=== PATIENT | female | born 1935 | race Caucasian/White ===

== ENCOUNTER 2017-02-25 09:49 | Emergency (ER) | payer MEDICARE ==
[2017-02-25] MEDS ORDERED: Cephalexin 500 MG CAP ONE (10:42)
--- NOTE | 2017-02-25 10:52 | RAD ---
3 VIEWS RIGHT INDEX FINGER: Date: 02/25/17 INDICATION: Painful, swollen right index finger. COMPARISON: None. FINDINGS: There are well-formed soft tissue calcifications seen volar to the right index finger distal phalanx , DIP joint, and distal middle phalanx, consistent with periarticular soft tissue calcifications. No acute fracture is evident. There is soft tissue swelling of the distal aspect of the right index fi nger. IMPRESSION: 1. Periarticular soft tissue calcifications of the right index finger is nonspecific and can be rel ated to foreign body reaction, gout, connective tissue disorder, or prior soft tissue injury. 2. No acute fracture demonstrated. POS: [facility]
--- OUTSIDE RECORDS SUMMARY | 2017-02-27 04:30 | XMS | Clinical Summary ---
:1935 Author Organization [facility] Address [address] [place] [address] Phone Care Team Providers Name Role Phone , Primary Care Provider Unavailable Allergies Not on File Current Medications Not on file Active Problems Not on file Social History Tobacco Use Types Packs/Day Years Used Date Never Assessed Sex Assigned at Date Recorded Not on file Last Filed Vital Signs Not on file Plan of Treatment Not on file Results Not on filefrom Last 3 Months
== END 2017-02-25 10:55 | disposition home or self-care (01) ==
LOC: SCSER 09:49
DX: L03.011 Cellulitis of right finger (principal); M61.9 Calcification and ossification of muscle, unspecified; I25.10 Atherosclerotic heart disease of native coronary artery without angina pectoris; E78.5 Hyperlipidemia, unspecified; I10 Essential (primary) hypertension

== ENCOUNTER 2017-03-24 12:35 | Outpatient (CLI) | payer MEDICARE ==
[2017-03-24 14:04] LABS: Prothrombin Time 26.1 SEC (12.0-14.7)
[2017-03-24 14:14] LABS: Anion Gap 13 mmol/L (10-20); BUN (Urea Nitrogen) 17 mg/dL (9.8-20.1); Calc. Creatinine Clearance 0 mL/min (70-130); Calcium 8.8 mg/dL (7.8-10.44); Carbon Dioxide 27 mmol/L (23-31); Chloride 103 mmol/L (98-107); Estimated GFR-MDRD 76
--- NOTE | 2017-03-24 14:36 | RAD ---
CHEST PA AND LATERAL TWO VIEWS: History: 74-year-old female with pre-operative evaluation. FINDINGS: Post underlying sternotomy and aortic valvular replacement changes. Atherosclerosis of the aorta with ectasia. Old granulomatous disease. Mild cardiomegaly. Old appearing vertical height loss of one of the lower thoracic vertebral bodies approximately T12. No confluent pneumonia, overt edema, or pleura l effusion. Biapical pleural thickening. IMPRESSION: Stable chronic lung changes. No acute intrathoracic disease. Post underlying sternotomy and aortic va lve replacement. Atherosclerosis of the aorta with ectasia. POS: [facility]
[2017-03-24 15:36] LABS: Bilirubin Negative (Negative); Blood, Urine Negative (Negative); Glucose, Urine (Dipstick) Negative (Negative); Ketone, Urine Negative (Negative); Nitrite Negative (Negative); Protein, Urine (Dipstick) Negative (Neg-Trace); Urobilinogen 0.2 mg/dL (0.2-1.0)
[2017-03-24 15:40] LABS: Bacteria/HPF None Seen HPF (None Seen); Hyaline Casts/LPF 0-3 HYALINE CAST LPF (0-3 Hyaline); RBC/HPF 0-3 HPF (0-3); Squamous Epithelial None Seen HPF (0-3); WBC/HPF None Seen HPF (0-3)
== END 2017-03-24 12:36 | disposition home or self-care (01) ==
LOC: LABBT 12:35
PROVIDERS: ATTEND Orthopaedic Surgery Hand Surgery
DX: Z01.818 Encounter for other preprocedural examination (principal); E83.59 Other disorders of calcium metabolism; I70.0 Atherosclerosis of aorta; I77.819 Aortic ectasia, unspecified site; Z88.5 Allergy status to narcotic agent; Z98.890 Other specified postprocedural states; Z95.2 Presence of prosthetic heart valve
CPT/HCPCS: 71020; 80048; 81001; 85610; 93005; 93010

== ENCOUNTER 2017-04-08 06:44 | Day surgery (SDC) | payer MEDICARE ==
[2017-03-24 12:02] VITALS: BMI 23.9
[2017-04-08] MEDS ORDERED: CEFAZOLIN/Water 2 GM/20 ML SYRINGE ONE (07:18)
[2017-04-08 07:47] LABS: PTT 27.8 SEC (22.9-36.1); Prothrombin Time 15.2 SEC (12.0-14.7)
[2017-04-08] MEDS ORDERED: Fentanyl 100 MCG/2 ML VIAL ONE (08:28)
[2017-04-08] MEDS ORDERED: Dexamethasone 20 MG/5 ML VIAL ONE (08:33)
[2017-04-08] MEDS ORDERED: Bupivacaine PF 0.5% 30 ML VIAL ONE (08:33)
[2017-04-08] MEDS ORDERED: Bacitracin Zinc Ointment 30 gm TUBE ONE (08:33)
[2017-04-08] MEDS ORDERED: Betamet Acet/Betamet Na Ph 30 MG/5 ML VIAL ONE (09:15)
[2017-04-08] MEDS ORDERED: Sodium Chloride 0.9% 10 ML ONE (09:15)
--- NOTE | 2017-04-08 11:28 | RAD ---
TWO VIEWS RIGHT INDEX FINGER: Date: 04-08-17 Comparison: 02-25-17 History: Evaluate right index finger following removal of foreign body. FINDINGS: There is no acute fracture or evidence of dislocation seen. There is post-operative gas anterior to t he right second middle phalanx, distal interphalangeal joint, and proximal interphalangeal joint. The lobulated calcific mass along the volar aspect of the index finger in this region has been removed. IMPRESSION: Interval removal of calcified lobulated soft tissue mass as above. POS: [facility]
--- NOTE | 2017-04-08 14:36 | OP ---
DATE OF PROCEDURE: 04/08/2017 PREOPERATIVE DIAGNOSIS: Tumor calcinosis right index finger, distal phalanx, middle finger. POSTOPERATIVE DIAGNOSIS: Tumor calcinosis right index finger, distal phalanx, middle finger with the mass being found to be 4 cm long, 2 cm wide, 15 mm thick involving the entire distal phalanx kishore sing the ulnar branch of digital nerve and then extending approximately 1 cm proximal to the distal i nterphalangeal joint involving the tendon sheath as well. PROCEDURE PERFORMED: 1. Excisional biopsy mass as described above. 2. Neuroplasty ulnar digital nerve under magnification. 3. Tenosynovectomy flexor digitorum profundus tendon, radical flexor tenosynovectomy. TOURNIQUET TIME: 27 minutes. BLOOD LOSS: 10 mL. SPECIMEN SENT: The mass was sent. Celestone injection to digit before procedure. COMPLICATIONS: None. Other final digital nerve area compressed all three branches at the trifurcati on just proximal and distal to interphalangeal joint. SURGEON: Mo Vásquez M.D. ANESTHESIA: General LMA technique augmented by 12 mL 0.5% Marcaine block, French Anesthesia. DESCRIPTION OF PROCEDURE: After successful general endotracheal anesthesia, a timeout done appropria desiree. French Anesthesia performed intubation, injection was given and the patient had been prepped and draped. Limb was exsanguinated, tourniquet inflated to 250 mmHg pressure. A zigzag incision outlined staying off of the center of the , extending from the distal third of the nail on the ulnar side, crossing in a Edin type fashion and it ended just 1 cm proximal to the PIP joint. We performed a proximal dissection, identified the digital nerve branch and followed it until it got to the trifurcation which was very compressed and it was completely encased in the tumor . We had to then dissect out all 3 branches and one branch was so intimate with the tumor that we st ill left a small amount of the calcium deposit around it to preserve that branch. We then, kimberly g the neuroplasty digital nerve on the ulnar branch. I dissected the tumor free and found it was adriana y adherent to the distal portion of the flexor digitorum profundus on both sides of the flexor tendon s the distal A4 jorge luis. We performed a radical flexor tenosynovectomy and it, and then lif eliazar out the mass, a small amount of fluid escaped. Proximal to the DIP joint there was a small amoun t of tissue calcification that was dissected free, did not have to visualize the other neurovascular bundle. The patient had the tourniquet deflated, the area was irrigated completely with 500 mL normal saline to remove all free calcium pieces and a portable x-ray was taken as well. I saw no calcific bodies o n frontal sagittal view. Once we obtained hemostasis, I placed the 4 mL of Celestone, some on the ne rve, some on the flexor tenosynovium bed and in the central wound. We then closed it with interrupte d 4-0 nylon simple pattern. Bulky dressing was applied. The patient left the operating room without complication.
[2017-04-08] MEDS ORDERED: Ondansetron HCl/PF 4 MG/2 ML Vial ONE (16:39)
[2017-04-08] MEDS ORDERED: Propofol 200 MG/20 ML VIAL ONE (16:39)
[2017-04-08] MEDS ORDERED: Hydrocortisone Sod Succ/PF 100 mg/2 ml Vial ONE (16:39)
[2017-04-08] MEDS ORDERED: Ketorolac Tromethamine 30 MG/ML VIAL ONE (16:39)
[2017-04-08] MEDS ORDERED: Lidocaine 1% PF 5 ML VIAL ONE (16:39)
== END 2017-04-08 12:32 | disposition home or self-care (01) ==
LOC: SDC 06:44
PROVIDERS: ATTEND Orthopaedic Surgery Hand Surgery
PROC: 0LT70ZZ Resection of Right Hand Tendon, Open Approach (ICD-10-PCS; principal; 2017-04-08)
DX: E83.59 Other disorders of calcium metabolism (principal); Z88.5 Allergy status to narcotic agent; Z90.710 Acquired absence of both cervix and uterus; Z95.2 Presence of prosthetic heart valve; Z95.5 Presence of coronary angioplasty implant and graft
CPT/HCPCS: 36415; 36416; 85610; 85730; 88305; A4216; J0702; J1100; J1720; J1885; J2001; J2405; J2704; J3010; J3490; S0020

== ENCOUNTER 2017-07-09 15:28 | Emergency (ER) | payer MEDICARE ==
[2017-07-09 16:19] LABS: INR-International Normal Ratio 2.6; Prothrombin Time 28.7 SEC (12.0-14.7)
--- NOTE | 2017-07-09 16:45 | CT ---
CT BRAIN WITHOUT CONTRAST 07/09/17 HISTORY: Trauma, head injury, fall. Trauma to the back of her head on a wall, headache. No loss of consciousne ss. No numbness, tingling or weakness, gait changes or altered mental status. Patient is on Warfarin. FINDINGS: There is cortical atrophy. Changes of mild chronic small vessel ischemic disease in the periventricul ar white matter. The ventricular size is appropriate and the basilar cisterns patent. No evidence of acute infarct, hemorrhage, midline shift or abnormal extra-axial fluid collections are seen. The bony calvarium is intact. The visualized paranasal sinuses and mastoid air cells are well aerated. There is a left posterior parietal scalp contusion. IMPRESSION: No CT evidence of acute intracranial process. POS: [facility]
== END 2017-07-09 16:42 | disposition home or self-care (01) ==
LOC: SCSER 15:28
DX: S00.83XA Contusion of other part of head, initial encounter (principal); I25.10 Atherosclerotic heart disease of native coronary artery without angina pectoris; E78.5 Hyperlipidemia, unspecified; I10 Essential (primary) hypertension; M19.90 Unspecified osteoarthritis, unspecified site; Z79.899 Other long term (current) drug therapy; Z79.82 Long term (current) use of aspirin; Z79.01 Long term (current) use of anticoagulants; W22.01XA Walked into wall, initial encounter
CPT/HCPCS: 70450; 85610

== ENCOUNTER 2017-07-16 15:37 | Emergency (ER) | payer MEDICARE ==
--- NOTE | 2017-07-16 16:55 | RAD ---
LUMBAR SPINE THREE VIEWS: 07/16/17 HISTORY: Low back pain. FINDINGS: There are five lumbar type vertebrae. Pedicles are intact. Rightward convexed curvature is apparent o n the frontal view. Wedging of the T12 vertebral body results in loss of height anteriorly by approxi mately 10%. Prominent end plate sclerosis. Multilevel osteophytosis. Minimal degenerative spondylolis thesis is present at the L4-5 level. There is prominent calcification in the arterial structures. IMPRESSION: 1. Mild compression L1 vertebral body, age indeterminate. Likely chronic. 2. Lumbar spondylosis. 3. Osteoporosis. 4. Atherosclerosis. POS: [facility]
--- NOTE | 2017-07-16 16:56 | RAD ---
AP PELVIS ONE VIEW: 07/16/17 HISTORY: Fall. Pelvic injury. FINDINGS: Sacral ala and pelvic rings are intact. No displaced fractures are apparent. IMPRESSION: No acute osseous abnormalities are demonstrated. POS: [facility]
== END 2017-07-16 17:25 | disposition home or self-care (01) ==
LOC: SCSER 15:37
DX: S33.5XXA Sprain of ligaments of lumbar spine, initial encounter (principal); M19.90 Unspecified osteoarthritis, unspecified site; E78.5 Hyperlipidemia, unspecified; I10 Essential (primary) hypertension; Z79.01 Long term (current) use of anticoagulants; Z79.899 Other long term (current) drug therapy; Z79.82 Long term (current) use of aspirin; W19.XXXA Unspecified fall, initial encounter
CPT/HCPCS: 72100; 72170

== ENCOUNTER 2018-01-26 10:04 | Outpatient (CLI) | payer MEDICARE | END 2018-01-26 10:05 | disposition home or self-care (01) | LOC: BICMAMMO 10:04 | PROVIDERS: ATTEND Internal Medicine | DX: Z12.31 Encounter for screening mammogram for malignant neoplasm of breast (principal); Z80.3 Family history of malignant neoplasm of breast | CPT/HCPCS: 77063; 77067 ==

== ENCOUNTER 2018-03-09 09:56 | Outpatient (CLI) | payer MEDICARE ==
--- NOTE | 2018-03-09 12:27 | BD ---
DEXA BONE DENSITY EXAM: HISTORY: An 82-year-old postmenopausal female for screening. COMPARISON: None. FINDINGS: Lumbar Spine: BMD (g/cm2) L1 1.129 T-Score: 1.3 L2 1.130 T-Score: 0.9 L3 1.245 T-Score: 1.5 L4 1.470 T-Score: 3.7 L1-L4 1.257 T-Score: 1.9 Femoral Neck: 0.722 T-Score:-1.1 Total Femur: 0.891 T-Score:-0.4 Impression: Osteopenia. The patient has a 10-year WHO fracture risk of a major osteoporotic fracture of 15% and of a hip fracture 3.9%. POS: [facility]
== END 2018-03-09 09:57 | disposition home or self-care (01) ==
LOC: BICMAMMO 09:56
PROVIDERS: ATTEND Internal Medicine Rheumatology
DX: M81.0 Age-related osteoporosis without current pathological fracture (principal); M85.859 Other specified disorders of bone density and structure, unspecified thigh
CPT/HCPCS: 77080

== ENCOUNTER 2018-05-26 13:34 | Inpatient (IN) | payer MEDICARE ==
[2018-05-26 14:03] LABS: #Eosinphils 0.1 thou/uL (0.0-0.7); #Lymphocytes 0.6 thou/uL (1.20-3.40); #Monocytes 0.5 thou/uL (0.11-0.59); #Neutrophils 4.8 thou/uL (1.40-6.50); %Basophils 0.1 % (0.0-1.0); %Eosinophils 1.5 % (0.0-10.0); %Lymphocytes 10.3 % (21.0-51.0); %Monocytes 8.8 % (0.0-10.0); %Neutrophils 79.3 % (42.0-75.0); Hemoglobin 10.5 g/dL (12.0-16.0); Mean Corpuscular HGB CONC 33.2 g/dL (32.0-36.0); Mean Corpuscular Hemoglobin 32.8 pg (27.0-31.0); Mean Corpuscular Volume 98.7 fL (78.0-98.0); Mean Platelet Volume 8.3 fL (7.4-10.4); Platelet Count 104 thou/uL (130-400); RBC Distribution Width 13.1 % (11.5-14.5); Red Blood Cell (RBC) Count 3.21 mill/uL (4.20-5.40); White Blood Cell (WBC) Count 6.1 thou/uL (4.8-10.8)
[2018-05-26 14:04] LABS: INR-International Normal Ratio 1.6; PTT 34.3 SEC (22.9-36.1); Prothrombin Time 19.5 SEC (12.0-14.7)
[2018-05-26 14:18] LABS: ALT (SGPT) 15 U/L (8-55); AST (SGOT) 21 U/L (5-34); Alkaline Phosphatase 45 U/L (40-150); Anion Gap 16 mmol/L (10-20); BUN (Urea Nitrogen) 21 mg/dL (9.8-20.1); Bilirubin, Total 0.8 mg/dL (0.2-1.2); Calc. Creatinine Clearance 0 mL/min (70-130); Calcium 9.7 mg/dL (7.8-10.44); Carbon Dioxide 29 mmol/L (23-31); Chloride 101 mmol/L (98-107); Estimated GFR-MDRD 62; Globulin 3.3 g/dL (2.4-3.5); Glucose 90 mg/dL (83-110); Potassium 3.6 mmol/L (3.5-5.1); Protein, Total 7.3 g/dL (6.0-8.3); Sodium 142 mmol/L (136-145)
[2018-05-26 15:55] LABS: CK (CPK) 50 U/L (29-168); Lipase 18 U/L (8-78)
--- NOTE | 2018-05-26 17:09 | RAD ---
PORTABLE CHEST ONE VIEW: 05/26/18 at 3:06 p.m. HISTORY: Rectal bleeding. Preoperative evaluation. FINDINGS: Comparison is made with exam of 03/24/17. There are changes of median sternotomy. The heart is enlarged. Postop changes of aortic valve replace ment is seen. The lungs are well expanded without focal areas of consolidation, pneumothoraces, lola pulmonary edema or pleural effusions. There is evidence of old granulomatous disease. IMPRESSION: No acute process. POS: [facility]
[2018-05-26] MEDS ORDERED: Senokot S 8.6-50 MG TAB PO PRN (17:42)
[2018-05-26] MEDS ORDERED: Ondansetron ODT 4 MG TAB PO PRN (17:42)
[2018-05-26] MEDS ORDERED: Acetaminophen 650 MG Suppository PR PRN (17:42)
[2018-05-26] MEDS ORDERED: Ondansetron PF 4 MG/2 ML Vial IVP PRN (17:42)
[2018-05-26] MEDS ORDERED: Alendronate Sodium 70 mg Tablet PO SCH (21:30)
[2018-05-26] MEDS: Famotidine 20 MG TAB PO SCH (23:42)
[2018-05-26 23:48] VITALS: BMI 23.6
[2018-05-26] MEDS ORDERED: Rosuvastatin 20 MG TAB PO SCH (23:59)
[2018-05-26] MEDS ORDERED: Ezetimibe 10 MG TAB PO SCH (23:59)
--- NOTE | 2018-05-27 00:16 | HP ---
PRIMARY CARE PHYSICIAN: Sony Gomes MD CHIEF COMPLAINT: Rectal bleeding. HISTORY OF PRESENT ILLNESS: This is an 82-year-old white female with a known history of rectal prolapse who was supposed to get a colonoscopy and then rectal prolapse surgery done next week. She is on anticoagulation, previously Coumadin for paroxysmal atrial fibrillation, last in atrial fibrillation about a year ago when she had a cardioversion. She had some rectal spotting of blood on and off over the last month and then 3 days ago, she was switched from Coumadin to Eliquis. She started to have more significant rectal bleeding, dark red and bright red blood and then clots. This increased over the last 3 days and today she filled up a couple of pads with clots and blood, and so she came into the emergency room. She also had noticed that she starting to feel lightheaded and dizzy, especially when she is to stand up in the emergency room. The patient was noted to have a normal blood pressure and normal pulse. She had bright red blood coming from her rectum. Dr. Almaraz was consulted. He recommended stopping the Eliquis and will see her in the hospital. PAST MEDICAL HISTORY: 1. Coronary artery disease, status post CABG. 2. Paroxysmal atrial fibrillation/atrial flutter, now in sinus rhythm. 3. Hyperlipidemia. 4. Rheumatoid arthritis. 5. Raynaud syndrome. 6. Hypertension. PAST SURGICAL HISTORY: 1. Coronary artery bypass grafting x3 vessels. 2. Coronary stent. 3. Aortic valve replacement with bioprosthetic valve in 2009. 4. Hysterectomy. 5. Tonsillectomy. 6. Varicose vein surgery. 7. Bunion removal x2. SOCIAL HISTORY: The patient drinks a small amount of alcohol daily. No tobacco or illicit drug use. FAMILY HISTORY: No pertinent family medical history. ALLERGIES: 1. CODEINE. 2. MORPHINE OR NARCOTICS. CURRENT MEDICATIONS: The patient did not remember all her current medications. Her is going home to find the updated list. As per the ER chart, she has 1. Eliquis 5 mg daily. 2. Aspirin 81 mg daily. 3. Crestor 10 mg daily. 4. Zetia 10 mg daily. 5. Fosamax 35 mg. 6. Torsemide 10 mg, unknown dosing. REVIEW OF SYSTEMS: CONSTITUTIONAL: No fevers, no chills. She has felt lightheaded and weak, especially with standing. EYES: No new blurred vision or double vision. ENT: No congestion, drainage, or sore throat. The patient has had some intermittent nosebleeds on and off for the past couple of days, these have not been sustained. CARDIOVASCULAR: She has had no anterior chest pain. No palpitations or racing heart. PULMONARY: She has a rare cough that is not new, nonproductive. No shortness of breath or chest tightness. She does have some significant pain in her left posterior rib cage about 2 cm lateral to the spine since a fall a few days ago and that it is painful when she coughs, does not bother her. It is when she takes deep breaths. GASTROINTESTINAL: No abdominal pain. No nausea or vomiting. No diarrhea or constipation. She does have bright red blood per rectum as per HPI and painful rectal prolapse. GENITOURINARY: No dysuria or hematuria. MUSCULOSKELETAL: No muscle aches or joint pains other than the right posterior rib pain. SKIN: No rashes or lesions noted. NEUROLOGIC: No numbness, tingling, or focal weakness. PHYSICAL EXAMINATION: VITAL SIGNS: Blood pressure 143/77, pulse 74, respirations 18, temperature 99, O2 saturation 97% on room air. GENERAL: This is a well-developed, well-nourished white female, in no acute distress. HEENT: Pupils are equal, round, and reactive to light. Palpebral conjunctiva pink. Oropharynx, clear without lesions, erythema, or exudate. NECK: Supple. No lymphadenopathy. No thyroid nodules or enlargement. No JVD. HEART: Regular rate and rhythm. No murmurs, rubs, or gallops. LUNGS: Clear to auscultation bilaterally. No wheezes, crackles, or rhonchi. She does have some point tenderness at posterior left rib cage. This reproduces all pain when I press on it and there is no deformity or bruising noted. ABDOMEN: Soft, nontender to palpation. Normoactive bowel sounds. No hepatosplenomegaly or other masses. EXTREMITIES: No clubbing, cyanosis, or edema. SKIN: No rashes or other lesions noted. NEUROLOGIC: Intact strength and sensation in all extremities. No facial droop. LABORATORY DATA: White blood cell count 6.1, hemoglobin 10.5, which is consistent with her previous checks this past year of 10.9, hematocrit 31.7, platelet count 104, which is actually per her last check in 2018 was 55. Coagulation profile shows a PT of 19.5, INR of 1.6, and a PTT of 34.3. Complete metabolic panel is notable only for BUN of 21. Her brain natriuretic peptide is elevated at 329. Creatine kinase normal, lipase normal. IMAGING: Chest x-ray, I did review the chest x-ray done in the emergency room along with the radiologist's report. There is no acute cardiopulmonary process visualized, has the previous sternotomy wires and aortic valve replacement. There is evidence of old granulomatous disease as well. EKG, I did review the EKG done in the emergency room. It does show sinus rhythm in the 60s with a first-degree AV block, left axis deviation, and some PACs. ASSESSMENT: 1. Lower gastrointestinal bleed, likely secondary to addition of Eliquis and the irritation of the mucosa by the rectal prolapse. It is also possible this is diverticular or from some other lower gastrointestinal lesion. For now, we will type and cross the patient and we will do serial hematocrits on her. Should she if her hematocrits are dropping. It should drop significantly then we can only transfuse her. I am going to get orthostatic blood pressures on her to see if there is any evidence of recent significant blood loss. Dr. Almaraz has already been consulted by the emergency room and will evaluate the patient to see if she needs any surgical intervention. 2. Coronary artery disease. We will resume patient's home medications. We will hold her aspirin for now until the bleeding stops. 3. Paroxysmal atrial fibrillation. The patient is not currently in atrial fibrillation and on previous TEEs they were unable to appreciate an atrial appendage, never had a clot form in her atria. At this point, we can hold her Eliquis. She will likely need reinstitution of anticoagulation possibly back with Coumadin after the resolution of this acute process versus discontinuing anticoagulation altogether. I will go ahead and consult the bird tender to evaluate whether it is necessary for us to continue anticoagulation at all. 4. Thrombocytopenia. This has actually been significantly worse over the past year. It is actually not bad right now. She is not requiring platelet transfusions at this point. 5. Hypertension. Resume the patient's home medications. 6. Gastrointestinal prophylaxis. I will put the patient on Protonix daily. I am not going to do a Protonix drip at this time as this does not appear to be an upper GI bleed. 7. Deep venous thrombosis prophylaxis, put the patient on SCDs while in bed. 8. Code status. I did discuss this with the patient. She is a full code. Should she be incapacitated, her would be her medical decision maker. His name is Burke Mathews. Job ID: [id number]
[2018-05-27 07:19] LABS: #Eosinphils 0.1 thou/uL (0.0-0.7); #Lymphocytes 0.8 thou/uL (1.20-3.40); #Monocytes 0.4 thou/uL (0.11-0.59); #Neutrophils 2.5 thou/uL (1.40-6.50); %Eosinophils 2.3 % (0.0-10.0); %Lymphocytes 21.2 % (21.0-51.0); %Monocytes 10.6 % (0.0-10.0); %Neutrophils 65.9 % (42.0-75.0); Hemoglobin 9.6 g/dL (12.0-16.0); Mean Corpuscular HGB CONC 32.6 g/dL (32.0-36.0); Mean Corpuscular Hemoglobin 32.3 pg (27.0-31.0); Mean Corpuscular Volume 99.2 fL (78.0-98.0); Mean Platelet Volume 8.7 fL (7.4-10.4); Platelet Count 89 thou/uL (130-400); Red Blood Cell (RBC) Count 2.98 mill/uL (4.20-5.40); White Blood Cell (WBC) Count 3.8 thou/uL (4.8-10.8)
[2018-05-27 07:30] LABS: Anion Gap 11 mmol/L (10-20); BUN (Urea Nitrogen) 20 mg/dL (9.8-20.1); Calc. Creatinine Clearance 59 mL/min (70-130); Calcium 8.7 mg/dL (7.8-10.44); Carbon Dioxide 27 mmol/L (23-31); Chloride 106 mmol/L (98-107); Estimated GFR-MDRD 75; Glucose 86 mg/dL (83-110); Potassium 3.1 mmol/L (3.5-5.1); Sodium 141 mmol/L (136-145)
[2018-05-27] MEDS ORDERED: Potassium Chloride 20 MEQ TAB PO SCH (08:15)
--- NOTE | 2018-05-27 08:15 | PDOC.PN ---
- Subjective Encounter Start Date: 05/27/18 Encounter Start Time: 10:20 Subjective: Patient with no more rectal bleeding overnight. No more weakness/ -: dizziness on standing. No CP/SOB. - Objective Resuscitation Status - Order Detail: 05/26/18 17:08 Resuscitation Status Routine Resuscitation Status: FULL: Full Resuscitation Discussed with: Patient EKTA Reviewed: Yes Vital Signs & Weight: Vital Signs (12 hours) Temp Pulse Resp BP BP BP Pulse Ox 05/27/18 05:47 88 129/64 05/27/18 05:46 88 134/69 05/27/18 05:45 98.3 F 84 16 124/61 05/27/18 02:26 82 130/64 05/27/18 02:25 81 122/66 05/27/18 02:24 78 116/58 L 05/27/18 00:10 98.6 F 78 16 118/60 94 L Weight Weight 142 lb Result Diagrams: 05/27/18 12:11 05/27/18 06:32 Phys Exam - Physical Examination Constitutional: NAD HEENT: moist MMs Respiratory: no wheezing, no rales, no rhonchi Cardiovascular: RRR, no significant murmur Gastrointestinal: soft Musculoskeletal: no edema Neurological: non-focal, moves all 4 limbs Psychiatric: normal affect, A&O x 3 Dx/Plan (1) Rectal prolapse Code(s): K62.3 - RECTAL PROLAPSE Status: Acute (2) Lower GI bleed Code(s): K92.2 - GASTROINTESTINAL HEMORRHAGE, UNSPECIFIED Status: Resolved Comment: minimal drop in H/H (3) CAD (coronary artery disease) Code(s): I25.10 - ATHSCL HEART DISEASE OF [place] CORONARY ARTERY W/O ANG PCTRS Status: Chronic Comment: s/p previous CABG (4) Paroxysmal atrial fibrillation Code(s): I48.0 - PAROXYSMAL ATRIAL FIBRILLATION Status: Chronic Comment: in sinus rhythm, holding anticoagulation for now, cardiology consult for possible halt of future anticoagulation (5) Thrombocytopenia Code(s): D69.6 - THROMBOCYTOPENIA, UNSPECIFIED Status: Chronic (6) Hypertension Code(s): I10 - ESSENTIAL (PRIMARY) HYPERTENSION Status: Chronic Comment: will resume home medications when BP tolerates, currently running low normal (7) Hyperlipidemia Code(s): E78.5 - HYPERLIPIDEMIA, UNSPECIFIED Status: Chronic Comment: on statin (8) Rheumatoid arthritis Code(s): M06.9 - RHEUMATOID ARTHRITIS, UNSPECIFIED Status: Chronic - Plan cont current plan of care, PT/OT, DVT proph w/SCDs No further bleeding with holding Elliquis. H/H stable. Will await -: Chun toth concerning safety of no anticoagulation. If ok to go -: with no anticoag or with just aspirin, can likely d/c. F/u for previously -: scheduled colonoscopy next Friday and Rectal surgery next Friday. * . - Discharge Day Encounter end time: 10:30
[2018-05-27] MEDS ORDERED: Ezetimibe 10 MG TAB PO SCH ×2 (09:00→21:00)
[2018-05-27] MEDS: Cyanocobalamin (Vitamin B-12) 1,000 MCG TAB PO SCH (09:25)
[2018-05-27] MEDS: Acetaminophen 325 MG TAB PO PRN ×3 (09:28→19:43)
[2018-05-27] MEDS: Folic Acid 1 MG TAB PO SCH (09:29)
[2018-05-27] MEDS: predniSONE 5 MG TAB PO SCH (09:29)
[2018-05-27] MEDS: Famotidine 20 MG TAB PO SCH ×2 (09:29→21:12)
[2018-05-27] MEDS: Ascorbic Acid 500 mg Chewable Tablet PO SCH (09:29)
[2018-05-27] MEDS: DULoxetine 60 MG CAP PO SCH (09:30)
[2018-05-27] MEDS: Vitamin E 400 UNITS CAP PO SCH (09:31)
[2018-05-27] MEDS: Pantoprazole 40 MG VIAL IVP SCH (09:31)
[2018-05-27] MEDS: Citrucel 500 MG TAB PO SCH (09:32)
[2018-05-27] MEDS: Folic Acid/Vit B Comp W-C PO SCH (09:32)
[2018-05-27] MEDS: Fish Oil 1,000 MG CAP PO SCH (09:32)
--- NOTE | 2018-05-27 16:41 | CON ---
DATE OF CONSULTATION: 05/27/2018 CONSULTING PHYSICIAN: Dr. Sreedhar Rogers. REASON FOR CONSULTATION: Rectal prolapse. HISTORY OF PRESENT ILLNESS: The patient is an 82-year-old white female. I saw her on June 23 for evaluation of a possible hemorrhoid. She gave a history of mass at her anus that would occur when she would stand. Evaluation at that time revealed that she had a significant full-thickness rectal prolapse. She had no dominant palpable irregularity within her rectum. She had very lax anal sphincter tone. She also gave a history of significant fecal incontinence. At that time, a cardiac clearance was requested for graduating machine operator, Dr. Mccollum. She has a history of heart valve replacement in 2009. She is on chronic anticoagulation for this. Additionally, I had requested a followup colonoscopy as it has been over 10 years since her last colonoscopy. This was going to be coordinated with her diecast machine operator, Dr. Perry, to be done the day prior to her surgery. Her laparoscopic low anterior resection was tentatively scheduled for this upcoming June 02. She still has not had her preop cardiac clearance. Apparently, yesterday, when conversing with the graduating machine operator's office, she notified them that she had been having substantial bloody bowel movements. For this reason, recommendation was given that she be seen in emergency room. She gave a history of approximately four bloody bowel movements over the prior 24 hours and in light of her ongoing anticoagulation, admission was recommended. She was admitted to the hospitalist service. Her hemoglobin at the time of admission yesterday was 10.5. After gentle hydration, her hemoglobin this morning is 9.6. She notes that she does not have rectal prolapse unless she stands and she notes that she typically has bleeding after bowel movements, although occasionally, she will have bleeding when she has not had a bowel movement. It is noted that she has recently switched from Coumadin to Eliquis for her anticoagulant. She denies any other symptoms such as abdominal or rectal pain. It is noted that she gave no history of blood per rectum when I saw her in the office in April. PAST MEDICAL HISTORY: History of atrial fibrillation, arthritis, varicose veins, depression, and hyperlipidemia. PAST SURGICAL HISTORY: Tonsillectomy, varicose vein surgery, hysterectomy at 39 years of age, heart valve replacement in 2009. I am uncertain if her heart valve was a tissue valve or a mechanical valve. ALLERGIES: CODEINE. MEDICATIONS: Include; 1. Crestor. 2. Zetia. 3. Aspirin. 4. Fosamax. 5. Cymbalta. 6. Prednisone. 7. Orencia. 8. Lexapro. 9. Torsemide. 10. Series of [id number] supplements. PERSONAL AND SOCIAL HISTORY: She is . She denies tobacco or alcohol use. REVIEW OF SYSTEMS: Otherwise unremarkable. FAMILY HISTORY: Noncontributory. PHYSICAL EXAMINATION: VITAL SIGNS: She is afebrile. Pulse is 76 and blood pressure is 138/65. During her hospitalization, so far, she has not been tachycardic nor hypotensive. CHEST: Clear to auscultation. CARDIAC: Regular rate and rhythm. ABDOMEN: Soft, nontender, and nondistended. RECTAL: Reveals a lax sphincter tone with no palpable abnormality. EXTREMITIES: Unremarkable. ASSESSMENT: The patient with full-thickness rectal prolapse that is very uncomfortable for the patient as well as contributory toward her severe incontinence. I have recommended laparoscopic low anterior resection with a sacral rectopexy. I discussed the operation in detail with the patient and she desires to proceed. Prior to proceeding, I had recommended colonoscopy as well as cardiac clearance. Neither of these have been performed yet. I have consulted Dr. Dominguez today to consider colonoscopy while she is here in the hospital. Typically, the patients with rectal prolapse do not have rectal bleeding, but there could be an abnormality associated with her prolapse that is bleeding secondary to her anticoagulation. This will need to be evaluated and a colonoscopy will be requested during this hospitalization. Additionally, I have contacted Dr. Mccollum to see what we can do about facilitating her cardiac clearance to make sure that she is an appropriate candidate, who does not require further modification prior to proceeding with her surgery. Depending upon these two consultants, she may be able to be discharged and brought back for surgery on Friday (June 02). Job ID: [id number]
[2018-05-27] MEDS ORDERED: Rosuvastatin 20 MG TAB PO SCH (21:00)
--- NOTE | 2018-05-27 22:12 | CON ---
DATE OF CONSULTATION: REASON FOR CONSULT: Rectal bleeding. HISTORY OF PRESENT ILLNESS: Ms. Mathews is an 82-year-old patient of Dr. Padilla, my partner, who has recently been seen in the office for fecal incontinence. It seems that she was referred to Colorectal Surgery in [place], had some studies done showing complete fecal incontinence and she was getting some biofeedback treatment. Recently, there were issues with rectal prolapse. It seems that Dr. Almaraz is unclear where that referral originated from, but she was scheduled in any event as an outpatient to have a colonoscopy next Friday and then a resection of the prolapsing tissue and sigmoidopexy the following Friday. The patient had a fall about a week or two ago when trying to go to the bathroom. She does note that since that time she has gotten shortness of breath, but has no chest pain. She denies any previous episodes of syncope. She came to the emergency room yesterday afternoon at 1616 hours with complaints of rectal bleeding and bright red painless. Apparently, she has a history of aortic valve replacement in the past. She has seen Dr. Mccollum last week, was taken off Coumadin and put on Eliquis. There were plans for outpatient stress testing and echocardiogram before clearance for surgery. Her bleeding prompted her to feel weak and come to the emergency room. Her hemoglobin was 10.5 on 05/26; it had been 10.9 on 2017, today it is 9.6. She has had no further bleeding since admission. Her Eliquis was held yesterday. Presently, she had an echocardiogram this morning, the results that are pending. She is waiting for Dr. Mccollum, her lead mobile developer to come by and see her. She was apparently on a clear liquid diet earlier today, but now is on a regular diet. Presently, she has no melena, hematochezia, or hematemesis. Medications are Tylenol, vitamin C, calciferol, vitamin B, Cymbalta, Zetia, Pepcid, fish oil, Zofran, Protonix, prednisone, Crestor, Senokot, vitamin E. PAST MEDICAL HISTORY: 1. Coronary artery disease, previous CABG. 2. Paroxysmal atrial fibrillation/flutter, now in sinus rhythm. 3. Hyperlipidemia. 4. Rheumatoid arthritis. 5. Nausea. 6. Hypertension. 7. Prior history of aortic valve replacement in 2009. PAST SURGICAL HISTORY: CABG, coronary valve replacement, coronary stents, hysterectomy, tonsillectomy, varicose vein surgery, bunionectomy. SOCIAL HISTORY: Occasional alcohol. No drugs or tobacco. ALLERGIES: CODEINE AND MORPHINE. HOME MEDICATIONS: 1. Eliquis. 2. Aspirin. 3. Crestor. 4. Zetia. 5. Flomax. 6. Torsemide. REVIEW OF SYSTEMS: Fall about a week or two ago when she was trying to go to the bathroom. No history of palpitations. No history of shortness of breath, dyspnea on exertion, or chest pain. No prior melena. Last colonoscopy was about 10 years ago. PHYSICAL EXAMINATION: VITAL SIGNS: Temperature 99.4, 98.6 earlier; blood pressure 149/75; pulse 77. NECK: Supple. LUNGS: Clear. HEART: Regular rate and rhythm. There is 2 to 3/6 systolic ejection murmur consistent with history of aortic stenosis or previous aortic valve placement. ABDOMEN: Soft, nontender. No palpable hepatosplenomegaly. Ribs are nontender. EXTREMITIES: No clubbing, cyanosis, or edema. NEURO: She is alert and oriented to person, place, and time. LABORATORY STUDIES: White count 3.8, platelet count 89,000, hemoglobin 9.6, baseline was 9.9 on 10/13/2017, it was 10.5 yesterday. INR was 1.6 on the . Electrolytes normal with BUN and creatinine of 20 and 0.7, potassium was 3.1 on admission, sodium 141. Liver function tests normal yesterday. BNP 329 on 05/26. Ferritin in December was 623, TIBC in January was 363, iron in January was 62. B12 was greater than 2000. Chest x-ray was done on admission, no acute processes. ASSESSMENT: 1. Rectal bleeding, likely outlet related to her prolapse, although she has not had a colonoscopy in 10 years and one was scheduled as an outpatient before her colonic surgery. I agree that this is going to be performed. She has no signs of acute hemorrhage here today. We can perform that while she is here in the hospital, although she is reluctant to proceed unless she knows she is going to get just one bowel prep with her colonoscopy followed by the colon surgery. At this time, I told her I am not sure we can promise her that, but that it would be reasonable to proceed with her colonoscopy while she is here. Unfortunately, she has a significant murmur on her chest and she states that the medical technologist hematology told her aortic valve is narrowing. In light of the fact that she may have some aortic stenosis. I think we need to see what her lead mobile developer has to say before proceeding with any invasive procedures. 2. 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 3. History of rectal prolapse. PLAN: We will await cardiac evaluation and proceed from there. Job ID: [id number]
--- NOTE | 2018-05-28 00:45 | CON ---
DATE OF CONSULTATION: HISTORY OF PRESENT ILLNESS: Rosaura Mathews is an 82-year-old white female, initially evaluated in February 2008 after she moved from [place] and wished further cardiac followup. In July 2006, she underwent cardiac catheterization in [place]. This revealed diffuse noncritical LAD disease, which was a small vessel. There was a 50% mid circumflex, 90% proximal RCA stenosis. She was also found to have minimal aortic stenosis with gradient as high as 31 mm on pullback. She underwent repeat catheterization and stent placement at [facility] on August 04, 2006. Repeat pullback pressure across the aortic valve was 5 mm. Taxus 2.5 x 8 mm stent was placed in the proximal right coronary artery and deployed at 12 atmospheres. In September 2007, she was having problems with fatigue and underwent repeat catheterization; however, I never was able to obtain a copy of that catheterization. When she was seen in February 2008, she complained of fatigue, some exertional dyspnea after walking one block. She denied any chest, arm, neck or jaw discomfort. Occasionally, she would have leg edema. She denied any lightheadedness, dizziness or syncope. Echo in February 2008 revealed ejection fraction of 50% to 55% with mild mitral regurgitation, hodzexxf-ii-srcrxf aortic regurgitation, hxdkcvvh-ry-yhaxgl aortic stenosis with a peak gradient of 51 mm, mean gradient of 30 mm, and moderate pulmonic insufficiency. In April 2008, she underwent adenosine Cardiolite testing because of the atypical resting chest discomfort. The test was normal without evidence of ischemia or fixed defect. Due to an LDL of 97, Crestor was increased to 10 mg. In August 2008, her LDL was 74 and Crestor was increased to 40 mg. Echo in December 2007 revealed an ejection fraction of 50% to 55% with mild mitral regurgitation, gziusagf-ru-kbcmkj aortic regurgitation, severe aortic stenosis with a peak gradient of 58 mm, mean gradient of 35 mm, fytnztnl-zz-prwzyt tricuspid regurgitation, moderate pulmonic regurgitation. She continued to be asymptomatic. In November 2009, she complained of dyspnea on exertion after walking 1/2 block, but no other chest discomfort or syncope. She also complained of varicose veins since the age of 23 with some pain in the right foot and wore compression stockings for 10 years. Lower extremity venous duplex revealed significant reflux in the right GSV from the saphenofemoral junction to below the knee, there was significant reflux. In her left leg, there was significant reflux of the left common femoral vein and the GSV from the saphenofemoral junction to below the knee. There was also a significant reflux in the left small saphenous vein. In December 2009, she again complained of dyspnea on exertion after walking 1/2 block, but denied any PND. She had episodes where she would feel like she would pass out when she would stand up. She then underwent catheterization in December 2009. Left ventriculogram revealed mild inferior and anterior hypokinesis with ejection fraction of 40% to 45% and mild mitral regurgitation. There was moderate aortic insufficiency. The mean aortic valve gradient was 55 mm and aortic valve area of 0.51 cm2. There was a proximal 60% LAD stenosis, 60% distal LAD stenosis and a 70% stenosis and a small second diagonal. The circumflex had 60% mid stenosis and 60% distal stenosis. There was a 50% lesion in the first obtuse marginal and 50% in the second obtuse marginal. The right coronary artery was totally occluded at the ostium. This was in site at the Taxus 2.5 x 12 mm stent placed in August 2006. The distal right coronary filled retrograde from the left. She then underwent aortic valve replacement with a 21-mm Dong Magna pericardial bioprosthesis and CABG x3 with GÓMEZ to the LAD, saphenous vein graft to the first obtuse marginal, and saphenous vein graft to the second obtuse marginal. She was slow to rehab. She also had postop atrial fibrillation and converted to sinus with amiodarone. In June 2015, she was found to be in atrial fibrillation. She was placed on Multaq and warfarin and eventually underwent transesophageal echo. This revealed the absence of left atrial appendage and no intracardiac thrombus. She was noted to have a regular rhythm and EKG revealed PAT with 2:1 block. She then had atrial fibrillation. With 200 joules, she was converted to sinus rhythm. However, in reviewing the operative report, there was no mention of tying off the left atrial appendage. Her atrial fibrillation occurred in October 2015. Also, at times, she had flutter and underwent flutter ablation in October 2016. She then underwent AFib ablation in January 2017. In June 2017, she was back in atrial fibrillation. In August 2017, she went another ablation, and since then, is appeared to be in normal sinus rhythm. She is maintained on warfarin; however, due to need for frequent blood checks, she opted to transition to Eliquis. Warfarin was held for four days and then she started Eliquis. After 1 or 2 doses, started to have rectal bleeding from her rectal prolapse. She has had bleeding from this previously. She denies any chest discomfort, shortness of breath, PND, orthopnea or leg edema. PAST MEDICAL HISTORY: 1. Hypercholesterolemia. 2. Paroxysmal atrial fibrillation with multiple ablations. 3. Status post CABG x3 and aortic valve replacement with a bioprosthetic valve. 4. History of bradycardia. 5. Hypercholesterolemia. 6. Venous insufficiency. PAST SURGICAL HISTORY: Tonsillectomy, hysterectomy, removal of varicose veins twice, bunionectomy, CABG, and aortic valve replacement. MEDICATIONS: At home include, 1. . 2. Fosamax 70 mg weekly. 3. Eliquis 5 mg b.i.d. 4. Aspirin 81 daily. 5. Biotin 5000 mcg daily. 6. Zetia 5 mg daily. 7. Folic acid 1 mg daily. 8. Potassium chloride 10 mEq daily. 9. Prednisone 5 mg q.a.m. 10. Rosuvastatin 40 mg daily. 11. Torsemide 10 mg daily. ALLERGIES: CODEINE, MORPHINE, AND NARCOTICS. SOCIAL HISTORY: She does not smoke. She has an occasional glass of wine. She is . 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 FAMILY HISTORY: Father had strokes, but did not have any cardiac problems. No family history of coronary artery disease. REVIEW OF SYSTEMS: A 12-point review of systems is otherwise unremarkable. PHYSICAL EXAMINATION: VITAL SIGNS: Blood pressure 104/56 and pulse of 68. HEENT: PERRL. NECK: Supple. CHEST: Clear. CARDIAC: S1 and S2 normal without any S3 or S4. There is a 2/6 systolic ejection murmur in the upper sternal border on both the left and right. ABDOMEN: Normal bowel sounds without tenderness or organomegaly. EXTREMITIES: No clubbing, cyanosis or edema. NEUROLOGICAL: Grossly intact. SKIN: Warm and dry. LABORATORY DATA: EKG reveals sinus rhythm with premature atrial beats and first-degree AV block, poor R-wave progression. Hemoglobin 9.6, hematocrit 29.5, white count 3800, and platelets 89,000. INR 1.6. Sodium 141, potassium 3.1, chloride 106, carbon dioxide 27, BUN 20, and creatinine 0.74. BNP 329.4. One month ago, LDL was 71. IMPRESSION: 1. Rectal prolapse with rectal bleed. 2. Status post coronary artery bypass disease x3 and bioprosthetic aortic valve replacement in 2009. 3. Paroxysmal atrial fibrillation with multiple ablation and cardioversions. At present time, she appears to be maintaining sinus rhythm. Last ablation was in August. 4. Hypercholesterolemia. 5. 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 PLAN: The patient will undergo echocardiography to reassess her aortic valve prosthesis and the left ventricular function. Adenosine Cardiolite testing will also be performed. At the present time, I would keep her off anticoagulation with this degree of bleeding until after her prolapse surgery has been performed. Job ID: [id number]
--- NOTE | 2018-05-28 08:22 | PDOC.PN ---
- Subjective Encounter Start Date: 05/28/18 Encounter Start Time: 12:00 Subjective: Patient without further bleeding. Just go back from stress test. -: No CP/SOB. - Objective Resuscitation Status - Order Detail: 05/26/18 17:08 Resuscitation Status Routine Resuscitation Status: FULL: Full Resuscitation Discussed with: Eugenio DASH Reviewed: Yes Vital Signs & Weight: Vital Signs (12 hours) Temp Pulse Resp BP BP BP BP 05/28/18 07:59 98.3 F 73 20 154/68 H 05/27/18 21:26 79 139/67 05/27/18 21:25 81 155/70 H 05/27/18 21:24 77 139/64 Pulse Ox 05/28/18 07:59 95 05/27/18 21:26 05/27/18 21:25 05/27/18 21:24 Weight Weight 142 lb Result Diagrams: 05/28/18 13:04 05/28/18 13:04 Phys Exam - Physical Examination Constitutional: NAD HEENT: moist MMs Respiratory: no wheezing, no rales, no rhonchi Cardiovascular: RRR 3/6 systolic murmur Gastrointestinal: soft, non-tender, positive bowel sounds Neurological: non-focal, moves all 4 limbs Psychiatric: normal affect, A&O x 3 Dx/Plan (1) Rectal prolapse Code(s): K62.3 - RECTAL PROLAPSE Status: Acute (2) Lower GI bleed Code(s): K92.2 - GASTROINTESTINAL HEMORRHAGE, UNSPECIFIED Status: Resolved Comment: minimal drop in H/H (3) CAD (coronary artery disease) Code(s): I25.10 - ATHSCL HEART DISEASE OF [place] CORONARY ARTERY W/O ANG PCTRS Status: Chronic Comment: s/p previous CABG (4) Paroxysmal atrial fibrillation Code(s): I48.0 - PAROXYSMAL ATRIAL FIBRILLATION Status: Chronic Comment: in sinus rhythm, holding anticoagulation for now, cardiology consult for possible halt of future anticoagulation (5) Thrombocytopenia Code(s): D69.6 - THROMBOCYTOPENIA, UNSPECIFIED Status: Chronic (6) Hypertension Code(s): I10 - ESSENTIAL (PRIMARY) HYPERTENSION Status: Chronic Comment: BP up and home meds restarted (7) Hyperlipidemia Code(s): E78.5 - HYPERLIPIDEMIA, UNSPECIFIED Status: Chronic Comment: on statin (8) Rheumatoid arthritis Code(s): M06.9 - RHEUMATOID ARTHRITIS, UNSPECIFIED Status: Chronic (9) S/P aortic valve replacement with bioprosthetic valve Code(s): Z95.3 - PRESENCE OF XENOGENIC HEART VALVE Status: Chronic Comment: in 2009 - Plan cont current plan of care, PT/OT, DVT proph w/SCDs ECHO and stress test per Dr. Mccollum. Once cleared for surgery will need -: colonoscopy and then rectal prolapse surgery. Plan is to keep original -: schedule for next week. Can d/c home once ok with Dr. Mccollum and -: other consultants. * . - Discharge Day Encounter end time: 12:10
[2018-05-28] MEDS: Acetaminophen 325 MG TAB PO PRN (12:16)
[2018-05-28] MEDS: predniSONE 5 MG TAB PO SCH (12:18)
--- NOTE | 2018-05-28 12:27 | NM ---
RADIONUCLIDE STRESS REST MYOCARDIAL PERFUSION WITH CT ATTENUATION CORRECTION AND SPECT IMAGING LEFT VENTRICULAR WALL MOTION EVALUATION AND EJECTION FRACTION: HISTORY: Vascular disease. Stent placement. Dyslipidemia. FINDINGS: Adenosine protocol. Homogeneous uptake of radiotracer throughout the left ventricular myocardium. N o focal perfusion defect or reversibility. QGS analysis of gated SPECT images shows no focal wall mo tion abnormalities. Ejection fraction calculated at 55%. IMPRESSION: Normal myocardial perfusion scan. Normal left ventricular ejection fraction. POS: JOEL
[2018-05-28] MEDS: Ascorbic Acid 500 mg Chewable Tablet PO SCH (12:41)
[2018-05-28] MEDS: Citrucel 500 MG TAB PO SCH (12:41)
[2018-05-28] MEDS: Folic Acid 1 MG TAB PO SCH (12:42)
[2018-05-28] MEDS: Cyanocobalamin (Vitamin B-12) 1,000 MCG TAB PO SCH (12:42)
[2018-05-28] MEDS: Fish Oil 1,000 MG CAP PO SCH (12:42)
[2018-05-28] MEDS: DULoxetine 60 MG CAP PO SCH (12:42)
[2018-05-28] MEDS: Folic Acid/Vit B Comp W-C PO SCH (12:42)
[2018-05-28] MEDS: Famotidine 20 MG TAB PO SCH (12:42)
[2018-05-28] MEDS: Pantoprazole 40 MG VIAL IVP SCH (12:43)
[2018-05-28] MEDS: Vitamin E 400 UNITS CAP PO SCH (12:43)
[2018-05-28 13:14] LABS: #Eosinphils 0.1 thou/uL (0.0-0.7); #Lymphocytes 0.8 thou/uL (1.20-3.40); #Monocytes 0.3 thou/uL (0.11-0.59); #Neutrophils 4.5 thou/uL (1.40-6.50); %Basophils 0.9 % (0.0-1.0); %Eosinophils 2.2 % (0.0-10.0); %Lymphocytes 13.2 % (21.0-51.0); %Monocytes 5.5 % (0.0-10.0); %Neutrophils 78.2 % (42.0-75.0); Hemoglobin 10.4 g/dL (12.0-16.0); Mean Corpuscular Hemoglobin 31.9 pg (27.0-31.0); Mean Corpuscular Volume 99.6 fL (78.0-98.0); Mean Platelet Volume 7.8 fL (7.4-10.4); Platelet Count 89 thou/uL (130-400); RBC Distribution Width 13.3 % (11.5-14.5); Red Blood Cell (RBC) Count 3.25 mill/uL (4.20-5.40); White Blood Cell (WBC) Count 5.8 thou/uL (4.8-10.8)
[2018-05-28 13:22] VITALS: BP 140/65; TEMP 98.5
[2018-05-28 13:32] LABS: Anion Gap 13 mmol/L (10-20); BUN (Urea Nitrogen) 13 mg/dL (9.8-20.1); Calc. Creatinine Clearance 60 mL/min (70-130); Calcium 8.8 mg/dL (7.8-10.44); Carbon Dioxide 24 mmol/L (23-31); Chloride 106 mmol/L (98-107); Estimated GFR-MDRD 77; Glucose 107 mg/dL (83-110); Potassium 3.5 mmol/L (3.5-5.1); Sodium 139 mmol/L (136-145)
[2018-05-28] MEDS ORDERED: ADENOSINE 60 MG/20 ML VIAL ONE (16:42)
--- NOTE | 2018-05-29 03:41 | DIS ---
DATE OF ADMISSION: 05/26/2018 DATE OF DISCHARGE: 05/28/2018 PRIMARY CARE PHYSICIAN: Sony Gomes MD. REASON FOR ADMISSION: Rectal bleeding. DIAGNOSES AT DISCHARGE: 1. Rectal prolapse. 2. Lower gastrointestinal bleed, resolved. 3. Coronary artery disease with previous CABG. 4. Paroxysmal atrial fibrillation. Holding further anticoagulation. 5. Thrombocytopenia. 6. Hypertension. 7. Hyperlipidemia. 8. Rheumatoid arthritis. 9. Status post aortic valve replacement with bioprosthetic valve. PROCEDURES: 1. Echocardiogram showing ejection fraction 55% to 60%, mild left ventricular hypertrophy and severe tricuspid regurgitation and moderate pulmonic regurgitation. 2. Nuclear medicine stress test showing normal myocardial perfusion scan and normal left ventricular ejection fraction. CONSULTATIONS: 1. General Surgery, Dr. Almaraz. 2. Gastroenterology, Dr. Dominguez. 3. Cardiology, Dr. Mccollum. PERTINENT LABORATORY: Hemoglobin 10.5 on admission, 10.4 on discharge. SUMMARY OF HOSPITAL COURSE: This is an 82-year-old white female with known history of rectal prolapse who was supposed to get a colonoscopy and rectal prolapse surgery done next week. She was on Coumadin for her paroxysmal atrial fibrillation and some rectal spotting on and off for the last month and 3 days ago, she was switched from Coumadin to Eliquis. She started to have more significant rectal bleeding including dark red and bright red blood and clots, started to feel dizzy and filled up the pads of clots and blood, so she came to the emergency room. She had her Eliquis held and she had a complete resolution of all of her bleeding. Her blood count remained stable during hospitalization and she was not orthostatically hypotensive. Dr. Almaraz was consulted. He recommended watching to make certain her bleeding stopped. He did consult Dr. Dominguez and Dr. Mccollum. Dr. Mccollum did an echocardiogram and stress test to clear the patient for surgery for next week and the patient did well. She had no further bleeding. Her hemoglobin was stable. After consulting with the other consultants, Dr. Almaraz recommended the patient can be discharged and follow up for her previously scheduled colonoscopy on next Friday with Dr. Julianna Perry and with himself on Friday for the rectal prolapse repair. Dr. Mccollum did okay to keep the patient off anticoagulation until after the surgeries. DISCHARGE MANAGEMENT: Discharged home. FOLLOWUP: Follow up with Dr. Perry for the colonoscopy and with Dr. Almaraz for the rectal surgery next week. ACTIVITY: As tolerated. DIET: Healthy heart low-sodium diet. MEDICATIONS: The patient is to resume all her home medications except for her Eliquis and aspirin. 1. Orencia 50 mg subcu as directed. 2. Fosamax 70 mg once a week. 3. Vitamin C 1000 mg daily. 4. Biotin 5000 mcg daily. 5. Vitamin D3 of 2000 units daily. 6. Vitamin B12 of 2500 mcg daily. 7. Duloxetine 60 mg daily. Job ID: [id number]
== END 2018-05-28 16:00 | disposition home or self-care (01) | DRG 394 ==
LOC: ERS 13:34 → 3SE 16:16
PROVIDERS: ADMIT Hospitalist; ATTEND Hospitalist
DX: K62.3 Rectal prolapse (principal); K92.2 Gastrointestinal hemorrhage, unspecified; I25.10 Atherosclerotic heart disease of native coronary artery without angina pectoris; E78.5 Hyperlipidemia, unspecified; M06.9 Rheumatoid arthritis, unspecified; I10 Essential (primary) hypertension; I73.00 Raynaud's syndrome without gangrene; I48.0 Paroxysmal atrial fibrillation; D69.6 Thrombocytopenia, unspecified; M19.90 Unspecified osteoarthritis, unspecified site; F32.9 Major depressive disorder, single episode, unspecified; D72.819 Decreased white blood cell count, unspecified; Z95.1 Presence of aortocoronary bypass graft; Z90.710 Acquired absence of both cervix and uterus; Z90.89 Acquired absence of other organs; Z98.890 Other specified postprocedural states; Z88.5 Allergy status to narcotic agent; Z79.82 Long term (current) use of aspirin; Z79.899 Other long term (current) drug therapy; Z95.3 Presence of xenogenic heart valve
CPT/HCPCS: 36415; 71045; 78452; 80048; 80053; 82550; 83690; 83880; 85025; 85610; 85730; 86850; 86900; 86901; 93005; 93017; 93306; 96360; 96361; A9500; C9113; J0153

== ENCOUNTER 2018-05-29 13:30 | Inpatient (IN) | payer MEDICARE ==
[2018-06-01 13:25] VITALS: BMI 23.6
[2018-06-02] MEDS ORDERED: Fentanyl 100 MCG/2 ML VIAL ONE ×2 (10:25→15:48)
[2018-06-02] MEDS ORDERED: Midazolam HCl 2 mg/2 ml Vial ONE (10:25)
[2018-06-02 10:28] LABS: #Eosinphils 0.1 thou/uL (0.0-0.7); #Lymphocytes 0.6 thou/uL (1.20-3.40); #Monocytes 0.4 thou/uL (0.11-0.59); #Neutrophils 4.9 thou/uL (1.40-6.50); %Basophils 0.1 % (0.0-1.0); %Eosinophils 1.5 % (0.0-10.0); %Lymphocytes 9.7 % (21.0-51.0); %Monocytes 7.1 % (0.0-10.0); %Neutrophils 81.5 % (42.0-75.0); Hemoglobin 10.6 g/dL (12.0-16.0); Mean Corpuscular HGB CONC 32.4 g/dL (32.0-36.0); Mean Corpuscular Hemoglobin 31.9 pg (27.0-31.0); Mean Corpuscular Volume 98.6 fL (78.0-98.0); Platelet Count 92 thou/uL (130-400); RBC Distribution Width 13.5 % (11.5-14.5); Red Blood Cell (RBC) Count 3.33 mill/uL (4.20-5.40)
[2018-06-02] MEDS ORDERED: Ketorolac Tromethamine 30 MG/ML VIAL ONE (10:31)
[2018-06-02 10:33] LABS: Hemoglobin A1c 5.5 % (4.0-6.0)
[2018-06-02 10:45] LABS: Anion Gap 13 mmol/L (10-20); BUN (Urea Nitrogen) 11 mg/dL (9.8-20.1); Calc. Creatinine Clearance 59 mL/min (70-130); Calcium 9.6 mg/dL (7.8-10.44); Carbon Dioxide 26 mmol/L (23-31); Chloride 107 mmol/L (98-107); Estimated GFR-MDRD 76; Glucose 94 mg/dL (83-110); Potassium 3.6 mmol/L (3.5-5.1); Sodium 142 mmol/L (136-145)
[2018-06-02] MEDS ORDERED: Scopolamine 1.5 mg/72 hour Patch ONE (10:58)
[2018-06-02] MEDS ORDERED: Ondansetron PF 4 MG/2 ML Vial ONE ×2 (10:58→15:05)
[2018-06-02] MEDS ORDERED: Lidocaine 1% w/Epinephrine 1:100K 20 ML VIAL ONE ×2 (12:02→14:03)
[2018-06-02] MEDS ORDERED: Fentanyl 250 MCG/5 ML VIAL ONE (12:11)
[2018-06-02] MEDS ORDERED: ceFOXitin 1 GM VIAL ONE (14:40)
[2018-06-02] MEDS ORDERED: Bupivacaine HCl 0.5%/Epinephrine 1:200,000/PF 30 ml Vial ONE (15:02)
[2018-06-02] MEDS ORDERED: Dexamethasone 20 MG/5 ML VIAL ONE (15:05)
[2018-06-02] MEDS ORDERED: ePHEDrine/0.9% NaCl/PF SYRINGE 50 mg/10 ml ONE (15:05)
[2018-06-02] MEDS ORDERED: Rocuronium Bromide 10 MG/ML (10ML VIAL) ONE (15:05)
[2018-06-02] MEDS ORDERED: PHENYLEPHRINE-NS 100 MCG/ML 10 ML SYRINGE ONE (15:05)
[2018-06-02] MEDS ORDERED: Lidocaine 1% PF 5 ML VIAL ONE (15:05)
[2018-06-02] MEDS ORDERED: PROPOFOL 200 MG/20 ML VIAL ONE (15:05)
[2018-06-02] MEDS ORDERED: Glycopyrrolate 0.2 MG/ML 5 ML SYRINGE ONE (15:05)
[2018-06-02] MEDS ORDERED: Promethazine HCl 25 MG/ML VIAL SLOW IVP PRN (15:42)
[2018-06-02] MEDS ORDERED: Ondansetron HCl/PF 4 MG/2 ML Vial IVP PRN (15:42)
[2018-06-02] MEDS ORDERED: Promethazine HCl 25 MG/ML VIAL IM PRN ×2 (15:42→17:22)
[2018-06-02] MEDS ORDERED: D5 1/2 NS w/20 mEq KCL 1,000 ML ONE (16:10)
[2018-06-02] MEDS ORDERED: hydrALAZINE 20 MG/ML VIAL SLOW IVP PRN (17:22)
[2018-06-02] MEDS ORDERED: Morphine 4 MG/ML VIAL SLOW IVP PRN ×2 (17:22)
[2018-06-02] MEDS ORDERED: Ondansetron PF 4 MG/2 ML Vial IVP PRN (17:22)
[2018-06-02] MEDS ORDERED: ABATACEPT SC SCH (18:00)
[2018-06-02] MEDS: Acetaminophen 1,000 MG in Premix Bag 1 BAG IVPB SCH ×2 (18:33→23:15)
[2018-06-02] MEDS: Ketorolac Tromethamine 30 MG/ML VIAL IVP SCH ×2 (18:34→23:15)
[2018-06-02] MEDS: D5 1/2 NS w/20 mEq KCL 1,000 ML IV SCH ×2 (18:35→23:15)
[2018-06-02] MEDS: Famotidine/PF 20 mg/2ml Vial SLOW IVP SCH (20:22)
[2018-06-02] MEDS: Famotidine 20 MG TAB PO SCH (20:46)
[2018-06-03] MEDS: Acetaminophen 1,000 MG in Premix Bag 1 BAG IVPB SCH ×2 (05:46→11:40)
[2018-06-03] MEDS: Ketorolac Tromethamine 30 MG/ML VIAL IVP SCH ×4 (05:47→23:02)
[2018-06-03] MEDS: D5 1/2 NS w/20 mEq KCL 1,000 ML IV SCH ×4 (05:52→23:03)
[2018-06-03 06:38] LABS: Anion Gap 12 mmol/L (10-20); BUN (Urea Nitrogen) 12 mg/dL (9.8-20.1); Calc. Creatinine Clearance 58 mL/min (70-130); Calcium 8.1 mg/dL (7.8-10.44); Carbon Dioxide 22 mmol/L (23-31); Chloride 106 mmol/L (98-107); Estimated GFR-MDRD 74; Glucose 247 mg/dL (83-110); Potassium 3.9 mmol/L (3.5-5.1); Sodium 136 mmol/L (136-145)
[2018-06-03 06:47] LABS: #Lymphocytes 0.3 thou/uL (1.20-3.40); #Monocytes 0.3 thou/uL (0.11-0.59); #Neutrophils 4.4 thou/uL (1.40-6.50); %Eosinophils 0.1 % (0.0-10.0); %Lymphocytes 5.7 % (21.0-51.0); %Monocytes 6.5 % (0.0-10.0); %Neutrophils 87.7 % (42.0-75.0); Hemoglobin 8.5 g/dL (12.0-16.0); Mean Corpuscular HGB CONC 32.3 g/dL (32.0-36.0); Mean Corpuscular Hemoglobin 32.1 pg (27.0-31.0); Mean Corpuscular Volume 99.3 fL (78.0-98.0); Mean Platelet Volume 8.6 fL (7.4-10.4); Platelet Count 69 thou/uL (130-400); RBC Distribution Width 13.4 % (11.5-14.5); Red Blood Cell (RBC) Count 2.64 mill/uL (4.20-5.40); White Blood Cell (WBC) Count 5.1 thou/uL (4.8-10.8)
--- NOTE | 2018-06-03 07:11 | OP ---
DATE OF PROCEDURE: 06/02/2018 PREOPERATIVE DIAGNOSIS: Rectal prolapse. POSTOPERATIVE DIAGNOSIS: Rectal prolapse. PROCEDURE PERFORMED: Laparoscopic sigmoid colectomy with sacral rectopexy. ANESTHESIA: General endotracheal. INDICATIONS: The patient is an 82-year-old white female. She had presented with obvious full-thickness rectal prolapse and fecal incontinence. She is taken to the operative room at this time for resection of redundant sigmoid colon and sacral rectopexy. DESCRIPTION OF OPERATION: Informed consent was obtained. The patient was taken to the operating room where general endotracheal anesthesia was obtained with the patient in supine position. She was then placed in dorsal lithotomy position. Fitzpatrick catheter was placed, abdomen was prepped with ChloraPrep and draped in sterile fashion. Local anesthetic was infiltrated using 1% lidocaine with epinephrine (she had already had tap block using Marcaine). A 5-mm supraumbilical incision was created through which a Veress needle was passed into the peritoneal cavity. Pneumoperitoneum was established using carbon dioxide up to a pressure of 15 mmHg. A 5-mm trocar was passed through the same incision. Laparoscopic camera was passed through this port. Under direct vision, a 12-mm right lower quadrant port was placed. A site was selected in the left lower quadrant for the extraction site and an 8-cm oblique left lower quadrant incision was created. Muscle-splitting was used to gain access into the abdominal cavity and Jason wound retractor was placed. Attention was turned to her pelvis. She was noted to have a very deep cul-de-sac where her uterus used to be. She had extensive redundant sigmoid colon down within the pelvis. There were no adhesions involving any of this. She was placed in Trendelenburg position to move her bowel out of the pelvis. I began the mesenteric dissection to approximately the sacral promontory and incised the peritoneum on either side of the rectum down to the level of the pelvic cul-de-sac. The ureter was identified on the left and preserved during this procedure. The rectum was fully mobilized without taking down the vascular supply so as to be able to tent the rectum superiorly up out of the pelvis. I then identified a segment of the rectosigmoid junction that was a couple of centimeters above the sacral promontory. At this level, a mesenteric window was created and the bowel was divided using a single fire of the [place] stapler with a blue load. I then mobilized the peritoneal attachments of the proximal sigmoid colon in the inferior left colon. I selected the segment of descending colon to reach down easily to the rectal stump and this was marked. I then externalized the bowel through the extraction port. I cleared the colon at the level that had been marked. I then created a colotomy through which I sized the colon. During the time that the colon was opened only segregated instruments were used and the abdomen was towelled using additional sterile towels. Based on this, I selected the 29 EEA stapler and obtained the anvil, which I passed through the colotomy a few centimeters proximally and brought it out antimesenteric using the spike. The colotomy as well as the segment of colon to be excised were then removed using a final firing of the [place] stapler. The intervening mesentery was taken down using the LigaSure device and the specimen was passed off the field. All contaminated instruments were passed off the field as well as the towels, and gloves were changed. The anvil was then cleansed with Betadine and a pursestring suture of 2-0 Prolene was placed around the base of the anvil and then the colon was dropped back down to the abdominal cavity. From below, EEA sizers were passed through the anus up to the rectal stump. The 29 mm stapler was passed up to the rectal stump and the spike was brought out anterior to the staple line. This was mated to the anvil and the descending colon and the two segments were anastomosed by firing the stapler. The donuts were inspected and found to be of excellent quality. The anastomosis was tested by insufflating the anastomosis under water and there was no evidence of air leak. Sacral rectopexy was performed with two sutures of 0 silk, placed on either lateral aspect of the rectum distal to the anastomosis and the sacral promontory. When these were each secured, the rectum was snugly elevated out of the pelvis. The pelvis was irrigated and all irrigant was aspirated. The fascia was closed with 0 Vicryl suture using a GraNee needle in the right lower quadrant port site. All ports and instruments were removed as well as the Jason wound retractor from the left lower quadrant. Gowns and gloves were changed. All instruments were changed. The abdomen was cleansed with saline and re-towelled. The fascia in the left lower quadrant was closed in two layers using a running suture of #1 PDS. The wound was copiously irrigated with another L of saline. The Donya fascia was approximated with interrupted sutures of 3-0 Vicryl and skin edges with 4-0 Monocryl. The other port sites were closed with 4-0 Monocryl. Dermabond was placed externally. There were no complications. The patient tolerated the procedure well and was taken to recovery room in stable condition. Job ID: [id number]
[2018-06-03] MEDS ORDERED: Ezetimibe 10 MG TAB PO SCH ×2 (09:00→21:00)
[2018-06-03] MEDS ORDERED: Enoxaparin Sodium 40 MG/0.4 ML SYRINGE SC SCH (09:00)
[2018-06-03] MEDS: Famotidine 20 MG TAB PO SCH ×2 (09:09→20:46)
[2018-06-03] MEDS: DULoxetine 60 MG CAP PO SCH (09:09)
[2018-06-03] MEDS: Aspirin Chewable 81 MG TAB PO SCH (09:09)
[2018-06-03] MEDS: predniSONE 5 MG TAB PO SCH (09:09)
[2018-06-03] MEDS: Torsemide 10 MG TAB PO SCH (09:09)
[2018-06-03] MEDS: Rosuvastatin 20 MG TAB PO SCH ×2 (09:09→09:50)
[2018-06-03] MEDS: Famotidine/PF 20 mg/2ml Vial SLOW IVP SCH ×2 (09:10→20:47)
[2018-06-03] MEDS ORDERED: cefOXitin 2 GM in Sodium Chloride 0.9% 100 ML IVPB SCH (11:15)
[2018-06-03] MEDS ORDERED: HYDROcodone/Acetaminophen 7.5/325 mg Tablet PO PRN ×2 (15:27)
--- NOTE | 2018-06-03 20:50 | PRG ---
DATE OF SERVICE: 06/03/2018 SUBJECTIVE: Ms. Mathews is postoperative day #1 from a sigmoid colectomy and sacral rectopexy and treatment of rectal prolapse. She has no complaints today. She notes minimal discomfort. She has gone to the bathroom and notes that it was unusual to not have her significant rectal protrusion. She states she has voided and had a small bowel movement. She is tolerating clear liquids. OBJECTIVE: VITAL SIGNS: She is afebrile. Vital signs within normal limits. LUNGS: Clear to auscultation. ABDOMEN: Soft. Incision is healing nicely with no evidence of infection. LABORATORY STUDIES: Reveal that her hemoglobin is low at 8.5, white blood cell count is normal at 5.0, and platelet count is low at 69. Chemistries are essentially unremarkable. ASSESSMENT: The patient is doing well following her laparoscopic colon resection in treatment of her rectal prolapse. She is happy with her results thus far. We will continue clear liquids today and advance to full liquids in the morning. I will stop her Lovenox as she is thrombocytopenic. Job ID: [id number]
[2018-06-03] MEDS ORDERED: Rosuvastatin 20 MG TAB PO SCH (21:00)
[2018-06-04] MEDS: D5 1/2 NS w/20 mEq KCL 1,000 ML IV SCH ×2 (03:05→12:05)
[2018-06-04] MEDS: Ketorolac Tromethamine 30 MG/ML VIAL IVP SCH ×2 (05:05→12:36)
[2018-06-04 07:02] LABS: Anion Gap 14 mmol/L (10-20); BUN (Urea Nitrogen) 14 mg/dL (9.8-20.1); Calc. Creatinine Clearance 55 mL/min (70-130); Calcium 8.1 mg/dL (7.8-10.44); Carbon Dioxide 16 mmol/L (23-31); Chloride 107 mmol/L (98-107); Estimated GFR-MDRD 70; Glucose 111 mg/dL (83-110); Sodium 133 mmol/L (136-145)
[2018-06-04 07:49] LABS: #Eosinphils 0.1 thou/uL (0.0-0.7); #Lymphocytes 0.5 thou/uL (1.20-3.40); #Monocytes 0.5 thou/uL (0.11-0.59); #Neutrophils 6.4 thou/uL (1.40-6.50); %Basophils 0.4 % (0.0-1.0); %Eosinophils 0.7 % (0.0-10.0); %Lymphocytes 7.1 % (21.0-51.0); %Monocytes 6.1 % (0.0-10.0); %Neutrophils 85.7 % (42.0-75.0); Hemoglobin 8.4 g/dL (12.0-16.0); Mean Corpuscular HGB CONC 32.4 g/dL (32.0-36.0); Mean Corpuscular Hemoglobin 32.4 pg (27.0-31.0); Mean Platelet Volume 9.2 fL (7.4-10.4); Platelet Count 70 thou/uL (130-400); RBC Distribution Width 13.7 % (11.5-14.5); White Blood Cell (WBC) Count 7.5 thou/uL (4.8-10.8)
[2018-06-04] MEDS: predniSONE 5 MG TAB PO SCH (08:57)
[2018-06-04] MEDS: Torsemide 10 MG TAB PO SCH (08:58)
[2018-06-04] MEDS: DULoxetine 60 MG CAP PO SCH (08:59)
[2018-06-04] MEDS: Famotidine/PF 20 mg/2ml Vial SLOW IVP SCH (08:59)
[2018-06-04] MEDS: Famotidine 20 MG TAB PO SCH (08:59)
[2018-06-04] MEDS: Aspirin Chewable 81 MG TAB PO SCH (09:00)
[2018-06-04 09:43] LABS: MDiff Complete? YES; Macrocytosis SLIGHT = 6-15 cells (100X) (0-5/hpf); Polychromasia SLIGHT = 2-3 cells (100X) (0-2/hpf)
[2018-06-04 11:23] VITALS: BP 149/86; TEMP 98
== END 2018-06-04 15:11 | disposition home or self-care (01) | DRG 331 ==
LOC: SURG A 06-02 09:56 → EDSTATUS 06-02 13:30 → SURG A 06-02 17:16
PROVIDERS: ADMIT Specialist; ATTEND Specialist
PROC: 0DTN4ZZ Resection of Sigmoid Colon, Percutaneous Endoscopic Approach (ICD-10-PCS; principal; 2018-06-02)
DX: K62.3 Rectal prolapse (principal); D69.6 Thrombocytopenia, unspecified
CPT/HCPCS: 36415; 36416; 80048; 83036; 85025; 88307; J0131; J0670; J0694; J1100; J1650; J1885; J2001; J2250; J2405; J2704; J3010; J7050; J7512; S0028

== ENCOUNTER 2018-08-03 09:26 | Outpatient (CLI) | payer MEDICARE ==
--- NOTE | 2018-08-03 10:27 | RAD ---
FXR Ribs Lt>=2 View STANDARD History: [S 22.43XA fracture of multiple ribs of both size initial encounter] Comparison: None Findings: There is a relatively acute-appearing anterolateral left sixth rib fracture. No pneumothora x. Scoliotic changes of the lumbar spine. Impression: Relatively acute-appearing anterolateral left sixth rib fracture.
--- NOTE | 2018-08-03 12:18 | RAD ---
PA CHEST AND RIGHT RIBS 3 VIEWS: Date: 08/03/18 HISTORY: Rib fractures. FINDINGS: The lungs appear clear on the PA chest. There are apical pleural opacities with nodularity in the rig ht apex. There is no evidence of right rib fracture identified. No other rib lesion seen. IMPRESSION: No acute right rib abnormality identified. POS: [facility]
--- NOTE | 2018-08-03 14:18 | NM ---
FWHOLE BODY BONE SCAN: CLINICAL INDICATION: History of rib fracture, pain Radiopharmaceutical: 32 mCi technetium 99m MDP, IV. FINDINGS: There is abnormally increased radiotracer activity localizing to the mid thoracic spine, approximate ly T7 level, indicative of probable compression fracture. No abnormal activity localizing to the ribs to indicate acute rib fracture. Scattered degenerative changes are present, most notable at the righ t knee. IMPRESSION: 1. Abnormally increased radiotracer activity at the mid thoracic spine, indicative of thoracic spine fracture. This may be further evaluated with follow-up cross-sectional imaging. 2. No abnormal radiotracer activity is present to confirm rib fracture. Transcribed Date/Time: 08/03/2018 2:18 PM
== END 2018-08-03 09:27 | disposition home or self-care (01) ==
LOC: NM 09:26
PROVIDERS: ATTEND Specialist
DX: S22.43XA Multiple fractures of ribs, bilateral, initial encounter for closed fracture (principal); S22.009A Unspecified fracture of unspecified thoracic vertebra, initial encounter for closed fracture
CPT/HCPCS: 71100 ×2; 78306; A9503

== ENCOUNTER 2018-08-11 13:07 | Outpatient (CLI) | payer MEDICARE ==
--- NOTE | 2018-08-11 15:30 | CT ---
CT THORACIC SPINE WITHOUT CONTRAST: History: Possible compression fracture of the thoracic spine. Comparison: None. Correlation: Nuclear Medicine bone scan, 08-03-18. FINDINGS: Visualized mediastinum is unremarkable. Evaluation is limited due to technique. There are calcificati ons of the aortic valve, mitral valve, and coronary arteries. There is atherosclerosis of non-aneurys mal aorta. Hypodensity in the left renal cortex, incompletely evaluated. No evidence of prior abdomen or pelvic CTs. Trachea and central bronchi are patent. Visualized lung parenchyma are unremarkable for acute changes . No retroperitoneal mass, lymphadenopathy or hematoma. There is diffuse bone demineralization. There appears to be a sclerotic compression fracture at T7, m oderate in terms of loss of vertebral body height. Sclerosis implies a chronic process. There is mult ilevel degenerative disc disease with loss of disc space height and osteophyte formation. Vacuum disc phenomenon is noted. Acute fractures are not appreciated. IMPRESSION: 1. Remote T7 vertebral body fracture, likely corresponding to finding on recent bone scan. No acute f ractures. 2. Indeterminate lesion in the left renal cortex. Dedicated renal ultrasound is recommended. Code T POS: [facility]
== END 2018-08-11 13:08 | disposition home or self-care (01) ==
LOC: BICCT 13:07
PROVIDERS: ATTEND Specialist
DX: S22.000A Wedge compression fracture of unspecified thoracic vertebra, initial encounter for closed fracture (principal)
CPT/HCPCS: 72128

== ENCOUNTER 2018-09-14 15:29 | Inpatient (IN) | payer MEDICARE ==
[2018-09-14 16:01] LABS: #Eosinphils 0.1 thou/uL (0.0-0.7); #Monocytes 0.4 thou/uL (0.11-0.59); %Basophils 0.3 % (0.0-1.0); %Eosinophils 2.2 % (0.0-10.0); %Lymphocytes 21.1 % (21.0-51.0); %Monocytes 8.3 % (0.0-10.0); Hemoglobin 6.9 g/dL (12.0-16.0); Mean Corpuscular HGB CONC 30.7 g/dL (32.0-36.0); Mean Corpuscular Hemoglobin 27.2 pg (27.0-31.0); Mean Corpuscular Volume 88.8 fL (78.0-98.0); Mean Platelet Volume 9.4 fL (7.4-10.4); Platelet Count 66 thou/uL (130-400); RBC Distribution Width 15.6 % (11.5-14.5); Red Blood Cell (RBC) Count 2.55 mill/uL (4.20-5.40); White Blood Cell (WBC) Count 4.5 thou/uL (4.8-10.8)
[2018-09-14 16:24] LABS: ALT (SGPT) 33 U/L (8-55); AST (SGOT) 47 U/L (5-34); Albumin 3.9 g/dL (3.4-4.8); Alkaline Phosphatase 57 U/L (40-150); Anion Gap 13 mmol/L (10-20); BUN (Urea Nitrogen) 20 mg/dL (9.8-20.1); Bilirubin, Total 0.5 mg/dL (0.2-1.2); CK (CPK) 44 U/L (29-168); Calc. Creatinine Clearance 0 mL/min (70-130); Calcium 9.4 mg/dL (7.8-10.44); Carbon Dioxide 26 mmol/L (23-31); Chloride 108 mmol/L (98-107); Estimated GFR-MDRD 73; Globulin 2.5 g/dL (2.4-3.5); Glucose 94 mg/dL (83-110); Lipase 28 U/L (8-78); Potassium 3.9 mmol/L (3.5-5.1); Protein, Total 6.4 g/dL (6.0-8.3); Sodium 143 mmol/L (136-145)
--- NOTE | 2018-09-14 16:24 | RAD ---
XR Chest 1 View Portable History: [Palpitations] Comparison: Radiograph May 26, 2018 Findings: Heart size is enlarged. Small effusions. Mild edema. Cardiac valves present. Multiple midline sternotomy wires. Impression: Decompensated congestive heart failure with cardiomegaly, effusions, and edema.
[2018-09-14] MEDS ORDERED: Ondansetron ODT 4 MG TAB SL PRN (18:48)
[2018-09-14] MEDS ORDERED: Ondansetron PF 4 MG/2 ML Vial IVP PRN (18:48)
[2018-09-14 19:52] LABS: Troponin I 0.069 ng/mL (< 0.028)
[2018-09-14 21:09] LABS: Bilirubin Negative (Negative); Blood, Urine Negative (Negative); Clarity CLOUDY (Clear); Glucose, Urine (Dipstick) Negative (Negative); Leukocyte Small (Negative); Nitrite Positive (Negative); Protein, Urine (Dipstick) Trace mg/dL (Neg-Trace); Specific Gravity, Urine 1.016 (1.002-1.036); pH, Urine 7.5 (5.0-9.0)
[2018-09-14 21:12] LABS: Bacteria/HPF 4+ HPF (None Seen); Hyaline Casts/LPF 0-3 HYALINE CAST LPF (0-3 Hyaline); Squamous Epithelial 0-3 HPF (0-3)
[2018-09-14 21:16] LABS: Urine Culture Reflex Yes Yes
[2018-09-14 22:09] LABS: Hemoglobin 7.9 g/dL (12.0-16.0)
[2018-09-14 22:33] LABS: Troponin I 0.074 ng/mL (< 0.028)
[2018-09-15 07:25] LABS: Hemoglobin 8.5 g/dL (12.0-16.0)
--- NOTE | 2018-09-15 07:25 | HP ---
PRIMARY CARE DOCTOR: Dr. Sony Gomes. CODE STATUS: Full code. TIME OF EVALUATION: 7:40 p.m. CHIEF COMPLAINT: Dizziness. HISTORY OF PRESENT ILLNESS: This is an 83-year-old female patient with past medical history of coronary artery disease, CHF, hyperlipidemia, hypertension, rheumatoid arthritis, and Raynaud's, came to the hospital after having an episode of dizziness with no clear triggers, no alleviating factors, associated with difficulty walking and shortness of breath was worse with exertion. She also has associated weakness were severe. Of note, the patient was found to have a hemoglobin around 6. She has been on chronic anticoagulation. She has a history of AFib. She also has a history of valve replacement. REVIEW OF SYSTEMS: CONSTITUTIONAL: No fever or chills. The patient reported generalized weakness. RESPIRATORY: No cough or sputum production. Reported shortness of breath. CARDIOVASCULAR: No chest pain. The patient had no palpitations. GASTROINTESTINAL: No nausea. No vomiting, diarrhea, or abdominal pain. No bleeding. MANAGER CASE: The patient reported dizziness. No headache. The patient reported feeling lightheaded. GENITOURINARY: No burning on urination. EXTREMITIES: No leg swelling. All other systems were reviewed and negative except for the findings mentioned above. PAST MEDICAL HISTORY: As mentioned in the HPI. FAMILY HISTORY:Reviewed and non contributory to current presentation. SURGICAL HISTORY: Varicose vein and bunion x2, aortic valve replaced in 2009, coronary artery bypass graft surgery x3 vessels, hysterectomy, tonsillectomy, rectal prolapse in 07/2018. PSYCHIATRIC HISTORY: No previous psych history. SOCIAL HISTORY: The patient drinks everyday, 1 glass of wine on a daily basis. No drug use. No smoking history. Lives at home with family. KNOWN ALLERGIES: Codeine and sulfate. REPORTED MEDICATIONS: 1. Aspirin. 2. Crestor. 3. Zetia. 4. Torsemide. 5. Eliquis. 6. Cymbalta. 7. Prednisone. 8. Folic acid. 9. Orencia. 10. K-Dur. PHYSICAL EXAMINATION: VITAL SIGNS: On presentation, blood pressure 131/60 with heart rate 86, respiratory rate was 15, temperature 99.9, pain was 0/10, oxygen saturation was 100 on room. GENERAL APPEARANCE: The patient is alert, oriented, not in acute distress. HEENT: Eyes; pale conjunctivae. Moist oral mucosa. Anicteric. No JVD. RESPIRATORY: Bilateral air entry. No rales. No wheezes. Symmetric expansion. CARDIOVASCULAR: Normal rate. Regular rhythm. No murmurs. No gallop. No edema. ABDOMEN: Soft. Normal bowel sounds. MUSCULOSKELETAL: Baseline range of motion and strength. No tenderness. SKIN: Warm, intact. No pallor. No rash. No redness. Peripheral pulses are present. Capillary refill seems to be intact. NEURO: No evidence of any new focal weakness. Baseline speech. Cranial nerves seems to be intact. PSYCH: The patient is in good mood. No anxiety. Optimal judgment. DIAGNOSTIC DATA: EKG was reviewed. The patient has elevated junctional rhythm with a rate of 70, QRS 106, QT corrected 464. Chest x-ray was reviewed. The patient had decompensated congestive heart failure with cardiomegaly, effusions, and edema. Cardiac valve present, multiple midline sternotomy wires. Labs were reviewed. The patient has a white count 4.5; hemoglobin 6.9, the second one 7.9; MCV 88, platelet count 66, this is a chronic problem for this patient. Chemistry; sodium 143, potassium 3.9, chloride 108, carbon dioxide 26, anion gap 13, BUN 20, creatinine 0.76, GFR 73, glucose 94, calcium 9.4, total bilirubin 0.5, AST 47, ALT 33, alkaline phosphatase 57. CK 44, CK-MB 1.0, troponin 0.078, the second one 0.069. Beta natriuretic peptide was 1755. Urine was done and was negative. ASSESSMENT AND PLAN: The patient will be placed in the hospital with following medical problems. 1. Symptomatic anemia, with acute congestive heart failure. The patient has a hemoglobin 6.9 and the repeat one 7.9. She is getting 1 unit of packed red blood cells. We will continue to monitor hemoglobin. There is no evidence of acute bleeding at this point. We will hydrate and we will transfuse as needed. We will watch for hemodynamic instability. 2. Rmz-CZ-jpvgdonwe myocardial infarction type 2. The patient has a troponin of 0.078, second one 0.069. This is in the indeterminate range, most likely secondary to anemia and underlying congestive heart failure. We will monitor and we will treat accordingly. 3. Acute exacerbation of congestive heart failure. The patient had the last echo done on 05/28/2018, that showed the patient has preserved ejection fraction with some mild concentric left ventricular hypertrophy, bioprosthetic aortic valve with moderate aortic stenosis. The patient has bilateral pleural effusions seen on the chest x-ray, this might have been exacerbated by underlying anemia. We will give blood products and Lasix. 4. Hyperlipidemia. Reconcile home medications. Low-cholesterol diet is advised. 5. Uncontrolled hypertension, systolic blood pressure 141 and 145. Reconcile home medications. We will adjust treatment as needed. 6. History of rheumatoid arthritis. We will reconcile home medications once updated. This is chronic, seems to be stable. 7. History of Raynaud disease. We will reconcile home medications. We will watch for any crises during admission. 8. Deep venous thrombosis prophylaxis. The patient is on Eliquis. 9. We will send stool occult blood to rule out gastrointestinal bleeding. Job ID: [id number] MTDD
[2018-09-15] MEDS: Furosemide 40 MG/4 ML VIAL SLOW IVP SCH (08:29)
[2018-09-15] MEDS ORDERED: Folic Acid 1 MG TAB PO SCH (10:00)
[2018-09-15] MEDS ORDERED: Ezetimibe 10 MG TAB PO SCH (10:00)
[2018-09-15] MEDS ORDERED: Potassium Chloride 10 MEQ TAB PO SCH (10:00)
[2018-09-15] MEDS ORDERED: predniSONE 5 MG TAB PO SCH (10:00)
[2018-09-15 14:54] LABS: Hemoglobin 8.7 g/dL (12.0-16.0)
--- NOTE | 2018-09-15 15:56 | PDOC.PN ---
- Subjective Encounter Start Date: 09/15/18 Encounter Start Time: 10:35 Subjective: pt up in bed no complains - Objective Vital Signs & Weight: Vital Signs (12 hours) Temp Pulse Resp BP Pulse Ox 09/15/18 11:35 98.6 F 66 16 125/57 L 98 09/15/18 07:30 99 F 78 16 133/64 94 L Weight Weight 139 lb 3.2 oz I&O: 09/14/18 09/15/18 09/16/18 06:59 06:59 06:59 Intake Total 400 480 Output Total 660 Balance -260 480 Result Diagrams: 09/15/18 14:48 09/14/18 15:49 Dx/Plan (1) Dizziness Code(s): R42 - DIZZINESS AND GIDDINESS Status: Acute (2) Anemia Code(s): D64.9 - ANEMIA, UNSPECIFIED Status: Acute (3) CAD (coronary artery disease) Code(s): I25.10 - ATHSCL HEART DISEASE OF [place] CORONARY ARTERY W/O ANG PCTRS Status: Chronic Comment: s/p previous CABG (4) Paroxysmal atrial fibrillation Code(s): I48.0 - PAROXYSMAL ATRIAL FIBRILLATION Status: Chronic Comment: in sinus rhythm, holding anticoagulation for now, cardiology consult for possible halt of future anticoagulation (5) Rheumatoid arthritis Code(s): M06.9 - RHEUMATOID ARTHRITIS, UNSPECIFIED Status: Chronic (6) S/P aortic valve replacement with bioprosthetic valve Code(s): Z95.3 - PRESENCE OF XENOGENIC HEART VALVE Status: Chronic Comment: in 2009 (7) Thrombocytopenia Code(s): D69.6 - THROMBOCYTOPENIA, UNSPECIFIED Status: Chronic - Plan pt had a colonoscopy done in may. She has had rectal prolapse -: surgery earlier this year. she is on eliquis and has been having low hh. -: she received one unit of blood. occult blood pending * . Review of Systems - Review of Systems Respiratory: negative: Cough, Dry, Shortness of Breath, Hemoptysis, SOB with Excertion, Pleuritic Pain, Sputum, Wheezing Cardiovascular: negative: chest pain, palpitations, orthopnea, paroxysmal nocturnal dyspnea, edema, light headedness, other Gastrointestinal: negative: Nausea, Vomiting, Abdominal Pain, Diarrhea, Constipation, Melena, Hematochezia, Other - Medications/Allergies Allergies/Adverse Reactions: Allergies Allergy/AdvReac Type Severity Reaction Status Date / Time codeine AdvReac nausea, GI Verified 09/14/18 21:47 upset morphine AdvReac nausea, GI Verified 09/14/18 21:47 upset narcotics AdvReac nausea, GI Uncoded 09/14/18 21:47 upset Medications: Current Medications Cholecalciferol (Vitamin D3) 2,000 units PO DAILY JUDY Ezetimibe (Zetia) 5 mg PO DAILY JUDY Famotidine (Pepcid) 20 mg PO BID JUDY Folic Acid (Folvite) 1 mg PO DAILY JUDY Furosemide (Lasix) 40 mg SLOW IVP DAILY JUDY Last Admin: 09/15/18 08:29 Dose: 40 mg Ciprofloxacin/Dextrose 400 mg/ (Device) 200 mls @ 200 mls/hr IVPB 0600,1800 JUDY Potassium Chloride (Klor-Con 10) 10 meq PO DAILY JUDY Prednisone (Prednisone) 5 mg PO QAM-WM JUDY Rosuvastatin Calcium (Crestor) 40 mg PO HS JUDY Sodium Chloride (Flush - Normal Saline) 10 ml IVF PRN PRN PRN Reason: Saline Flush Last Admin: 09/15/18 08:29 Dose: 10 ml
[2018-09-15] MEDS: Famotidine 20 MG TAB PO SCH (20:01)
[2018-09-15] MEDS ORDERED: Rosuvastatin 20 MG TAB PO SCH (21:00)
[2018-09-16 05:53] VITALS: BMI 23.7
[2018-09-16] MEDS ORDERED: predniSONE 5 MG TAB PO SCH (08:00)
[2018-09-16] MEDS ORDERED: Ezetimibe 10 MG TAB PO SCH (09:00)
[2018-09-16] MEDS ORDERED: Folic Acid 1 MG TAB PO SCH (09:00)
[2018-09-16] MEDS ORDERED: Potassium Chloride 10 MEQ TAB PO SCH (09:00)
[2018-09-16] MEDS: Furosemide 40 MG/4 ML VIAL SLOW IVP SCH (09:12)
[2018-09-16] MEDS: Famotidine 20 MG TAB PO SCH (09:13)
--- NOTE | 2018-09-16 11:40 | PQF ---
FLORINDA CLAROS KARISHMA [id number] [facility]-296 [id number] CLINICAL DOCUMENTATION IMPROVEMENT CLARIFICATION FORM: ICD-10 Updated PLEASE DO AN ADDENDUM TO THE PROGRESS NOTE WITH ANY DOCUMENTATION UPDATES OR ADDITIONS AND CARRY THROUGH TO DC SUMMARY. THANK YOU. DATE: 09/16 ATTN: DR. LIONEL SCHROEDER Please exercise your independent, professional judgment in responding to the clarification form. Clinical indicators are provided on the bottom of this form for your review. Please check appropriate box(s): ACUTE EXACERBATION OF CONGESTIVE HEART FAILURE: A. TYPE: [ ] Systolic / HFrEF [ x ] Diastolic / HFpEF [ ] Combined Systolic / Diastolic B. ACUITY [ ] Acute [x ] Acute on Chronic [ ] Chronic [ ] Other diagnosis [ ] Unable to determine In addition, please specify: Present on Admission (POA): [ x ] Yes [ ] No [ ] Unable to determine For continuity of documentation, please document condition throughout progress notes and discharge summary. Thank You. CLINICAL INDICATORS - SIGNS / SYMPTOMS / LABS ER PHYSICIAN FINAL DIAGNOSES 09/14: CHF EXACERBATION, DYSPNEA, SYMPTOMATIC ANEMIA H&P DOCUMENTATION (TITO) 09/14: DIAGNOSTIC DATA: CXR WAS REVIEWED. THE PATIENT HAD DECOMPENSATED CHF W/CARDIOMEGALY, EFFUSIONS, & EDEMA. BNP WAS 1755 ASSESSMENT & PLAN: 1) SYMPTOMATIC ANEMIA, W/ ACUTE CHF; 2) NSTEMI TYPE II, MOST LIKELY 2/2 ANEMIA & UNDERLYING CHF; 3) ACUTE EXACERBATION OF CHF. THE PATIENT'S LAST ECHO 05/28/18, THAT SHOWED THE PATIENT HAS PRESERVED EJECTION FRACTION. ...THE PATIENT HAS B PLEURAL EFFUSIONS SEEN ON CXR. ...WE WILL GIVE LASIX BNP: 1755 RISKS: HX OF CHF W/ ACUTE EXACERBATION B PLEURAL EFFUSIONS TREATMENT: IV DIURETIC (LASIX 09/14 - PRESENT) TELEMETRY MONITORING MTDD
--- NOTE | 2018-09-16 12:19 | PQF ---
FLORINDA CLAROS MALIONEL MORAN [id number] [facility]-296 [id number] CLINICAL DOCUMENTATION IMPROVEMENT CLARIFICATION FORM: ICD-10 Updated PLEASE DO AN ADDENDUM TO THE PROGRESS NOTE WITH ANY DOCUMENTATION UPDATES OR ADDITIONS AND CARRY THROUGH TO DC SUMMARY. THANK YOU. DATE: 09/16 ATTN: DR. LIONEL SCHROEDER Please exercise your independent, professional judgment in responding to the clarification form. Clinical indicators are provided on the bottom of this form for your review. Please check appropriate box(s): [ x ] UTI (KLEBSIELLA PNEUMONIAE) [ ] Contaminated urine specimen without UTI [ ] Other diagnosis [ ] Unable to determine In addition, please specify: Present on Admission (POA): [x ] Yes [ ] No [ ] Unable to determine For continuity of documentation, please document condition throughout progress notes and discharge summary. Thank You. CLINICAL INDICATORS - SIGNS / SYMPTOMS / LABS URINALYSIS 09/14: POSITIVE NITRITE, SMALL LEUKOCYTE ESTERASE, WBC 4-6, 4+ BACTERIA URINE CX: KLEBSIELLA PNEUMONIAE RISK FACTORS: ABNORMAL URINALYSIS W/ POSITIVE CULTURE ADVANCED AGE (83) TREATMENT: IV ANTIBIOTIC (ROCEPHIN 09/15 - PRESENT) THANK YOU! Rand (This form is maintained as a part of the permanent medical record) 2015 [employer] All Rights Reserved Rand Molina RN, BSN [email or web address] Office: [phone] [facility]
[2018-09-16 13:17] LABS: #Eosinphils 0.1 thou/uL (0.0-0.7); #Lymphocytes 0.7 thou/uL (1.20-3.40); #Monocytes 0.4 thou/uL (0.11-0.59); #Neutrophils 4.1 thou/uL (1.40-6.50); %Eosinophils 2.4 % (0.0-10.0); %Lymphocytes 13.5 % (21.0-51.0); %Monocytes 6.8 % (0.0-10.0); %Neutrophils 77.4 % (42.0-75.0); Hemoglobin 8.8 g/dL (12.0-16.0); Mean Corpuscular HGB CONC 31.7 g/dL (32.0-36.0); Mean Corpuscular Hemoglobin 28.2 pg (27.0-31.0); Mean Corpuscular Volume 88.9 fL (78.0-98.0); Mean Platelet Volume 9.9 fL (7.4-10.4); Platelet Count 69 thou/uL (130-400); RBC Distribution Width 15.3 % (11.5-14.5); Red Blood Cell (RBC) Count 3.11 mill/uL (4.20-5.40); White Blood Cell (WBC) Count 5.3 thou/uL (4.8-10.8)
[2018-09-16 13:20] VITALS: BP 130/58; TEMP 98.5
[2018-09-16 13:29] LABS: Iron 26 ug/dL (50-170); Iron Binding Capacity, Total 328 mcg/dL (265-497)
--- NOTE | 2018-09-17 05:34 | DIS ---
DATE OF ADMISSION: 09/14/2018 DATE OF DISCHARGE: 09/16/2018 DISCHARGE DIAGNOSES: As of the following; 1. Dizziness. 2. Anemia. 3. Coronary artery disease. 4. Paroxysmal atrial fibrillation. 5. Rheumatoid arthritis. 6. Urinary tract infection. 7. Thrombocytopenia. 8. Bioprosthetic valve replacement. HOSPITAL COURSE: The patient is an 83-year-old female who initially presented to the hospital with dizziness. She was found to have an H and H of 6.8. Her baseline is around 8 to 9. The patient recently had a rectal prolapse surgery in May and also had a colonoscopy. The patient had 2 units of platelets and 1 unit of blood transfused. Her H and H for 24 hours was around 8.7 to 8.8. She was asymptomatic. She has walked. She did not have any symptoms of any more dizziness. I did also update the patient's daughter about the patient's condition. The patient stated that she does have an appointment with her primary care doctor tomorrow, which I encouraged her to keep. We will check a CBC next week. I did give her the slip for that. Also, while she was in the hospital, she did have some mild elevated troponins. However, she complained of no chest pain. She recently had an echocardiogram done in May of 2018, which indicated severe TR and had an EF of 50% to 55%. The patient was symptom-free of chest pain. She also has a cardiology appointment on October 05, which I asked her to follow. The patient will be discharged home. She will follow up with her primary care doctor tomorrow and with Cardiology on . She was also given IV Lasix for the past couple days due to her elevated BNP. HOME MEDICATIONS: The patient's home medications will be as of the following, she is going to home with, 1. Cipro 500 mg b.i.d. 2. Prednisone 5 mg, that is her home medication. 3. Iron 325 daily. 4. Pepcid 20 mg b.i.d. 5. Demadex 100 mg daily. 6. Aspirin 81 mg daily. 7. Also, I will continue her apixaban 5 mg b.i.d. for now. The patient needs to closely follow up with her H and H to kind of see what is causing her bleed, is it a GI versus production issue. I have started her on p.o. iron. She might need further evaluation by GI since she is currently also on Eliquis, I do not feel comfortable taking her off the Eliquis till she is seen by her news writer. PHYSICAL EXAMINATION: VITAL SIGNS: Temperature of heart rate 70, respirations 16, oxygen saturation 98% on room air, and blood pressure 130/58. GENERAL: She is awake, alert, and oriented x3. Does not appear in distress. CV: S1 and S2 present. No murmurs, rubs, or gallops. ABDOMEN: Soft and nontender. Bowel sounds are present x2. EXTREMITIES: No edema. Again, she will be discharged home. She will follow up with her PCP tomorrow and also with Cardiology on Friday. Job ID: [id number]
--- NOTE | 2018-09-19 10:30 | EKG ---
Test Reason : Blood Pressure : / mmHG Vent. Rate : 070 BPM Atrial Rate : 357 BPM P-R Int : 000 ms QRS Dur : 106 ms QT Int : 430 ms P-R-T Axes : 000 -47 104 degrees QTc Int : 464 ms Accelerated Junctional rhythm Left axis deviation Nonspecific ST and T wave abnormality Abnormal ECG Confirmed by AARON MERCADO ([id number]), scientific publications editor ISA MULLEN ([id number]) on 09/19/2018 10:30:45 AM Referred By: Confirmed By:AARON MERCADO
== END 2018-09-16 19:15 | disposition home or self-care (01) | DRG 811 ==
LOC: ERS 15:29 → 2NO 18:38
PROVIDERS: ADMIT Emergency Medicine; ATTEND Emergency Medicine
PROC: 30233N1 Transfusion of Nonautologous Red Blood Cells into Peripheral Vein, Percutaneous Approach (ICD-10-PCS; principal; 2018-09-14)
DX: D64.9 Anemia, unspecified (principal); I50.33 Acute on chronic diastolic (congestive) heart failure; I21.A1 Myocardial infarction type 2; N39.0 Urinary tract infection, site not specified; I25.10 Atherosclerotic heart disease of native coronary artery without angina pectoris; E78.5 Hyperlipidemia, unspecified; I73.00 Raynaud's syndrome without gangrene; M06.9 Rheumatoid arthritis, unspecified; I11.0 Hypertensive heart disease with heart failure; K62.3 Rectal prolapse; I50.9 Heart failure, unspecified; I48.0 Paroxysmal atrial fibrillation; D69.6 Thrombocytopenia, unspecified; Z95.4 Presence of other heart-valve replacement; Z90.710 Acquired absence of both cervix and uterus; Z90.89 Acquired absence of other organs; Z88.5 Allergy status to narcotic agent; Z95.3 Presence of xenogenic heart valve
CPT/HCPCS: 36415; 36430; 71045; 80053; 81001; 82274; 82550; 82553; 83540; 83550; 83690; 83880; 84484; 85014; 85018; 85025; 86850; 86900; 86901; 87077; 87086; 87186; 93005; 94760; J0744; J1940; J7512; P9016

== ENCOUNTER 2018-10-06 10:51 | Outpatient (CLI) | payer MEDICARE ==
--- NOTE | 2018-10-06 11:47 | ULT ---
RENAL ULTRASOUND: Comparison: CT thoracic spine, 08-11-18 History: Right renal mass. Technique: Multiplanar grayscale and color doppler images were obtained in a renal ultrasound. FINDINGS: The kidneys are normal in echogenicity without hydronephrosis or shadowing calculi. There is a mass-l maria e lesion emanating from the left kidney measuring 4.3 cm in size. This does not have the appearance of a simple cyst. The kidneys measure 9.9 and 8.9 cm in length on the right and left respectively. L imited visualization of the urinary bladder shows an empty bladder without focal pelvic abnormality. IMPRESSION: Left renal mass. A CT of the abdomen and pelvis per renal mass protocol is recommended for further ev aluation. POS: [facility]
== END 2018-10-06 10:52 | disposition home or self-care (01) ==
LOC: SCSULT 10:51
PROVIDERS: ATTEND Specialist
DX: N28.89 Other specified disorders of kidney and ureter (principal)
CPT/HCPCS: 76770

== ENCOUNTER 2018-10-14 08:24 | Outpatient (CLI) | payer MEDICARE ==
[2018-10-14] MEDS ORDERED: Iopamidol 300 61% 100 ML VIAL FS ONE (09:13)
--- NOTE | 2018-10-14 13:15 | CT ---
CT ABDOMEN AND PELVIS WITH AND WITHOUT CONTRAST: 10/14/18 HISTORY: Left renal mass. COMPARISON: Ultrasound 10/06/[address] 08/11/18. FINDINGS: Small scarring in the lingula and right middle lobe. Dense calcifications in [place] coronary arteries . Dense mitral annular calcifications. There is a mass within the interpolar left kidney which is exophytic measuring 2.6 x 2.5 x 2.5 cm. Th is is suggestive of a renal cell carcinoma. Hemangioma is present within hepatic segment Claire. There is a stone within the gallbladder neck withou t evidence of cholecystitis. There are small multiple hypodensities of the spleen. Multiple splenic h ypodensities are too small to fully characterize on examination although unlikely to be metastatic di sease. The aortic contour is nonaneurysmal. Dense aortic calcifications. Renal vein is patent. No perirenal adenopathy. No dilated loops of large or small bowel. Appears to be a left Bartholin gland cyst measuring 1.9 cm. There is suture at the rectosigmoid junction. Moderate degenerative disc space disease lower lumbar spine as well as facet arthropathy. IMPRESSION: 1. Approximately 25% exophytic mass interpolar left kidney as described implicating renal cell c arcinoma. Left renal vein is patent. No perirenal adenopathy. 2. Numerous hypodensities of the spleen and too small to fully characterize on this exam althoug h not felt to be metastatic in nature. 3. Hepatic segment Claire hemangioma. 4. Evidence of prior left lower quadrant likely an ostomy with no abnormal nodularity of the sig moid colon at the rectosigmoid suture. 5. Likely a Bartholin gland cyst measuring up to 2 cm. POS: [facility]
== END 2018-10-14 08:25 | disposition home or self-care (01) ==
LOC: SCSCT 08:24
PROVIDERS: ATTEND Specialist
DX: N28.9 Disorder of kidney and ureter, unspecified (principal); D73.89 Other diseases of spleen; D18.03 Hemangioma of intra-abdominal structures
CPT/HCPCS: 74178

== ENCOUNTER 2018-10-31 09:38 | Day surgery (SDC) | payer MEDICARE ==
[2018-10-31] MEDS ORDERED: diphenhydrAMINE 25 MG CAP PO SCH (10:30)
[2018-10-31] MEDS ORDERED: Acetaminophen 500 MG TAB PO SCH (10:30)
[2018-10-31 16:35] LABS: #Eosinphils 0.1 thou/uL (0.0-0.7); #Lymphocytes 1.2 thou/uL (1.20-3.40); #Monocytes 0.3 thou/uL (0.11-0.59); #Neutrophils 2.7 thou/uL (1.40-6.50); %Eosinophils 3.3 % (0.0-10.0); %Lymphocytes 26.4 % (21.0-51.0); %Monocytes 7.4 % (0.0-10.0); %Neutrophils 62.7 % (42.0-75.0); Hemoglobin 8.8 g/dL (12.0-16.0); Mean Corpuscular HGB CONC 32.6 g/dL (32.0-36.0); Mean Corpuscular Hemoglobin 32.5 pg (27.0-31.0); Mean Corpuscular Volume 99.7 fL (78.0-98.0); Mean Platelet Volume 8.7 fL (7.4-10.4); Platelet Count 70 thou/uL (130-400); RBC Distribution Width 18.7 % (11.5-14.5); Red Blood Cell (RBC) Count 2.71 mill/uL (4.20-5.40); White Blood Cell (WBC) Count 4.4 thou/uL (4.8-10.8)
[2018-10-31 16:42] VITALS: BP 133/60; TEMP 98
== END 2018-10-31 16:45 | disposition home or self-care (01) ==
LOC: SDC/OP 09:38 → ONC 13:20 → SDC/OP 16:45
PROVIDERS: ATTEND Internal Medicine Hematology & Oncology
PROC: 30233N1 Transfusion of Nonautologous Red Blood Cells into Peripheral Vein, Percutaneous Approach (ICD-10-PCS; principal; 2018-10-31)
DX: D64.9 Anemia, unspecified (principal); D69.6 Thrombocytopenia, unspecified; Z88.5 Allergy status to narcotic agent; Z79.82 Long term (current) use of aspirin; Z79.01 Long term (current) use of anticoagulants; Z79.899 Other long term (current) drug therapy
CPT/HCPCS: 36430; 85025; 86850; 86900; 86901; 86920; P9016; 36415; Q0163

== ENCOUNTER 2018-11-03 09:51 | Outpatient (CLI) | payer MEDICARE ==
--- NOTE | 2018-11-03 11:15 | MRI ---
MRI thoracic spine noncontrast: DATE: 11/03/2018 HISTORY: 83-year-old female with S 22.0608 compression fracture of T7 vertebra. Fall 2 months ago. Mid back pa in. FINDINGS: Bone marrow signal is diffusely, abnormally very homogeneously hypointense on STIR sequence at every level.. The bone marrow signal is heterogeneously hypointense, interspersed with patches of hyperintensity on the turbo spin echo T2 weighted images and T1-weighted images. There is compression fracture of the T7 vertebral body with anterior wedging, and significant anterior loss of height, greatest in loss of height anteriorly is greater than 75%. There is mild loss of height of the right of way cutter ior aspect of the vertebral body. Minimal bony retropulsion would qualify these as a mild burst fracture, strictly speaking. The combination of the minimal bony retropulsion plus ligamentum flavum thickening results in mild to moderate central spinal canal stenosis at T7. With the addition of posterior semicircumferential epidural fat pad, there is moderate to severe thecal sac stenosis at th is level, with almost complete effacement of CSF signal. This results in mild impingement on the spinal cord by the minimal bony retropulsion. No convincing evidence of cord edema. No syrinx. Mild anterior wedging loss of height of T8 vertebral body, approximately 15-20%, apparently a new fin ding compared to the CT of 08/11/2018. The rest of the vertebral body heights are maintained. At T8-9, there is broad-based central and bilateral paracentral shallow, small disc herniation. This contributes to moderate thecal sac stenosis at this level. There is no significant central spinal canal stenosis at any other level. Conus medullaris terminates at L2. Tiny bilateral pleural effusions. Multilevel moderate degenerative disc disease at upper lumbar spine and lower thoracic spine, associated with scoliosis and kyphosis there. IMPRESSION: 1. Old compression/burst fracture of T7, with minimal bony retropulsion, with mild chronic cord impin gement and high-grade thecal sac stenosis at that level. 2. High-grade thecal sac stenosis at T8-9 due to small broad-based central and bilateral paracentral disc herniation. 3. Diffuse bone marrow signal abnormality. Possibilities include red marrow conversion (such as from anemia of chronic disease etc.) versus myelofibrosis. 4. High-grade degenerative disc disease in the lumbar spine and thoracolumbar junction.
== END 2018-11-03 09:52 | disposition home or self-care (01) ==
LOC: SCSMRI 09:51
PROVIDERS: ATTEND Nurse Practitioner Family
DX: S22.061A Stable burst fracture of T7-T8 vertebra, initial encounter for closed fracture (principal); M48.04 Spinal stenosis, thoracic region; M51.24 Other intervertebral disc displacement, thoracic region; M51.35 Other intervertebral disc degeneration, thoracolumbar region; M51.36 Other intervertebral disc degeneration, lumbar region
CPT/HCPCS: 72146

== ENCOUNTER 2018-11-26 08:40 | Day surgery (SDC) | payer MEDICARE ==
[2018-11-25 14:58] VITALS: BMI 21.8
[2018-11-26 09:12] LABS: #Eosinphils 0.1 thou/uL (0.0-0.7); #Lymphocytes 0.8 thou/uL (1.20-3.40); #Monocytes 0.4 thou/uL (0.11-0.59); #Neutrophils 2.9 thou/uL (1.40-6.50); %Basophils 0.5 % (0.0-1.0); %Eosinophils 1.2 % (0.0-10.0); %Lymphocytes 19.3 % (21.0-51.0); %Monocytes 10.5 % (0.0-10.0); %Neutrophils 68.5 % (42.0-75.0); Hemoglobin 11.5 g/dL (12.0-16.0); Mean Corpuscular HGB CONC 30.1 g/dL (32.0-36.0); Mean Corpuscular Hemoglobin 32.5 pg (27.0-31.0); Mean Platelet Volume 9.7 fL (7.4-10.4); Platelet Count 58 thou/uL (130-400); RBC Distribution Width 16.7 % (11.5-14.5); Red Blood Cell (RBC) Count 3.55 mill/uL (4.20-5.40); White Blood Cell (WBC) Count 4.2 thou/uL (4.8-10.8)
[2018-11-26 09:13] LABS: PTT 26.7 SEC (22.9-36.1); Prothrombin Time 12.9 SEC (12.0-14.7)
[2018-11-26 10:43] VITALS: BP 157/84; TEMP 97.7
--- NOTE | 2018-11-26 16:18 | CT ---
EXAM: CT Renal Perc Biopsy PROVIDED CLINICAL HISTORY: Left kidney mass. Biopsy was requested to guide management of the renal mass COMPARISON: CT abdomen on 10/14/2018 TECHNIQUE: The procedure including the risks and complications were explained to the patient, and informed conse nt was obtained. Patient was initially placed in prone positioning on the CT scan table with limited noncontrast CT images obtained through the abdomen. However, due to positioning of the lung b ases relative to the left kidney, the patient was then placed in a left lateral decubitus position and repeat CT abdomen was obtained with grid localizer in place overlying the left kidney. This impro mary positioning of the lesion for safe biopsy. An area was marked and then meticulously prepped and draped in usual sterile fashion. The skin and subcutaneous tissues were infiltrated with buffered 1% lidocaine for local anesthesia. A 17-gauge guide needle was advanced followed by axial noncontrasted CT images. The needle was further advanced until the needle was at the peripheral aspect of the mass in the left kidney. A tota l of three 18-gauge core needle biopsy specimens were obtained utilizing coaxial technique. The inner stylette was replaced. The needle was removed, and hemostasis was achieved with direct pressure . Post biopsy CT examination was performed which demonstrates no perinephric fluid or findings to suggest a hematoma. Patient's vital signs remained stable during the procedure as well as postprocedu re. The patient was transported to radiology nurses holding area for further monitoring prior to discharg e. Patient's vital signs remained stable while in radiology nurses holding area, and the patient had no complaints of post biopsy. Patient was discharged after approximately 3 1/2 hours without furt her complication. IMPRESSION: Technically successful CT guided percutaneous biopsy of a left renal mass. Pathology results are pend ing.
== END 2018-11-26 15:15 | disposition home or self-care (01) ==
LOC: CT 08:40
PROVIDERS: ATTEND Urology
DX: C64.2 Malignant neoplasm of left kidney, except renal pelvis (principal); I11.0 Hypertensive heart disease with heart failure; I50.9 Heart failure, unspecified; D64.9 Anemia, unspecified; D69.6 Thrombocytopenia, unspecified; F41.9 Anxiety disorder, unspecified; F32.9 Major depressive disorder, single episode, unspecified; I25.10 Atherosclerotic heart disease of native coronary artery without angina pectoris; K21.9 Gastro-esophageal reflux disease without esophagitis; Z79.01 Long term (current) use of anticoagulants; Z79.82 Long term (current) use of aspirin; Z79.899 Other long term (current) drug therapy; Z88.5 Allergy status to narcotic agent
CPT/HCPCS: 36415; 50200; 77002; 85025; 85610; 85730; 88305; 88333; 88334

== ENCOUNTER 2018-12-23 10:23 | Day surgery (SDC) | payer MEDICARE ==
[2018-12-23] MEDS ORDERED: Sodium Chloride 0.9% 20 ML ONE (10:28)
[2018-12-23] MEDS ORDERED: diphenhydrAMINE 25 MG CAP PO SCH (10:45)
[2018-12-23] MEDS ORDERED: Acetaminophen 500 MG TAB PO SCH (10:45)
[2018-12-23 12:17] VITALS: BP 150/69; TEMP 98.5
[2018-12-23 12:36] LABS: #Eosinphils 0.1 thou/uL (0.0-0.7); #Lymphocytes 0.4 thou/uL (1.20-3.40); #Monocytes 0.2 thou/uL (0.11-0.59); #Neutrophils 2.2 thou/uL (1.40-6.50); %Eosinophils 2.6 % (0.0-10.0); %Lymphocytes 14.5 % (21.0-51.0); %Monocytes 6.8 % (0.0-10.0); %Neutrophils 76.1 % (42.0-75.0); Hemoglobin 9.5 g/dL (12.0-16.0); Mean Corpuscular HGB CONC 32.8 g/dL (32.0-36.0); Mean Platelet Volume 8.7 fL (7.4-10.4); Platelet Count 59 thou/uL (130-400); RBC Distribution Width 13.8 % (11.5-14.5)
== END 2018-12-23 13:35 | disposition home or self-care (01) ==
LOC: ONC/OP 10:23
PROVIDERS: ATTEND Internal Medicine Hematology & Oncology
PROC: 30233R1 Transfusion of Nonautologous Platelets into Peripheral Vein, Percutaneous Approach (ICD-10-PCS; principal; 2018-12-23)
DX: D64.9 Anemia, unspecified (principal); D69.6 Thrombocytopenia, unspecified; Z88.5 Allergy status to narcotic agent
CPT/HCPCS: 36430; 85025; 86850; 86900; 86901; P9035; Q0163

== ENCOUNTER 2018-12-24 07:39 | Day surgery (SDC) | payer MEDICARE ==
[2018-12-24] MEDS ORDERED: diphenhydrAMINE 25 MG CAP PO SCH (09:00)
[2018-12-24] MEDS ORDERED: Acetaminophen 500 MG TAB PO SCH (09:00)
[2018-12-24] MEDS ORDERED: Sodium Chloride 0.9% 20 ML ONE (09:03)
[2018-12-24 09:18] VITALS: TEMP 98.9
[2018-12-24 10:38] VITALS: BP 160/72
[2018-12-24 11:31] LABS: #Lymphocytes 0.3 thou/uL (1.20-3.40); #Monocytes 0.1 thou/uL (0.11-0.59); #Neutrophils 1.8 thou/uL (1.40-6.50); %Basophils 1.9 % (0.0-1.0); %Eosinophils 0.2 % (0.0-10.0); %Lymphocytes 13.6 % (21.0-51.0); %Monocytes 2.9 % (0.0-10.0); %Neutrophils 81.4 % (42.0-75.0); Hemoglobin 10.1 g/dL (12.0-16.0); Mean Corpuscular HGB CONC 32.7 g/dL (32.0-36.0); Mean Corpuscular Hemoglobin 34.1 pg (27.0-31.0); Mean Platelet Volume 8.7 fL (7.4-10.4); Platelet Count 85 thou/uL (130-400); RBC Distribution Width 13.6 % (11.5-14.5); Red Blood Cell (RBC) Count 2.97 mill/uL (4.20-5.40); White Blood Cell (WBC) Count 2.2 thou/uL (4.8-10.8)
== END 2018-12-24 12:58 | disposition home or self-care (01) ==
LOC: ONC/OP 07:39
PROVIDERS: ATTEND Internal Medicine Hematology & Oncology
PROC: 30233R1 Transfusion of Nonautologous Platelets into Peripheral Vein, Percutaneous Approach (ICD-10-PCS; principal; 2018-12-24)
DX: D64.9 Anemia, unspecified (principal); D69.6 Thrombocytopenia, unspecified; Z88.5 Allergy status to narcotic agent
CPT/HCPCS: 36415; 36430; 85025; 86850; 86900; 86901; P9035; Q0163

== ENCOUNTER 2019-01-05 10:33 | Outpatient (CLI) | payer MEDICARE ==
--- NOTE | 2019-01-05 12:47 | MRI ---
MRI OF THE THORACIC SPINE WITHOUT CONTRAST: DATE: 01/05/2019. COMPARISON: 11/03/2018. HISTORY: Recent fall, history of compression fracture, prior thoracic spine kyphoplasty, mid back pain. TECHNIQUE: Multiplanar multisequence MR imaging of the thoracic spine is obtained without contrast. FINDINGS: The STIR imaging demonstrates vague increased signal intensity within the T7 vertebral body suggestin g edema. The patient appears status post kyphoplasty at T7 and probably T8. There are anterior wedge compression fractures of T7 and T8 of mild/moderate severity, difficult to quantify secondary t o bone marrow signal abnormality, grossly stable when compared to 11/03/2018 thoracic spine MRI. There is no focal area of additional osseous marrow edema to suggest a new fracture of the thoracic s pine when compared to the 11/03/2018 examination. C7-T1: Bilateral facet hypertrophy with no significant central canal or neural foraminal stenosis. T1-2: No significant central canal or neural foraminal stenosis. T2-3: No central canal or neural foraminal stenosis. T3-4: No significant central canal or neural foraminal stenosis. T4-5: Small central disc protrusion with no significant central canal or neural foraminal stenosis. T5-6: No significant central canal or neural foraminal stenosis. T6-7: Bilateral facet hypertrophy. Mild bilateral neural foraminal stenosis. Mild central canal steno sis. T7-8: Bilateral facet hypertrophy. Bilateral neural foraminal stenosis, left greater than right. Mode rate effacement of the ventral thecal sac with associated central canal stenosis. T8-9: Bilateral facet hypertrophy with mild bilateral neural foraminal stenosis and mild central mara l stenosis. T9-10: Mild bilateral facet hypertrophy with no significant central canal or neural foraminal stenosi s. T10-11: Mild bilateral facet hypertrophy. No significant central canal or neural foraminal stenosis. T11-12: Mild bilateral facet hypertrophy with no significant central canal or neural foraminal stenos is. T12-L1: No significant central canal or neural foraminal stenosis. No focal area of area of abnormal signal intensity is identified within the thoracic cord. The bone marrow signal intensity is diffusely abnormal, demonstrating decreased T1 and T2 signal inte nsity throughout the imaged osseous structures. IMPRESSION: 1. Stable anterior wedge compression fractures of T7 and T8 status post kyphoplasty. There is mild ed josselyn within the T7 vertebral body which may be related to recent vertebroplasty. There is associated degenerative change within the lumbar spine. No new fracture is apparent when compared to the examination. 2. Abnormal bone marrow signal intensity may signify marrow conversion on the basis of anemia of chief controller tommy disease or could be associated with myelofibrosis. Transcribed Date/Time: 01/05/2019 1:41 PM
== END 2019-01-05 10:34 | disposition home or self-care (01) ==
LOC: SCSMRI 10:33
PROVIDERS: ATTEND Nurse Practitioner Family
DX: S22.060D Wedge compression fracture of T7-T8 vertebra, subsequent encounter for fracture with routine healing (principal)
CPT/HCPCS: 72146

== ENCOUNTER 2019-01-25 08:18 | Outpatient (CLI) | payer MEDICARE ==
[2019-01-25] MEDS ORDERED: Iopamidol 370 76% 100 ML VIAL ONE (09:00)
--- NOTE | 2019-01-25 10:27 | CT ---
CT of the abdomen with and without contrast INDICATION: Left renal mass COMPARISON: CT the abdomen and pelvis with and without contrast dated October 14, 2018 FINDINGS: Lung bases: Clear. Liver: There is a stable hemangioma within the medial left hepatic lobe measuring 3.5 cm. Gallbladder: Normal. Intrahepatic and extra hepatic biliary ducts: Normal. Pancreas: No focal pancreatic lesion is evident. There is a prominent diverticulum seen within the se cond stage of the duodenum. Adrenal glands: Normal. Kidneys: The 2.9 x 2.7 cm solid enhancing mass involving the left kidney interpolar region is stable. No new mass is identified. Spleen: The spleen measuring 9.8 cm in size. Small scattered hypodensities within the spleen are not appreciably changed. The largest lesion is seen on image 19 of series 3 measuring 1 cm which is stable. Lymphadenopathy: No enlarged lymph nodes are seen. Vasculature: There is severe vascular calcifications involving the abdominal pelvic vasculature. Stomach and proximal small bowel: Normal. Large bowel: There is a moderate amount of retained stool within the colon. Free fluid or free air: None. Osseous structures: No acute osseous abnormality. IMPRESSION: 1. 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 2. Small scattered hypodensities within the spleen are not appreciably changed. 3. Stable hepatic hemangioma. 4. Moderate amount of retained stool colon.
== END 2019-01-25 08:19 | disposition home or self-care (01) ==
LOC: SCSCT 08:18
PROVIDERS: ATTEND Internal Medicine Hematology & Oncology
DX: N28.89 Other specified disorders of kidney and ureter (principal); C64.2 Malignant neoplasm of left kidney, except renal pelvis; D18.09 Hemangioma of other sites
CPT/HCPCS: 74170; 82565; Q9967

== ENCOUNTER 2019-02-03 15:22 | Outpatient (CLI) | payer MEDICARE ==
--- NOTE | 2019-02-03 16:06 | MMO ---
Bilateral MAMMO Bilat Screen [facility]. CLINICAL HISTORY: Patient is 83 years old and is seen for screening. The patient has the following family history of breast cancer: mother, at age 65. The patient has no personal history of cancer. The patient has a history of left Stereotatic Biopsy in 2007 - benign - 2 times. VIEWS: The views performed were: bilateral craniocaudal with tomosynthesis and bilateral mediolateral oblique with tomosynthesis. FILMS COMPARED: The present examination has been compared to prior imaging studies performed at [facility] on 01/13/2015, 01/16/2016, 01/23/2017 and 01/26/2018. This study has been interpreted with the assistance of computer-aided detection. MAMMOGRAM FINDINGS: The breasts are heterogeneously dense, which could obscure a lesion on mammography. Finding 1: There are stable benign appearing calcifications seen in both breasts. There are also vascular calcifications. Finding 2: There is a biopsy clip seen in the left breast. There are no suspicious masses, suspicious calcifications, or new areas of architectural distortion. IMPRESSION: THERE IS NO MAMMOGRAPHIC EVIDENCE OF MALIGNANCY. A ROUTINE FOLLOW-UP MAMMOGRAM IN 1 YEAR IS RECOMMENDED. THE RESULTS OF THIS EXAM WERE SENT TO THE PATIENT. ACR BI-RADS Category 2 - Benign finding MAMMOGRAPHY NOTE: 1. A negative mammogram report should not delay a biopsy if a dominant of clinically suspicious mass is present. 2. Approximately 10% to 15% of breast cancers are not detected by mammography. 3. Adenosis and dense breasts may obscure an underlying neoplasm. Reported by: MAYRA COLE MD Electonically Signed: [id number]
== END 2019-02-03 15:23 | disposition home or self-care (01) ==
LOC: BICMAMMO 15:22
PROVIDERS: ATTEND Internal Medicine
DX: Z12.31 Encounter for screening mammogram for malignant neoplasm of breast (principal); Z80.3 Family history of malignant neoplasm of breast
CPT/HCPCS: 77063; 77067

== ENCOUNTER 2019-05-21 14:22 | Outpatient (CLI) | payer MEDICARE ==
--- NOTE | 2019-05-21 15:41 | BD ---
Exam: DEXA Bone Density 05/21/19 INDICATION: Osteoporosis screening. COMPARISON: Prior exam dated 03/09/18. FINDINGS: Lumbar Spine: BMD (g/cm2) T-SCORE Z-SCORE L1 1.118 1.2 3.2 L2 1.173 1.3 4.1 L3 1.297 1.9 4.9 L4 1.460 3.6 6.7 L1-L4 1.276 2.1 5.0 Right Femoral Neck: 0.706 -1.3 1.2 Right Total Hip: 0.760 -1.5 0.8 Left Femoral Neck: 0.703 -1.3 1.2 Left Total Hip: 0.760 -1.5 0.8 The WHO fracture risk assessment tool estimates ten year fracture risk for a major osteoporotic fract ure for this patient of 20%. For hip fracture 5.8%. The left total hip bone mineral density has declined -2.6% from the baseline of 03/09/18. Impression: Based on WHO criteria, patient's bone mineral density is osteopenic. The patient is a mo derate risk for fracture. POS: [facility]
== END 2019-05-21 14:23 | disposition home or self-care (01) ==
LOC: BICMAMMO 14:22
PROVIDERS: ATTEND Internal Medicine Rheumatology
DX: M81.0 Age-related osteoporosis without current pathological fracture (principal); M85.851 Other specified disorders of bone density and structure, right thigh; M85.852 Other specified disorders of bone density and structure, left thigh
CPT/HCPCS: 77080

== ENCOUNTER 2019-05-25 10:29 | Outpatient (CLI) | payer MEDICARE ==
--- NOTE | 2019-05-25 11:51 | CT ---
CT OF THE ABDOMEN WITH AND WITHOUT IV CONTRAST INDICATION: Renal cell carcinoma COMPARISON: CT of the abdomen with and without contrast dated January 25, 2019 FINDINGS: ABDOMEN: Lung bases: Clear Liver: Stable hepatic hemangioma Gallbladder: Normal appearing. Pancreas: Normal. Adrenal glands: Normal. Spleen: Small splenic hypodensities are stable. The largest measures 1.1 cm within the inferior pole Kidneys and ureters: The solid mass involving the left renal interpolar region measures 2.8 x 2.8 x 2 .6 cm were previously it measured 2.9 x 2.7 x 2.7 cm. No additional focal renal lesion is evident. No hydronephrosis is demonstrated. Vasculature: There are moderate vascular calcifications seen involving the visualized vasculature. Lymph nodes:No lymphadenopathy. Free fluid in abdomen:No free fluid is evident. Osseous structures: No acute osseous abnormality. No destructive osteolytic or osteoblastic lesion i s identified. There is scattered degenerative and osteoarthritic changes. Soft tissues:Normal. IMPRESSION: 1. Stable solid mass lesion of the left renal interpolar region consistent with renal cell carcinoma. 2. Stable small splenic hypodensities 3. Stable hepatic hemangioma
== END 2019-05-25 10:30 | disposition home or self-care (01) ==
LOC: SCSCT 10:29
PROVIDERS: ATTEND Urology
DX: C64.9 Malignant neoplasm of unspecified kidney, except renal pelvis (principal); D18.09 Hemangioma of other sites; R93.5 Abnormal findings on diagnostic imaging of other abdominal regions, including retroperitoneum
CPT/HCPCS: 74170; 82565

== ENCOUNTER 2019-06-04 11:08 | Emergency (ER) | payer MEDICARE ==
--- NOTE | 2019-06-04 13:29 | ULT ---
ULTRASOUND WITH DOPPLER DUPLEX VENOUS LOWER EXTREMITIES BILATERAL: DATE: 06/04/2019 HISTORY: 84-year-old female with bilateral lower extremity pain. TECHNIQUE: Color flow Doppler, spectral waveform analysis of pulsed Doppler, and rios-scale imaging with kishore kandis and augmentation, were used to evaluate the bilateral common femoral, femoral, popliteal, aircraft captain ior tibial, and superficial femoral, veins; and the proximal portions of the profunda femoral and gre ater saphenous, veins. FINDINGS: There is normal compressibility, demonstration of blood flow by color Doppler and pulsed Doppler, and response to augmentation, in all interrogated veins. IMPRESSION: Negative. No deep vein thrombosis in the bilateral lower extremities. jn[] POS: [facility]
== END 2019-06-04 14:12 | disposition home or self-care (01) ==
LOC: ERS 11:08
DX: S80.12XA Contusion of left lower leg, initial encounter (principal); E78.5 Hyperlipidemia, unspecified; E78.00 Pure hypercholesterolemia, unspecified; I11.0 Hypertensive heart disease with heart failure; I50.9 Heart failure, unspecified; M06.9 Rheumatoid arthritis, unspecified; I73.00 Raynaud's syndrome without gangrene; M19.90 Unspecified osteoarthritis, unspecified site; I25.10 Atherosclerotic heart disease of native coronary artery without angina pectoris; Z79.82 Long term (current) use of aspirin; Z79.01 Long term (current) use of anticoagulants; Z79.899 Other long term (current) drug therapy; X58.XXXA Exposure to other specified factors, initial encounter
CPT/HCPCS: 93970

== ENCOUNTER 2019-07-26 07:54 | Outpatient (CLI) | payer MEDICARE ==
--- NOTE | 2019-07-26 11:59 | RAD ---
CHEST 2 VIEWS: Date: 07/26/2019 HISTORY: Preop evaluation. COMPARISON: Chest radiograph dated 09/14/2018. FINDINGS: There is background lung hyperinflation. Moderate bilateral pleural effusions, slightly larger on the right. Cement within mid thoracic spine compression deformities. Aortic valve replacement. Heart size is enlarged. Mild ectasia of the aorta. Mild pulmonary venous congestion. IMPRESSION: 1. Cardiomegaly with chronic bilateral pleural effusions. 2. Chronic low grade mild background pulmonary edema. POS: [facility]
[2019-07-26 13:20] LABS: ALT (SGPT) 17 U/L (8-55); AST (SGOT) 29 U/L (5-34); Albumin 3.9 g/dL (3.4-4.8); Alkaline Phosphatase 45 U/L (40-110); Anion Gap 13 mmol/L (10-20); BUN (Urea Nitrogen) 32 mg/dL (9.8-20.1); Bilirubin, Total 0.4 mg/dL (0.2-1.2); Calc. Creatinine Clearance 0 mL/min (70-130); Calcium 9.6 mg/dL (7.8-10.44); Carbon Dioxide 27 mmol/L (23-31); Chloride 105 mmol/L (98-107); Estimated GFR-MDRD 55; Globulin 3.1 g/dL (2.4-3.5); Glucose 111 mg/dL (83-110); Potassium 4.1 mmol/L (3.5-5.1); Sodium 141 mmol/L (136-145)
[2019-07-26 13:46] LABS: #Eosinphils 0.1 thou/uL (0.0-0.7); #Lymphocytes 0.8 thou/uL (1.20-3.40); #Monocytes 0.4 thou/uL (0.11-0.59); #Neutrophils 3.6 thou/uL (1.40-6.50); %Basophils 0.2 % (0.0-1.0); %Eosinophils 2.9 % (0.0-10.0); %Lymphocytes 15.9 % (21.0-51.0); %Monocytes 8.3 % (0.0-10.0); %Neutrophils 72.7 % (42.0-75.0); Hemoglobin 10.3 g/dL (12.0-16.0); MDiff Complete? YES; Macrocytosis SLIGHT = 6-15 cells (100X) (0-5/hpf); Mean Corpuscular HGB CONC 31.9 g/dL (32.0-36.0); Mean Corpuscular Hemoglobin 34.2 pg (27.0-31.0); Mean Platelet Volume 9.2 fL (7.4-10.4); Ovalocytes SLIGHT = 2-5 cells (100X) (0-1/hpf); Platelet Count 66 thou/uL (130-400); Platelet Morphology Comment Appears Decreased; Polychromasia SLIGHT = 2-3 cells (100X) (0-2/hpf); Red Blood Cell (RBC) Count 3.02 mill/uL (4.20-5.40); White Blood Cell (WBC) Count 4.9 thou/uL (4.8-10.8)
--- NOTE | 2019-07-28 22:40 | EKG ---
Test Reason : Blood Pressure : / mmHG Vent. Rate : 071 BPM Atrial Rate : 071 BPM P-R Int : 240 ms QRS Dur : 112 ms QT Int : 426 ms P-R-T Axes : 081 162 050 degrees QTc Int : 462 ms Sinus rhythm with 1st degree A-V block Right axis deviation Pulmonary disease pattern Incomplete right bundle branch block Nonspecific ST abnormality Abnormal ECG When compared with ECG of 14-SEP-2018 15:41, Sinus rhythm has replaced Junctional rhythm Questionable change in QRS axis Confirmed by Juan Manuel GALLARDO ([id number]) on 07/28/2019 10:40:11 PM Referred By: LEON Confirmed By:Juan Manuel GALLARDO
== END 2019-07-26 07:55 | disposition home or self-care (01) ==
LOC: LABBT 07:54
PROVIDERS: ATTEND Internal Medicine Cardiovascular Disease
DX: Z01.811 Encounter for preprocedural respiratory examination (principal); I51.7 Cardiomegaly; J90 Pleural effusion, not elsewhere classified; J81.1 Chronic pulmonary edema; I44.0 Atrioventricular block, first degree
CPT/HCPCS: 71046; 80053; 85025; 93005; 93010

== ENCOUNTER 2019-07-30 05:53 | Observation (INO) | payer MEDICARE ==
[2019-07-30] MEDS ORDERED: Heparin 10,000 UNITS/1 ML VIAL ONE (06:31)
[2019-07-30 07:07] LABS: Cardiac Risk 3.4 (Less than 4.5)
[2019-07-30] MEDS ORDERED: Midazolam HCl 2 mg/2 ml Vial ONE (08:35)
[2019-07-30] MEDS ORDERED: Fentanyl 100 MCG/2 ML VIAL ONE (08:35)
[2019-07-30] MEDS ORDERED: Iopamidol 370 76% 100 ML VIAL ONE (08:59)
[2019-07-30] MEDS ORDERED: Protamine Sulfate 50 MG/5 ML VIAL ONE (09:19)
[2019-07-30] MEDS ORDERED: Sodium Chloride 0.9% 200 ML IV PRN (10:04)
[2019-07-30] MEDS ORDERED: Acetaminophen/Codeine 30-300mg Tablet PO PRN ×2 (10:04)
[2019-07-30] MEDS ORDERED: Nitroglycerin 0.4 MG TAB (25 Tab Bottle) SL PRN (10:04)
[2019-07-30] MEDS ORDERED: Sodium Chloride 0.9% 1,000 ML IV SCH (10:15)
[2019-07-30 16:53] VITALS: BMI 23.3
[2019-07-30] MEDS: sulfaSALAzine 500 MG TAB PO SCH (20:02)
[2019-07-30] MEDS: Carvedilol 3.125 MG TAB PO SCH (20:03)
[2019-07-30] MEDS ORDERED: Rosuvastatin 20 MG TAB PO SCH (21:00)
[2019-07-30] MEDS ORDERED: Gabapentin 300 MG CAP PO SCH (21:00)
[2019-07-30] MEDS ORDERED: Citrucel 500 MG TAB PO SCH (21:00)
[2019-07-31] MEDS ORDERED: predniSONE 5 MG TAB PO SCH (08:00)
[2019-07-31] MEDS ORDERED: Spironolactone 25 MG TAB PO SCH (08:00)
[2019-07-31] MEDS ORDERED: Potassium Chloride 20 MEQ TAB PO SCH (08:00)
[2019-07-31 08:07] VITALS: BP 121/57; TEMP 98.2
[2019-07-31] MEDS ORDERED: Sodium Chloride 0.9% 10 ML ONE (08:43)
[2019-07-31] MEDS ORDERED: OSTEO BI FLEX PO SCH (09:00)
[2019-07-31] MEDS ORDERED: Ascorbic Acid 500 mg Chewable Tablet PO SCH (09:00)
[2019-07-31] MEDS ORDERED: Polyethylene Glycol 3350 17 GM Packet PO SCH (09:00)
[2019-07-31] MEDS ORDERED: Aspirin 81 mg Enteric Coated Tablet PO SCH (09:00)
[2019-07-31] MEDS ORDERED: [UNRECOGNIZED DRUG - OTHER] PO SCH (09:00)
[2019-07-31] MEDS ORDERED: Ezetimibe 10 MG TAB PO SCH (09:00)
[2019-07-31] MEDS ORDERED: Torsemide 20 MG TAB PO SCH (09:00)
[2019-07-31] MEDS ORDERED: DULoxetine 60 MG CAP PO SCH (09:00)
[2019-07-31] MEDS ORDERED: Folic Acid 1 MG TAB PO SCH (09:00)
[2019-07-31] MEDS ORDERED: Ubidecarenone 50 MG CAP PO SCH (09:00)
[2019-07-31] MEDS ORDERED: BIOTIN 5000 MCG PO SCH (09:00)
[2019-07-31] MEDS: sulfaSALAzine 500 MG TAB PO SCH (09:01)
[2019-07-31] MEDS: Carvedilol 3.125 MG TAB PO SCH ×2 (09:01→09:07)
[2019-07-31] MEDS ORDERED: Clopidogrel Bisulfate 75 MG TAB PO SCH (09:16)
[2019-07-31] MEDS: DENOSUMAB SC SCH ×68 (11:42→16:39)
[2019-08-01] MEDS ORDERED: Clopidogrel Bisulfate 75 MG TAB PO SCH (09:00)
--- NOTE | 2019-08-02 10:04 | DIS ---
DATE OF ADMISSION: 07/30/2019 DATE OF DISCHARGE: 07/31/2019 DISCHARGE DIAGNOSES: 1. Severe bioprosthetic aortic stenosis with leg edema and dyspnea walking 10 to 15 feet. 2. Status post coronary artery bypass graft with two of three grafts patent. 3. Moderate left ventricular dysfunction with ejection fraction falling from 50 % to 55% six months ago to 30% to 35% now. 4. LifeVest in place. 5. Chronic atrial fibrillation. 6. Status post Watchman on May 18, 2019, well-seated on transesophageal echo 6 weeks later. 7. Status post atrial flutter ablation. 8. History of atrial tachycardia. 9. Anemia and thrombocytopenia-getting iron infusions. 10. Hypertension. 11. Hypercholesterolemia. DISCHARGE DISPOSITION: The patient will be discharged and will make contact with Dr. Tipton at [facility] in [place] for TAVR. DISCHARGE MEDICATIONS: 1. Vitamin C 1000 mg daily. 2. Aspirin 81 daily. 3. Biotin 5000 mcg daily. 4. Carvedilol 3.125 b.i.d. 5. Vitamin D3 of 2000 units daily. 6. Plavix 75 mg daily. 7. Vitamin B12 of 2500 mcg daily. 8. Prolia. 9. Cymbalta 60 mg daily. 10. Zetia 10 mg daily. 11. Folic acid 1 mg daily. 12. Gabapentin 300 mg at bedtime. 13. Osteo Bi-Flex one daily. 14. Citrucel 1 teaspoon at bedtime. 15. Mulino-3 gummies one daily. 16. Protonix 40 mg daily. 17. MiraLAX 17 g daily. 18. Potassium chloride 20 mEq q.a.m. 19. Prednisone 5 mg q.a.m. 20. Rosuvastatin 40 mg at bedtime. 21. Spironolactone 25 mg q.a.m. 22. Azulfidine 500 mg b.i.d. 23. Torsemide 20 mg q.a.m. 24. CoQ10 of 100 mg daily. HOSPITAL COURSE: Mrs. Mathews underwent cardiac catheterization due to increasing dyspnea just walking between rooms and peripheral edema as well as severe bioprosthetic aortic stenosis. She also had a drop in her ejection fraction from 50% six months ago to 30% at present. Mean left ventricular-aortic gradient was 75 mm with an aortic valve area of 0.23 cm2 (#21 Dong Magna pericardial bioprosthetic aortic valve). Left ventriculogram revealed mid anterior akinesis and mild global hypokinesis with ejection fraction of 30% to 35%. Coronary arteriography revealed an 80% proximal LAD, total occlusion in the mid LAD, 80% lesion in a small first diagonal. There was an 80% mid circumflex, 60% distal circumflex. The first obtuse marginal had an 80% stenosis, second obtuse marginal 70%, and third obtuse marginal 70%. Right coronary artery was totally occluded proximally and filled retrograde from the GÓMEZ to LAD (this was felt to be too small in 2009 and was not bypassed). Bypass grafts revealed patent GÓMEZ to the LAD with an 80% apical LAD stenosis. The second obtuse marginal graft (not first obtuse marginal) was patent. The third obtuse marginal (not second obtuse marginal) that was piggybacked onto the OM2 graft was occluded. She was hypoxic at the conclusion of the procedure with O2 sats in the mid to low 80s and it was felt best to admit her for observation and oxygen therapy over the night. The following morning on room air, her O2 saturation is 95%, and she will make contact with Dr. Tipton regarding TAVR. She also was seen by Dr. Frias, who felt she was a poor candidate for redo aortic valve replacement and CABG with her advanced age and other health problems. Job ID: [id number] [facility]
== END 2019-07-31 11:23 | disposition home or self-care (01) ==
LOC: CCL 05:53 → 2NO 09:39
PROVIDERS: ADMIT Internal Medicine Cardiovascular Disease; ATTEND Internal Medicine Cardiovascular Disease
PROC: 4A023N8 Measurement of Cardiac Sampling and Pressure, Bilateral, Percutaneous Approach (ICD-10-PCS; principal; 2019-07-30)
PROC: B2111ZZ Fluoroscopy of Multiple Coronary Arteries using Low Osmolar Contrast (ICD-10-PCS; 2019-07-30)
DX: T82.857A Stenosis of other cardiac prosthetic devices, implants and grafts, initial encounter (principal); I25.10 Atherosclerotic heart disease of native coronary artery without angina pectoris; I48.20 Chronic atrial fibrillation, unspecified; I10 Essential (primary) hypertension; D64.9 Anemia, unspecified; E78.00 Pure hypercholesterolemia, unspecified; E78.5 Hyperlipidemia, unspecified; Z88.5 Allergy status to narcotic agent
CPT/HCPCS: 80061; 85347; 93005; 93461; 93561; 94760; C1769; G0378 ×2; 36415; 93010; 99152; J1644; J2250; J2720; J3010; J7512; Q9967

== ENCOUNTER 2019-09-14 16:08 | Inpatient (IN) | payer MEDICARE ==
[2019-09-14 17:01] LABS: #Eosinphils 0.2 thou/uL (0.0-0.7); #Lymphocytes 0.9 thou/uL (1.20-3.40); #Monocytes 0.5 thou/uL (0.11-0.59); #Neutrophils 3.7 thou/uL (1.40-6.50); %Basophils 0.2 % (0.0-1.0); %Eosinophils 3.5 % (0.0-10.0); %Lymphocytes 16.6 % (21.0-51.0); %Monocytes 9.1 % (0.0-10.0); %Neutrophils 70.6 % (42.0-75.0); Hemoglobin 6.7 g/dL (12.0-16.0); Mean Corpuscular HGB CONC 32.1 g/dL (32.0-36.0); Mean Corpuscular Hemoglobin 33.3 pg (27.0-31.0); Mean Platelet Volume 10.9 fL (7.4-10.4); Platelet Count 108 thou/uL (130-400); Red Blood Cell (RBC) Count 2.02 mill/uL (4.20-5.40); White Blood Cell (WBC) Count 5.2 thou/uL (4.8-10.8)
[2019-09-14 18:22] LABS: CKMB 0.9 ng/mL (0-6.6)
[2019-09-14 18:24] LABS: INR-International Normal Ratio 1.2; PTT 32.9 SEC (22.9-36.1); Prothrombin Time 15.2 sec (12.0-14.7)
[2019-09-14 18:39] LABS: ALT (SGPT) 8 U/L (8-55); AST (SGOT) 19 U/L (5-34); Albumin 3.6 g/dL (3.4-4.8); Alkaline Phosphatase 38 U/L (40-110); Anion Gap 15 mmol/L (10-20); BUN (Urea Nitrogen) 33 mg/dL (9.8-20.1); Bilirubin, Total 0.3 mg/dL (0.2-1.2); Calc. Creatinine Clearance 0 mL/min (70-130); Calcium 9.8 mg/dL (7.8-10.44); Carbon Dioxide 22 mmol/L (23-31); Chloride 106 mmol/L (98-107); Estimated GFR-MDRD 62; Globulin 3.1 g/dL (2.4-3.5); Glucose 90 mg/dL (83-110); Magnesium 2.2 mg/dL (1.6-2.6); Protein, Total 6.7 g/dL (6.0-8.3); Sodium 139 mmol/L (136-145)
[2019-09-14] MEDS ORDERED: Acetaminophen 325 MG TAB PO PRN (20:38)
[2019-09-14] MEDS ORDERED: Sodium Chloride 0.9% 1,000 ML IV SCH (20:45)
--- NOTE | 2019-09-14 20:51 | PDOC.HHP ---
Hospitalist HPI - History of Present Illness Abnormal labs History of Present Illness: PCP: Sony Gomes The patient is a 84/F with PMH significant for CAD (1 stent), CABG x 3 w/AVR ( 2009), AVR replacement (08/2019), afib w/ablation (on Eliquis, ASA, plavix), watchman (05/2019), HLD, HTN, RA, Raynauds, Sjogrens (on Prednisone daily) that presents for above complaint. States that she gets annual blood work at the cancer clinic for the past several years because "they are so thorough at the cancer clinic". Reports hemoglobin of 8.0 last week, so the clinic recommended having an iron infusion. So, today she went for her iron infusion, her blood work showed even lower hemoglobin so she was instructed to go to the ER for possible blood transfusion. The patient reports having BRBPR last night, with associated dark stools and general weakness. She had another dark stool with BRBPR this morning. She states there were blood clots on the toilet paper. She denies any abdominal pain , n/v/d. Denies any hemoptysis or liver disease. She is on chronic anticoagulation and steroids for autoimmune disorders. She reports having similar symptoms approximately 2 years ago, had a colonscopy by Dr. Perry, who found "some sort of ulcer". She denies any chest pain, heart palpitations, sob. Denies any fever or chills. She has no other complaints at this time. ED Course: VS 173/69, 79, 17, 100%RA, 98.1F EKG AJR, ST and T wave abnormalities Trop 0.037, CKMB 0.9 Na 139 K 4.0 BUN 33 Creatinine 0.87 CFR 62 PT 15.2 INR 1.2 LFT unremarkable Given: 1 u PRBCs Allergies: Codeine, Morphine, Narcotics Home Medications: 1. Eliquis 2.5mg po BID 2. ASA 81mg po day 3. Plavix 75mg po day 4. Crestor 10mg po day 5. Zetia 5mg po day 6. Torsemide 40mg po day 7. Cymbalta 60mg po day 8. Prednisone 5mg po day 9. Prolia 60mg SC q 6 months 10. Gabapentin 300mg po q hs 11. Kdur 20mEq po q day Hospitalist ROS - Review of Systems Constitutional: reports: weakness. denies: fever, chills, sweats, malaise Eyes: denies: pain, vision change, conjunctivae inflammation, eyelid inflammation, redness, other ENT: denies: ear pain, ear discharge, nose pain, nose discharge, nose congestion , mouth pain, mouth swelling, throat pain, throat swelling, other Respiratory: denies: cough, dry, shortness of breath, hemoptysis, SOB with excertion, pleuritic pain, sputum, wheezing, other Cardiovascular: denies: chest pain, palpitations, orthopnea, paroxysmal noc. dyspnea, edema, light headedness, other Gastrointestinal: reports: melena, hematochezia. denies: nausea, vomiting, abdominal pain, diarrhea, constipation Genitourinary: denies: dysuria, frequency, incontinence, hematuria, retention, other Skin: denies: rash, bruising Neurological: reports: weakness (generalized). denies: numbness, incoordination , change in speech, confusion Hospitalist History - Past Medical History Source: patient Cardiac: reports: AFIB (paroxysmal), CAD (x1 stent), CHF, HTN, Hyperlipidemia Musculoskeletal: reports: Osteoarthritis Rheumatologic: reports: Rheumatoid arthritis, Other (sjogrens and raynauds disease) - Past Surgical History Past Surgical History: reports: CABG (x3 w/ AVR (2009) AVR replaced (2019) Watchman procedure (05/24) ablation x 2), Tonsillectomy, Other (Rectal prolapse) - Family History Family History: reports: no pertinent history Other Family History: non contributory for this case. - Social History Smoking Status: Never smoker Alcohol: reports: Occassional (1/4 glass wine daily) Drugs: reports: none Living Situation: With Family Occupation: [place] Activity level: independent ambulation - Exam General Appearance: NAD, awake alert Eye: anicteric sclera ENT: normocephalic atraumatic Neck: supple, no JVD Heart: RRR, no gallops, no rubs, murmur present, III/IV Respiratory: CTAB, no wheezes, no rales, no ronchi, no tachypnea Gastrointestinal: soft, non-tender, normal bowel sounds, no bruit, no guarding, no rigidity Extremities: no cyanosis, no edema Neurological: no focal deficits Musculoskeletal: normal tone, normal strength Psychiatric: normal affect, A&O x 3 Hospitalist Results - Labs Result Diagrams: 09/14/19 20:55 09/14/19 18:01 Lab results: WBC 5.2 thou/uL (4.8-10.8) 09/14/19 16:51 Hgb 6.7 g/dL (12.0-16.0) L 09/14/19 16:51 Hct 21.0 % (36.0-47.0) L 09/14/19 16:51 MCV 104.0 fL (78.0-98.0) H 09/14/19 16:51 Plt Count 108 thou/uL (130-400) L 09/14/19 16:51 Neutrophils % 70.6 % (42.0-75.0) 09/14/19 16:51 Sodium 139 mmol/L (136-145) 09/14/19 18:01 Potassium 4.0 mmol/L (3.5-5.1) 09/14/19 18:01 Chloride 106 mmol/L (98-107) 09/14/19 18:01 Carbon Dioxide 22 mmol/L (23-31) L 09/14/19 18:01 BUN 33 mg/dL (9.8-20.1) H 09/14/19 18:01 Creatinine 0.87 mg/dL (0.6-1.1) 09/14/19 18:01 Glucose 90 mg/dL (83-110) 09/14/19 18:01 Calcium 9.8 mg/dL (7.8-10.44) 09/14/19 18:01 Total Bilirubin 0.3 mg/dL (0.2-1.2) 09/14/19 18:01 AST 19 U/L (5-34) 09/14/19 18:01 ALT 8 U/L (8-55) 09/14/19 18:01 Alkaline Phosphatase 38 U/L (40-110) L 09/14/19 18:01 CK-MB (CK-2) 0.9 ng/mL (0-6.6) 09/14/19 16:51 Troponin I 0.037 ng/mL (< 0.028) H 09/14/19 16:51 Serum Total Protein 6.7 g/dL (6.0-8.3) 09/14/19 18:01 Albumin 3.6 g/dL (3.4-4.8) 09/14/19 18:01 - EKG Interpretation EKG: AJR, ST and T wave abnormalities Hospitalist H&P A/P - Problem (1) GI bleed Code(s): K92.2 - GASTROINTESTINAL HEMORRHAGE, UNSPECIFIED Status: Acute Assessment and Plan: Admit to telemetry, inpatient status Expected length of stay at least 2 midnights Patient reports generalized weakness, denies chest pain or light headedness LBM this morning Hgb 6.7, Receiving 1 u PRBCs Will recheck CBC after infusion completed check Hgb/Hct q 4hrs Gentle IVF hydration Consult GI Hold all anticoagulation Check orthostatic VS Protonix IVP NPO (2) Acute blood loss anemia Code(s): D62 - ACUTE POSTHEMORRHAGIC ANEMIA Status: Acute Assessment and Plan: secondary to Problem #1 (3) Elevated troponin Code(s): R79.89 - OTHER SPECIFIED ABNORMAL FINDINGS OF BLOOD CHEMISTRY Status : Acute Assessment and Plan: Denies any chest pain or heart palpitations Extensive heart history, likely demand ischemia Will trend troponins Check BNP baseline and mag level (4) Paroxysmal A-fib Code(s): I48.0 - PAROXYSMAL ATRIAL FIBRILLATION Status: Chronic Assessment and Plan: Currently LING Had watchman procedure May 2019 PT/INR 15.2/1.2 Will hold all anticoagulation SCDs for DVT prophylaxis (5) History of coronary artery bypass graft x 3 Code(s): Z95.1 - PRESENCE OF AORTOCORONARY BYPASS GRAFT Status: Chronic Assessment and Plan: with AVR in 2009 Will bread packer (6) S/P AVR (aortic valve replacement) Code(s): Z95.2 - PRESENCE OF PROSTHETIC HEART VALVE Status: Chronic Assessment and Plan: Recently replaced 08/2019 Will hold all anticoagulation (7) CHF (congestive heart failure) Code(s): I50.9 - HEART FAILURE, UNSPECIFIED Status: Chronic Assessment and Plan: Denies any recent weight gain, LE swelling Will get baseline BNP (8) CAD (coronary artery disease) Code(s): I25.10 - ATHSCL HEART DISEASE OF [place] CORONARY ARTERY W/O ANG PCTRS Status: Chronic Assessment and Plan: Will hold all home anticoagulation (9) Rheumatoid arthritis Code(s): M06.9 - RHEUMATOID ARTHRITIS, UNSPECIFIED Status: Chronic Assessment and Plan: Taking chronic steroids Will hold for now - Plan Plan: Consult PT SCDs for DVT prophylaxis Protonix GI prophylaxis Full Code MPOA is Burke Mathews at [phone] Srivastava
[2019-09-14 21:29] LABS: Troponin I 0.039 ng/mL (< 0.028)
[2019-09-14 22:41] LABS: Iron Binding Capacity, Total 228 mcg/dL (265-497)
[2019-09-14 22:54] VITALS: BMI 22.5
[2019-09-14] MEDS: Pantoprazole 40 MG VIAL IVP SCH (23:40)
[2019-09-15 00:46] LABS: Hemoglobin 7.6 g/dL (12.0-16.0)
[2019-09-15 01:11] LABS: Troponin I 0.048 ng/mL (< 0.028)
[2019-09-15 05:09] LABS: Anion Gap 14 mmol/L (10-20); BUN (Urea Nitrogen) 24 mg/dL (9.8-20.1); Calc. Creatinine Clearance 54 mL/min (70-130); Calcium 8.8 mg/dL (7.8-10.44); Carbon Dioxide 20 mmol/L (23-31); Chloride 111 mmol/L (98-107); Estimated GFR-MDRD 77; Glucose 82 mg/dL (83-110); Potassium 3.7 mmol/L (3.5-5.1); Sodium 141 mmol/L (136-145)
[2019-09-15 05:28] LABS: Band 4 % (5-11); Eosinophils 9 % (0-10); Hemoglobin 7.2 g/dL (12.0-16.0); Lymphocytes 22 % (21-51); MDiff Complete? YES; Mean Corpuscular HGB CONC 31.3 g/dL (32.0-36.0); Mean Corpuscular Hemoglobin 31.7 pg (27.0-31.0); Mean Platelet Volume 8.7 fL (7.4-10.4); Monocytes 7 % (0-10); Neutrophil 58 % (42-75); Nucleated RBC 1 % (0); Platelet Count 70 thou/uL (130-400); Platelet Morphology Comment Appears Decreased; Polychromasia SLIGHT = 2-3 cells (100X) (0-2/hpf); RBC Distribution Width 15.5 % (11.5-14.5); Red Blood Cell (RBC) Count 2.26 mill/uL (4.20-5.40); White Blood Cell (WBC) Count 3.2 thou/uL (4.8-10.8)
[2019-09-15] MEDS: Pantoprazole 40 MG VIAL IVP SCH ×2 (08:44→21:20)
--- NOTE | 2019-09-15 11:38 | PDOC.HOSPP ---
- Subjective Encounter Date: 09/15/19 Encounter Time: 11:36 Subjective: Ms. Mathews was seen today in follow-up of GI bleed with acute on chronic anemia. She has not had any rectal bleeding today. She does not have any new complaints. She tells me she had a virtual visit scheduled with Dr. Mccollum today, to go over her Echo results, and for follow-up of the Life Vest. - Objective Vital Signs & Weight: Vital Signs (12 hours) Temp Pulse Resp BP BP BP Pulse Ox 09/15/19 08:00 97.5 F L 67 16 128/62 97 09/15/19 04:44 116/59 L 77/47 L 119/56 L 09/15/19 03:23 97.7 F 66 15 119/56 L 99 Weight Weight 131 lb 3.2 oz I&O: 09/14/19 09/15/19 09/16/19 06:59 06:59 06:59 Intake Total 300 Output Total 300 Balance 0 Result Diagrams: 09/15/19 08:44 09/15/19 04:15 Additional Labs: Accuchecks 09/15/19 10:36 POC Glucose 65 L Hospitalist ROS - Medication Medications: Active Medications Generic Name Dose Route Start Last Admin Trade Name Freq PRN Reason Stop Dose Admin Sodium Chloride 1,000 mls @ 50 mls/hr 09/14/19 20:45 09/14/19 23:40 Normal Saline 0.9% IV 09/15/19 16:44 1,000 mls .[id number] JUDY Administration Pantoprazole Sodium 40 mg 09/14/19 21:00 09/15/19 08:44 Protonix IVP 40 mg BID JUDY Administration - Exam Eye: PERRL, anicteric sclera Heart: RRR, no gallops, no rubs Respiratory: CTAB, no wheezes, no rales, no ronchi Gastrointestinal: soft, non-tender, non-distended, normal bowel sounds, no palpable masses, no hepatomegaly Extremities: no cyanosis, no edema Skin: no rashes Skin - other findings: + thicken and tight skin around the ankles and feet Hosp A/P (1) Acute blood loss anemia Code(s): D62 - ACUTE POSTHEMORRHAGIC ANEMIA Status: Acute (2) GI bleed Code(s): K92.2 - GASTROINTESTINAL HEMORRHAGE, UNSPECIFIED Status: Acute (3) History of coronary artery bypass graft x 3 Code(s): Z95.1 - PRESENCE OF AORTOCORONARY BYPASS GRAFT Status: Chronic (4) Paroxysmal A-fib Code(s): I48.0 - PAROXYSMAL ATRIAL FIBRILLATION Status: Chronic (5) S/P AVR (aortic valve replacement) Code(s): Z95.2 - PRESENCE OF PROSTHETIC HEART VALVE Status: Chronic (6) Hypertension Code(s): I10 - ESSENTIAL (PRIMARY) HYPERTENSION Status: Chronic (7) Rheumatoid arthritis Code(s): M06.9 - RHEUMATOID ARTHRITIS, UNSPECIFIED Status: Chronic - Plan * Acute blood loss anemia due to GI- Bleed- her H&H has responded well to transfusion * Continue IV Protonix, and continue to monitor the H&H * GI consult pending * Orthostatic hypotension- continue cautious hydration * Recent AVR- will consult Cardiology * CAD- stable
[2019-09-15 13:17] LABS: Hemoglobin 6.8 g/dL (12.0-16.0)
[2019-09-15] MEDS ORDERED: Dextrose 50% Abboject 50 ML SYRINGE ONE (16:27)
[2019-09-15] MEDS: Dextrose 5 % And 0.9 % NaCl 1,000 ML IV SCH (16:39)
[2019-09-15 16:46] LABS: Hemoglobin 6.9 g/dL (12.0-16.0)
--- NOTE | 2019-09-16 01:21 | CON ---
DATE OF CONSULTATION: 09/15/2019 REASON FOR CONSULTATION: Anemia, hematochezia. CONSULTING PROVIDER: Mr. Tor Singletary. HISTORY OF PRESENT ILLNESS: The patient is an 84-year-old female with past medical history of coronary artery disease status post stent placement and CABG, aortic valve repair, atrial fibrillation status post ablation, hyperlipidemia, hypertension, rheumatoid arthritis, Raynaud phenomenon, Sjogren syndrome, renal cell carcinoma, and rectal prolapse status post rectopexy, presenting with complaints of "not feeling good." She states that she has not been feeling well for the last 1 to 2 weeks and was currently undergoing evaluation by her primary care physician, for which she had been referred over for possible IV iron infusion; however, approximately 2 days ago, she began having increased episodes of hematochezia, characterized as bright red blood per rectum that was both present on the toilet paper and in the toilet. This was always associated with having a bowel movement with no episodes of only gross blood seen. This was associated with increased weakness, dizziness, subjective chills. At which point, it prompted the patient to seek healthcare attention at the [facility] ER, and while in the ER, she was noted to have significantly decreased hemoglobin and hematocrit, and ultimately admitted to the hospital for further evaluation. While in the ER, she was ordered and transfuse for 1 unit of PRBCs and transferred to the floor given her normal hemodynamics. Currently, she states that she is feeling somewhat better, but continues to have mild weakness. On further examination, she also endorses a 15- to 20-pound weight loss over the last year that was unintentional; however, she denies any nausea, vomiting, fevers, melena, hematemesis, dysphagia, or odynophagia. Of note, the patient underwent an upper endoscopy on November 16, 2018, which showed a 3 cm hiatal hernia as well as LA grade C esophagitis. She also underwent colonoscopy at the same time, which showed an end-to-end colocolonic anastomosis within the sigmoid colon as well as a few small AVMs that were bleeding within the cecum and proximal ascending colon. They were intervened upon with argon plasma coagulation with good hemostasis achieved. REVIEW OF SYSTEMS: A 10-category review of systems was obtained with all responses negative except for the pertinent positives as listed in HPI. PAST MEDICAL HISTORY: As per HPI. PAST SURGICAL HISTORY: Cardiac stent placement, 3-vessel CABG, aortic valve replacement, cardiac ablation secondary to atrial fibrillation, Watchman procedure in May of 2019. SOCIAL HISTORY: Denies any tobacco, alcohol, or illicit drug use. FAMILY HISTORY: Denies any GI malignancies. OUTPATIENT MEDICATIONS: Reviewed. ALLERGIES: CODEINE, MORPHINE, AND NARCOTICS. PHYSICAL EXAMINATION: VITAL SIGNS: Temperature 98.2, pulse 73, blood pressure 136/58, respiratory rate 18, saturating 96% on room air. GENERAL: The patient was lying in bed, in no acute distress. Alert and oriented x4. HEENT: Normocephalic and atraumatic. NECK: Supple. No JVD or scleral icterus noted. CARDIOVASCULAR: 3 to 4/6 systolic murmur best heard at the left lower sternal border as well as loud S2. There were no discernible murmurs, gallops, or rubs. RESPIRATORY: Clear to auscultation bilaterally with no discernible wheezes or rales. ABDOMEN: Normoactive bowel sounds. Soft, nondistended, mild tenderness to palpation in the right upper quadrant. EXTREMITIES: No cyanosis, clubbing, or edema. LABORATORY DATA: CBC with a white blood cell count of 3.2, hemoglobin 8, hematocrit 24.5, platelets 70. INR 1.2. Chemistry with a sodium of 141, potassium 3.7, chloride 111, CO2 of 20, BUN 24, creatinine 0.72, glucose 82, AST 19, ALT 8, alkaline phosphatase 38, total bilirubin 0.3. BNP 598. Troponin 0.048. IMAGING DATA: No current GI imaging is available for review. The patient did undergo both upper endoscopy and colonoscopy on November 16, 2018, which showed a 3 cm hiatal hernia and LA grade C reflux-mediated erosive esophagitis on the upper endoscopy. However, there were a few small actively bleeding arteriovenous malformations within the cecum and proximal ascending colon that were intervened upon with argon plasma coagulation. ASSESSMENT AND PLAN: The patient is an 84-year-old female with past medical history of coronary artery disease status post stent placement and 3-vessel coronary artery bypass graft, aortic valve repair, atrial fibrillation with cardiac ablation, hyperlipidemia, hypertension, rheumatoid arthritis, Raynaud's, Sjogren syndrome, renal cell carcinoma, rectal prolapse status post rectopexy, and recent Watchman procedure placed on anticoagulation in the postoperative period, presenting with anemia and hematochezia. 1. Hematochezia/anemia. a. The patient underwent a Watchman procedure in May of this year, was ultimately placed on both Eliquis and Plavix at that time. She had not had any episodes of gross bleeding, but did have a mild anemia, for which she was being evaluated as an outpatient with IV iron infusion plan; however over the last 2 days, the patient began having bright red blood per rectum that was both in the toilet and on the toilet paper, but no episodes of gross bleeding or hemodynamic instability. This was associated with increased weakness, dizziness, and subjective chills, which ultimately prompted her to come to [facility]. At this time, given the patient's history of actively bleeding arteriovenous malformations within the right colon, this is more likely source of her recent hematochezia. Further contributing to her bleeding would be the concurrent administration of both Plavix and Eliquis in addition to daily prednisone, which could also affect the gastrointestinal tract adversely. The last dosing of both Eliquis and Plavix was the night before last, making this approximately 48 hours after the administration. While the Eliquis is most likely out of her system, the Plavix does remain in the system for 5 to 7 days after administration. Undergoing urgent endoscopy with intervention may ultimately result in increased bleeding due to the fact that the Plavix is still on board. RECOMMENDATIONS: 1. a. Would continue to trend her hemoglobin and hematocrit and transfuse as necessary to maintain hemoglobin and hematocrit of 7 and 21. b. Continue to monitor clinically for signs of active GI bleeding. c. Would continue to hold any anticoagulation for the time being. d. Would place the patient on a clear liquid diet. e. We will continue to monitor the patient and hold on colonoscopy for the time being given the fact that the Plavix is still within her system and could increase the risk of periprocedural complications. f. Would tentatively plan for colonoscopy on Friday as this would allow for approximately 4 to 5 days off Plavix, and if intervention is needed, could do so safely at that time. We will continue to follow. Please call with any questions. Job ID: [id number]
[2019-09-16] MEDS: Pantoprazole 40 MG VIAL IVP SCH ×2 (09:16→22:08)
[2019-09-16] MEDS: Dextrose 5 % And 0.9 % NaCl 1,000 ML IV SCH (09:16)
[2019-09-16 09:35] LABS: Hemoglobin 6.6 g/dL (12.0-16.0)
--- NOTE | 2019-09-16 11:21 | PDOC.HOSPP ---
- Subjective Encounter Date: 09/16/19 Encounter Time: 10:00 Subjective: Ms Mathews is seen this morning as a follow up for acute blood loss anemia, GI bleed, s/p AVR, HTN, and rheumatoid arthritis. She states she is feeling well and waiting for her colonoscopy tomorrow. No over night events or concerns from her. - Objective Vital Signs & Weight: Vital Signs (12 hours) Temp Pulse Resp BP BP BP BP 09/16/19 09:05 98.4 F 77 16 121/56 L 09/16/19 03:49 97.6 F 71 16 99/44 L 92/45 L 118/58 L Pulse Ox 09/16/19 09:05 94 L 09/16/19 03:49 95 Weight Admit Weight 131 lb 3.2 oz Weight 131 lb 3.2 oz I&O: 09/15/19 09/16/19 09/17/19 06:59 06:59 06:59 Intake Total 300 1695 Output Total 300 700 Balance 0 995 Result Diagrams: 09/16/19 18:11 09/16/19 18:11 Additional Labs: Accuchecks 09/16/19 09/15/19 09/15/19 06:00 20:33 16:25 POC Glucose 95 91 47 L* EKG Reviewed by me: Yes Hospitalist ROS - Medication Medications: Active Medications Generic Name Dose Route Start Last Admin Trade Name Freq PRN Reason Stop Dose Admin Dextrose/Sodium Chloride 1,000 mls @ 60 mls/hr 09/15/19 16:30 09/16/19 09:16 D5 0.9% Ns IV 1,000 mls .[id number] JUDY Administration Pantoprazole Sodium 40 mg 09/14/19 21:00 09/16/19 09:16 Protonix IVP 40 mg BID JUDY Administration - Exam General Appearance: NAD, awake alert Eye: PERRL, anicteric sclera Neck: supple, symmetric, no JVD, no lymphadenopathy Heart: RRR, no murmur, no gallops, no rubs Respiratory: no wheezes, no rales, no ronchi Gastrointestinal: soft, non-tender, non-distended, normal bowel sounds Extremities: no cyanosis, no edema Neurological: no focal deficits Psychiatric: normal affect, normal behavior Hosp A/P (1) Acute blood loss anemia Code(s): D62 - ACUTE POSTHEMORRHAGIC ANEMIA Status: Acute (2) GI bleed Code(s): K92.2 - GASTROINTESTINAL HEMORRHAGE, UNSPECIFIED Status: Acute (3) Orthostatic hypotension Code(s): I95.1 - ORTHOSTATIC HYPOTENSION Status: Acute (4) S/P AVR (aortic valve replacement) Code(s): Z95.2 - PRESENCE OF PROSTHETIC HEART VALVE Status: Chronic (5) Hypertension Code(s): I10 - ESSENTIAL (PRIMARY) HYPERTENSION Status: Chronic - Plan Acute blood loss anemia: hemoglobin down to 6.6 this morning, tranfuse 1 unit PRBC today and will collect another H/H after transfusion is complete, patient asymptomatic, GI still following on case GI bleed:continue to monitor, endoscopy planned for tomorrow (09/16), continue IV protonix Orthostatic hypotension: continue gentle IV hydration and 1 unit PC to be transfused HTN: stable s/p AVR: cardiology consult, had outpt appointment scheduled for today
[2019-09-16 12:44] LABS: Reference Lab Name LABCORP
[2019-09-16] MEDS ORDERED: GoLYTELY 4,000 ml Bottle PO SCH (17:00)
--- NOTE | 2019-09-16 17:54 | PRG ---
DATE OF SERVICE: 09/16/2019 SUBJECTIVE: Ms. Mathews has had no overt bleeding today. No abdominal pain or nausea or vomiting. She is receiving blood transfusion. OBJECTIVE: VITAL SIGNS: Temperature is 98.7, pulse 82, and blood pressure 151/63. GENERAL: She is in no acute distress. Alert and oriented x3. LUNGS: Clear to auscultation bilaterally. HEART: Regular rate and rhythm without murmur. ABDOMEN: Soft, nontender, and nondistended. Bowel sounds are present. EXTREMITIES: No lower extremity edema. LABORATORY DATA: Her hemoglobin is 6.6 today. IMPRESSION AND PLAN: 1. Anemia of acute blood loss. 2. Gastrointestinal bleed. 3. History of atrial fibrillation and prior aortic valve repair and recent Watchman procedure, for which she had been on anticoagulation and Plavix. The Eliquis has been held. The Plavix has been held. We will followthrough with upper and lower endoscopy tomorrow. Job ID: [id number]
[2019-09-16 18:21] LABS: Hemoglobin 8.9 g/dL (12.0-16.0)
[2019-09-16 18:36] LABS: Glucose 114 mg/dL (83-110)
--- NOTE | 2019-09-16 19:32 | PDOC.HOSPP ---
- Subjective Encounter Date: 09/16/19 Encounter Time: 19:30 Subjective: Ms. Mathews was seen today in follow-up of GI Bleed. She does not have any complaints. She denies abdominal pain, or nausea or vomiting. - Objective Vital Signs & Weight: Vital Signs (12 hours) Temp Pulse Resp BP BP Pulse Ox 09/16/19 15:28 98.7 F 82 18 151/63 H 95 09/16/19 11:50 98.0 F 74 16 144/65 H 97 09/16/19 11:35 98.2 F 64 16 135/60 96 09/16/19 09:05 98.4 F 77 16 121/56 L 94 L Weight Admit Weight 131 lb 3.2 oz Weight 131 lb 3.2 oz I&O: 09/15/19 09/16/19 09/17/19 06:59 06:59 06:59 Intake Total 300 1695 1070 Output Total 300 700 700 Balance 0 995 370 Result Diagrams: 09/16/19 18:11 09/16/19 18:11 Additional Labs: Accuchecks 09/16/19 09/16/19 09/16/19 18:03 17:20 11:03 POC Glucose 67 L Less than 35 L* 147 H 09/16/19 09/15/19 09/15/19 06:00 20:33 16:25 POC Glucose 95 91 47 L* Hospitalist ROS - Medication Medications: Active Medications Generic Name Dose Route Start Last Admin Trade Name Freq PRN Reason Stop Dose Admin Dextrose/Sodium Chloride 1,000 mls @ 60 mls/hr 09/15/19 16:30 09/16/19 09:16 D5 0.9% Ns IV 1,000 mls .[id number] JUDY Administration Pantoprazole Sodium 40 mg 09/14/19 21:00 09/16/19 09:16 Protonix IVP 40 mg BID JUDY Administration - Exam Eye: PERRL Heart: RRR, no murmur, no gallops, no rubs, normal peripheral pulses Respiratory: CTAB, no wheezes, no rales, no ronchi, normal chest expansion, no tachypnea Gastrointestinal: soft, non-tender, non-distended, normal bowel sounds, no palpable masses Extremities: no cyanosis, no clubbing, no edema Hosp A/P (1) Acute blood loss anemia Code(s): D62 - ACUTE POSTHEMORRHAGIC ANEMIA Status: Acute (2) GI bleed Code(s): K92.2 - GASTROINTESTINAL HEMORRHAGE, UNSPECIFIED Status: Acute (3) History of coronary artery bypass graft x 3 Code(s): Z95.1 - PRESENCE OF AORTOCORONARY BYPASS GRAFT Status: Chronic (4) Paroxysmal A-fib Code(s): I48.0 - PAROXYSMAL ATRIAL FIBRILLATION Status: Chronic (5) S/P AVR (aortic valve replacement) Code(s): Z95.2 - PRESENCE OF PROSTHETIC HEART VALVE Status: Chronic (6) Hypertension Code(s): I10 - ESSENTIAL (PRIMARY) HYPERTENSION Status: Chronic (7) Rheumatoid arthritis Code(s): M06.9 - RHEUMATOID ARTHRITIS, UNSPECIFIED Status: Chronic - Plan * Acute blood loss anemia due to GI- Bleed- her H&H has responded well to transfusion * Continue IV Protonix, and continue to monitor the H&H * GI consult pending * Hypoglycemia- unsure if this is error from the accucheck. Venous sampling was normal- will continue D5NS IV * Recent AVR- stable * CAD- stable
--- NOTE | 2019-09-17 06:29 | CON ---
DATE OF CONSULTATION: HISTORY: Rosaura Mathews is an 84-year-old white female, who I initially evaluated in February 2008 after she moved from [place] to [place] and wanted followup. She underwent cardiac catheterization in [place], [place]. This revealed diffuse noncritical LAD disease which was a small vessel. There was 50% mid circumflex, 80% proximal RCA stenosis. She was also found to have minimal aortic stenosis with a gradient as high as 31 mm on pullback. She underwent repeat catheterization and stent placement at [facility] on August 04, 2006. This revealed the pullback pressure across the aortic valve only 5 mm. Taxus 2.5 x 8 mm stent was placed in the proximal right coronary artery and deployed at 12 atmospheres. In September 2007, she was having problems with fatigue and underwent repeat catheterization; however, I was never able to obtain a copy of that catheterization. In 2007, she complained of fatigue, some exertional dyspnea after walking one block. She denied any chest, arm, neck, or jaw discomfort. Occasionally, she would have leg edema. She denied any lightheadedness, dizziness, or syncope. Echo in February 2008 revealed ejection fraction of 50% to 55% with mild mitral regurgitation, ytddmygp-wg-zjnlyv aortic regurgitation, tjahutic-dc-cftdpa aortic stenosis with a peak gradient of 51 mm and mean gradient of 30 mm, and moderate pulmonic insufficiency. In April 2008, she underwent adenosine Cardiolite testing because of atypical resting chest discomfort. The test was normal without evidence of ischemia or fixed defect. Due to an LDL of 97, Crestor was increased to 10 mg. In August 2008, her LDL was 74 and Crestor was further increased to 40 mg. Echo in December 2007 revealed ejection fraction of 50% to 55% with mild mitral regurgitation, afxigluw-zw-scqioh aortic regurgitation, severe aortic stenosis with a peak gradient of 58 mm, mean gradient 35 mm, ftrmlfla-ra-wcakfe tricuspid regurgitation, and moderate pulmonic regurgitation. She continued to be asymptomatic. In November 2009, she complained of dyspnea on exertion after walking one-half block and had no chest discomfort or syncope. She also complained of varicose veins since the age of 20 and some pain in her right foot and wore compression stockings for 10 years. Lower extremity venous duplex revealed significant reflux in the right GSV from saphenofemoral junction to below the knee. In her left leg, there was significant reflux in the left common femoral vein and the GSV saphenofemoral junction to below the knee. There is also significant reflux in the left small saphenous vein. In December 2009, she again complained of dyspnea on exertion after walking one- half block, but denied any PND. She had episodes where she would feel like she would pass out when she would stand up. She then underwent catheterization in December 2009. Left ventriculogram revealed mild inferior and anterior hypokinesis with ejection fraction of 40% to 45% and mild mitral regurgitation. There was moderate aortic insufficiency. The mean aortic valve gradient was 55 mm with aortic valve area of 0.51 cm2. There was a proximal 60% LAD stenosis, 60% distal LAD, and 70 % stenosis in a small second diagonal. The circumflex had a 60% mid stenosis and 60% distal stenosis. There was a 50% lesion in the first obtuse marginal with 50% lesion in the second obtuse marginal. The right coronary artery was totally occluded at the ostium. This was the site of the Taxus 2.5 x 12 mm stent placed in August 2006. The distal right coronary artery filled retrograde from the left. She underwent aortic valve replacement with a 21 mm Dong Magna pericardial bioprosthetic valve and CABG x3 with vein graft to the second obtuse marginal and vein graft to the first obtuse marginal and GÓMEZ to the LAD. She was slow to rehab. She also had postoperative atrial fibrillation converted to sinus rhythm with amiodarone. In June 2015, she was found again to be in atrial fibrillation. She was placed on Multaq and warfarin and eventually underwent transesophageal echo. This revealed the absence of left atrial appendage and no intracardiac thrombus. She was noted to have a regular rhythm and EKG revealed PAT with 2:1 block. She then had atrial fibrillation. With 200 joules, she converted to sinus rhythm. Her atrial fibrillation occurred in October 2015. At times, she had atrial flutter and underwent flutter ablation in October 2016. She then underwent atrial fibrillation ablation in January 2017. In June 2017, she was back in atrial fibrillation. In August 2017, she underwent another ablation and since then this appeared to be in normal sinus rhythm. She was maintained on warfarin; however, due to the need for frequent blood tests, she opted to transition to Eliquis. After one or two doses, she started to have rectal bleeding from rectal prolapse and she had bleeding from this previously. She was evaluated for that and ultimately underwent sigmoid colectomy and repair of rectal prolapse in May [address] Almaraz. In September 2018, she was admitted with gastrointestinal bleeding and bright red blood per rectum. She ultimately underwent placement of Watchman on May 18, 2019, and 6 weeks later, this was well seated transesophageal echo. She eventually was taken off of Eliquis and she then started to have problems with leg edema, was placed on torsemide, but denied any chest discomfort. In July 2019, she complained of shortness of breath just walking in-house. On echo, her ejection fraction dropped from 50% to 55% down to 30% to 35% over a 6-month period. She was fitted with a Lifevest. She was placed on carvedilol 3.125 b.i.d. and it was recommended she undergo cardiac catheterization. Also on echocardiogram, she was found to have severe bioprosthetic aortic valve stenosis with a peak gradient of 98 mm, mean gradient of 63 mm and valve area of 0.36 cm2. On July 30, 2019, she underwent cardiac catheterization. Her mean aortic valve gradient was 75 mm and the aortic valve area of 0.23 cm2. There was mid anterior akinesis and mild global hypokinesis with ejection fraction of 35% to 40% (she had been previously fitted with a LifeVest in the office). There was an 80% proximal LAD lesion, total occlusion of the mid LAD and 80% lesion in the small first diagonal. The circumflex had an 80% mid stenosis, 60% distal stenosis. There was an 80% first obtuse marginal, 70% second obtuse marginal and 70% third obtuse marginal and the occluded graft could be seen in the third obtuse marginal. The right coronary artery was totally occluded proximally at the stent with some bridging collaterals. The mid right coronary was then again totally occluded. This filled retrograde from the GÓMEZ to the LAD. Bypass grafts revealed patent GÓMEZ to the LAD and patent graft to the second obtuse marginal (not first obtuse marginal). The graft to the third obtuse marginal (not second obtuse marginal) which was piggybacked onto the second obtuse marginal graft was occluded. Due to her leg edema as well as dyspnea after walking 10 to 15 feet, fall in her ejection fraction to 30% to 35%, she was transferred to [facility] in [place] and underwent placement of a transcatheter aortic valve replacement. Since that time, she noted dramatic decrease in her shortness of breath and had been feeling better. It is of note that when she was seen at [facility] in [place], she was restarted on Eliquis which had been previously stopped due to the Watchman. She was also placed on aspirin and Plavix due to the TAVR. She now presents complaining of weakness and bright red blood per rectum. She has been found to have hemoglobin as low as 6.6 and has been transfused and the Eliquis, Plavix, and aspirin had been discontinued. She now will undergo EGD and colonoscopy for further evaluation. She denies any chest discomfort. PAST MEDICAL HISTORY: Hypercholesterolemia; paroxysmal atrial fibrillation with multiple ablations, but has maintained sinus rhythm; coronary artery disease; bioprosthetic aortic valve; aortic stenosis; venous insufficiency. PAST SURGICAL HISTORY: Tonsillectomy, hysterectomy, removal of varicose veins twice, bunionectomy, CABG and aortic valve replacement and TAVR. She has undergone Watchman procedure, sigmoid colectomy and repair of rectal prolapse. MEDICATIONS: 1. Eliquis 2.5 mg b.i.d. 2. Aspirin 81 daily. 3. Plavix 75 daily. 4. Carvedilol 3.125 b.i.d. 5. Prolia 60 mg. 6. Cymbalta 60 mg daily. 7. Zetia 10 mg daily. 8. Folic acid 1 mg daily. 9. Gabapentin 300 at bedtime. 10. Nitroglycerin p.r.n. 11. Protonix 40 mg daily. 12. Proctor-3 gummies 1 daily. 13. KCl 20 mEq daily. 14. Prednisone 5 mg daily. 15. Crestor 40 mg at bedtime. 16. Spironolactone 25 daily. 17. Torsemide 20 mg daily. 18. CoQ10 at 100 mg daily. 19. Azulfidine 500 mg b.i.d. 20. Codeine, morphine, and narcotics. SOCIAL HISTORY: She does not smoke. She occasionally has a glass of wine. 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 FAMILY HISTORY: Father had strokes, but did not have any cardiac problems. No family history of coronary artery disease. REVIEW OF SYSTEMS: Ten systems reviewed were negative. PHYSICAL EXAMINATION: VITAL SIGNS: Blood pressure 151/63, pulse of 82. HEENT: PERRL. NECK: Supple. CHEST: Clear. CARDIAC: S1 and S2 normal without any S3 or S4. There is a 2-3/6 systolic ejection murmur. ABDOMEN: Normal bowel sounds without tenderness, organomegaly. EXTREMITIES: Revealed no clubbing, cyanosis, or edema. NEUROLOGIC: Grossly intact. SKIN: Warm and dry. LABORATORY DATA: EKG reveals sinus rhythm with first-degree AV block, evidence for anterior infarction. Hemoglobin is low is 6.8, hematocrit 21.2, white count 3200 , platelets 70,000. INR of 1.2. Sodium 141, potassium 3.7, chloride 111, carbon dioxide 20, BUN 24, creatinine 0.72. Troponin I is high at 0.048 (she has chronically elevated troponin I). Last LDL is 69. IMPRESSION: 1. Gastrointestinal bleed, status post transfusion. She was restarted on Eliquis when she was in [facility] at [place], which was not needed since she has a Watchman in place. She only needs to be on aspirin and Plavix. 2. Status post TAVR in August 2019 at [facility] in [place]. 3. Improvement in left ventricular function on echo in the office recently up to 45% to 50%. 4. Chronic atrial fibrillation. However, she was maintained sinus rhythm since her last ablation. 5. Status post Watchman procedure in May 2019 with good seating on repeat transesophageal echo. 6. Status post atrial flutter ablation. 7. History of atrial tachycardia. 8. Anemia and thrombocytopenia, getting iron infusions. 9. Hypertension. 10. Hypercholesterolemia. PLAN: The patient will undergo GI evaluation. The Eliquis does not need to be restarted, only the aspirin and Plavix once it is felt safe from a GI standpoint. Job ID: [id number] MTDD
[2019-09-17] MEDS: Dextrose 5 % And 0.9 % NaCl 1,000 ML IV SCH ×2 (07:14→07:30)
[2019-09-17] MEDS ORDERED: Ketamine 50 MG/ML (10ML VIAL) ONE (08:33)
[2019-09-17] MEDS ORDERED: PROPOFOL 200 MG/20 ML VIAL ONE (11:49)
[2019-09-17] MEDS: Pantoprazole 40 MG VIAL IVP SCH (14:09)
--- NOTE | 2019-09-17 15:23 | PDOC.HOSPP ---
- Subjective Encounter Date: 09/17/19 Encounter Time: 15:19 Subjective: Ms. Mathews was seen today in follow-up of GI Bleed. She does not have any complaints. - Objective Vital Signs & Weight: Vital Signs (12 hours) Temp Pulse Resp BP Pulse Ox 09/17/19 15:00 90 157/73 H 92 L 09/17/19 14:45 90 158/71 H 92 L 09/17/19 14:25 91 145/75 H 92 L 09/17/19 14:05 82 174/69 H 95 09/17/19 13:40 96.7 F L 86 16 175/73 H 95 09/17/19 07:32 98.9 F 82 15 152/69 H 96 09/17/19 03:33 97.7 F 72 18 126/59 L 97 Weight Admit Weight 131 lb 3.2 oz Weight 131 lb 3.2 oz I&O: 09/16/19 09/17/19 09/18/19 06:59 06:59 06:59 Intake Total 1695 5990 Output Total 700 706 Balance 995 5284 Result Diagrams: 09/16/19 18:11 09/16/19 18:11 Additional Labs: Accuchecks 09/17/19 09/17/19 09/16/19 14:19 05:26 20:50 POC Glucose 50 L* 102 56 L* 09/16/19 09/16/19 18:03 17:20 POC Glucose 67 L Less than 35 L* Hospitalist ROS - Medication Medications: Active Medications Generic Name Dose Route Start Last Admin Trade Name Freq PRN Reason Stop Dose Admin Dextrose/Sodium Chloride 1,000 mls @ 60 mls/hr 09/15/19 16:30 09/17/19 07:30 D5 0.9% Ns IV 1,000 mls .[id number] JUDY Administration - Exam Eye: PERRL, anicteric sclera Heart: RRR, no gallops, no rubs, normal peripheral pulses, murmur present, II/IV Respiratory: CTAB, no wheezes, no rales, no ronchi, normal chest expansion, no tachypnea Gastrointestinal: soft, non-tender, non-distended, normal bowel sounds, no palpable masses, no hepatomegaly Extremities: no cyanosis, no clubbing, no edema Hosp A/P (1) Acute blood loss anemia Code(s): D62 - ACUTE POSTHEMORRHAGIC ANEMIA Status: Acute (2) GI bleed Code(s): K92.2 - GASTROINTESTINAL HEMORRHAGE, UNSPECIFIED Status: Acute (3) History of coronary artery bypass graft x 3 Code(s): Z95.1 - PRESENCE OF AORTOCORONARY BYPASS GRAFT Status: Chronic (4) Paroxysmal A-fib Code(s): I48.0 - PAROXYSMAL ATRIAL FIBRILLATION Status: Chronic (5) S/P AVR (aortic valve replacement) Code(s): Z95.2 - PRESENCE OF PROSTHETIC HEART VALVE Status: Chronic (6) Hypertension Code(s): I10 - ESSENTIAL (PRIMARY) HYPERTENSION Status: Chronic (7) Rheumatoid arthritis Code(s): M06.9 - RHEUMATOID ARTHRITIS, UNSPECIFIED Status: Chronic - Plan * Acute blood loss anemia due to GI- Bleed- She is post EGD and Colonoscopy- The EGD was essentially negative, with the exception of a hiatal hernia. A bleeding AVM was found near the hepatic flexure on colonoscopy, and was cauterized. * She will re-start aspirin tomorrow, and Plavix in 1 week * She will no longer need Eliquis * Hypoglycemia- due to prolonged fasting- her diet has been advanced to solids( heart health)- can likely discontinue D5Ns soon * Recent AVR- stable Cardiology recommendations noted * CAD- stable * Anticipate home tomorrow
[2019-09-17] MEDS: Carvedilol 3.125 MG TAB PO SCH (17:06)
--- NOTE | 2019-09-17 19:57 | OP ---
DATE OF PROCEDURE: 09/17/2019 PROCEDURE PERFORMED: Esophagogastroduodenoscopy and colonoscopy with control of hemorrhage. PREOPERATIVE DIAGNOSES: Anemia of acute blood loss and gastrointestinal bleed. DESCRIPTION OF PROCEDURE: Informed consent was obtained from the patient. She was sedated with total intravenous anesthesia. The bite block was placed and the endoscope was advanced easily to the second portion of the duodenum and retroflexion was performed in the stomach. The esophagus was normal. There was a 2 cm hiatal hernia present. The prior erosive esophagitis noted by endoscopy last November has completely healed. The stomach was normal including retroflexed views otherwise. The pylorus and first and second portions of the duodenum were normal. The patient was turned around. Rectal exam was performed and was normal. The preparation quality was good. The colonoscope was advanced to the cecum, where the ileocecal valve and appendiceal orifice were clearly identified. The preparation quality was good. I cauterized a couple of small nonbleeding arteriovenous malformations in the proximal ascending colon. There was an actively bleeding AVM at the hepatic flexure, which was also cauterized with argon plasma coagulation. This achieved good hemostasis. The remainder of the colonic mucosa was unremarkable. IMPRESSION: 1. 2 cm hiatal hernia. 2. Otherwise normal esophagogastroduodenoscopy. 3. 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 4. A couple of other small arteriovenous malformations in the proximal ascending colon were also cauterized. 5. Otherwise normal colonoscopy. RECOMMENDATIONS: 1. Continue proton pump inhibitor daily as she did have severe erosive esophagitis by her past endoscopy. 2. Restart aspirin today. 3. She can resume Plavix in 5 to 7 days. 4. If her hemoglobin is stable tomorrow, she should be ready to discharge home tomorrow. 5. Advance diet. Job ID: [id number] [facility]
[2019-09-17] MEDS ORDERED: Rosuvastatin 20 MG TAB PO SCH (21:00)
[2019-09-18 05:01] LABS: #Eosinphils 0.2 thou/uL (0.0-0.7); #Monocytes 0.8 thou/uL (0.11-0.59); #Neutrophils 4.5 thou/uL (1.40-6.50); %Basophils 0.3 % (0.0-1.0); %Eosinophils 2.6 % (0.0-10.0); %Monocytes 11.7 % (0.0-10.0); %Neutrophils 70.4 % (42.0-75.0); Hemoglobin 7.6 g/dL (12.0-16.0); Mean Corpuscular HGB CONC 30.8 g/dL (32.0-36.0); Mean Corpuscular Hemoglobin 31.4 pg (27.0-31.0); Platelet Count 67 thou/uL (130-400); RBC Distribution Width 16.4 % (11.5-14.5); Red Blood Cell (RBC) Count 2.43 mill/uL (4.20-5.40); White Blood Cell (WBC) Count 6.4 thou/uL (4.8-10.8)
[2019-09-18 05:19] LABS: Anion Gap 9 mmol/L (10-20); BUN (Urea Nitrogen) 5 mg/dL (9.8-20.1); Calc. Creatinine Clearance 65 mL/min (70-130); Calcium 7.5 mg/dL (7.8-10.44); Carbon Dioxide 18 mmol/L (23-31); Chloride 115 mmol/L (98-107); Estimated GFR-MDRD Greater than 90; Glucose 118 mg/dL (83-110); Potassium 3.3 mmol/L (3.5-5.1); Sodium 139 mmol/L (136-145)
[2019-09-18] MEDS: Dextrose 5 % And 0.9 % NaCl 1,000 ML IV SCH (05:59)
[2019-09-18] MEDS ORDERED: predniSONE 5 MG TAB PO SCH (08:00)
[2019-09-18] MEDS ORDERED: Spironolactone 25 MG TAB PO SCH (08:00)
[2019-09-18] MEDS ORDERED: Aspirin 81 mg Enteric Coated Tablet PO SCH (09:00)
[2019-09-18] MEDS ORDERED: Torsemide 20 MG TAB PO SCH (09:00)
[2019-09-18] MEDS ORDERED: Ezetimibe 10 MG TAB PO SCH (09:00)
[2019-09-18] MEDS: Carvedilol 3.125 MG TAB PO SCH (09:03)
--- NOTE | 2019-09-18 12:05 | EKG ---
Test Reason : EMERGENCY Blood Pressure : / mmHG Vent. Rate : 075 BPM Atrial Rate : 075 BPM P-R Int : 000 ms QRS Dur : 110 ms QT Int : 430 ms P-R-T Axes : 000 -55 124 degrees QTc Int : 480 ms Accelerated Junctional rhythm Left anterior fascicular block Cannot rule out Anterior infarct , age undetermined Abnormal ECG Confirmed by CORNELL VERGARA ([id number]), health editor ISA MULLEN ([id number]) on 09/18/2019 12:05:14 PM Referred By: Confirmed By:CORNELL Magallanes
[2019-09-18 12:57] LABS: Bacteria/HPF 4+ HPF (None Seen); Bilirubin Negative (Negative); Blood, Urine 1+ (Negative); Clarity Turbid (Clear); Glucose, Urine (Dipstick) Normal (Negative); Leukocyte 500 Leu/uL (Negative); Nitrite Negative (Negative); Protein, Urine (Dipstick) 20 mg/dL (Neg-Trace); Renal Epithelial 0-3 HPF (None Seen); Squamous Epithelial 0-3 HPF (0-3); Urobilinogen Normal mg/dL (Less than 2); WBC/HPF Greater than 50 HPF (0-3)
[2019-09-18 14:46] VITALS: BP 121/58; TEMP 98.1
--- NOTE | 2019-09-18 17:14 | PRG ---
DATE OF SERVICE: 09/18/2019 SUBJECTIVE: Ms. Mathews has had no further overt GI bleeding. She has no abdominal pain or other complaints. OBJECTIVE: VITAL SIGNS: Temperature 98.1, pulse 87, blood pressure 121/58. GENERAL: She is in no acute distress. Awake, alert, and oriented x3. LUNGS: Clear to auscultation bilaterally. HEART: Regular rate and rhythm without murmur. ABDOMEN: Soft, nontender, and nondistended. Bowel sounds are present. EXTREMITIES: No lower extremity edema. LABORATORY DATA: White blood cell count 6.4, hemoglobin 7.6, platelets 67, creatinine 0.59. IMPRESSION: 1. Gastrointestinal bleed with acute on chronic bleeding from a vascular ectasia and the hepatic flexure cauterized yesterday. She has been on anticoagulation, but is being taken now off the Eliquis and will be changed to aspirin and Plavix instead. 2. Anemia of acute and chronic blood loss. RECOMMENDATIONS: 1. She will restart her aspirin now. She can restart Plavix in about a week. Her platelet count was noted to be low and this can be rechecked by the primary service prior to restarting Plavix. 2. Anticipate discharge home today. She is passing yellowy loose stools without evidence of any overt bleeding now. 3. She can follow up in GI Clinic with Dr. Perry as needed. Job ID: [id number]
--- NOTE | 2019-09-20 10:47 | DIS ---
DATE OF ADMISSION: 09/14/2019 DATE OF DISCHARGE: 09/18/2019 DISCHARGE DIAGNOSES: 1. Acute blood loss anemia. 2. Gastrointestinal bleed. 3. History of coronary artery bypass grafting x3. 4. Paroxysmal atrial fibrillation, status post AVR (aortic valve replacement). 5. Hypertension. 6. Rheumatoid arthritis. 7. Status post esophagogastroduodenoscopy and colonoscopy. Hiatal hernia. 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 Recent aortic valve replacement, bioprosthetic. DISCHARGE MEDICATIONS: 1. Tylenol as needed. 2. Aspirin 81 mg daily. 3. Coreg 3.125 mg twice a day. 4. Zetia 10 mg daily. 5. Protonix 40 mg daily. 6. Prednisone 5 mg daily. 7. Crestor 40 mg daily. 8. Spironolactone 25 mg daily. 9. Demadex 20 mg daily. 10. Coenzyme Q10 100 mg daily. 11. Potassium chloride 20 mEq daily. CONSULTS: 1. Gastroenterology with Dr. Isaiah Ocasio. 2. Cardiology with Dr. Devonte Mccollum. PHYSICAL EXAMINATION: VITAL SIGNS: Temperature 98.9, pulse of 93, blood pressure 125/60. GENERAL: She is alert, oriented. She is ambulating with a walker. Spouse at bedside. Discharge plan discussed with them and they would like to be discharged home. CARDIOVASCULAR: Regular rate and rhythm without murmurs, rubs, or gallops. LUNGS: Clear to auscultation bilaterally without wheezing, rales, or rhonchi. ABDOMEN: Soft, nontender, and nondistended. Good bowel sounds. EXTREMITIES: Without pitting edema. HOSPITAL COURSE: This is an 84-year-old female admitted with acute blood loss anemia due to GI bleed. EGD did not show anything except the hiatal hernia. She had a bleeding AVM that was found near the hepatic flexure by colonoscopy study. We restarted her aspirin very next day given her history of coronary artery disease. She has been informed to hold the Plavix until September 23 and restart after that. She has recent aortic valve replacement, bioprosthetic, and appears that she does not need Eliquis anymore. The patient is hemodynamically stable. Her current hemoglobin is 7.6. DISCHARGE INSTRUCTION: Activity as tolerated. Healthy heart diet. Follow up with the primary care physician in one week. Follow up with Dr. Devonte Mccollum, Cardiology as needed. TIME SPENT: Discharge time took over 35 minutes. Job ID: [id number] MTDD
== END 2019-09-18 16:30 | disposition home or self-care (01) | DRG 378 ==
LOC: ERS 16:08 → 2NO 19:45
PROVIDERS: ADMIT Internal Medicine; ATTEND Internal Medicine
PROC: 30233N1 Transfusion of Nonautologous Red Blood Cells into Peripheral Vein, Percutaneous Approach (ICD-10-PCS; 2019-09-14)
PROC: 0W3P8ZZ Control Bleeding in Gastrointestinal Tract, Via Natural or Artificial Opening Endoscopic (ICD-10-PCS; principal; 2019-09-17)
PROC: 0DJ08ZZ Inspection of Upper Intestinal Tract, Via Natural or Artificial Opening Endoscopic (ICD-10-PCS; 2019-09-17)
DX: K31.811 Angiodysplasia of stomach and duodenum with bleeding (principal); D62 Acute posthemorrhagic anemia; I48.0 Paroxysmal atrial fibrillation; M06.9 Rheumatoid arthritis, unspecified; K44.9 Diaphragmatic hernia without obstruction or gangrene; I25.10 Atherosclerotic heart disease of native coronary artery without angina pectoris; I73.00 Raynaud's syndrome without gangrene; I11.0 Hypertensive heart disease with heart failure; E78.5 Hyperlipidemia, unspecified; M19.90 Unspecified osteoarthritis, unspecified site; I50.9 Heart failure, unspecified; I95.1 Orthostatic hypotension; M35.00 Sjogren syndrome, unspecified; E78.00 Pure hypercholesterolemia, unspecified; D69.6 Thrombocytopenia, unspecified; E16.2 Hypoglycemia, unspecified; Z95.1 Presence of aortocoronary bypass graft; Z95.2 Presence of prosthetic heart valve; Z90.710 Acquired absence of both cervix and uterus; Z88.5 Allergy status to narcotic agent; Z79.82 Long term (current) use of aspirin; Z79.52 Long term (current) use of systemic steroids; Z79.01 Long term (current) use of anticoagulants; Z79.899 Other long term (current) drug therapy
CPT/HCPCS: 36415; 36416; 36430; 80048; 80053; 81001; 82553; 82607; 82746; 82947; 83540; 83550; 83735; 83880; 84484; 85014; 85018; 85025; 85610; 85730; 86850; 86900; 86901; 87077; 87086; 87186; 93005; C9113; J2704; J7512; P9016

== ENCOUNTER 2019-11-15 13:02 | Outpatient (CLI) | payer MEDICARE ==
--- NOTE | 2019-11-15 15:42 | ULT ---
BILATERAL RENAL ULTRASOUND COMPLETE: Date: 11/15/2019 HISTORY: Neoplasm of left kidney, follow-up left renal mass. COMPARISON: 05/25/2019. FINDINGS/IMPRESSION: The right kidney measures 10.3 x 4.0 x 4.5 cm. The left kidney measures 9.8 x 5.9 x 5.7 cm. No renal hydronephrosis. The urinary bladder appears unremarkable. There is a solid appearing, hypoechoic mass in the mid left kidney corresponding to the previously de monstrated mass on CT. Measurements of this mass by ultrasound are approximately 2.8 x 3.8 x 4.1 cm. These measurement numbers are larger than on the prior CT scan. This may be in part related to the fa ct that the margins are somewhat indistinct and this may be somewhat falsely increasing the size of t he mass because of the points of measurement. If that is an important clinical distinction, a follow- up postcontrast abdomen CT scan might allow a somewhat more accurate CT to CT measurement. POS: RRE
== END 2019-11-15 13:03 | disposition home or self-care (01) ==
LOC: SCSULT 13:02
PROVIDERS: ATTEND Urology
DX: C64.9 Malignant neoplasm of unspecified kidney, except renal pelvis (principal); N28.89 Other specified disorders of kidney and ureter
CPT/HCPCS: 36415; 76770; 80053; 80061

== ENCOUNTER 2020-02-08 09:57 | Outpatient (CLI) | payer MEDICARE ==
--- NOTE | 2020-02-08 11:44 | MMO ---
Bilateral MAMMO Bilat Screen [facility]. CLINICAL HISTORY: Patient is 84 years old and is seen for screening. The patient has the following family history of breast cancer: mother, at age 65. The patient has no personal history of cancer. The patient has a history of left Stereotatic Biopsy in 2007 - benign - 2 times. VIEWS: The views performed were: bilateral craniocaudal with tomosynthesis and bilateral mediolateral oblique with tomosynthesis. FILMS COMPARED: The present examination has been compared to prior imaging studies performed at [facility] on 01/16/2016, 01/23/2017, 01/26/2018 and 02/03/2019. This study has been interpreted with the assistance of computer-aided detection. MAMMOGRAM FINDINGS: The breasts are heterogeneously dense, which could obscure a lesion on mammography. Left biopsy clip. Benign calcifications are noted bilaterally. There are no suspicious masses, suspicious calcifications, or new areas of architectural distortion. IMPRESSION: THERE IS NO MAMMOGRAPHIC EVIDENCE OF MALIGNANCY. A ROUTINE FOLLOW-UP MAMMOGRAM IN 1 YEAR IS RECOMMENDED. THE RESULTS OF THIS EXAM WERE SENT TO THE PATIENT. ACR BI-RADS Category 2 - Benign finding MAMMOGRAPHY NOTE: 1. A negative mammogram report should not delay a biopsy if a dominant of clinically suspicious mass is present. 2. Approximately 10% to 15% of breast cancers are not detected by mammography. 3. Adenosis and dense breasts may obscure an underlying neoplasm. Reported by: PRABHA CHAVEZ MD Electonically Signed: [id number]
== END 2020-02-08 09:58 | disposition home or self-care (01) ==
LOC: BICMAMMO 09:57
PROVIDERS: ATTEND Internal Medicine
DX: Z12.31 Encounter for screening mammogram for malignant neoplasm of breast (principal); Z80.3 Family history of malignant neoplasm of breast; Z91.89 Other specified personal risk factors, not elsewhere classified
CPT/HCPCS: 77063; 77067

== ENCOUNTER 2020-02-10 12:54 | Outpatient (CLI) | payer MEDICARE ==
--- NOTE | 2020-02-10 15:05 | CT ---
CT ABDOMEN WITH AND WITHOUT IV CONTRAST 02/10/2020 CLINICAL INFORMATION: Renal cell carcinoma. Follow-up left kidney mass. COMPARISON: 10/14/2018 and 05/25/2019 Technique: Multiple contiguous axial CT images are obtained through the abdomen and pelvis with IV contrast. Cor onal reformatted images are provided. FINDINGS: Lower Chest: The heart remains enlarged. There are prominent dense calcifications involving the jluis l valve annulus. There is mild linear scarring again seen at each lung base. No discrete pulmonary nodule, mass, or pleural effusion is seen Vessels: Vascular calcifications are seen in the coronary arteries as well as involving the lower tho racic aorta and abdominal aorta and digital iliac arteries. Abdomen: Portal vein:Patent Gallbladder: Within normal limits for CT imaging. Liver: There is a stable mass in the left hepatic lobe measuring 4.9 cm x 2.7 cm again demonstrating characteristics is most compatible with a hemangioma. Spleen: Again noted are scattered hypodense lesions throughout the spleen. Pancreas: within normal limits. Adrenals: within normal limits. Kidneys: Again noted is a heterogeneously enhancing mass involving the midportion left kidney which m easures 3 cm x 3 cm. Measurement on study on 10/14/2018 was 2.9 cm x 2.9 cm. Right kidney demonstrates a normal CT appearance Bowel: Small to moderate amount retained fecal material seen throughout the colon. Loops of small bow el are normal in caliber. Small hiatal hernia is present. A duodenal diverticulum is visualized Peritoneum: No ascites or free air; no fluid collection. Mesentery and Retroperitoneum: No enlarged mesenteric or retroperitoneal lymph nodes. Abdominal Wall: Metallic clips are seen anterior to the lower sternum. Bones: Degenerative changes are again seen in the spine. No suspicious lytic or sclerotic osseous les ions are identified. IMPRESSION: 1. Heterogeneously enhancing left renal mass measuring 3 cm in greatest dimension. Measurement on ally dy of 10/14/2018 was 2.9 cm. 2. Stable small splenic hypodense lesions. 3. Stable hepatic hemangioma. 4. Cardiomegaly. 5. Small hiatal hernia. 6. Findings suggesting constipation.
== END 2020-02-10 12:55 | disposition home or self-care (01) ==
LOC: SCSCT 12:54
PROVIDERS: ATTEND Urology
DX: C64.9 Malignant neoplasm of unspecified kidney, except renal pelvis (principal); D18.03 Hemangioma of intra-abdominal structures; I51.7 Cardiomegaly; K44.9 Diaphragmatic hernia without obstruction or gangrene; D73.89 Other diseases of spleen
CPT/HCPCS: 74170

== ENCOUNTER 2020-02-18 06:43 | Outpatient (CLI) | payer MEDICARE, OTHER ==
[2020-02-18 11:42] LABS: #Lymphocytes 1.1 thou/uL (1.20-3.40); #Monocytes 0.4 thou/uL (0.11-0.59); #Neutrophils 5.5 thou/uL (1.40-6.50); %Basophils 0.2 % (0.0-1.0); %Eosinophils 0.1 % (0.0-10.0); %Lymphocytes 15.6 % (21.0-51.0); %Monocytes 6.3 % (0.0-10.0); %Neutrophils 77.9 % (42.0-75.0); Hemoglobin 11.9 g/dL (12.0-16.0); Mean Corpuscular Hemoglobin 33.2 pg (27.0-31.0); Mean Platelet Volume 9.1 fL (7.4-10.4); Platelet Count 100 thou/uL (130-400); RBC Distribution Width 14.2 % (11.5-14.5); Red Blood Cell (RBC) Count 3.59 mill/uL (4.20-5.40)
[2020-02-18 17:22] LABS: SARS-CoV-2 MS2 Positive; SARS-CoV-2 N Gene Negative; SARS-CoV-2 S Gene Negative; SARS-CoV-2 by NAA Not Detected (NotDetected); SARS-CoV-2 orf1ab Negative
== END 2020-02-18 06:44 | disposition home or self-care (01) ==
LOC: LABBT 06:43
PROVIDERS: ATTEND Thoracic Surgery (Cardiothoracic Vascular Surgery)
DX: Z01.812 Encounter for preprocedural laboratory examination (principal); Z20.828 Contact with and (suspected) exposure to other viral communicable diseases; I73.9 Peripheral vascular disease, unspecified; T81.89XA Other complications of procedures, not elsewhere classified, initial encounter
CPT/HCPCS: 85025; U0003; 87635

== ENCOUNTER 2020-02-23 05:59 | Day surgery (SDC) | payer MEDICARE ==
[2020-02-22 10:31] VITALS: BMI 20.7
[2020-02-23] MEDS ORDERED: Ondansetron PF 4 MG/2 ML Vial ONE (07:09)
[2020-02-23] MEDS ORDERED: Fentanyl 100 MCG/2 ML VIAL ONE (07:09)
[2020-02-23] MEDS ORDERED: Metoclopramide HCl 10 MG/2 ML VIAL ONE (07:09)
[2020-02-23] MEDS ORDERED: Midazolam HCl 2 mg/2 ml Vial ONE (07:09)
[2020-02-23] MEDS ORDERED: Heparin 10,000 UNITS/ 10 ML VIAL ONE (08:04)
[2020-02-23] MEDS ORDERED: Protamine Sulfate 50 MG/5 ML VIAL ONE (08:28)
[2020-02-23] MEDS ORDERED: Iopamidol 370 76% 50 ML VIAL FS ONE (08:51)
--- NOTE | 2020-02-23 20:09 | OP ---
DATE OF PROCEDURE: 02/23/2020 PROCEDURES PERFORMED: Ultrasound-guided vascular access for right femoral arterial puncture, aortography with bilateral iliofemoral runoff, selective left lower extremity arteriography with attempted peroneal artery angioplasty. PREOPERATIVE DIAGNOSIS: Peripheral vascular disease with nonhealing lesion, left 2nd toe and ischemic rest pain. POSTOPERATIVE DIAGNOSIS: Peripheral vascular disease with nonhealing lesion, left 2nd toe and ischemic rest pain. ANESTHESIA: 1% lidocaine, local anesthesia with 10 mg of IV Reglan, 4 mg of IV Zofran and intravenous sedation consisting of 1 mg of Versed and 50 mcg of fentanyl. INDICATIONS FOR PROCEDURE: The patient is an 84-year-old woman with previous coronary artery bypass grafting and previous saphenous vein ablation sometime following a TAVR procedure she developed a small ulceration on the tip of her left 2nd toe during the period that I have followed her. It has developed an eschar involving most of the tip of that toe, but has not been particularly painful. Clinically, she had palpable femoral and popliteal pulses, but no pedal pulses and marked dependent rubor and atrophic skin changes suggesting severe infrageniculate disease. Investigation and intervention have been deferred until now, acknowledging that her revascularization options given her distal disease and lack of suitable conduit were extremely limited. She has recently developed worsening pain in her second toe and has now developed pain suggestive of rest pain in her great toe. FINDINGS: Relatively normal contour to her aortoiliac femoral, superficial femoral, and popliteal segments, although there is extensive vascular calcifications seen through most of her arterial tree. Below the knee, her posterior tibial occluded at its origin and the anterior tibial is occluded in the midcalf. Neither could be seen reconstituting in spite of an extensive network of collaterals. The peroneal artery occluded about 1-1/2 cm beyond its origin from the tibioperoneal trunk and reconstituted about 3 cm distal to that and although very small and diffusely diseased vessel could be seen for essentially the full length of the lower leg. Attempts at negotiating a wire through the occluded segment of peroneal to affect an angioplasty were unsuccessful. Fluoroscopy time was 28.8 minutes. Total contrast used was 32 mL. DESCRIPTION OF PROCEDURE: After informed consent was obtained, the patient was placed in the supine position on the cardiac catheterization table and her groins were prepped and draped in sterile fashion. Because of reports of nausea with anesthetic agents and with morphine, she was premedicated with IV Reglan and Zofran, and then after that had been administered, she was given 1 mg of Versed and 50 mcg of fentanyl. While that was taking affect, her right femoral pulse was palpated and then the right groin was ultrasonographically investigated. Her common femoral artery was identified above the level of the common femoral bifurcation. Skin and subcutaneous tissues were infiltrated with 1% lidocaine and then a micropuncture needle was used with ultrasonographic guidance to gain access to the right common femoral artery. Micropuncture guidewire was placed and intra-arterial positioning was confirmed with fluoroscopy. A micropuncture catheter was placed over that wire to allow for an exchange of wires and then a 5-Nigerian sheath was used to replace the micropuncture sheath by the Seldinger technique. A Contra catheter was placed over the wire and an aortogram with iliofemoral runoff was obtained under fluoroscopy. The guidewire was positioned into the left iliac system. However, it was not readily feasible with an existing catheter to advance it much further than the origin of the internal iliac. The external iliac could not be easily be engaged with that approach and a Contra catheter could not easily be advanced over the aortic bifurcation into the left iliac system over the wire. A hook catheter and a soft angled catheter were used ultimately to allow for passing the wire into the external iliac system and on down into the femoral and catheter was advanced over it. During this exchange, initially the wire was advanced into the profunda, but by manipulating the catheter rotationally and with respect to how far it was advanced, the superficial femoral was engaged, the wire easily passed down below the knee after having gotten the injections down to that level and identifying the infrageniculate runoff in an attempt to exchange catheter that would allow for the passage of wires suitable for balloon dilatation. The positioning was lost, but was easily re-established using angled catheter and burn wire. Additional injections were taken to map out the vasculature and to allow for ultimately selective cannulation of the peroneal artery, but attempts at negotiating a wire beyond the occlusion proved unsuccessful, and the wire and catheter were removed and the procedure terminated. The sheath was removed, and hemostasis achieved with direct pressure. Job ID: [id number]
== END 2020-02-23 15:31 | disposition home or self-care (01) ==
LOC: CCL 05:59
PROVIDERS: ATTEND Thoracic Surgery (Cardiothoracic Vascular Surgery)
PROC: 047U3ZZ Dilation of Left Peroneal Artery, Percutaneous Approach (ICD-10-PCS; principal; 2020-02-23)
DX: I70.245 Atherosclerosis of native arteries of left leg with ulceration of other part of foot (principal); I70.263 Atherosclerosis of native arteries of extremities with gangrene, bilateral legs; I48.20 Chronic atrial fibrillation, unspecified; I35.0 Nonrheumatic aortic (valve) stenosis; I25.10 Atherosclerotic heart disease of native coronary artery without angina pectoris; D89.89 Other specified disorders involving the immune mechanism, not elsewhere classified; D69.6 Thrombocytopenia, unspecified; E78.5 Hyperlipidemia, unspecified; I10 Essential (primary) hypertension; Z79.82 Long term (current) use of aspirin; Z79.899 Other long term (current) drug therapy; Z88.5 Allergy status to narcotic agent; Z95.1 Presence of aortocoronary bypass graft; Z95.5 Presence of coronary angioplasty implant and graft; Z98.890 Other specified postprocedural states
CPT/HCPCS: 75625; 75710; 76942; 85347; 99152; 99153; J1644; J2250; J2405; J2720; J2765; J3010; Q9967

== ENCOUNTER 2020-03-16 09:50 | Inpatient (IN) | payer MEDICARE ==
[2020-03-16] MEDS ORDERED: Acetaminophen 500 MG TAB ONE (10:40)
[2020-03-16 11:14] LABS: ALT (SGPT) 34 U/L (8-55); AST (SGOT) 60 U/L (5-34); Albumin 3.8 g/dL (3.4-4.8); Alkaline Phosphatase 50 U/L (40-110); Anion Gap 15 mmol/L (10-20); BUN (Urea Nitrogen) 24 mg/dL (9.8-20.1); Bilirubin, Total 0.9 mg/dL (0.2-1.2); Calc. Creatinine Clearance 0 mL/min (70-130); Calcium 9.2 mg/dL (7.8-10.44); Carbon Dioxide 25 mmol/L (23-31); Chloride 99 mmol/L (98-107); Estimated GFR-MDRD 43; Globulin 4.2 g/dL (2.4-3.5); Glucose 82 mg/dL (83-110); Potassium 4.4 mmol/L (3.5-5.1); Sodium 135 mmol/L (136-145)
[2020-03-16 11:28] LABS: #Lymphocytes 0.8 thou/uL (1.20-3.40); #Monocytes 0.8 thou/uL (0.11-0.59); #Neutrophils 10.5 thou/uL (1.40-6.50); %Basophils 0.2 % (0.0-1.0); %Eosinophils 0.1 % (0.0-10.0); %Lymphocytes 6.9 % (21.0-51.0); %Monocytes 6.4 % (0.0-10.0); %Neutrophils 86.4 % (42.0-75.0); Hemoglobin 12.3 g/dL (12.0-16.0); MDiff Complete? YES; Mean Corpuscular HGB CONC 32.2 g/dL (32.0-36.0); Mean Platelet Volume 8.9 fL (7.4-10.4); Platelet Count 100 thou/uL (130-400); Platelet Morphology Comment Appears Decreased; Polychromasia SLIGHT = 2-3 cells (100X) (0-2/hpf); RBC Distribution Width 13.4 % (11.5-14.5); Red Blood Cell (RBC) Count 3.74 mill/uL (4.20-5.40); White Blood Cell (WBC) Count 12.2 thou/uL (4.8-10.8)
[2020-03-16 11:36] LABS: CKMB 1.1 ng/mL (0-6.6)
[2020-03-16 11:56] LABS: Bacteria/HPF 4+ HPF (None Seen); Bilirubin Negative (Negative); Blood, Urine Negative (Negative); Clarity Turbid (Clear); Glucose, Urine (Dipstick) Normal (Negative); Ketone, Urine Negative (Negative); Leukocyte 500 Leu/uL (Negative); Nitrite Negative (Negative); Protein, Urine (Dipstick) 50 mg/dL (Neg-Trace); RBC/HPF 0-3 HPF (0-3); Specific Gravity, Urine 1.018 (1.002-1.036); Squamous Epithelial 0-3 HPF (0-3); Urobilinogen Normal mg/dL (Less than 2); WBC/HPF Greater than 50 HPF (0-3)
--- NOTE | 2020-03-16 12:23 | CT ---
Exam: Chest CT with contrast Abdomen CT with contrast Pelvic CT with contrast CT of the thoracic lumbar spine HISTORY: Multiple falls. Correlation: None. COMPARISON: 02/10/2020, 05/25/2019. FINDINGS: Chest CT: Mediastinum: No mass, lymphadenopathy or hematoma. Aorta: There is a stent involving the ascending thoracic aorta. No periaortic fat stranding. Scattere d atherosclerosis. No dissection. Heart: Normal heart size. No significant pericardial fluid. There are coronary artery calcifications . There is calcification of the mitral annulus. Watchman device is noted which does still appear to partially opacify with contrast. Trachea and central bronchi: Patent. Pleural spaces: Small bilateral effusions. Right lung: Dependent atelectatic changes, and scarring. No suspicious masses or consolidation. No co ntusion. Mild pleural-based densities in the right lung apex which may represent a calcified suture chain. Left lung:Dependent atelectatic changes and scarring. No suspicious masses or consolidation. Componen t of aspiration or pneumonia in the left lower lobe cannot be excluded. Pneumothorax: None. Abdomen CT: Gallbladder: Unremarkable. Portal vein: Patent. Liver: Incompletely evaluated lesion in the left hepatic lobe, measures 3.6 x 2.2 cm. This lesion has been previously reported to be a hepatic hemangioma. No enhancing masses in the liver.. Spleen: Hypodensities in the spleen are too small to characterize. Pancreas: Appropriate enhancement. Adrenal glands: Appropriate enhancement. Lymphadenopathy: No gastrohepatic, retrocrural or periportal lymphadenopathy. Kidneys: Appropriate enhancement of the right kidney. No evidence of obstructive uropathy. There is a solid left renal mass measuring 2.8 x 2.8 cm. Mesentery: No mass, lymphadenopathy, free air or free fluid. Alimentary canal: Limited evaluation by the lack of oral contrast. No evidence of a bowel obstruction . Normal ileocecal junction. Appendix is difficult to appreciate. No obvious inflammatory changes. Scattered fecal material in a nondistended, nondilated colon. Pelvis CT: No mass, lymphadenopathy, free air or free fluid. Urinary bladder is unremarkable. Presacral fat is preserved. Osseous structures: Chest: There appears to be a pathologic fracture involving the posterior left 11th rib. No additional bony pelvic fractures. Sternum is intact. Sternotomy changes are noted. Clavicle and scapula are also intact. Multiple sclerotic foci in the right ribs may represent old healed rib fractures versus bony metastases from known renal cell carcinoma. Pelvis: There are degenerative changes. No evidence of a pelvic fracture. Intact obturator rings and iliac wings. CT of the thoracic and lumbar spine: Multilevel vacuum disc phenomenon. Grade 1 anterolisthesis of L4 upon L5 without associated spondylolysis. There is previous vertebroplasty change at T7 and T8. No acute fractures in the lumbar spine. There appears be indeterminate fracture involving the T1 vertebr al body. Possibility of a pathologic fracture cannot be entirely excluded. IMPRESSION: 1. Indeterminate fracture of T1. Correlate for pathologic versus posttraumatic injury. 2. Probable pathologic fracture involving the posterior T11 vertebral body. Nonspecific sclerotic foc i in the right ribs which may represent remote injury versus sclerotic osseous metastases from known renal cancer. 3. Stable hemangioma in the liver. 4. Stable hypodensities in the spleen. 5. Stable left renal neoplasm. Transcribed Date/Time: 03/16/2020 1:44 PM
[2020-03-16] MEDS ORDERED: Aspirin Chewable 81 MG TAB ONE (12:47)
[2020-03-16] MEDS ORDERED: cefTRIAXone\\ROCEPHIN 2 GM VIAL ONE (12:54)
--- NOTE | 2020-03-16 14:53 | PDOC.HHP ---
Hospitalist HPI - History of Present Illness General weakness, falls History of Present Illness: The patient is an 84-year-old female with a past medical history significant for CAD, CABG x3 (2009), AVR (2009 and 2019), CHF, PVD, atrial fibrillation (ablations x2), RA/Raynaud's/Sjogren's (on prednisone daily) and BLANCA that presents to the emergency department for the above complaint. The patient reports that she has been feeling generally weak and had multiple falls over the past 7 to 10 days. She reports that she has fallen 4 times in the past week. Her most recent fall was yesterday. She states that she let go of her walker to place a birthday present on the dining room table when she fell. She denies any LOC or vomiting. Fall was unwitnessed, however, her spouse was at home. She was unable to get up, so her spouse had a called her daughter who lives close by to come and help pick her up. She reports that she was on the floor anywhere from 5 to 20 minutes. At the time of the fall, she denies any chest pain, heart palpitations or lightheadedness. She does say that sometimes when she stands she does get lightheaded. She denies any headaches, vision changes or focal weakness to any of her extremities. She denies any recent change to her home medications. She has had a couple recent procedures. Most recent procedure, was on 02/[address] Frias, CV surgery that attempted to place a stent in her left leg for dry gangrene to her left second toe secondary to her PVD and claudication. Per the patient, he was unable to place a stent at that time. She also had her aortic valve replaced on 08/22. She denies any orthopnea, PND, swelling to her lower extremities or recent unintentional weight gain. She denies any shortness of breath, cough/hemoptysis or wheezes. No history of DVT/PE. She denies any abdominal pain, vomiting, hematochezia/melena. She does report intermittently having constipation. She denies any urinary symptoms. Generalized weakness, falls. HISTORIAN History provided by patient, History provided by patient's spouse, . MECHANISM OF INJURY Known mechanism, Mechanism of injury: Fall from standing, lightheadedness. LOCATION Symptoms are localized, most severe to Left flank and posterior chest wall. QUALITY Pain is dull in nature, described as aching. SEVERITY Maximum severity of symptoms moderate, Currently symptoms are moderate. TIME COURSE Patient unable to describe onset of symptoms, Symptoms are worsening, Worse over the past 2 days, are intermittent. ASSOCIATED WITH Associated with Associated with lightheadedness. EXACERBATED BY Patient's condition exacerbated by nothing. RELIEVED BY Patient's condition relieved by nothing. ED Course: VITAL SIGNS FriMar 16, 2020 09:53 GERSON Diane Morgan BP: 125/46, Temp: 100.9 (Oral), Pain: 5, Time: 03/16/2020 09:53. VITAL SIGNS FriMar 16, 2020 10:15 GERSON Ríos Angela BP: 132/61, Pulse: 57, Resp: 24, O2 sat: 85 on (Room Air), Time: 03/16/2020 10:15. VITAL SIGNS FriMar 16, 2020 10:32 GERSON Ríos Angela O2 sat: 95 on (2L Oxygen), Time: 03/16/2020 10:32. VITAL SIGNS FriMar 16, 2020 10:41 GERSON Ríos Angela Temp: 99.8 (Oral), Time: 03/16/2020 10:41. VITAL SIGNS FriMar 16, 2020 11:32 GERSON Ríos Angela BP: 115/46, Pulse: 56, Resp: 21, O2 sat: 94 on (2L Oxygen), Time: 03/16/2020 11:32. VITAL SIGNS FriMar 16, 2020 12:03 GERSON Ríos Angela BP: 101/44, Pulse: 55, Resp: 19, Temp: 98.8, Pain: 5, O2 sat: 97, Time: 03/16/2020 12:03. VITAL SIGNS FriMar 16, 2020 12:50 GERSON Ríos Angela BP: 101/45, MAP: 63, Pulse: 55, Resp: 18, Pain: 5, O2 sat: 97 on (2L Oxygen), Time: 03/16/2020 12:50. VITAL SIGNS FriMar 16, 2020 13:30 GERSON Maynard Melanie BP: 93/45, MAP: 61, Pulse: 56, Resp: 18, Pain: 4, O2 sat: 100 on (2L Oxygen), Time: 03/16/2020 13:30. VITAL SIGNS Rylie Mar 16, 2020 14:30 GERSON Maynard, Magda BP: 101/42, MAP: 61, Pulse: 54, Resp: 17, Pain: 4, O2 sat: 99 on (2L Oxygen), Time: 03/16/2020 14:30. Medication administration: cefTRIAXone injection 2 g IV Piggy Back Given 13:05 03/16/2020 aspirin oral 324 mg Oral Given 12:49 03/16/2020 Tylenol Extra Strength 1 g Oral Given 10:42 03/16/2020 sodium chloride 0.9 % intravenous 1000 mL IV Fluid Infusion Given 10:32 03/16/2020 Hospitalist ROS - Review of Systems Constitutional: denies: fever, chills All other systems reviewed; all pertinent +/- noted in HPI/Subj - Medication Medications: aspirin oral TABLET : Strength - 81 mg : ORAL Patient Dose: 81 mg Oral once a day. Crestor TABLET : Strength - 10 mg : ORAL Patient Dose: 10 mg Oral once a day. Zetia TABLET : Strength - 10 mg : ORAL Patient Dose: 5 mg Oral once a day. torsemide oral TABLET : Strength - 10 mg : ORAL Patient Dose: 20 mg Oral once a day. Cymbalta CAPSULE,DELAYED RELEASE (ENTERIC COATED) : Strength - 60 mg : ORAL Patient Dose: 60 mg Oral once a day. predniSONE TABLET : Strength - 5 mg : ORAL Patient Dose: 5 mg Oral once a day. folic acid oral TABLET : Strength - 1 mg : ORAL Patient Dose: 1 mg Oral once a day. K-Dur TABLET, EXT RELEASE, PARTICLES/CRYSTALS : Strength - 10 mEq : ORAL Patient Dose: 20 mEq Oral once a day. Prolia syringe : Strength - 60 mg/mL : [1 mL(s)] : SUBCUTANEOUS Patient Dose: 60 mg Subcutaneous.every 6 months. gabapentin tablet : Strength - 300 mg : ORAL Patient Dose: 300 mg Oral once a day (at bedtime). Allergies: codeine sulfate, codeine (Unconfirmed), morphine (Unconfirmed), narcotics (Unconfirmed) Hospitalist History - Past Medical History Source: patient, RN notes reviewed Cardiac: reports: AFIB, CAD, CHF, HTN, Hyperlipidemia, Other (Peripheral vascular disease) Gastrointestinal: reports: GERD Musculoskeletal: reports: Osteoarthritis Rheumatologic: reports: Rheumatoid arthritis, Other (sjogrens and raynauds disease) Renal/: reports: Other (CKD 3) - Past Surgical History Past Surgical History: reports: CABG (x3 w/ AVR (2009) AVR replaced (2019) Watchman procedure (05/24) ablation x 2), Tonsillectomy, Other (Rectal prolapse) - Family History Other Family History: Noncontributory to this case - Social History Smoking Status: Never smoker Alcohol: reports: Occassional (1/4 glass wine daily) Drugs: reports: none Living Situation: With Family Occupation: [place] Activity level: uses cane/walker - Exam General Appearance: NAD, awake alert. negative: ill appearing General - other findings: Appears comfortable Eye: PERRL, anicteric sclera ENT: normocephalic atraumatic, dry oral mucosa Neck: supple, symmetric, no JVD Heart: no gallops, no rubs, normal peripheral pulses, III/IV Heart - other findings: Bradycardia, regular rhythm Respiratory: CTAB, no wheezes, no rales, no ronchi, normal chest expansion, no tachypnea Respiratory - other findings: 2 L nasal cannula, speaks in complete sentences Gastrointestinal: soft, non-tender, non-distended, normal bowel sounds, no bru it, no guarding, no rigidity Extremities: no cyanosis Extremities - other findings: Trace edema, US Doppler pedal pulses, left second toe dry gangrene Skin - other findings: left rib hematoma 4x5 cm Neurological: cranial nerve grossly intact, no focal deficits. negative: speech deficit Psychiatric: normal affect, A&O x 3 Hospitalist Results - Labs Result Diagrams: 03/16/20 10:30 03/16/20 10:30 Lab results: WBC 12.2 thou/uL (4.8-10.8) H 03/16/20 10:30 Hgb 12.3 g/dL (12.0-16.0) 03/16/20 10:30 Hct 38.2 % (36.0-47.0) 03/16/20 10:30 MCV 102.0 fL (78.0-98.0) H 03/16/20 10:30 Plt Count 100 thou/uL (130-400) L 03/16/20 10:30 Neutrophils % 86.4 % (42.0-75.0) H 03/16/20 10:30 Sodium 135 mmol/L (136-145) L 03/16/20 10:30 Potassium 4.4 mmol/L (3.5-5.1) 03/16/20 10:30 Chloride 99 mmol/L (98-107) 03/16/20 10:30 Carbon Dioxide 25 mmol/L (23-31) 03/16/20 10:30 BUN 24 mg/dL (9.8-20.1) H 03/16/20 10:30 Creatinine 1.19 mg/dL (0.6-1.1) H 03/16/20 10:30 Glucose 82 mg/dL (83-110) L 03/16/20 10:30 Lactic Acid 1.5 mmol/L (0.5-2.2) 03/16/20 11:05 Calcium 9.2 mg/dL (7.8-10.44) 03/16/20 10:30 Total Bilirubin 0.9 mg/dL (0.2-1.2) 03/16/20 10:30 AST 60 U/L (5-34) H 03/16/20 10:30 ALT 34 U/L (8-55) 03/16/20 10:30 Alkaline Phosphatase 50 U/L (40-110) 03/16/20 10:30 CK-MB (CK-2) 1.1 ng/mL (0-6.6) 03/16/20 10:30 Troponin I 0.054 ng/mL (< 0.028) H 03/16/20 10:30 B-Natriuretic Peptide 1161.2 pg/mL (0-100) H 03/16/20 10:30 Serum Total Protein 8.0 g/dL (6.0-8.3) 03/16/20 10:30 Albumin 3.8 g/dL (3.4-4.8) 03/16/20 10:30 Lipase 15 U/L (8-78) 03/16/20 10:30 Urine Ketones Negative mg/dL (Negative) 03/16/20 11:25 Urine Blood Negative (Negative) 03/16/20 11:25 Urine Nitrite Negative (Negative) 03/16/20 11:25 Ur Leukocyte Esterase 500 Ambreen/uL (Negative) A 03/16/20 11:25 Urine RBC 0-3 HPF (0-3) 03/16/20 11:25 Urine WBC Greater than 50 HPF (0-3) A 03/16/20 11:25 Ur Squamous Epith Cells 0-3 HPF (0-3) 03/16/20 11:25 Urine Bacteria 4+ HPF (None Seen) A 03/16/20 11:25 - EKG Interpretation EKG: Sinus bradycardia with first-degree AV block left axis deviation pulse 55 no STEMI. - Radiology Interpretation Other Status: report reviewed by me Additional Comment: CT chest abdomen pelvis with contrast: 1. Indeterminate fracture of T1. Correlate with pathological versus posttraumatic injury. 2. Probable pathologic fracture involving the posterior T11 vertebral body. Nonspecific sclerotic foci in the right ribs which may represent remote injury versus sclerotic osseous metastasis from known renal cancer. 3. Stable hemangioma of the liver. 4. Stable hypodensity in the spleen. 5. Stable left renal neoplasm. Hospitalist H&P A/P - Problem (1) Frequent falls Code(s): R29.6 - REPEATED FALLS Status: Acute (2) UTI (urinary tract infection) Status: Acute (3) Elevated d-dimer Code(s): R79.89 - OTHER SPECIFIED ABNORMAL FINDINGS OF BLOOD CHEMISTRY Status: Acute (4) CHF (congestive heart failure) Code(s): I50.9 - HEART FAILURE, UNSPECIFIED Status: Chronic (5) CAD (coronary artery disease) Code(s): I25.10 - ATHSCL HEART DISEASE OF [place] CORONARY ARTERY W/O ANG PCTRS Status: Chronic (6) PVD (peripheral vascular disease) Code(s): I73.9 - PERIPHERAL VASCULAR DISEASE, UNSPECIFIED Status: Chronic (7) Autoimmune disorder Code(s): D89.89 - OTH DISRD INVOLVING THE IMMUNE MECHANISM, NEC Status: Chronic (8) HTN (hypertension) Code(s): I10 - ESSENTIAL (PRIMARY) HYPERTENSION Status: Chronic (9) HLD (hyperlipidemia) Code(s): E78.5 - HYPERLIPIDEMIA, UNSPECIFIED Status: Chronic (10) GERD (gastroesophageal reflux disease) Code(s): K21.9 - GASTRO-ESOPHAGEAL REFLUX DISEASE WITHOUT ESOPHAGITIS Status: Chronic - Plan Plan: 84/F with PMH CAD, CHF, PVD, autoimmune disorders presents for frequent falls and generalized. Admit to telemetry floor, inpatient status. Expected length of stay greater than 2 midnights. Presented febrile, bradycardia, tachypneic, hypoxic, NL BP. EKG SB, first-degree AV block, 55 bpm, no ST elevation. CT trauma protocol as stated above. Troponin 0.054, CK-MB 1.1, BNP 1161, TSH 3.97 DD 3.80 WBC 12.2, LA 1.5 UA+ leukocytes, WBCs, 4+ bacteria #Frequent falls Patient denies LOC or hitting head. History stable left renal neoplasm. We will obtain CT brain noncontrast. Consult PT/OT Check orthostatic VS. #UTI UA as above. Continue Rocephin. Urine culture pending. #Elevated D-dimer [place] score 1.5 We will start Lovenox 1 mg/kg, if CT brain no bleed We will obtain VQ scan since patient had CT with contrast in ER. #CHF BNP 1161, was 598 on 09/21 Patient 99% on 2L NC, RR 17, BP 101/42 She did not take her home medications today. Will restart home dose Coreg and torsemide. We will hold spironolactone for now. #CAD History CABG x3 (2009) History stent x1 Restart home dose Coreg and baby aspirin. #Atrial fibrillation History ablations x2 and watchman procedure. Presented sinus bradycardia. Continue baby aspirin. #PVD Status post cardiac cath for unsuccessful stent placement to the left lower extremity on 02/[address] Faizan Valerio. Left second toe dry gangrene, chronic, stable. Consult wound care therapy. #Autoimmune disorder History rheumatoid arthritis, Sjogren's, Raynaud's. On chronic steroids. Restart home dose prednisone. #Hypertension Presented normotensive, upon assessment borderline hypotensive. Continue to monitor blood pressure. We will hold home dose amlodipine and spironolactone for now. #Hyperlipidemia Restart patient's home dose of rosuvastatin. #GERD Restart patient's home dose of Protonix No SCDs for DVT prophylaxis. Protonix for GI prophylaxis. Full code. Discussed case with Dr. Gross.
[2020-03-16] MEDS ORDERED: Iopamidol-370 76% 500 ML 1 ML ONE (14:57)
[2020-03-16] MEDS ORDERED: Heparin 1,000 UNITS/ML VIAL ONE (15:08)
[2020-03-16] MEDS ORDERED: Bisacodyl 5 MG TAB PO PRN (15:53)
[2020-03-16] MEDS ORDERED: Ondansetron PF 4 MG/2 ML Vial IVP PRN (15:53)
[2020-03-16] MEDS ORDERED: Ondansetron ODT 4 MG TAB PO PRN (15:53)
[2020-03-16] MEDS ORDERED: Senokot S 8.6-50 MG TAB PO PRN (15:53)
[2020-03-16] MEDS ORDERED: Calcium Carbonate 500 MG ChewTAB PO PRN (15:53)
[2020-03-16] MEDS ORDERED: Acetaminophen 325 MG TAB PO PRN (15:53)
[2020-03-16 16:15] LABS: Troponin I 0.047 ng/mL (< 0.028)
--- NOTE | 2020-03-16 16:50 | CT ---
CT BRAIN WITHOUT CONTRAST: HISTORY:Frequent falls COMPARISON:07/09/2017 FINDINGS: There are foci of decreased attenuation in the periventricular white matter, consistent with chronic small vessel ischemic disease. Cortical atrophy is stable. No evidence of acute infarct, hemorrhage, midline shift or abnormal extra-axial fluid collections is seen. The ventricular size is appropriate and the basilar cisterns are patent. The bony calvarium is intact. The visualized paranasal sinuses and mastoid air cells are well aerated. IMPRESSION: No CT evidence of acute intracranial process.
[2020-03-16 18:53] LABS: Troponin I 0.034 ng/mL (< 0.028)
[2020-03-16] MEDS ORDERED: Enoxaparin Sodium 60 MG/0.6 ML SYRINGE SC SCH (19:45)
[2020-03-16] MEDS ORDERED: Spironolactone 25 MG TAB PO SCH (21:00)
[2020-03-16] MEDS: Rosuvastatin 20 MG TAB PO SCH (21:13)
[2020-03-16] MEDS: Ezetimibe 10 MG TAB PO SCH (21:13)
[2020-03-16] MEDS: Carvedilol 3.125 MG TAB PO SCH (21:13)
[2020-03-16] MEDS: Hydroxychloroquine Sulfate 200 MG TAB PO SCH (21:26)
[2020-03-17 04:23] LABS: #Lymphocytes 0.5 thou/uL (1.20-3.40); #Monocytes 0.6 thou/uL (0.11-0.59); #Neutrophils 10.2 thou/uL (1.40-6.50); %Basophils 0.2 % (0.0-1.0); %Lymphocytes 4.7 % (21.0-51.0); %Monocytes 4.9 % (0.0-10.0); %Neutrophils 90.2 % (42.0-75.0); Hemoglobin 10.7 g/dL (12.0-16.0); Mean Corpuscular HGB CONC 33.4 g/dL (32.0-36.0); Mean Corpuscular Hemoglobin 33.4 pg (27.0-31.0); Mean Corpuscular Volume 99.9 fL (78.0-98.0); Mean Platelet Volume 8.6 fL (7.4-10.4); Platelet Count 89 thou/uL (130-400); RBC Distribution Width 13.4 % (11.5-14.5); White Blood Cell (WBC) Count 11.3 thou/uL (4.8-10.8)
[2020-03-17 04:45] LABS: Anion Gap 15 mmol/L (10-20); BUN (Urea Nitrogen) 23 mg/dL (9.8-20.1); Calc. Creatinine Clearance 46 mL/min (70-130); Calcium 8.3 mg/dL (7.8-10.44); Carbon Dioxide 18 mmol/L (23-31); Chloride 106 mmol/L (98-107); Estimated GFR-MDRD 61; Glucose 93 mg/dL (83-110); Sodium 135 mmol/L (136-145)
[2020-03-17] MEDS ORDERED: Amlodipine 10 MG TAB PO SCH (09:00)
[2020-03-17] MEDS ORDERED: FLU VACC QS2020-21(65YR UP)/PF 240 MCG/0.7 ML SYRINGE IM ONE (09:00)
[2020-03-17] MEDS ORDERED: Vancomycin 1 GM in Premix Bag 1 BAG IVPB SCH (09:00)
[2020-03-17] MEDS: Torsemide 10 MG TAB PO SCH (09:30)
[2020-03-17] MEDS: Vancomycin 1 GM in Premix Bag 1 BAG IVPB SCH (09:30)
[2020-03-17] MEDS: DULoxetine 60 MG CAP PO SCH (09:31)
[2020-03-17] MEDS: Potassium Chloride 10 MEQ TAB PO SCH (09:31)
[2020-03-17] MEDS: Hydroxychloroquine Sulfate 200 MG TAB PO SCH ×2 (09:32→21:26)
[2020-03-17] MEDS: Carvedilol 3.125 MG TAB PO SCH ×2 (09:32→21:25)
[2020-03-17] MEDS: predniSONE 5 MG TAB PO SCH (09:32)
--- NOTE | 2020-03-17 10:21 | PQF ---
CLINICAL DOCUMENTATION CLARIFICATION FORM: Dear Dr. ZENON NUÑEZ Date: 03-17-20 Please exercise your independent, professional judgment in responding to the clarification form. Clinical indicators are provided on the bottom of this form for your review. Please check appropriate box(es): [X ] Acute Renal Failure (ARF) / Acute Kidney Injury (SAGE) [ ] Insignificant Lab Values [ ] Other diagnosis [ ] Unable to determine In addition, please specify: Present on Admission (POA): [ X ] Yes [ ] No [ ] Unable to determine For continuity of documentation, please document condition throughout progress notes and discharge summary. Thank You. To be completed by CDI/Coding staff for physician review: CLINICAL INDICATORS - SIGNS / SYMPTOMS / LABS / RESULTS AND LOCATION IN MR: GFR: 03-16-20: 43 03-17-20: 61 CREATININE: 03-16-20: 1.19 03-17-20: 0.88 BUN: 03-16-20: 24 03-17-20: 23 RISK FACTORS / RESULTS AND LOCATION IN MR: ER NOTES 03-16-20: GENERALIZED WEAKNESS, INCREASING FREQUENCIES OF FALLS, PT STATES SHE FEELS LIGHTHEADED AND DEHYDRATED, HOME MEDS: ASA, TORSEMIDE, PREDNISONE, PLAVIX TREATMENTS / RESULTS AND LOCATION IN MR: ER NOTES 03-16-20: NS IVF MONITORING LABS 03-16-20, 03-17-20 National Kid[employer] Guidelines for CKD Staging Stage I Kidney damage with normal or increased GFR GFR > 90 Stage II Kidney damage with mildly decreased GFR GFR 60-89 Stage III Kidney damage with moderately decreased GFR GFR 30-59 Stage IV Kidney damage with severely decreased GFR GFR 16-29 Stage V Kidney failure GFR<15 ESRD End Stage Renal Disease On dialysis Acute Renal Failure/Acute Kidney Failure defined as: Increases in SCr by (>) 0.3 mg/dl within 48 hours OR- Increases in SCr by (>) 1.5 times baseline, known or presumed to have occurred within the prior 7 days OR- Urine volume < 0.5 ml/kg/hour for 6 hours (KDIGO supplement 2012 for RIFLE/AYAZ criteria) CDS Signature: Ly Campbell Phone #: [phone] Date: 03-17-20 This is a permanent part of the Medical Record [facility]
[2020-03-17 13:04] VITALS: BMI 22.5
--- NOTE | 2020-03-17 13:10 | RAD ---
EXAM: Chest PA and lateral: HISTORY: Correlation with nuclear medicine perfusion scan COMPARISON: 07/06/2019 FINDINGS: Heart: Cardiomegaly. There are sternotomy wires, aortic valve and a stent projecting over the descend ing thoracic aorta. Aorta: Atherosclerosis and as well as a stent along the descending thoracic aorta Pulmonary vessels: Normal Costophrenic angles: Small right and moderate left pleural effusion Lungs: Bibasilar opacities due to atelectasis, pneumonia or aspiration. Pneumothorax: No pneumothorax Osseous structures: No osseous abnormalities IMPRESSION: Congestive heart failure. Superimposed bibasilar pneumonia cannot be excluded.
--- NOTE | 2020-03-17 13:15 | NM ---
RADIONUCLIDE LUNG PERFUSION SCAN: HISTORY: Dyspnea. RADIOPHARMACEUTICAL: 5.3 mCi Technetium 99m-MAA injected intravenously. FINDINGS: Correlation is made with the CT chest from the previous day. There is fairly homogeneous tracer distribution through the lungs bilaterally without pleural-based w edge-shaped segmental or subsegmental perfusion defects. IMPRESSION: No evidence of pulmonary embolism. POS: AH
[2020-03-17] MEDS: cefTRIAXone\\ROCEPHIN 1 GM in Sodium Chloride 0.9% 100 ML IVPB SCH (14:37)
[2020-03-17 15:05] LABS: SARS-CoV-2 MS2 Positive; SARS-CoV-2 N Gene Negative; SARS-CoV-2 S Gene Negative; SARS-CoV-2 by NAA Not Detected (NotDetected); SARS-CoV-2 orf1ab Negative
--- NOTE | 2020-03-17 16:27 | PDOC.HOSPP ---
- Subjective Subjective: Pt is a pleasant 84 years old female, with multiple comorbidities including CAD with status post CABG in 2010, aortic valve replacement, congestive heart failure, severe PVD, paroxysmal atrial fib, autoimmune's d isease, presented with generalized weakness and recurrent falls Her urine culture positive for Klebsiella, and blood culture positive for gram- positive cocci. No fever. - Objective Vital Signs & Weight: Vital Signs (12 hours) Temp Pulse Resp BP BP BP BP 03/17/20 13:55 98/54 L 104/55 L 03/17/20 11:05 99.3 F 77 22 H 97/47 L 03/17/20 07:55 106/46 L 03/17/20 07:32 101.5 F H 62 18 112/55 L BP BP Pulse Ox 03/17/20 13:55 03/17/20 11:05 92 L 03/17/20 07:55 107/51 L 116/56 L 03/17/20 07:32 93 L Weight Admit Weight 136 lb 7.458 oz Weight 135 lb 9.349 oz I&O: 03/16/20 03/17/20 03/18/20 06:59 06:59 06:59 Intake Total 480 Output Total 450 Balance 30 Result Diagrams: 03/17/20 03:57 03/17/20 03:57 Radiology Reviewed by me: Yes EKG Reviewed by me: Yes Hospitalist ROS - Medication Medications: Active Medications Generic Name Dose Route Start Last Admin Trade Name Freq PRN Reason Stop Dose Admin Acetaminophen 650 mg 03/16/20 15:53 03/17/20 09:31 Acetaminophen 325 Mg Tab PO 650 mg Q4H PRN Administration Headache/Fever/Mild Pain (1-3) Carvedilol 3.125 mg 03/16/20 21:00 03/17/20 09:32 Carvedilol 3.125 Mg Tab PO 3.125 mg BID JUDY Administration Duloxetine HCl 60 mg 03/17/20 09:00 03/17/20 09:31 Duloxetine 60 Mg Cap PO 60 mg DAILY JUDY Administration Ezetimibe 10 mg 03/16/20 21:00 03/16/20 21:13 Ezetimibe 10 Mg Tab PO 10 mg HS JUDY Administration Hydroxychloroquine Sulfate 200 mg 03/16/20 21:00 03/17/20 09:32 Hydroxychloroquine Sulfate 200 Mg Tab PO 200 mg BID JUDY Administration Ceftriaxone Sodium 1 gm/ 100 mls @ 200 mls/hr 03/17/20 15:00 03/17/20 14:37 Sodium Chloride IVPB 100 mls Q24HR JUDY Administration Vancomycin HCl 1 gm/ Device 200 mls @ 200 mls/hr 03/17/20 09:00 03/17/20 09:30 IVPB 200 mls Q24HR JUDY Administration Pantoprazole Sodium 40 mg 03/17/20 09:00 03/17/20 09:32 Pantoprazole 40 Mg Tab PO 40 mg DAILY JUDY Administration Potassium Chloride 20 meq 03/17/20 09:00 03/17/20 09:31 Potassium Chloride 10 Meq Tab PO 20 meq DAILY JUDY Administration Prednisone 5 mg 03/17/20 09:00 03/17/20 09:32 Prednisone 5 Mg Tab PO 5 mg DAILY JUDY Administration Rosuvastatin Calcium 40 mg 03/16/20 21:00 03/16/20 21:13 Rosuvastatin 20 Mg Tab PO 40 mg HS JUDY Administration Torsemide 20 mg 03/17/20 09:00 03/17/20 09:30 Torsemide 10 Mg Tab PO 20 mg DAILY JUDY Administration - Exam General Appearance: NAD Eye: PERRL ENT: normocephalic atraumatic Neck: supple Heart: RRR Respiratory: CTAB Gastrointestinal: soft Extremities: no cyanosis Extremities - other findings: Left toes gangrene Skin: normal turgor, no lesions Neurological: cranial nerve grossly intact Musculoskeletal: normal tone Psychiatric: normal affect, normal behavior, A&O x 3 Hosp A/P - Plan Pt is a pleasant 84 years old female, with multiple comorbidities including CAD with status post CABG in 2009, aortic valve replacement, congestive heart failure, severe PVD, paroxysmal atrial fib, autoimmune's disease, presented with generalized weakness and recurrent falls Gram-positive bacteremia --start IV Vanc, follow final sensitivity. rpt BCx to document clearance --check 2D Echo, if negative for vegetation, consider CHAU given hx of AVR --ID consult --possible source including toe grangrene, recent LE revascularization, and cellulitis of the back from recent falls. Klebsiella UTI --cont Rocephin, follow sensitivity Severe PVD with left toe gangrene --attempted revasc on 02/21 --will check XR left foot; if nondiagnostic, consider MRI to r/o osteo Cellulitis of the back (trunk) - recent falls --cont IV abx as above Paroxysmal atrial fib --NSR, cont Coreg. hx of ablation CAD with history of CABG --no CP. cont home meds Congestive heart failure --BNP elevated, but appears compensated. Cont home dose Torsemide. Hx of AVR Recurrent Falls --PT eval
--- NOTE | 2020-03-17 16:59 | RAD ---
Exam: XR Foot Lt 2 View HISTORY: Toe ulcers. COMPARISON: None FINDINGS: There is a single screw transfixing the proximal and distal phalanges of the great toe with cerclage wire seen at the lateral aspect of the proximal first metatarsal. There is a small lucency seen at the tip of the second toe which may be related to site of patient's ulceration. There is generalized osteopenia, there is greater degree of lucency involving the distal phalanx of the left second toe, and osteomyelitis involving the left second toe could not be entirely excluded. However similar findi ng of lucency is seen involving the distal phalanx of the small toe. There is evidence of osteotomy involving the distal aspect of the proximal phalanx small toe. No fracture or dislocation is identifi ed. There are calcifications seen at the lateral aspect of the mid foot. Vascular calcifications are seen in the ankle and foot. IMPRESSION: 1. Limited osseous detail due to osteopenia. However, there does appear to be greater degree of lucen cy involving the distal phalanx of the left second toe with what appears to be a focus of subcutaneous gas second toe which could be related to patient's wound. Osteomyelitis involving the di stal phalanx left second toe is suggested. 2. Greater degree of lucency involving the middle and distal phalanx of the left small toe. Osteomyel itis in this region is also a possibility. Clinical correlation sites of ulceration recommended.
--- NOTE | 2020-03-17 19:53 | CON ---
DATE OF CONSULTATION: 03/17/2020 REASON FOR CONSULTATION: Bacteremia. HISTORY OF PRESENT ILLNESS: An 84-year-old, who has history of atrial fibrillation, coronary artery disease with bypass graft surgery, and previous bioprosthetic aortic valve replacement as well as rheumatoid arthritis, who was admitted in July this year and was diagnosed with severe bioprosthetic aortic stenosis, so she was referred to [facility] and had a TAVR in August this year. In September, she came in with acute blood loss associated anemia and GI bleed and then, she resumed her life. She is pretty functional, lives in [place] with her and then, 1 to 2 weeks before admission, she developed weakness and recurrent episodes of fall related to weakness and general malaise. No chills or fever documented. No headaches or visual symptoms. No back pain. She had some pain at the site of her area of bruising in the left chest wall area. No abdominal pain or genitourinary symptoms. No diarrhea. No bleeding. She has chronic pain in the right knee, but no changes in that, so she ended up admitted yesterday and initial findings BP 120/46 and temperature 100.9. She was breathing 24 times a minute and O2 saturations were 85. Did not appear in distress. She was bradycardic. Lungs described as normal. Heart exam was described as normal otherwise except for bradycardia. Other findings on admission, she had a white cell count 12.2, hemoglobin 12.3, platelets 100, and 86% neutrophils. D-dimer 3.8. Sodium 135, creatinine 1.19, AST 60, and ALT 34. Troponin 0.054. BNP was 1100. Globulin 4.2, albumin 3.8, and lipase 15. Urinalysis with greater than 50 wbc's. SARS-CoV was not detected. Imaging studies included a V/Q scan, which showed no evidence of pulmonary embolism. A chest x-ray with evidence of CHF. Brain CT with no CT evidence of acute intracranial process and a chest, abdomen, and pelvis CT with indeterminate fracture of T1, possible pathologic fracture at T11. She had a possible sclerotic osseous metastasis. Currently, Ms. Mathews is feeling a little better. REVIEW OF SYSTEMS: A 10-point review of system as above. PAST MEDICAL HISTORY: Coronary artery disease, atrial fibrillation, coronary bypass graft surgery, and aortic valve replacement x2, the last one was a TAVR done in [place] in August. CHF, peripheral vascular disease, rheumatoid arthritis, Sjogren's syndrome, and Raynaud. PAST SURGICAL HISTORY: As above, tonsillectomy, rectal prolapse, and watchman procedure. FAMILY HISTORY: Noncontributory. SOCIAL HISTORY: Never smoker. Lives with spouse in [place]. CURRENT MEDICATIONS: 1. Ceftriaxone. 2. Vancomycin. 3. Pantoprazole. 4. Ondansetron. 5. Hydroxychloroquine. 6. Dulcolax. PHYSICAL EXAMINATION: VITAL SIGNS: T-max 101.5, BP 98/54, heart rate 77, respiratory rate 22, and O2 saturation 92 on 1.5 L nasal cannula. SKIN: Areas of bruising in the left lateral chest area from recent fall. Peripheral IV access. No Fitzpatrick catheter. She is incontinent. No lymphadenopathy. HEENT: Ocular movements conjugate. Sclerae white. Oral cavity with no remarkable findings. NECK: Supple. No jugular vein distention. Sternotomy site appears well and healed. No inflammatory changes. LUNGS: With infarct inspiratory crackles in the left base. No wheezing. HEART: S1 and S2. Diminished heart sounds. There is a systolic murmur at the aortic area. ABDOMEN: Soft, not distended or tender. No ascites. No bladder distention. No joint inflammatory activity. Some tenderness on range of motion of the right knee, but no inflammatory changes. No edema. Pulses diminished in dorsalis pedis. She has some acrocyanosis probably from her Raynaud. There is onychodystrophy noted in numerous toenails. She moves extremities equally. She is awake and oriented, follows commands. Speech appears to be normal. Followup labs; white cell count is at 11.3, hemoglobin 10.7, and platelets 89,000 with 90% neutrophils and creatinine is 0.88. Microbiology with 2 sets of blood cultures with Staphylococcus aureus which is methicillin-susceptible as identified by Taifatechigene. She also has a Klebsiella in urine. Last echo is from May 23 was not repeated since. ASSESSMENT: 1. Rheumatoid arthritis/Sjogren syndrome. 2. Coronary artery disease with previous bypass graft surgery. 3. Recent TAVR in [place] in August. 4. Staphylococcus aureus bacteremia, methicillin sensitive, which is the reason for the decline in her clinical status that led to admission. DISCUSSION: The differential diagnosis includes aortic valve endocarditis associated with the TAVR. An alternate site is not apparent at this time, she may have some pneumonic process in the left base. No evidence of any peripheral IV access inflammatory process. No evidence of intraabdominal inflammatory process or other bone/joint inflammatory process. At this point, we will recommend a CHAU and switch her to oxacillin. If the TAVR is shown to be involved, she will need three drug regimen including oxacillin, aminoglycoside, and rifampin for 2 weeks and then rifampin and either oxacillin or cefazolin for now an additional four weeks. Job ID: [id number] [facility]
[2020-03-17] MEDS: Rosuvastatin 20 MG TAB PO SCH (21:25)
[2020-03-17] MEDS: Ezetimibe 10 MG TAB PO SCH (21:25)
[2020-03-18 05:34] LABS: #Lymphocytes 0.5 thou/uL (1.20-3.40); #Monocytes 0.8 thou/uL (0.11-0.59); #Neutrophils 11.3 thou/uL (1.40-6.50); %Basophils 0.1 % (0.0-1.0); %Eosinophils 0.1 % (0.0-10.0); %Lymphocytes 4.2 % (21.0-51.0); %Neutrophils 89.7 % (42.0-75.0); Hemoglobin 10.3 g/dL (12.0-16.0); Mean Corpuscular HGB CONC 32.7 g/dL (32.0-36.0); Mean Corpuscular Hemoglobin 33.2 pg (27.0-31.0); Mean Platelet Volume 8.9 fL (7.4-10.4); Platelet Count 73 thou/uL (130-400); RBC Distribution Width 13.6 % (11.5-14.5); Red Blood Cell (RBC) Count 3.11 mill/uL (4.20-5.40); White Blood Cell (WBC) Count 12.6 thou/uL (4.8-10.8)
[2020-03-18 06:13] LABS: Anion Gap 15 mmol/L (10-20); BUN (Urea Nitrogen) 23 mg/dL (9.8-20.1); CRP (Inflammatory) 25.33 mg/dL (= or < 0.5); Calc. Creatinine Clearance 41 mL/min (70-130); Calcium 8.2 mg/dL (7.8-10.44); Carbon Dioxide 18 mmol/L (23-31); Chloride 104 mmol/L (98-107); Estimated GFR-MDRD 58; Glucose 88 mg/dL (83-110); Potassium 3.9 mmol/L (3.5-5.1); Sodium 133 mmol/L (136-145)
[2020-03-18] MEDS: predniSONE 5 MG TAB PO SCH (09:33)
[2020-03-18] MEDS: Vancomycin 1 GM in Premix Bag 1 BAG IVPB SCH (09:33)
[2020-03-18] MEDS: Potassium Chloride 10 MEQ TAB PO SCH (09:33)
[2020-03-18] MEDS: Carvedilol 3.125 MG TAB PO SCH ×2 (09:34→20:36)
[2020-03-18] MEDS: Hydroxychloroquine Sulfate 200 MG TAB PO SCH ×2 (09:34→20:36)
[2020-03-18] MEDS: DULoxetine 60 MG CAP PO SCH (09:34)
[2020-03-18] MEDS: Torsemide 10 MG TAB PO SCH (09:34)
--- NOTE | 2020-03-18 12:41 | PDOC.HOSPP ---
- Subjective Encounter Date: 03/18/20 Encounter Time: 10:50 Subjective: Spouse at bedside. I have examined her left second toe dry gangrene and no swelling or erythema. Patient says that her toe is like this for the last 6 months. And no pain. x-ray of the foot suggestive of osteomyelitis. Transesophageal echo pending. CRP around 25 and white count is around 12.6. She is bradycardic and normotensive. - Objective Vital Signs & Weight: Vital Signs (12 hours) Temp Pulse Resp BP Pulse Ox 03/18/20 04:19 98.7 F 57 L 18 105/52 L 95 Weight Admit Weight 136 lb 7.458 oz Weight 127 lb 6.835 oz I&O: 03/17/20 03/18/20 03/19/20 06:59 06:59 06:59 Intake Total 1840 Output Total 800 Balance 1040 Result Diagrams: 03/18/20 05:05 03/18/20 05:05 Hospitalist ROS - Medication Medications: Active Medications Generic Name Dose Route Start Last Admin Trade Name Freq PRN Reason Stop Dose Admin Acetaminophen 650 mg 03/16/20 15:53 03/17/20 09:31 Acetaminophen 325 Mg Tab PO 650 mg Q4H PRN Administration Headache/Fever/Mild Pain (1-3) Carvedilol 3.125 mg 03/16/20 21:00 03/18/20 09:34 Carvedilol 3.125 Mg Tab PO 3.125 mg BID JUDY Administration Duloxetine HCl 60 mg 03/17/20 09:00 03/18/20 09:34 Duloxetine 60 Mg Cap PO 60 mg DAILY JUDY Administration Ezetimibe 10 mg 03/16/20 21:00 03/17/20 21:25 Ezetimibe 10 Mg Tab PO 10 mg HS JUDY Administration Hydroxychloroquine Sulfate 200 mg 03/16/20 21:00 03/18/20 09:34 Hydroxychloroquine Sulfate 200 Mg Tab PO 200 mg BID JUDY Administration Ceftriaxone Sodium 1 gm/ 100 mls @ 200 mls/hr 03/17/20 15:00 03/17/20 14:37 Sodium Chloride IVPB 100 mls Q24HR JUDY Administration Vancomycin HCl 1 gm/ Device 200 mls @ 200 mls/hr 03/17/20 09:00 03/18/20 09:33 IVPB 200 mls Q24HR JUDY Administration Pantoprazole Sodium 40 mg 03/17/20 09:00 03/18/20 09:33 Pantoprazole 40 Mg Tab PO 40 mg DAILY JUDY Administration Potassium Chloride 20 meq 03/17/20 09:00 03/18/20 09:33 Potassium Chloride 10 Meq Tab PO 20 meq DAILY JUDY Administration Prednisone 5 mg 03/17/20 09:00 03/18/20 09:33 Prednisone 5 Mg Tab PO 5 mg DAILY JUDY Administration Rosuvastatin Calcium 40 mg 03/16/20 21:00 03/17/20 21:25 Rosuvastatin 20 Mg Tab PO 40 mg HS JUDY Administration Torsemide 20 mg 03/17/20 09:00 03/18/20 09:34 Torsemide 10 Mg Tab PO 20 mg DAILY JUDY Administration - Exam General Appearance: NAD, awake alert Eye: PERRL ENT: normocephalic atraumatic Neck: supple Heart: RRR, normal peripheral pulses Respiratory: CTAB, normal chest expansion Gastrointestinal: soft, normal bowel sounds Extremities - other findings: Left second toe has a dry gangrene. The foot looks normal. No other ulcer Neurological: no focal deficits Psychiatric: A&O x 3 Hosp A/P - Plan CAD with status post CABG in 2009, aortic valve replacement, congestive heart failure, severe PVD, paroxysmal atrial fib, autoimmune's disease, presented with generalized weakness and recurrent falls Gram-positive bacteremia --Currently on vancomycin and ceftriaxone rpt BCx to document clearance --check 2D Echo, if negative for vegetation, consider CHAU given hx of AVR --possible source including toe grangrene, recent LE revascularization, and cellulitis of the back from recent falls. -Since she has ongoing dry gangrene for the last 6 months if this may not be directly related to her bacteremia. However pending echo evaluation to rule out aortic wall vegetation, given the history of TAVR. Klebsiella and E. coli UTI -Almost pansensitive except ampicillin and Unasyn. transition to Macrobid at the time of discharge - currently will continue with the ceftriaxone as part of the bacteremia work- up. Severe PVD with left toe gangrene --attempted revasc on 02/21 --X-ray shows higher chance for osteomyelitis. CRP is high. Podiatry consult placed. Cellulitis of the back (trunk) - recent falls --cont IV abx as above Paroxysmal atrial fib --NSR, cont Coreg. hx of ablation CAD with history of CABG --no CP. cont home meds Congestive heart failure --BNP elevated, but appears compensated. Cont home dose Torsemide. Hx of AVR Recurrent Falls -Probably due to advanced age and deconditioning. --PT eval and treatment when able.
[2020-03-18] MEDS: cefTRIAXone\\ROCEPHIN 1 GM in Sodium Chloride 0.9% 100 ML IVPB SCH (15:34)
[2020-03-18] MEDS: Ezetimibe 10 MG TAB PO SCH (20:36)
[2020-03-18] MEDS: Rosuvastatin 20 MG TAB PO SCH (20:36)
[2020-03-19] MEDS: DULoxetine 60 MG CAP PO SCH (08:11)
[2020-03-19] MEDS: Carvedilol 3.125 MG TAB PO SCH ×2 (08:11→20:34)
[2020-03-19] MEDS: Potassium Chloride 10 MEQ TAB PO SCH (08:11)
[2020-03-19] MEDS: Torsemide 10 MG TAB PO SCH (08:11)
[2020-03-19] MEDS: Hydroxychloroquine Sulfate 200 MG TAB PO SCH ×2 (08:11→20:34)
[2020-03-19] MEDS: predniSONE 5 MG TAB PO SCH (08:11)
[2020-03-19] MEDS: Vancomycin 1 GM in Premix Bag 1 BAG IVPB SCH (08:11)
[2020-03-19 08:41] LABS: Hemoglobin 11.1 g/dL (12.0-16.0); Mean Corpuscular HGB CONC 32.9 g/dL (32.0-36.0); Mean Corpuscular Hemoglobin 33.7 pg (27.0-31.0); Mean Platelet Volume 8.9 fL (7.4-10.4); Platelet Count 65 thou/uL (130-400); RBC Distribution Width 13.4 % (11.5-14.5); White Blood Cell (WBC) Count 9.4 thou/uL (4.8-10.8)
[2020-03-19 08:52] LABS: Anion Gap 15 mmol/L (10-20); BUN (Urea Nitrogen) 21 mg/dL (9.8-20.1); Calc. Creatinine Clearance 41 mL/min (70-130); Calcium 8.4 mg/dL (7.8-10.44); Carbon Dioxide 24 mmol/L (23-31); Chloride 101 mmol/L (98-107); Estimated GFR-MDRD 59; Glucose 82 mg/dL (83-110); Potassium 3.4 mmol/L (3.5-5.1); Sodium 137 mmol/L (136-145); Vancomycin, Trough 12.1 ug/mL
[2020-03-19 10:01] LABS: Lymphocytes 4 % (21-51); MDiff Complete? YES; Monocytes 4 % (0-10); Neutrophil 92 % (42-75); Platelet Morphology Comment Appears Decreased
--- NOTE | 2020-03-19 10:01 | CON ---
DATE OF CONSULTATION: 03/18/2020 REASON FOR CONSULTATION: Bacteremia and recent TAVR. HISTORY OF PRESENT ILLNESS: Ms. Mathews is a very pleasant 84-year-old woman, who is a patient of Dr. Devonte Mccollum. She recently presented with weakness and recent falls. During her admission, she did have a slight temperature. She underwent blood cultures that were felt to be positive. She did have a TAVR noted earlier at [facility] for severe aortic stenosis. PAST MEDICAL HISTORY: CAD, atrial fibrillation, status post CABG, AVR, PVD, Sjogren's, rheumatoid arthritis, tonsillectomy, rectal prolapse, Watchman. SOCIAL HISTORY: No current tobacco or alcohol use. REVIEW OF SYSTEMS: A 10-point review of systems is reviewed as above, otherwise negative. HOME MEDICATIONS: Include; 1. Methylcellulose. 2. Folic acid. 3. Prolia. 4. Biotin. 5. Aspirin. 6. Ascorbic acid. 7. Cyanocobalamin. 8. Lyrica. 9. [place]-3. 10. Carvedilol. 11. Hydroxychloroquine. 12. Zetia. 13. Cymbalta. 14. Spironolactone. 15. Crestor. 16. Klor-Con. 17. Protonix. 18. Prednisone. 19. Demadex. PHYSICAL EXAMINATION: GENERAL: Patient is a pleasant female, who is in no acute distress. The patient appears their stated age. VITAL SIGNS: Blood pressure 116/58, pulse 66, temperature 98.1. NEUROLOGIC: The patient is alert and oriented x3 with no focal neurologic deficits. HEENT: Sclerae without icterus. Mouth has moist mucous membranes with normal pallor. NECK: No JVD. Carotid upstroke brisk. No bruits bilaterally. LUNGS: Clear to auscultation with unlabored respirations. BACK: No scoliosis or kyphosis. CARDIAC: Regular rate and rhythm with normal S1 and S2. No S3 or S4 noted. No significant rubs, murmurs, thrills, or gallops noted throughout the precordium. PMI is not displaced. There is no parasternal heave. ABDOMEN: Soft, nontender, nondistended. No peritoneal signs present. No hepatosplenomegaly. No abnormal striae. EXTREMITIES: 2+ femoral and 2+ dorsalis pedis pulses. No cyanosis, clubbing, or edema. SKIN: No gross abnormalities. PERTINENT LABORATORY DATA: Hemoglobin 11.1, hematocrit 33.8. Blood culture positive x2 for Staph aureus. IMPRESSION: 1. Low-grade fever. 2. Blood culture positive x2. 3. Status post TAVR. 4. Status post bypass surgery. RECOMMENDATIONS: Certainly seems reasonable to proceed with CHAU to assess the aortic valve and TAVR. I discussed CHAU in full detail with Ms. Mathews, risks include, but not limited to the following: Damage to teeth, mouth, back of throat; damage to esophagus, as well as reaction to medication. All questions were answered. Given the above, the patient agreed to proceed with procedure. Continue antibiotic therapy as per Dr. Parker. Job ID: [id number]
--- NOTE | 2020-03-19 12:17 | TCOM ---
DATE OF STUDY: 03/19/2020 PREPROCEDURE DIAGNOSIS: Sepsis and bacteremia with recent TAVR. POSTPROCEDURE DIAGNOSIS: No obvious mass or vegetation. PROCEDURE: CHAU. COMPLICATIONS: None. The patient was consented for the procedure. Anesthesia was present for conscious sedation. The probe passed easily in the esophagus. FINDINGS: The mitral valve is well visualized. There was heavy calcification present. No obvious mass or vegetation present. There is mild to moderate mitral regurgitation noted. The aortic valve has a TAVR in place. There is also heavy calcification with artifact present. No masses or vegetation present. There is trace noted. The tricuspid valve also does not appear to have vegetations or masses. The pulmonic valve also is free of vegetations or masses. Other areas were also visualized with no significant areas present. The TAVR also appears to be well placed into the LVOT. IMPRESSION: No obvious masses or vegetation present. I did speak with Dr. Jeff Parker and updated him on the results. Job ID: [id number]
[2020-03-19] MEDS ORDERED: PROPOFOL 200 MG/20 ML VIAL ONE (13:13)
--- NOTE | 2020-03-19 13:46 | PDOC.HOSPP ---
- Subjective Encounter Date: 03/19/20 Encounter Time: 03:30 Subjective: From transesophageal echo. She appears well. She has no acute complaints at this time. - Objective Vital Signs & Weight: Vital Signs (12 hours) Temp Pulse Pulse Pulse Resp BP BP 03/19/20 11:16 62 51 L 129/61 115/55 L 03/19/20 10:55 98.1 F 51 L 15 03/19/20 08:11 03/19/20 08:03 98.1 F 56 L 16 03/19/20 03:32 98.1 F 73 16 BP Pulse Ox 03/19/20 11:16 03/19/20 10:55 105/58 L 97 03/19/20 08:11 96 03/19/20 08:03 116/58 L 96 03/19/20 03:32 106/51 L 96 Weight Admit Weight 136 lb 7.458 oz Weight 128 lb 1.6 oz I&O: 03/18/20 03/19/20 03/20/20 06:59 06:59 06:59 Intake Total 1840 870 Output Total 800 1700 Balance 1040 -830 Result Diagrams: 03/19/20 08:07 03/19/20 08:07 Hospitalist ROS - Medication Medications: Active Medications Generic Name Dose Route Start Last Admin Trade Name Freq PRN Reason Stop Dose Admin Acetaminophen 650 mg 03/16/20 15:53 03/17/20 09:31 Acetaminophen 325 Mg Tab PO 650 mg Q4H PRN Administration Headache/Fever/Mild Pain (1-3) Carvedilol 3.125 mg 03/16/20 21:00 03/19/20 08:11 Carvedilol 3.125 Mg Tab PO 3.125 mg BID JUDY Administration Duloxetine HCl 60 mg 03/17/20 09:00 03/19/20 08:11 Duloxetine 60 Mg Cap PO 60 mg DAILY JUDY Administration Ezetimibe 10 mg 03/16/20 21:00 03/18/20 20:36 Ezetimibe 10 Mg Tab PO 10 mg HS JUDY Administration Hydroxychloroquine Sulfate 200 mg 03/16/20 21:00 03/19/20 08:11 Hydroxychloroquine Sulfate 200 Mg Tab PO 200 mg BID JUDY Administration Ceftriaxone Sodium 1 gm/ 100 mls @ 200 mls/hr 03/17/20 15:00 03/18/20 15:34 Sodium Chloride IVPB 100 mls Q24HR JUDY Administration Pantoprazole Sodium 40 mg 03/17/20 09:00 03/19/20 08:11 Pantoprazole 40 Mg Tab PO 40 mg DAILY JUDY Administration Potassium Chloride 20 meq 03/17/20 09:00 03/19/20 08:11 Potassium Chloride 10 Meq Tab PO 20 meq DAILY JUDY Administration Prednisone 5 mg 03/17/20 09:00 03/19/20 08:11 Prednisone 5 Mg Tab PO 5 mg DAILY JUDY Administration Rosuvastatin Calcium 40 mg 03/16/20 21:00 03/18/20 20:36 Rosuvastatin 20 Mg Tab PO 40 mg HS JUDY Administration Torsemide 20 mg 03/17/20 09:00 03/19/20 08:11 Torsemide 10 Mg Tab PO 20 mg DAILY JUDY Administration - Exam General Appearance: NAD, awake alert Eye: PERRL ENT: normocephalic atraumatic Neck: supple Heart: RRR Respiratory: CTAB, normal chest expansion Gastrointestinal: soft, normal bowel sounds Neurological: no focal deficits Hosp A/P - Plan CAD with status post CABG in 2009, aortic valve replacement, congestive heart failure, severe PVD, paroxysmal atrial fib, autoimmune's disease, presented with generalized weakness and recurrent falls Gram-positive bacteremia --Currently on vancomycin and ceftriaxone rpt BCx to document clearance --check 2D Echo, if negative for vegetation, consider CHAU given hx of AVR --possible source including toe grangrene, recent LE revascularization, and cellulitis of the back from recent falls. -Since she has ongoing dry gangrene for the last 6 months if this may not be directly related to her bacteremia. However pending echo evaluation to rule out aortic wall vegetation, given the history of TAVR. Klebsiella and E. coli UTI -Almost pansensitive except ampicillin and Unasyn. transition to Macrobid at the time of discharge - currently will continue with the ceftriaxone as part of the bacteremia work- up. Severe PVD with left toe gangrene --attempted revasc on 02/21 --X-ray shows higher chance for osteomyelitis. CRP is high. Podiatry consult placed. Cellulitis of the back (trunk) - recent falls --cont IV abx as above Paroxysmal atrial fib --NSR, cont Coreg. hx of ablation CAD with history of CABG --no CP. cont home meds Congestive heart failure --BNP elevated, but appears compensated. Cont home dose Torsemide. Hx of AVR Recurrent Falls -Probably due to advanced age and deconditioning. --PT eval and treatment when able. Pending transesophageal echo report.
[2020-03-19] MEDS ORDERED: CEFAZOLIN 2 GM in Premix Bag 1 BAG IVPB SCH (14:30)
--- NOTE | 2020-03-19 14:38 | PRG ---
DATE OF SERVICE: 03/19/2020 SUBJECTIVE: Ms. Mathews had the CHAU. Dr. Cunningham spoke with me and he did not find any obvious vegetation, but there was a lot of calcification that made it difficult to discriminate between the calcium artifact or vegetation. The patient has those changes in the toes and this is for about 6 months and microbiology is different than the one in the blood cultures. She denies any shortness of breath or chest pain. No abdominal pain or diarrhea. OBJECTIVE: VITAL SIGNS: She has been afebrile since admission. Blood pressure 115/55, respiratory rate 15, O2 saturation 97, saturating at 1 L nasal cannula. GENERAL: There is a bruising in left lateral chest from fall. LUNGS: With faint inspiratory crackles, left base. HEART: S1, S2. Regular rate. Systolic murmur at the aortic area. ABDOMEN: Soft, not distended. EXTREMITIES: She has acrocyanosis and maybe some gangrene in the toes, is particularly evident in the tip of the second left toe and first. LABORATORY DATA: White cell count 9.4, hemoglobin 11, platelets 65,000, 92% neutrophils. Creatinine 0.91. SARS-CoV not detected, and methicillin sensitive Staph aureus from the blood cultures. 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 Recent TAVR in [place]. Staphylococcus aureus bacteremia. DISCUSSION: The CHAU was not conclusive, but I would treat her as if she had endocarditis. Six weeks of IV cefazolin and she will need a PICC line insertion and setting up treatment in the outpatient setting. The toes I think are chronic and mostly reflect dry gangrene. It could be related with her Raynaud's, superimposed on peripheral vascular disease. Job ID: [id number]
[2020-03-19] MEDS ORDERED: GENTAMICIN IVPB PRN (17:07)
[2020-03-19] MEDS: Gentamicin 80 MG/2 ML VIAL IM SCH (17:46)
[2020-03-19] MEDS: Ezetimibe 10 MG TAB PO SCH (20:34)
[2020-03-19] MEDS: Rosuvastatin 20 MG TAB PO SCH (20:34)
[2020-03-19] MEDS: CEFAZOLIN 2 GM in Premix Bag 1 BAG IVPB SCH (21:06)
[2020-03-19] MEDS: Rifampin 300 MG CAP PO SCH (21:27)
[2020-03-20] MEDS: Gentamicin 80 MG/2 ML VIAL IM SCH ×3 (02:00→18:38)
[2020-03-20 04:35] LABS: #Lymphocytes 0.5 thou/uL (1.20-3.40); #Monocytes 0.6 thou/uL (0.11-0.59); #Neutrophils 6.1 thou/uL (1.40-6.50); %Basophils 0.1 % (0.0-1.0); %Eosinophils 0.1 % (0.0-10.0); %Lymphocytes 7.4 % (21.0-51.0); %Monocytes 7.8 % (0.0-10.0); %Neutrophils 84.6 % (42.0-75.0); Hemoglobin 10.1 g/dL (12.0-16.0); Mean Corpuscular HGB CONC 32.9 g/dL (32.0-36.0); Mean Corpuscular Hemoglobin 32.8 pg (27.0-31.0); Mean Corpuscular Volume 99.7 fL (78.0-98.0); Mean Platelet Volume 9.3 fL (7.4-10.4); Platelet Count 57 thou/uL (130-400); RBC Distribution Width 13.6 % (11.5-14.5); Red Blood Cell (RBC) Count 3.09 mill/uL (4.20-5.40); White Blood Cell (WBC) Count 7.2 thou/uL (4.8-10.8)
[2020-03-20 05:00] LABS: Anion Gap 13 mmol/L (10-20); BUN (Urea Nitrogen) 18 mg/dL (9.8-20.1); Calc. Creatinine Clearance 37 mL/min (70-130); Calcium 8.4 mg/dL (7.8-10.44); Carbon Dioxide 27 mmol/L (23-31); Chloride 98 mmol/L (98-107); Estimated GFR-MDRD 53; Glucose 85 mg/dL (83-110); Potassium 3.1 mmol/L (3.5-5.1); Sodium 135 mmol/L (136-145)
[2020-03-20] MEDS: CEFAZOLIN 2 GM in Premix Bag 1 BAG IVPB SCH ×3 (05:35→22:24)
--- NOTE | 2020-03-20 06:33 | CON ---
DATE OF CONSULTATION: 03/19/2020 REQUESTING PHYSICIAN: Dr. Cardenas. CHIEF COMPLAINT: Weakness. HISTORY OF PRESENT ILLNESS: The patient is an 84-year-old woman, with whom I first became familiar in July of this year. She had undergone combined Perimount Magna aortic valve replacement and coronary artery bypass grafting procedure by Dr. Martini about 10 years ago. Though asymptomatic, she was known to have increasing transvalvular gradients for sometime, but she has had a recent drop in her ejection fraction and became quite symptomatic. At that time, I reviewed the existing chart as well as the old records around the time of her surgery by Dr. Martini. She had a very difficult recovery following her procedure when she was in her 70s. 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 Martini's operative report indicated that she had very poor quality vein. 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 She was referred for a [id number] TAVR and had very dramatic and very gratifying improvement in her failure symptoms. However, in that early postop followup, she was noted to have a small spot on the tip of her left second toe. Initially, it had been painful, but the pain had subsided. On physical exam, she had palpable popliteal pulses, but no pedal pulses and she had classic chronic atrophic skin changes affecting both feet. She had much of her vein on the left side harvested. She had obvious varicosities. It was known that her saphenous vein has been ablated on the right side and that the quality of the harvested vein on the left side had been poor, and I felt at that time that she had a little in the way of revascularization options except for the possibility of some percutaneous approach at the trifurcation level. I saw her for this vascular problem in November of this year and because the associated pain was minimal and the options to address it were not very promising, I opted to follow it. Over the summer, she evolved some dry eschar encompassing much of what would represent the nail bed on that toe, but it remained dry and associated with minimal pain. In February, however, she reported some pain developing in her left great toe similar to the pain that she initially had in her second toe. At that time, I did an arteriogram, which confirmed my concerns that she had no revascularization options. She had occlusions of all three trifurcation vessels, neither the anterior tibial or the posterior tibial appear to reconstitute, the peroneal did reconstitute, but it was a small poor quality vessel and I was unable to pass a wire through the short-segment occlusion to attempt any sort of percutaneous procedure. The day that she was due to see me in office with the plan that I would re-evaluate her signs and symptoms and discuss her amputation options. She was admitted through the emergency room after she had fallen. She apparently has significantly improved, but in the mean time, she has grown an E coli from her urine, but more curiously, Staph aureus from blood cultures. PAST MEDICAL HISTORY: Significant for coronary artery disease and aortic valve disease as mentioned above. She has hypertension. She has history of atrial fibrillation and has undergone a Watchman procedure to occlude her left atrial appendage. She has a chronic anemia and thrombocytopenia. HOME MEDICATIONS: 1. Crestor. 2. Zetia. 3. Aspirin. 4. Spironolactone. 5. Coreg. 6. Cymbalta. 7. Prednisone. 8. Potassium chloride. 9. Torsemide. 10. Prolia every 6 months. 11. Protonix. 12. Norvasc. 13. Neurontin. 14. Vitamin and mineral supplements. 15. Hydroxychloroquine. HABITS: The patient does not smoke. FAMILY HISTORY: Significant for heart disease in both parents. ALLERGIES: SHE REPORTS ALLERGIES TO CODEINE AND DARVOCET. REVIEW OF SYSTEMS: Negative for any chest pain, palpitations, shortness of breath. The pain in her great toe is resolved. PHYSICAL EXAMINATION: GENERAL: She is an elderly woman, in no distress. VITAL SIGNS: She had a temperature of 101.5 early in her hospitalization, but her T-max since mid day on the has been 99.3. Her T-max over the last 24 hours has been 99.1. Heart rates are in the 50s to 70s, blood pressure 105 to 115 over the 50s. EXTREMITIES: She has palpable femoral and popliteal pulses. She has no palpable pedal pulses. She has dry gangrenous changes affecting the tip and distal dorsal aspect of the 2nd toe and on the very tip of great toe. There is no separation of that eschar. No drainage. No cellulitic changes. No lymphangitic streaking. LABORATORY AND DIAGNOSTIC DATA: Her white count was 12.2 on admission and is 9.4 this morning. Her chemistries have been essentially normal with the exception of C-reactive protein yesterday, it was 25.33. Her urinalysis is nitrite negative, but had 4+ bacteria and greater than 50 white blood cells per high-power field. She had a urine culture from the that showed an E coli with multiple sensitivities as well as an alpha hemolytic Streptococcus, greater than 100,000 colony-forming units and a second gram-negative bacillus in the 25-50,000 colony-forming unit range. She had 2/2 blood cultures on the that have been no growth so far after 2/2 blood cultures on the that grew Staphylococcus aureus with multiple sensitivities that by nucleic acid testing was consistent with methicillin-susceptible Staph aureus. She had an x-ray of her foot that shows hardware from ORIF of a previous left great toe fracture. In the text of the report, there was described a small lucency seen at the tip of the 2nd toe as well as a similar lucency involving the distal phalanx of the 5th toe and "osteomyelitis involving the left 2nd toe could not be entirely excluded." IMPRESSION AND RECOMMENDATIONS: It is very hard for me to think that these 2 small dry eschars representing dry gangrenous changes at the tips of her toes where there is no eschar separation, no drainage, no cellulitis, no lymphangitic streaking, no exposed bone or hardware, and only the most subtle indirect suggestion of the possibility of osteomyelitis could account for the patient's Staphylococcal bacteremia. She is currently also being evaluated for the possibility of endocarditis and I see that Podiatry has been consulted. I have been following this patient for several months now and her biggest concern about this all along has merely been that she would like to be able to wear normal shoe instead of the improvised shoe that she has been wearing to avoid rubbing on her toe. She has consistently said that it really does not hurt very much other than the one time that she told me about her great toe hurting which prompted proceeding with angiography. She does not have any revascularization options both because of the severity of her underlying peripheral vascular disease and the lack of conduit with which to bypass it. I think that it is extremely unlikely that she would be able to heal any sort of debridement of those wounds or any amputation short of a below-knee amputation. The quality of her tissues and her general debility are such that she is apt to have protracted problems with healing of a below-knee amputation, which will delay significantly fitting her with a prosthesis and learning to walk on it as well as being questionable whether she would ever be able to walk on a below-knee amputation prosthesis anyway. I would strongly caution against debriding or amputating those toes because of this. At this point, the toes do not hurt her badly enough to want to undergo a below or above knee amputation and I see no compelling evidence that her dry gangrenous changes are presenting an immediate threat to her health. Job ID: [id number]
[2020-03-20] MEDS ORDERED: Vancomycin HCl 1.25 GM in Sodium Chloride 0.9% 250 ML 250 ML IVPB SCH (08:00)
[2020-03-20] MEDS: Hydroxychloroquine Sulfate 200 MG TAB PO SCH ×2 (10:14→22:23)
[2020-03-20] MEDS: Torsemide 10 MG TAB PO SCH (10:14)
[2020-03-20] MEDS: predniSONE 5 MG TAB PO SCH (10:14)
[2020-03-20] MEDS: Carvedilol 3.125 MG TAB PO SCH ×2 (10:14→22:23)
[2020-03-20] MEDS: Rifampin 300 MG CAP PO SCH ×2 (10:14→22:25)
[2020-03-20] MEDS: Potassium Chloride 10 MEQ TAB PO SCH (10:14)
[2020-03-20] MEDS: DULoxetine 60 MG CAP PO SCH (10:15)
[2020-03-20] MEDS ORDERED: Spironolactone 25 MG TAB PO SCH (12:00)
[2020-03-20] MEDS ORDERED: Aspirin 81 mg Enteric Coated Tablet PO SCH (12:15)
--- NOTE | 2020-03-20 13:03 | PDOC.HOSPP ---
- Subjective Encounter Date: 03/20/20 Encounter Time: 11:00 Subjective: Plan for PICC line today. Spouse at bedside. They would like to go home after we completed the medical management. Status post transesophageal echo. - Objective Vital Signs & Weight: Vital Signs (12 hours) Temp Pulse Resp BP BP Pulse Ox 03/20/20 12:23 98.3 F 53 L 16 113/55 L 94 L 03/20/20 10:14 64 03/20/20 08:55 97 03/20/20 07:57 98 F 55 L 16 107/54 L 95 03/20/20 03:43 97.4 F L 54 L 16 103/53 L Weight Admit Weight 136 lb 7.458 oz Weight 125 lb I&O: 03/19/20 03/20/20 03/21/20 06:59 06:59 06:59 Intake Total 870 1040 Output Total 1700 600 Balance -830 440 Result Diagrams: 03/20/20 04:05 03/20/20 04:05 Hospitalist ROS - Medication Medications: Active Medications Generic Name Dose Route Start Last Admin Trade Name Freq PRN Reason Stop Dose Admin Acetaminophen 650 mg 03/16/20 15:53 03/17/20 09:31 Acetaminophen 325 Mg Tab PO 650 mg Q4H PRN Administration Headache/Fever/Mild Pain (1-3) Aspirin 81 mg 03/20/20 12:15 03/20/20 12:43 Aspirin 81 Mg Enteric Coated Tablet PO 03/20/20 14:00 81 mg NOW JUDY Administration Carvedilol 3.125 mg 03/16/20 21:00 03/20/20 10:14 Carvedilol 3.125 Mg Tab PO 3.125 mg BID JUDY Administration Duloxetine HCl 60 mg 03/17/20 09:00 03/20/20 10:15 Duloxetine 60 Mg Cap PO 60 mg DAILY JUDY Administration Ezetimibe 10 mg 03/16/20 21:00 03/19/20 20:34 Ezetimibe 10 Mg Tab PO 10 mg HS JUDY Administration Gentamicin Sulfate 50 mg 03/19/20 18:00 03/20/20 10:13 Gentamicin 80 Mg/2 Ml Vial IM 50 mg 0200,1000,1800 JUDY Administration Hydroxychloroquine Sulfate 200 mg 03/16/20 21:00 03/20/20 10:14 Hydroxychloroquine Sulfate 200 Mg Tab PO 200 mg BID JUDY Administration Cefazolin Sodium/Dextrose 2 gm 50 mls @ 100 mls/hr 03/19/20 22:00 03/20/20 05:35 / Device IVPB 50 mls Q8HR JUDY Administration Pantoprazole Sodium 40 mg 03/17/20 09:00 03/20/20 10:14 Pantoprazole 40 Mg Tab PO 40 mg DAILY JUDY Administration Prednisone 5 mg 03/17/20 09:00 03/20/20 10:14 Prednisone 5 Mg Tab PO 5 mg DAILY JUDY Administration Rifampin 300 mg 03/19/20 22:00 03/20/20 10:14 Rifampin 300 Mg Cap PO 300 mg 1000,2200 JUDY Administration Rosuvastatin Calcium 40 mg 03/16/20 21:00 03/19/20 20:34 Rosuvastatin 20 Mg Tab PO 40 mg HS JUDY Administration Spironolactone 25 mg 03/20/20 12:00 03/20/20 12:43 Spironolactone 25 Mg Tab PO 03/20/20 14:00 25 mg NOW JUDY Administration Torsemide 20 mg 03/17/20 09:00 03/20/20 10:14 Torsemide 10 Mg Tab PO 20 mg DAILY JUDY Administration - Exam General Appearance: NAD, awake alert Eye: PERRL ENT: normocephalic atraumatic Neck: supple Heart: RRR Respiratory: CTAB, normal chest expansion Gastrointestinal: soft, normal bowel sounds Neurological: no focal deficits Psychiatric: A&O x 3 Hosp A/P - Plan CAD with status post CABG in 2009, aortic valve replacement, congestive heart failure, severe PVD, paroxysmal atrial fib, autoimmune's disease, presented with generalized weakness and recurrent falls Gram-positive bacteremia --Currently on vancomycin and ceftriaxone rpt BCx to document clearance --check 2D Echo, if negative for vegetation, consider CHAU given hx of AVR --possible source including toe grangrene, recent LE revascularization, and cellulitis of the back from recent falls. -Since she has ongoing dry gangrene for the last 6 months if this may not be directly related to her bacteremia. However pending echo evaluation to rule out aortic wall vegetation, given the history of TAVR. ----------------> TAVR present with moderate perivalvular regurgitation and EF of 60%. Mitral annular calcification and moderate mitral regurgitation present. Klebsiella and E. coli UTI -Almost pansensitive except ampicillin and Unasyn. transition to Macrobid at the time of discharge - currently will continue with the ceftriaxone as part of the bacteremia work- up. Severe PVD with left toe gangrene --attempted revasc on 02/21 --X-ray shows higher chance for osteomyelitis. CRP is high. -After review of the vascular surgery note this is a chronic ongoing dry gangrene. Does not require any immediate attention or treatment. Could very well be Raynaud's phenomenon superimposed on peripheral vascular disease. -Vascular surgery note reviewed. Cellulitis of the back (trunk) - recent falls --cont IV abx as above Paroxysmal atrial fib --NSR, cont Coreg. hx of ablation CAD with history of CABG --no CP. cont home meds Congestive heart failure --BNP elevated, but appears compensated. Cont home dose Torsemide. Hx of AVR Recurrent Falls -Probably due to advanced age and deconditioning. --PT eval and treatment when able. Pending transesophageal echo report. Repeat blood cultures were negative. -PICC line placement today. -Given the transesophageal echo being inconclusive we are going to treat her as if she has aortic valve endocarditis with a history of TAVR. In this context she is going to get the PICC line and probably treat her for 6 weeks. Unless infectious disease feels otherwise. It appears he also mentioned that at this can be arranged IV infusion of antibiotic in the outpatient setting.
--- NOTE | 2020-03-20 15:08 | SPC ---
Left upper extremity PICC placement sonographic guided HISTORY: Endocarditis. FINDINGS: After explaining the procedure and answering all questions, the left upper extremity was pr epped and draped in usual sterile fashion. Sterile technique, buffered local anesthesia, sonographic guidance, and a 22-gauge needle were used t o carefully access the left basilic vein. Standard technique was used to carefully place the tip of a 5 [place] single lumen PICC so that the ti p lies at the level of the superior vena cava. Catheter was flushed and secured externally. Patient tolerated the procedure well and was returned in unchanged condition. IMPRESSION : Left upper extremity PICC is ready for use.
[2020-03-20] MEDS: Rosuvastatin 20 MG TAB PO SCH (22:23)
[2020-03-20] MEDS: Ezetimibe 10 MG TAB PO SCH (22:25)
[2020-03-21] MEDS: CEFAZOLIN 2 GM in Premix Bag 1 BAG IVPB SCH ×3 (05:58→20:31)
[2020-03-21] MEDS: Aspirin 81 mg Enteric Coated Tablet PO SCH (10:01)
[2020-03-21] MEDS: Hydroxychloroquine Sulfate 200 MG TAB PO SCH ×2 (10:01→20:30)
[2020-03-21] MEDS: Spironolactone 25 MG TAB PO SCH (10:01)
[2020-03-21] MEDS: Torsemide 10 MG TAB PO SCH (10:01)
[2020-03-21] MEDS: DULoxetine 60 MG CAP PO SCH (10:02)
[2020-03-21] MEDS: predniSONE 5 MG TAB PO SCH (10:02)
[2020-03-21] MEDS: Rifampin 300 MG CAP PO SCH ×2 (10:02→20:31)
[2020-03-21] MEDS: Carvedilol 3.125 MG TAB PO SCH ×2 (10:02→20:29)
--- NOTE | 2020-03-21 12:49 | PDOC.HOSPP ---
- Subjective Encounter Date: 03/21/20 Encounter Time: 12:05 Subjective: Patient was seen and examined at the bedside today. She is post op day 1 from her PICC line placement. She has had no bowel movement since March 18. Her TTE showed no evidence of mass or vegetation. Patient otherwise has no complaints. - Objective Vital Signs & Weight: Vital Signs (12 hours) Temp Pulse Resp BP Pulse Ox 03/21/20 11:38 98.6 F 52 L 16 102/55 L 96 03/21/20 07:41 98.1 F 54 L 16 121/75 95 03/21/20 07:40 95 03/21/20 04:28 98.0 F 50 L 12 126/58 L 97 Weight Admit Weight 136 lb 7.458 oz Weight 114 lb 2 oz I&O: 03/20/20 03/21/20 03/22/20 06:59 06:59 06:59 Intake Total 1040 1000 Output Total 600 700 Balance 440 300 Result Diagrams: 03/20/20 04:05 03/20/20 04:05 Hospitalist ROS - Review of Systems Respiratory: denies: cough, dry, shortness of breath, hemoptysis, SOB with excertion, pleuritic pain, sputum, wheezing Cardiovascular: denies: chest pain, palpitations, orthopnea, paroxysmal noc. dyspnea, edema, light headedness Gastrointestinal: denies: nausea, vomiting, abdominal pain, diarrhea, constipation - Medication Medications: Active Medications Generic Name Dose Route Start Last Admin Trade Name Freq PRN Reason Stop Dose Admin Acetaminophen 650 mg 03/16/20 15:53 03/17/20 09:31 Acetaminophen 325 Mg Tab PO 650 mg Q4H PRN Administration Headache/Fever/Mild Pain (1-3) Aspirin 81 mg 03/21/20 09:00 03/21/20 10:01 Aspirin 81 Mg Enteric Coated Tablet PO 81 mg DAILY JUDY Administration Carvedilol 3.125 mg 03/16/20 21:00 03/21/20 10:02 Carvedilol 3.125 Mg Tab PO Not Given BID JUDY Duloxetine HCl 60 mg 03/17/20 09:00 03/21/20 10:02 Duloxetine 60 Mg Cap PO 60 mg DAILY JUDY Administration Ezetimibe 10 mg 03/16/20 21:00 03/20/20 22:25 Ezetimibe 10 Mg Tab PO 10 mg HS JUDY Administration Hydroxychloroquine Sulfate 200 mg 03/16/20 21:00 03/21/20 10:01 Hydroxychloroquine Sulfate 200 Mg Tab PO 200 mg BID JUDY Administration Cefazolin Sodium/Dextrose 2 gm 50 mls @ 100 mls/hr 03/19/20 22:00 03/21/20 05:58 / Device IVPB 50 mls Q8HR JUDY Administration Pantoprazole Sodium 40 mg 03/17/20 09:00 03/21/20 10:02 Pantoprazole 40 Mg Tab PO 40 mg DAILY JUDY Administration Prednisone 5 mg 03/17/20 09:00 03/21/20 10:02 Prednisone 5 Mg Tab PO 5 mg DAILY JUDY Administration Rifampin 300 mg 03/19/20 22:00 03/21/20 10:02 Rifampin 300 Mg Cap PO 300 mg 1000,2200 JUDY Administration Rosuvastatin Calcium 40 mg 03/16/20 21:00 03/20/20 22:23 Rosuvastatin 20 Mg Tab PO 40 mg HS JUDY Administration Spironolactone 25 mg 03/21/20 08:00 03/21/20 10:01 Spironolactone 25 Mg Tab PO 25 mg QAM-WM JUDY Administration Torsemide 20 mg 03/17/20 09:00 03/21/20 10:01 Torsemide 10 Mg Tab PO 20 mg DAILY JUDY Administration - Exam Heart: RRR, no murmur, no gallops, no rubs, normal peripheral pulses Respiratory: CTAB, no wheezes, no rales, no ronchi, normal chest expansion, no tachypnea, normal percussion Gastrointestinal: soft, non-tender, non-distended, normal bowel sounds, no palpable masses, no hepatomegaly, no splenomegaly, no bruit, no guarding, no rigidity Extremities: no edema Hosp A/P - Plan CAD with status post CABG in 2009, aortic valve replacement, congestive heart failure, severe PVD, paroxysmal atrial fib, autoimmune's disease, presented with generalized weakness and recurrent falls Gram-positive bacteremia --Currently on vancomycin and ceftriaxone rpt BCx to document clearance --check 2D Echo, if negative for vegetation, consider CHAU given hx of AVR --possible source including toe grangrene, recent LE revascularization, and cellulitis of the back from recent falls. -Since she has ongoing dry gangrene for the last 6 months if this may not be directly related to her bacteremia. However pending echo evaluation to rule out aortic wall vegetation, given the history of TAVR. ----------------> TAVR present with moderate perivalvular regurgitation and EF of 60%. Mitral annular calcification and moderate mitral regurgitation present. Klebsiella and E. coli UTI -Almost pansensitive except ampicillin and Unasyn. transition to Macrobid at the time of discharge - currently will continue with the ceftriaxone as part of the bacteremia work- up. Severe PVD with left toe gangrene --attempted revasc on 02/21 --X-ray shows higher chance for osteomyelitis. CRP is high. -After review of the vascular surgery note this is a chronic ongoing dry gangrene. Does not require any immediate attention or treatment. Could very well be Raynaud's phenomenon superimposed on peripheral vascular disease. -Vascular surgery note reviewed. Cellulitis of the back (trunk) - recent falls --cont IV abx as above Paroxysmal atrial fib --NSR, cont Coreg. hx of ablation CAD with history of CABG --no CP. cont home meds Congestive heart failure --BNP elevated, but appears compensated. Cont home dose Torsemide. Hx of AVR Recurrent Falls -Probably due to advanced age and deconditioning. --PT eval and treatment when able. Pending transesophageal echo report. 16 Repeat blood cultures were negative. -PICC line placement today. -Given the transesophageal echo being inconclusive we are going to treat her as if she has aortic valve endocarditis with a history of TAVR. In this context she is going to get the PICC line and probably treat her for 6 weeks. Unless infectious disease feels otherwise. It appears he also mentioned that at this can be arranged IV infusion of antibiotic in the outpatient setting. 17th Post Op day 1 from PICC line placement. presumptive aortic valve endocarditis. Antibiotic regimen will include cefazolin, rifampin and gentamicin IV for the first 2 weeks and then for the next 4 weeks continue only with IV cefazolin and Rifampin. We will measure gentamicin trough levels 3x a week while she is on gent; dose will be adjusted to keep the trough level less than 1 mg. While she is getting this gentamicin the lab results should be notified to Dr. Parker who will adjust the dose of gentamicin We will request the correctional case records supervisor to look for facility who will take this patient for IV antibiotic infusion. - ?swing bed. 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 Care discussed with student and agree with the plan as discussed here.
--- NOTE | 2020-03-21 18:17 | PRG ---
DATE OF SERVICE: 03/21/2020 SUBJECTIVE: Ms. Mathews is doing better. She has no shortness of breath or headaches. No abdominal pain. Afebrile for many days now. OBJECTIVE: VITAL SIGNS: O2 saturations 100% at 1 L nasal cannula. GENERAL: Awake, alert, oriented. LUNGS: Symmetric, clear breath sounds. HEART: S1 and S2, regular rate. ABDOMEN: Soft, not distended. LABORATORY DATA: White cell count is down to 7.2, hemoglobin 10.1, platelets 57,000, with 84% neutrophils. Sodium 135, creatinine 1.0. CRP 25 from March 18. The gentamicin trough was 2.5. She is currently on cefazolin 2 g q.8, rifampin 300 b.i.d., and gentamicin 80. It is not clear to me written IM, supposed to be given intravenously. Any way, we will go ahead and adjust her gentamicin dose. ASSESSMENT AND DISCUSSION: Rheumatoid arthritis; Sjogren syndrome; Raynaud; gangrene in distal aspect of the left first and second toes, chronic, without associated inflammatory changes; recent TAVR and Staphylococcus aureus bacteremia with possible if not likely TAVR infection. So, we will continue on treatment for presumptive TAVR infection, and this will continue with cefazolin, gentamicin, and rifampin. We will adjust the gentamicin dose and I think she probably will be switch to q.12 hours administration and go down to 60 mg. Job ID: [id number] MTDD
[2020-03-21] MEDS: Gentamicin Sulfate 80 MG in Premix Bag 1 BAG IVPB SCH (18:28)
[2020-03-21] MEDS ORDERED: Gentamicin 80 MG/2 ML VIAL IM SCH (20:00)
[2020-03-21] MEDS: Rosuvastatin 20 MG TAB PO SCH (20:30)
[2020-03-21] MEDS: Ezetimibe 10 MG TAB PO SCH (20:30)
[2020-03-22] MEDS: CEFAZOLIN 2 GM in Premix Bag 1 BAG IVPB SCH ×3 (05:19→19:38)
[2020-03-22] MEDS: Aspirin 81 mg Enteric Coated Tablet PO SCH (09:19)
[2020-03-22] MEDS: Hydroxychloroquine Sulfate 200 MG TAB PO SCH ×2 (09:20→19:37)
[2020-03-22] MEDS: DULoxetine 60 MG CAP PO SCH (09:20)
[2020-03-22] MEDS: Torsemide 10 MG TAB PO SCH (09:20)
[2020-03-22] MEDS: Spironolactone 25 MG TAB PO SCH (09:20)
[2020-03-22] MEDS: predniSONE 5 MG TAB PO SCH (09:20)
[2020-03-22] MEDS: Carvedilol 3.125 MG TAB PO SCH ×2 (09:20→19:37)
[2020-03-22] MEDS: Rifampin 300 MG CAP PO SCH ×2 (09:21→19:38)
--- NOTE | 2020-03-22 11:46 | PDOC.HOSPP ---
- Subjective Encounter Date: 03/22/20 Encounter Time: 10:30 Subjective: Patient was seen and examined at the bedside. No overnight events. Patient reports constipation but otherwise has no complaints. - Objective Vital Signs & Weight: Vital Signs (12 hours) Temp Pulse Resp BP BP Pulse Ox 03/22/20 08:00 98.2 F 54 L 17 148/64 H 95 03/22/20 04:00 98.1 F 53 L 18 120/59 L 95 Weight Admit Weight 136 lb 7.458 oz Weight 114 lb 4.8 oz I&O: 03/21/20 03/22/20 03/23/20 06:59 06:59 06:59 Intake Total 1000 950 Output Total 700 Balance 300 950 Result Diagrams: 03/20/20 04:05 03/20/20 04:05 Hospitalist ROS - Review of Systems Respiratory: denies: cough, dry, shortness of breath, hemoptysis, SOB with excertion, pleuritic pain, sputum, wheezing Cardiovascular: denies: chest pain, palpitations, orthopnea, paroxysmal noc. dyspnea, edema, light headedness Gastrointestinal: reports: constipation. denies: nausea, vomiting, abdominal pain, diarrhea - Medication Medications: Active Medications Generic Name Dose Route Start Last Admin Trade Name Freq PRN Reason Stop Dose Admin Acetaminophen 650 mg 03/16/20 15:53 03/17/20 09:31 Acetaminophen 325 Mg Tab PO 650 mg Q4H PRN Administration Headache/Fever/Mild Pain (1-3) Aspirin 81 mg 03/21/20 09:00 03/22/20 09:19 Aspirin 81 Mg Enteric Coated Tablet PO 81 mg DAILY JUDY Administration Carvedilol 3.125 mg 03/16/20 21:00 03/22/20 09:20 Carvedilol 3.125 Mg Tab PO 3.125 mg BID JUDY Administration Duloxetine HCl 60 mg 03/17/20 09:00 03/22/20 09:20 Duloxetine 60 Mg Cap PO 60 mg DAILY JUDY Administration Ezetimibe 10 mg 03/16/20 21:00 03/21/20 20:30 Ezetimibe 10 Mg Tab PO 10 mg HS JUDY Administration Hydroxychloroquine Sulfate 200 mg 03/16/20 21:00 03/22/20 09:20 Hydroxychloroquine Sulfate 200 Mg Tab PO 200 mg BID JUDY Administration Cefazolin Sodium/Dextrose 2 gm 50 mls @ 100 mls/hr 03/19/20 22:00 03/22/20 05:19 / Device IVPB 50 mls Q8HR JUDY Administration Gentamicin Sulfate 80 mg/ 100 mls @ 100 mls/hr 03/21/20 18:00 03/21/20 18:28 Device IVPB 100 mls Q24HR JUDY Administration Pantoprazole Sodium 40 mg 03/17/20 09:00 03/22/20 09:20 Pantoprazole 40 Mg Tab PO 40 mg DAILY JUDY Administration Prednisone 5 mg 03/17/20 09:00 03/22/20 09:20 Prednisone 5 Mg Tab PO 5 mg DAILY JUDY Administration Rifampin 300 mg 03/19/20 22:00 03/22/20 09:21 Rifampin 300 Mg Cap PO 300 mg 1000,2200 JUDY Administration Rosuvastatin Calcium 40 mg 03/16/20 21:00 03/21/20 20:30 Rosuvastatin 20 Mg Tab PO 40 mg HS JUDY Administration Spironolactone 25 mg 03/21/20 08:00 03/22/20 09:20 Spironolactone 25 Mg Tab PO 25 mg QAM-WM JUDY Administration Torsemide 20 mg 03/17/20 09:00 03/22/20 09:20 Torsemide 10 Mg Tab PO 20 mg DAILY JUDY Administration - Exam General Appearance: awake alert Heart: RRR, no murmur, no gallops, no rubs, normal peripheral pulses Respiratory: CTAB, no wheezes, no rales, no ronchi, normal chest expansion, no tachypnea, normal percussion Gastrointestinal: soft, non-tender, non-distended, normal bowel sounds, no palpable masses, no hepatomegaly, no splenomegaly, no bruit, no guarding, no ri gidity Hosp A/P - Plan CAD with status post CABG in 2009, aortic valve replacement, congestive heart failure, severe PVD, paroxysmal atrial fib, autoimmune's disease, presented with generalized weakness and recurrent falls Gram-positive bacteremia --Currently on vancomycin and ceftriaxone rpt BCx to document clearance --check 2D Echo, if negative for vegetation, consider CHAU given hx of AVR --possible source including toe grangrene, recent LE revascularization, and cellulitis of the back from recent falls. -Since she has ongoing dry gangrene for the last 6 months if this may not be directly related to her bacteremia. However pending echo evaluation to rule out aortic wall vegetation, given the history of TAVR. ----------------> TAVR present with moderate perivalvular regurgitation and EF of 60%. Mitral annular calcification and moderate mitral regurgitation present. Klebsiella and E. coli UTI -Almost pansensitive except ampicillin and Unasyn. transition to Macrobid at the time of discharge - currently will continue with the ceftriaxone as part of the bacteremia work- up. Severe PVD with left toe gangrene --attempted revasc on 02/21 --X-ray shows higher chance for osteomyelitis. CRP is high. -After review of the vascular surgery note this is a chronic ongoing dry gangrene. Does not require any immediate attention or treatment. Could very well be Raynaud's phenomenon superimposed on peripheral vascular disease. -Vascular surgery note reviewed. Cellulitis of the back (trunk) - recent falls --cont IV abx as above Paroxysmal atrial fib --NSR, cont Coreg. hx of ablation CAD with history of CABG --no CP. cont home meds Congestive heart failure --BNP elevated, but appears compensated. Cont home dose Torsemide. Hx of AVR Recurrent Falls -Probably due to advanced age and deconditioning. --PT eval and treatment when able. Pending transesophageal echo report. Repeat blood cultures were negative. -PICC line placement today. -Given the transesophageal echo being inconclusive we are going to treat her as if she has aortic valve endocarditis with a history of TAVR. In this context she is going to get the PICC line and probably treat her for 6 weeks. Unless infectious disease feels otherwise. It appears he also mentioned that at this can be arranged IV infusion of antibiotic in the outpatient setting. 17th Post Op day 1 from PICC line placement. presumptive aortic valve endocarditis. Antibiotic regimen will include cefazolin, rifampin and gentamicin IV for the first 2 weeks and then for the next 4 weeks continue only with IV cefazolin and Rifampin. We will measure gentamicin trough levels 3x a week while she is on gent; dose will be adjusted to keep the trough level less than 1 mg. While she is getting this gentamicin the lab results should be notified to Dr. Parker who will adjust the dose of gentamicin We will request the assistant case manager to look for facility who will take this patient for IV antibiotic infusion. - ?swing bed. 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 Care discussed with student and agree with the plan as discussed here. 18th We are planning on sending her to a skilled nursing/rehab to continue her antibiotic regimen as mentioned previously Sheryl [facility] and [place] Discussed with the student plan as above.
[2020-03-22 15:52] VITALS: TEMP 98.3
[2020-03-22 16:18] VITALS: BP 190/77
--- NOTE | 2020-03-22 16:19 | PDOC.DS.DS ---
Provider - Provider Date of Admission: 03/16/20 13:20 Admitting Provider: Fam Gross MD Primary Care Physician: Sony Gomes MD Course - Hospital Course Hospital Course: CAD with status post CABG in 2009, aortic valve replacement, congestive heart failure, severe PVD, paroxysmal atrial fib, autoimmune's disease, presented with generalized weakness and recurrent falls 84-year-old female presented Gram-positive bacteremia --Currently on vancomycin and ceftriaxone rpt BCx to document clearance --check 2D Echo, if negative for vegetation, consider CHAU given hx of AVR --possible source including toe grangrene, recent LE revascularization, and cellulitis of the back from recent falls. -Since she has ongoing dry gangrene for the last 6 months if this may not be directly related to her bacteremia. However pending echo evaluation to rule out aortic wall vegetation, given the history of TAVR. ----------------> TAVR present with moderate perivalvular regurgitation and EF of 60%. Mitral annular calcification and moderate mitral regurgitation present. Klebsiella and E. coli UTI -Almost pansensitive except ampicillin and Unasyn. transition to Macrobid at the time of discharge - currently will continue with the ceftriaxone as part of the bacteremia work- up. Severe PVD with left toe gangrene --attempted revasc on 02/21 --X-ray shows higher chance for osteomyelitis. CRP is high. -After review of the vascular surgery note this is a chronic ongoing dry gangrene. Does not require any immediate attention or treatment. Could very well be Raynaud's phenomenon superimposed on peripheral vascular disease. -Vascular surgery note reviewed. Cellulitis of the back (trunk) - recent falls Paroxysmal atrial fib --NSR, cont Coreg. hx of ablation CAD with history of CABG Congestive heart failure - home dose Torsemide. Hx of AVR Recurrent Falls Repeat blood cultures were negative. -PICC line placedon 16th -Given the transesophageal echo being inconclusive we are going to treat her as if she has aortic valve endocarditis with a history of TAVR. In this context she is going to get the PICC line and probably treat her for 6 weeks. . presumptive aortic valve endocarditis. Antibiotic regimen will include cefazolin, rifampin and gentamicin IV for the first 2 weeks and then for the next 4 weeks continue only with IV cefazolin and Rifampin. We will measure gentamicin trough levels 3x a week while she is on gentamicin; dose will be adjusted to keep the trough level less than 1 mg. While she is getting this gentamicin the lab results should be notified to Dr. Parker who will adjust the dose of gentamicin Inpatient rehab transfer today. Patient is in the inpatient rehab please get the gentamicin level and notify Dr. Parker. Discharge time over 30 minutes. Resuscitation Status: 03/16/20 15:53 Resuscitation Status Routine Co-Sign Provider: Resuscitation Status: FULL: Full Resuscitation Discussed with: Patient - Labs Lab Results: 03/20/20 04:05 03/20/20 04:05 Microbiology - Entire Visit 03/18/20 05:05 Venous blood - Left Hand Blood Culture - Preliminary NO GROWTH AT 48 HOURS 03/18/20 05:05 Venous blood - Right Hand Blood Culture - Preliminary NO GROWTH AT 48 HOURS 03/16/20 11:03 Venous blood - Left Arm Blood Culture - Final Staphylococcus aureus 03/16/20 10:43 Venous blood - Right Arm Blood Culture - Final Staphylococcus aureus 03/16/20 11:25 Urine voided Urine Culture - Final Escherichia coli Gram Negative Rustam Alpha-Hemolytic Streptococcus - Physical Exam Vitals: Vital Signs (12 hours) Temp Pulse Resp BP BP Pulse Ox 03/22/20 15:51 98.3 F 55 L 16 121/60 94 L 03/22/20 12:00 98.0 F 54 L 18 129/59 L 93 L 03/22/20 08:00 98.2 F 54 L 17 148/64 H 95 Weight Admit Weight 136 lb 7.458 oz Weight 114 lb 4.8 oz Physical Exam: The patient was seen and examined on the day of discharge. Plan - Discharge Medications Home Medications: Medication Instructions Recorded Confirmed Type Ascorbic Acid [Vitamin C] 1,000 mg PO DAILY 05/26/18 03/17/20 History Aspirin [Adult Aspirin Regimen] 81 mg PO HS 05/26/18 03/17/20 History Biotin 5,000 mcg PO DAILY 05/26/18 03/17/20 History Cholecalciferol (Vitamin D3) 2,000 unit PO DAILY 05/26/18 03/17/20 History [Vitamin D3] Ezetimibe [Zetia] 10 mg PO HS 05/26/18 03/17/20 History Folic Acid 1 mg PO DAILY 05/26/18 03/17/20 History Methylcellulose (With Sugar) 1 tablespoon PO HS 05/26/18 03/17/20 History [Citrucel Powder [place] Flavor] Potassium Chloride [Klor-Con 10] 20 meq PO DAILY 05/26/18 03/17/20 History Rosuvastatin Calcium [Crestor] 40 mg PO HS 05/26/18 03/17/20 History Torsemide [Demadex] 10 mg PO DAILY 05/26/18 03/17/20 History DULoxetine HCl [Cymbalta] 60 mg PO DAILY 09/14/18 03/17/20 History [place]-3/Dha/Epa/Ala/Vitamin D3 1 tablet PO DAILY 09/14/18 03/17/20 History [[place]-3 Gummies] Pantoprazole [Protonix] 40 mg PO DAILY 11/25/18 03/17/20 History Carvedilol 3.125 mg PO BID 07/26/19 03/17/20 History Cyanocobalamin (Vitamin B-12) 2,500 mcg SL DAILY 07/26/19 03/17/20 History [Vitamin B-12] Denosumab [Prolia] 60 mg SQ ASDIR 07/26/19 03/17/20 History Polyethylene Glycol 3350 [Miralax] 17 gm PO DAILY 07/26/19 03/17/20 History predniSONE [Prednisone] 0.25 mg PO DAILY 07/26/19 03/17/20 History Hydroxychloroquine Sulfate 200 mg PO BID 02/22/20 03/17/20 History Pregabalin [Lyrica] 50 mg PO DAILY 02/22/20 03/17/20 History Spironolactone 25 mg PO HS 02/22/20 03/17/20 History Cefazolin [Ancef] 2 gm IVPB Q8HR bag 03/22/20 Rx Gentamicin Sulfate 80 mg IVPB Q24HR bag 03/22/20 Rx Rifampin [Rifadin] 300 mg PO 1000,2200 cap 03/22/20 Rx Allergies: codeine Adverse Reaction (Verified 07/30/19 11:29) nausea, GI upset morphine Adverse Reaction (Verified 07/30/19 11:29) nausea, GI upset narcotics Adverse Reaction (Uncoded 07/25/19 06:17) nausea, GI upset - Discharge Instructions Activity:: Activity as Tolerated Nourishment:: Regular Diet - Follow up Plan Referrals: Sony Gomes MD [Primary Care Provider] - Disposition: REHABILITATION INPATIENT Quality - Care Measures CORE MEASURES:: N/A
[2020-03-22] MEDS: Gentamicin Sulfate 80 MG in Premix Bag 1 BAG IVPB SCH (17:27)
--- NOTE | 2020-03-22 17:41 | PQF ---
CLINICAL DOCUMENTATION CLARIFICATION FORM: Dear Dr. XIMENA COLON Date / Time: 03-22-20 Please exercise your independent, professional judgment in responding to the clarification form. Clinical indicators are provided on the bottom of this form for your review. Please check appropriate box(es): [ ] Sepsis [ x] Localized infection without sepsis [ ] SIRS due to non-infectious process (please specify etiology) [ ] with organ dysfunction [ ] without organ dysfunction [ ] Other diagnosis [ ] Unable to determine In addition, please specify: Present on Admission (POA): [ ] Yes [ ] No [ ] Unable to determine For continuity of documentation, please document condition throughout progress notes and discharge summary. Thank You. To be completed by CDI/Coding staff for physician review: CLINICAL INDICATORS - SIGNS / SYMPTOMS / LABS / RESULTS AND LOCATION IN MR: ER DX: 03-16-20: PYELONEPHRITIS, CHF EXACERBATION, ELEVATED DIMER, ELEVATED TROPONIN H&P 03-16-20: ACUTE UTI, ELEVATED D DIMER, CAD, CHRONIC CHF, PVD, PT FEBRILE BRADYCARDIA, TACHYPNEIC, HYPOXIC, NL BP. LEFT 2ND TOE DRY GANGRENE, CHRONIC STABLE WBC: 03-16-20: 12.2 03-17-20: 11.3 03-18-20: 12.6 CRP: 03-18-20: 25.33 TEMP: 03-17-20: 100.9, 101.5 RISK FACTORS / RESULTS AND LOCATION IN MR: H&P 03-16-20: ACUTE UTI, ELEVATED D DIMER, CAD, CHRONIC CHF, PVD, PT FEBRILE BRADYCARDIA, TACHYPNEIC, HYPOXIC, NL BP. LEFT 2ND TOE DRY GANGRENE, CHRONIC STABLE TREATMENTS / RESULTS AND LOCATION IN MR: ER NOTES 03-16-20: CEFTRIAXONE IV, NS IVF ID CONSULT 03-17-20 CDS Signature: Ly Campbell Phone #: [phone] Date: 03-22-20 This is a permanent part of the Medical Record [facility]
[2020-03-22] MEDS: Ezetimibe 10 MG TAB PO SCH (19:36)
[2020-03-22] MEDS: Rosuvastatin 20 MG TAB PO SCH (19:37)
[2020-03-22] MEDS ORDERED: Senokot S 8.6-50 MG TAB PO SCH (21:00)
[2020-03-23] MEDS ORDERED: Bisacodyl 5 MG TAB PO SCH (09:00)
== END 2020-03-22 20:07 | DRG 314 ==
LOC: ERS 09:50 → ERHOLD 13:20 → 2NO 19:00
PROVIDERS: ADMIT Student in an Organized Health Care Education/Training Program; ATTEND Internal Medicine
PROC: B24BZZ4 Ultrasonography of Heart with Aorta, Transesophageal (ICD-10-PCS; principal; 2020-03-19)
PROC: 02HV33Z Insertion of Infusion Device into Superior Vena Cava, Percutaneous Approach (ICD-10-PCS; 2020-03-20)
PROC: B548ZZA Ultrasonography of Superior Vena Cava, Guidance (ICD-10-PCS; 2020-03-20)
DX: T82.6XXA Infection and inflammatory reaction due to cardiac valve prosthesis, initial encounter (principal); I33.0 Acute and subacute infective endocarditis; N39.0 Urinary tract infection, site not specified; I96 Gangrene, not elsewhere classified; R78.81 Bacteremia; I13.0 Hypertensive heart and chronic kidney disease with heart failure and stage 1 through stage 4 chronic kidney disease, or unspecified chronic kidney disease; N17.9 Acute kidney failure, unspecified; L03.312 Cellulitis of back [any part except buttock and flank]; M86.8X7 Other osteomyelitis, ankle and foot; B96.1 Klebsiella pneumoniae [K. pneumoniae] as the cause of diseases classified elsewhere; B96.20 Unspecified Escherichia coli [E. coli] as the cause of diseases classified elsewhere; N18.30 Chronic kidney disease, stage 3 unspecified; M06.9 Rheumatoid arthritis, unspecified; M19.90 Unspecified osteoarthritis, unspecified site; R29.6 Repeated falls; K21.9 Gastro-esophageal reflux disease without esophagitis; D89.89 Other specified disorders involving the immune mechanism, not elsewhere classified; E78.5 Hyperlipidemia, unspecified; M35.00 Sjogren syndrome, unspecified; I48.0 Paroxysmal atrial fibrillation; B95.8 Unspecified staphylococcus as the cause of diseases classified elsewhere; Z20.828 Contact with and (suspected) exposure to other viral communicable diseases; Y83.1 Surgical operation with implant of artificial internal device as the cause of abnormal reaction of the patient, or of later complication, without mention of misadventure at the time of the procedure; I34.0 Nonrheumatic mitral (valve) insufficiency; I50.9 Heart failure, unspecified; I25.10 Atherosclerotic heart disease of native coronary artery without angina pectoris; R53.81 Other malaise; K59.00 Constipation, unspecified; Z95.1 Presence of aortocoronary bypass graft; Z95.2 Presence of prosthetic heart valve; Z79.82 Long term (current) use of aspirin; Z79.899 Other long term (current) drug therapy; Z90.89 Acquired absence of other organs
CPT/HCPCS: 36415; 36569; 70450; 71046; 71260; 74177; 78451; 80048; 80053; 80170; 80202; 81003; 81015; 82553; 83605; 83690; 83735; 83880; 84443; 84484; 85025; 85379; 86140; 87040; 87077; 87086; 87149; 87186; 87635; 93005; 93306; 93312; 94760; 96361; 96365; A9540; C1751; J0690; J0696; J1580; J1644; J1650; J2704; J3370; J3490; J7512; Q9967; U0003

== ENCOUNTER 2020-03-26 18:16 | Inpatient (IN) | payer MEDICARE ==
--- NOTE | 2020-03-26 18:51 | RAD ---
Portable frontal chest radiograph: 03/26/2020 COMPARISON: 09/14/2018 HISTORY: Weakness and dizziness FINDINGS: Stable prominence of the cardiac silhouette, midline sternotomy wires, and perihilar inters titial prominence. Hazy increased density in both lung bases suggest mild bibasilar airspace disease and small bilateral pleural effusions. There is a left-sided PICC, distal tip overlying the r egion of the SVC. IMPRESSION: Prominent cardiac silhouette with increased pleural and parenchymal opacity in the lung b ases suggesting a degree of pulmonary edema or infectious pneumonitis.
[2020-03-26 18:57] LABS: #Lymphocytes 0.7 thou/uL (1.20-3.40); #Monocytes 0.8 thou/uL (0.11-0.59); #Neutrophils 10.5 thou/uL (1.40-6.50); %Eosinophils 0.3 % (0.0-10.0); %Lymphocytes 5.6 % (21.0-51.0); %Monocytes 6.8 % (0.0-10.0); %Neutrophils 87.4 % (42.0-75.0); Hemoglobin 10.4 g/dL (12.0-16.0); Mean Corpuscular HGB CONC 33.5 g/dL (32.0-36.0); Mean Corpuscular Hemoglobin 32.5 pg (27.0-31.0); Mean Corpuscular Volume 97.3 fL (78.0-98.0); Mean Platelet Volume 9.1 fL (7.4-10.4); Platelet Count 94 thou/uL (130-400); Red Blood Cell (RBC) Count 3.19 mill/uL (4.20-5.40)
[2020-03-26 19:16] LABS: ALT (SGPT) Less than 7 U/L (8-55); AST (SGOT) 49 U/L (5-34); Albumin 2.7 g/dL (3.4-4.8); Alkaline Phosphatase 79 U/L (40-110); Anion Gap 17 mmol/L (10-20); BUN (Urea Nitrogen) 44 mg/dL (9.8-20.1); Bilirubin, Total 0.5 mg/dL (0.2-1.2); Calc. Creatinine Clearance 0 mL/min (70-130); Calcium 9.1 mg/dL (7.8-10.44); Carbon Dioxide 27 mmol/L (23-31); Chloride 89 mmol/L (98-107); Estimated GFR-MDRD 13; Globulin 3.8 g/dL (2.4-3.5); Glucose 88 mg/dL (83-110); Potassium 4.9 mmol/L (3.5-5.1); Protein, Total 6.5 g/dL (6.0-8.3); Sodium 128 mmol/L (136-145)
[2020-03-26 19:38] LABS: CKMB 3.6 ng/mL (0-6.6)
--- NOTE | 2020-03-26 21:58 | PDOC.HHP ---
Hospitalist HPI - History of Present Illness History of Present Illness: ADMISSION DATE: 03/26/2020 TIME OF ASSESSMENT: 1999 PRIMARY CARE PHYSICIAN: Dr. Gomes CHIEF COMPLAINT: Syncope and weakness HPI: Patient brought in by EMS from rehab facility after experiencing a syncopal episode while laying in bed which was witnessed by her . He states she was laying there and suddenly became unresponsive for approximately 10 to 15 seconds. After coming to the patient states that she felt weak but has been feeling generally weak since being discharged from the hospital to the rehab facility earlier this week. She was bradycardic in the 40s and glucose was 87. Reports having an episode of vomiting after receiving her first meal following discharge which she attributes to having a heavy meal after low oral intake during her hospital stay. No further vomiting since then and denies any diarrhea. Reports having constipation but has had flatus. Denies any abdominal pain or cramping. No urinary symptoms. She has significant weakness and therefore uses adult diapers to void. She was admitted to the hospital on 03/16/2020 and discharged on 03/22/2020. During her hospitalization she was treated for staphylococcus aureus bacteremia, methicillin sensitive, which was felt to be the reason for her physical deconditioning that led to hospitalization. She was treated with Rocephin and Vancomycin. Her functional status has not improved but she feels slightly better overall than she did when she was first discharged. Echo was done to assess for AV vegitation and showed: TAVR present with moderate perivalvular regurgitation and EF of 60%. Mitral annular calcification and moderate mitral regurgitation present. Patient has transesophageal echo done which was inconclusive therefore treated for aortic valve endocarditis as a precaution and underwent picc line placement with plans to continue antibiotics x 6 weeks (cefazolin, rifampin and gentamicin IV for the first 2 weeks and then for the next 4 weeks continue only with IV cefazolin and Rifampin). She had a UTI with cultures positive for Klebsiella and E. coli, pansensitive except ampicillin and Unasyn. She was covered with Rocephin and discharged on Macrobid. She was seen by vascular surgery for severe PVD with left toe gangrene and did not require immediate attention or treatment. She was transferred to inpatient rehab. ED COURSE: VS: BP 100/63, HR 46, RR 18, O2 sat 96% on room air, temp 98.4. EKG done in the emergency department showed sinus bradycardia. No ST changes or T wave abnormalities. She had a chest x-ray done that showed prominent cardiac silhouette with i ncreased pleural and parenchymal opacity in the lung bases suggesting a degree of pulmonary edema or infectious pneumonitis. This was compared to chest x-ray done September 14, 2018. Laboratory studies done showed a white count of 12, hemoglobin 10.4, hematocrit 31, platelet count 94, neutrophils 87.4%. Sodium 128, BUN 44, creatinine 3.35, GFR 13. Glucose 88. Albumin 2.7. AST 49, ALT less than 7, alk phos 79. BNP 644.7. Initial troponin was 0.083. Admission was requested for symptomatic bradycardia and NSTEMI. No medications given in the emergency department. PAST MEDICAL HISTORY: CAD Aortic valve disease Hypertension. Atrial fibrillation Chronic anemia and thrombocytopenia. 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 Martini about 10 years ago. Severe bioprosthetic aortic stenosis, so she was referred to [facility] and had a TAVR in August 2019 Tonsillectomy Ablations of the saphenous vein in the right leg for varicosities. Watchman procedure to occlude her left atrialappendage. Attempted revasc on 02/21, unsuccessful Hysterectomy Surgery for rectal prolapse SOCIAL HISTORY: No tobacco use, alcohol consumption or drug use. Discharged to a rehab facility on Friday last week. FAMILY HISTORY: Significant for heart disease in both parents. ALLERGIES: codeine Adverse Reaction: nausea, GI upset morphine Adverse Reaction: nausea, GI upset narcotics Adverse Reaction: nausea, GI upset CURRENT MEDICATIONS: Ascorbic Acid [Vitamin C] 1,000 mg PO DAILY Aspirin [Adult Aspirin Regimen] 81 mg PO HS Biotin 5,000 mcg PO DAILY Cholecalciferol (Vitamin D3) 2,000 unit PO DAILY [Vitamin D3] Ezetimibe [Zetia] 10 mg PO HS Folic Acid 1 mg PO DAILY Methylcellulose (With Sugar) 1 tablespoon PO Potassium Chloride [Klor-Con 10] 20 meq PO DAILY Rosuvastatin Calcium [Crestor] 40 mg PO HS Torsemide [Demadex] 10 mg PO DAILY DULoxetine HCl [Cymbalta] 60 mg PO DAILY [place]-3/Dha/Epa/Ala/Vitamin D3 1 tablet PO DAILY Pantoprazole [Protonix] 40 mg PO DAILY Carvedilol 3.125 mg PO BID Cyanocobalamin (Vitamin B-12) 2,500 mcg SL DAILY Denosumab [Prolia] 60 mg SQ ASDIR Polyethylene Glycol 3350 [Miralax] 17 gm PO DAILY predniSONE [Prednisone] 0.25 mg PO DAILY Hydroxychloroquine Sulfate 200 mg PO BID Pregabalin [Lyrica] 50 mg PO DAILY Spironolactone 25 mg PO HS Cefazolin [Ancef] 2 gm IVPB Q8HR Gentamicin Sulfate 80 mg IVPB Q24HR Rifampin [Rifadin] 300 mg PO 1000,2200 Hospitalist History - Past Medical History Musculoskeletal: reports: Osteoarthritis Rheumatologic: reports: Rheumatoid arthritis, Other (sjogrens and raynauds disease) Renal/: reports: Other (CKD 3) - Past Surgical History Past Surgical History: reports: CABG (x3 w/ AVR (2009) AVR replaced (2019) Watchman procedure (05/24) ablation x 2), Tonsillectomy, Other (Rectal prolapse) - Social History Alcohol: reports: Occassional (1/4 glass wine daily) Drugs: reports: none Occupation: [place] Hospitalist Results - Labs Result Diagrams: 03/26/20 18:44 03/26/20 18:44 Lab results: WBC 12.0 thou/uL (4.8-10.8) H 03/26/20 18:44 Hgb 10.4 g/dL (12.0-16.0) L 03/26/20 18:44 Hct 31.0 % (36.0-47.0) L 03/26/20 18:44 MCV 97.3 fL (78.0-98.0) 03/26/20 18:44 Plt Count 94 thou/uL (130-400) L 03/26/20 18:44 Neutrophils % 87.4 % (42.0-75.0) H 03/26/20 18:44 Sodium 128 mmol/L (136-145) L 03/26/20 18:44 Potassium 4.9 mmol/L (3.5-5.1) 03/26/20 18:44 Chloride 89 mmol/L (98-107) L 03/26/20 18:44 Carbon Dioxide 27 mmol/L (23-31) 03/26/20 18:44 BUN 44 mg/dL (9.8-20.1) H 03/26/20 18:44 Creatinine 3.35 mg/dL (0.6-1.1) H 03/26/20 18:44 Glucose 88 mg/dL (83-110) 03/26/20 18:44 Calcium 9.1 mg/dL (7.8-10.44) 03/26/20 18:44 Total Bilirubin 0.5 mg/dL (0.2-1.2) 03/26/20 18:44 AST 49 U/L (5-34) H 03/26/20 18:44 ALT Less than 7 U/L (8-55) L 03/26/20 18:44 Alkaline Phosphatase 79 U/L (40-110) 03/26/20 18:44 CK-MB (CK-2) 3.6 ng/mL (0-6.6) 03/26/20 18:44 Troponin I 0.083 ng/mL (< 0.028) H 03/26/20 18:44 B-Natriuretic Peptide 644.7 pg/mL (0-100) H 03/26/20 18:44 Serum Total Protein 6.5 g/dL (6.0-8.3) 03/26/20 18:44 Albumin 2.7 g/dL (3.4-4.8) L 03/26/20 18:44 Hospitalist H&P A/P - Problem (1) Syncope Code(s): R55 - SYNCOPE AND COLLAPSE Status: Acute (2) Hypotension Status: Acute (3) Weakness generalized Code(s): R53.1 - WEAKNESS Status: Acute (4) Hyponatremia Code(s): E87.1 - HYPO-OSMOLALITY AND HYPONATREMIA Status: Acute (5) Elevated troponin Code(s): R79.89 - OTHER SPECIFIED ABNORMAL FINDINGS OF BLOOD CHEMISTRY Status: Acute (6) CAD (coronary artery disease) Code(s): I25.10 - ATHSCL HEART DISEASE OF [place] CORONARY ARTERY W/O ANG PCTRS Status: Chronic (7) CHF (congestive heart failure) Code(s): I50.9 - HEART FAILURE, UNSPECIFIED Status: Chronic (8) GERD (gastroesophageal reflux disease) Code(s): K21.9 - GASTRO-ESOPHAGEAL REFLUX DISEASE WITHOUT ESOPHAGITIS Status: Chronic (9) HTN (hypertension) Code(s): I10 - ESSENTIAL (PRIMARY) HYPERTENSION Status: Chronic (10) PVD (peripheral vascular disease) Code(s): I73.9 - PERIPHERAL VASCULAR DISEASE, UNSPECIFIED Status: Chronic (11) Paroxysmal atrial fibrillation Code(s): I48.0 - PAROXYSMAL ATRIAL FIBRILLATION Status: Chronic (12) Rheumatoid arthritis Code(s): M06.9 - RHEUMATOID ARTHRITIS, UNSPECIFIED Status: Chronic (13) S/P AVR (aortic valve replacement) Code(s): Z95.2 - PRESENCE OF PROSTHETIC HEART VALVE Status: Chronic - Plan Plan: Patient presents following a syncopal episode while laying down. Reports feeling generally weak before and after. Denies any chest pain, palpitations or shortness of breath. No dizziness. Witnessed by her and lasted 10-15 seconds, similar to previous episodes. 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 Medical history further complicated by history of back cellulitis due to previous falls, UTI, and dry gangrene to left 2nd toe, all addressed during recent admission. (See HPI for further details). Per ED physician admission requested for symptomatic bradycardia and NSTEMI. No medications given in ED. Syncope: Both BP and glucose on low side. Oral intake has been minimal. Possibly secondary to bradycardia. Monitor BP and glucose. Recent echo as mentioned in HPI. Orthostatic BPs. Cardiac monitoring Carotid US. May benefit from outpatient heart monitor. Cardiology consult Hypotension: Monitor BP Gentle hydration given history of CHF. Generalized weakness: Recently discharged to inpatient rehabd on Friday, stable. Consult PT/OT Consult eight section blower. UA/UCx Elevated troponin: No chest pain, likely associated with underlying CKD Cardiac monitoring Continue to trend troponins Aspirin as mentioned above Hyponatremia: Gentle hydration with NS at 45/hr Consult nephrology CHF: BNP is currently 644.7, improved from recent admission. CXR mentioned possible pulmonary edema at bases vs. pneumonitis. Obtain CT Chest without contrast to further assess. Resume Torsemide CAD: cardiac stent x 1 Restart coreg and baby aspirin History of hypertension: Hold BP meds given low BP in ED Continue to monitor closely. History of paroxysmal Afib: S/p ablations and watchman procedure Sinus bradycardia Acute on chronic renal insufficiency: Gentle hydration Renal consult PVD: S/p attempted re-vascularization of LLE, unsuccessful. Continue aspirin. Left second toe dry gangrene: chronic and stable. Consult wound care Rheumatoid arthritis/Sjogren's/Raynauds: On chronic steroids. Restart home dose prednisone. Hyperlipidemia: Continue statin GERD: Continue Protonix DVT Prophyalxis: No mechanical SCDs due to PVD. CODE STATUS: FULL Case discussed with attending who agrees with plan as above.
[2020-03-26] MEDS ORDERED: Sodium Chloride 0.9% 1,000 ML IV SCH (22:15)
[2020-03-26] MEDS ORDERED: Ondansetron ODT 4 MG TAB SL PRN (22:15)
[2020-03-26] MEDS ORDERED: Ondansetron PF 4 MG/2 ML Vial IVP PRN (22:15)
[2020-03-26] MEDS ORDERED: HYDROcodone/Acetaminophen 5/325 mg Tablet PO PRN ×2 (22:15)
[2020-03-26] MEDS ORDERED: Acetaminophen 325 MG TAB PO PRN (22:15)
[2020-03-26 22:20] LABS: Troponin I 0.078 ng/mL (< 0.028)
[2020-03-26 22:57] VITALS: BMI 22.6
[2020-03-27 01:40] LABS: Troponin I 0.072 ng/mL (< 0.028)
[2020-03-27] MEDS ORDERED: Sodium Chloride 0.9% 1,000 ML IV SCH (04:45)
[2020-03-27 05:31] LABS: SARS-CoV-2 MS2 Positive; SARS-CoV-2 N Gene Negative; SARS-CoV-2 S Gene Negative; SARS-CoV-2 by NAA Not Detected (NotDetected); SARS-CoV-2 orf1ab Negative
[2020-03-27 07:07] LABS: #Lymphocytes 0.8 thou/uL (1.20-3.40); #Monocytes 0.7 thou/uL (0.11-0.59); %Basophils 0.3 % (0.0-1.0); %Eosinophils 0.4 % (0.0-10.0); %Lymphocytes 8.3 % (21.0-51.0); %Monocytes 7.5 % (0.0-10.0); %Neutrophils 83.4 % (42.0-75.0); Hemoglobin 10.1 g/dL (12.0-16.0); Mean Corpuscular HGB CONC 33.3 g/dL (32.0-36.0); Mean Corpuscular Volume 99.1 fL (78.0-98.0); Mean Platelet Volume 9.1 fL (7.4-10.4); Platelet Count 95 thou/uL (130-400); RBC Distribution Width 14.1 % (11.5-14.5); Red Blood Cell (RBC) Count 3.05 mill/uL (4.20-5.40); White Blood Cell (WBC) Count 9.6 thou/uL (4.8-10.8)
[2020-03-27 07:28] LABS: Anion Gap 14 mmol/L (10-20); BUN (Urea Nitrogen) 46 mg/dL (9.8-20.1); Calc. Creatinine Clearance 11 mL/min (70-130); Calcium 8.8 mg/dL (7.8-10.44); Carbon Dioxide 26 mmol/L (23-31); Chloride 95 mmol/L (98-107); Estimated GFR-MDRD 12; Glucose 70 mg/dL (83-110); Potassium 4.3 mmol/L (3.5-5.1); Sodium 131 mmol/L (136-145)
[2020-03-27] MEDS ORDERED: Loperamide HCl 2 MG CAP PO PRN (08:28)
[2020-03-27] MEDS ORDERED: Benzonatate 100 MG CAP PO PRN (08:28)
[2020-03-27] MEDS ORDERED: Diabetic Tussin 200 MG/10 ML UDCUP PO PRN (08:28)
[2020-03-27] MEDS ORDERED: Loratadine 10 MG TAB PO PRN (08:28)
[2020-03-27] MEDS ORDERED: hydrALAZINE 20 MG/ML VIAL SLOW IVP PRN (08:28)
[2020-03-27] MEDS ORDERED: Bisacodyl 5 MG TAB PO PRN (08:28)
[2020-03-27] MEDS ORDERED: Senokot S 8.6-50 MG TAB PO PRN (08:28)
[2020-03-27] MEDS ORDERED: Sodium Chloride 0.65% Nasal 44 ML BOT EA NARE PRN (08:28)
[2020-03-27] MEDS ORDERED: Calcium Carbonate 500 MG ChewTAB PO PRN (08:28)
[2020-03-27] MEDS ORDERED: Cepastat Lozenges 1 LOZ PO PRN (08:28)
[2020-03-27] MEDS ORDERED: Ondansetron PF 4 MG/2 ML Vial IVP PRN (08:30)
[2020-03-27] MEDS ORDERED: Gentamicin 80 MG/100 ML BAG IVPB SCH (08:30)
--- NOTE | 2020-03-27 08:50 | CT ---
CT CHEST WITHOUT CONTRAST CLINICAL INDICATION: Abnormal chest x-ray. Weakness. History of cardiac valve replacement. COMPARISON: CT thorax on 03/16/2020 and chest x-ray on 03/26/2020 FINDINGS: Aorta and heart: Postoperative changes related to aortic valve replacement are noted. Dense vascular calcifications are seen in the coronary arteries as well as involving the thoracic aorta. Postoperative changes related to median sternotomy and CABG are seen. An atrial occlusion device is n oted in place. The heart is enlarged. Lungs: Again noted is a small left pleural effusion with associated adjacent parenchymal changes like ly due to passive atelectasis. There has been mild increase in size of small right pleural effusion with associated passive atelectasis. Tiny amount of fluid is seen in the superior aspect of the left major fissure. Mild biapical calcified pleural and parenchymal scarring is present. Mediastinum: Lack of intravenous contrast limits evaluation, but no enlarged lymph node is appreciate d. A left-sided PICC line is noted in place with tip in the SVC. Thyroid gland: Normal nonenhanced CT appearance. Osseous structures: Findings again suggestive of a pathological fracture involving the posterior left 11th rib. There is also a nondisplaced fracture again seen involving the most medial aspect of the posterior left 12th rib as well as minimally fractures involving the lateral left eighth th rough 10th ribs. Scattered sclerotic densities are seen in several right-sided ribs similar to prior exam. Wedge-shaped compression fracture T1 vertebral body is again seen. Vertebroplasty changes are seen involving compression fractures of the T7 and T8 vertebral bodies. There is mild sclerosis with suggestion of a fracture involving the right clavicular head. The area of sclerosis co uld be related to a metastatic lesion with associated pathological fracture. Chest wall: No abnormality visualized. Upper abdomen: Hypodense lesion in the anterior aspect medial segment left hepatic lobe also seen on prior exam. Prior CT abdomen on 02/10/2020 demonstrated findings suggestive of a hemangioma. IMPRESSION: 1. Small bilateral pleural effusions and findings suggestive of passive atelectasis. Right pleural ef fusion has slightly enlarged compared to prior exam. 2. Extensive vascular calcifications. 3. Sclerosis involving the right clavicular head with associated fracture. This could represent a met astatic lesion with associated pathological fracture. 4. Stable sclerotic densities in several right-sided ribs which could be related to metastatic lesion s. There does appear to be a pathological fracture involving a lytic lesion involving the posterior left 11th rib. 5. Stable nondisplaced fractures involving the lateral left eighth, ninth, and 10th ribs as well as t he posteromedial left 12th rib. No definite lesion is associated with these rib fractures. 6. Stable wedge-shaped compression fracture T1 vertebral body with vertebroplasty changes involving c ompression fractures of the T7 and T8 vertebral bodies. 7. Cardiomegaly. 8. Hypodense lesion left hepatic lobe better characterized on prior CT examinations which demonstrate d findings suggestive of a hemangioma.
[2020-03-27] MEDS ORDERED: Famotidine 20 MG TAB PO SCH (09:00)
[2020-03-27] MEDS ORDERED: Carvedilol 3.125 MG TAB PO SCH (09:00)
[2020-03-27] MEDS ORDERED: Heparin 5,000 UNITS/ML VIAL SC SCH (09:00)
[2020-03-27] MEDS ORDERED: Hydroxychloroquine Sulfate 200 MG TAB PO SCH (09:45)
--- NOTE | 2020-03-27 09:56 | ULT ---
EXAM: Bilateral lower extremity venous Doppler US HISTORY: bilateral lower extremity edema and pain FINDINGS: Grayscale, color-flow, Doppler evaluation, spectral analysis of the bilateral lower extremities venou s structures is performed with 2-D imaging. The bilateral common femoral, superficial femoral, popliteal, posterior tibial, proximal greater saphenous and profunda femoral veins are imaged. There is normal luminal compressibility, flow, and augmentation in the visualized deep venous structu res of the bilateral lower extremities. IMPRESSION: No evidence of a deep vein thrombosis in either lower extremity.
[2020-03-27] MEDS ORDERED: predniSONE 1 MG TAB PO SCH (10:00)
[2020-03-27] MEDS ORDERED: Pregabalin 50 MG CAP PO SCH (10:00)
[2020-03-27] MEDS ORDERED: Torsemide 10 MG TAB PO SCH (10:00)
[2020-03-27] MEDS ORDERED: Polyethylene Glycol 3350 17 GM Packet PO SCH (10:00)
[2020-03-27] MEDS ORDERED: CEFAZOLIN 2 GM in Premix Bag 1 BAG IVPB SCH (10:00)
--- NOTE | 2020-03-27 10:13 | ULT ---
ULTRASOUND DOPPLER DUPLEX CAROTID: DATE: 03/27/2020 HISTORY: 84-year-old female status post syncope TECHNIQUE: Grayscale, color-flow, and spectral analysis, of major arteries of neck. FINDINGS: RIGHT: Atherosclerotic plaque:Moderate to severe heavily calcified plaque throughout visualized portions of common carotid and internal carotid Peak systolic and end diastolic velocities: CCA:80 cm/s, 10 cm/s ICA:55 cm/s, 10 cm/s ICA/CCA ratio:0.7 Vertebral artery flow:Antegrade LEFT: Atherosclerotic plaque:Moderate to severe heavily calcified plaque throughout visualized portions of common carotid and internal carotid Peak systolic and end diastolic velocities: CCA:110 cm/s, 5 cm/s ICA:55 cm/s, 10 cm/s ICA/CCA ratio:0.5 Vertebral artery flow:Antegrade IMPRESSION: Moderate to severe atherosclerosis of bilateral common carotid arteries and internal carotid arteries . 2. No evidence of hemodynamically significant stenosis.
--- NOTE | 2020-03-27 11:55 | PDOC.HOSPP ---
- Subjective Encounter Date: 03/27/20 Encounter Time: 09:30 Subjective: Patient seen and examined. No new complaints. No overnight events - Objective Vital Signs & Weight: Vital Signs (12 hours) Temp Pulse Resp BP Pulse Ox 03/27/20 11:13 98.1 F 47 L 13 94 L 03/27/20 04:49 98.9 F 87 18 123/60 94 L Weight Weight 132 lb 4.438 oz Result Diagrams: 03/27/20 06:50 03/27/20 06:50 Radiology Reviewed by me: Yes EKG Reviewed by me: Yes Hospitalist ROS - Review of Systems ENT: denies: ear pain, ear discharge, nose pain, nose discharge, nose congestion, mouth pain, mouth swelling, throat pain, throat swelling, other Respiratory: denies: cough, dry, shortness of breath, hemoptysis, SOB with excertion, pleuritic pain, sputum, wheezing, other Cardiovascular: denies: chest pain, palpitations, orthopnea, paroxysmal noc. dyspnea, edema, light headedness, other Gastrointestinal: denies: nausea, vomiting, abdominal pain, diarrhea, constipation, melena, hematochezia, other Genitourinary: denies: dysuria, frequency, incontinence, hematuria, retention, other Musculoskeletal: denies: neck pain, shoulder pain, arm pain, back pain, hand pain, leg pain, foot pain, other - Exam General Appearance: NAD, awake alert Eye: PERRL, anicteric sclera ENT: normocephalic atraumatic, no oropharyngeal lesions Neck: supple, symmetric, no JVD, no thyromegaly Heart: no gallops, no rubs Heart - other findings: Soft systolic murmur noted Respiratory: no wheezes, no rales, no ronchi Gastrointestinal: soft, non-tender, non-distended, normal bowel sounds Extremities: no cyanosis, no clubbing, no edema Skin: normal turgor, no lesions Neurological: no focal deficits Musculoskeletal: normal tone, normal strength Psychiatric: normal affect, normal behavior Hosp A/P (1) Syncope Code(s): R55 - SYNCOPE AND COLLAPSE Status: Acute (2) CAD (coronary artery disease) Code(s): I25.10 - ATHSCL HEART DISEASE OF [place] CORONARY ARTERY W/O ANG PCTRS Status: Chronic (3) GERD (gastroesophageal reflux disease) Code(s): K21.9 - GASTRO-ESOPHAGEAL REFLUX DISEASE WITHOUT ESOPHAGITIS Status: Chronic (4) History of coronary artery bypass graft x 3 Code(s): Z95.1 - PRESENCE OF AORTOCORONARY BYPASS GRAFT Status: Chronic (5) Hyperlipidemia Code(s): E78.5 - HYPERLIPIDEMIA, UNSPECIFIED Status: Chronic (6) Hypertension Code(s): I10 - ESSENTIAL (PRIMARY) HYPERTENSION Status: Chronic (7) PVD (peripheral vascular disease) Code(s): I73.9 - PERIPHERAL VASCULAR DISEASE, UNSPECIFIED Status: Chronic (8) Paroxysmal atrial fibrillation Code(s): I48.0 - PAROXYSMAL ATRIAL FIBRILLATION Status: Chronic (9) Rheumatoid arthritis Code(s): M06.9 - RHEUMATOID ARTHRITIS, UNSPECIFIED Status: Chronic (10) S/P aortic valve replacement with bioprosthetic valve Code(s): Z95.3 - PRESENCE OF XENOGENIC HEART VALVE Status: Chronic (11) Thrombocytopenia Code(s): D69.6 - THROMBOCYTOPENIA, UNSPECIFIED Status: Chronic - Plan old records reviewed/req, plan discussed w/ family Cardiology recommendation appreciated We will await ID recommendation Further plan based on rewards consultant recommendations, Discussed with the patient and bedside, All test result updated to them as well.
[2020-03-27] MEDS: Rifampin 300 MG CAP PO SCH ×2 (12:40→22:59)
[2020-03-27] MEDS: DULoxetine 60 MG CAP PO SCH (12:41)
[2020-03-27] MEDS: Saccharomyces boulardii 250 MG CAP PO SCH (12:41)
[2020-03-27] MEDS: Folic Acid 1 MG TAB PO SCH (12:41)
[2020-03-27] MEDS: Heparin 5,000 UNITS/ML VIAL SC SCH ×2 (12:43→23:21)
[2020-03-27] MEDS ORDERED: predniSONE 5 MG TAB PO SCH (13:15)
[2020-03-27] MEDS: Sodium Chloride 0.9% 1,000 ML IV SCH ×2 (13:35→21:12)
--- NOTE | 2020-03-27 18:02 | PRG ---
DATE OF SERVICE: 03/27/2020 SUBJECTIVE: Ms. Mathews is readmitted from rehab after developing junctional bradycardia with a brief episode of syncopal event. When she came in, her blood pressure was 115/49, pulse 47, respirations 16, temperature 98.2, O2 saturation 100. She was alert, oriented, in no distress. Exam was unremarkable except for sinus bradycardia. Initial labs were remarkable for white cell count 12,000, hemoglobin 10, platelets 94,000, 87% neutrophils. Sodium 128, creatinine 3.35, which is quite a bit of change from previous levels. SARS-CoV was not detected. She has been placed on cefazolin 1 g b.i.d., adjusted for her renal function and rifampin. The Gentamicin was discontinued. OBJECTIVE: GENERAL: Currently, she is awake and alert, appears in no distress. LUNGS: Clear. HEART: She has regular rate with a soft murmur at the aortic area. ABDOMEN: Soft, not distended or tender. No ascites. No bladder distention. EXTREMITIES: Moves all extremities equally. LABORATORY DATA: White cell count is down to 9.6, hemoglobin 10.1, platelets 95,000, 82% neutrophils. Sodium 131, creatinine 3.6. Troponin 0.072. Venogram with no evidence of deep vein thrombosis. A chest CT with sclerotic densities left and right-sided ribs, possible pathologic fracture involving a lytic lesion in the posterior left 11th rib. ASSESSMENT AND DISCUSSION: Rheumatoid arthritis; Sjogren syndrome; Raynaud's; gangrene, distal aspect of the left first and second toes, which appears chronic without associated inflammatory changes; recent transcatheter aortic-valve replacement and Staphylococcus aureus bacteremia with possible transcatheter aortic-valve replacement infection, although that was not documented by [facility]. [facility] quality was diminished by the amount of calcification of the area around the valve and artifact. She had been on cefazolin, gentamicin, and rifampin. She has completed 1 week of this combination. She has developed renal insufficiency and the gentamicin has been discontinued. She will continue on dose adjusted cefazolin, rifampin, and we will have to wait. Right now, she is on sinus rhythm as discussed by Dr. Mccollum and we will wait to see how she does in the next few days. The total duration of therapy will be a total of 6 weeks, so she has another of 35 days to go, which will bring us to close to the end of April for completion of treatment. Job ID: [id number]
--- NOTE | 2020-03-27 20:56 | CON ---
DATE OF CONSULTATION: HISTORY OF PRESENT ILLNESS: Rosaura Mathews is an 84-year-old white female who initially evaluated in February 2008 after she moved from [place] to [place] and wanted followup. She underwent cardiac catheterization in [place], [place]. This revealed diffuse noncritical LAD disease, which was a small vessel. There was a 50% mid circumflex, 80% proximal RCA stenosis. She also was found to have minimal aortic stenosis with a gradient as high as 31 mm on pullback. She underwent repeat catheterization and stent placement at [facility] on August 04, 2006. This revealed a pullback pressure across the aortic valve to only be 5 mm. Taxus 2.5 x 8 mm stent was placed in the proximal right coronary artery and deployed to 12 atmospheres. In September 2007, she was then having problems with fatigue and underwent repeat catheterization; however, I was never able to get a copy of that catheterization. In 2007, she complained of fatigue, some exertional dyspnea after walking one block. She denied any chest, arm, neck, or jaw discomfort. Occasionally, she would have leg edema. She denied any lightheadedness, dizziness, or syncope. Echo in February 2008 revealed ejection fraction of 50% to 55% with mild mitral regurgitation, umepzkaq-[id number] aortic regurgitation, gpsimnnd-gm-rpxlnb aortic stenosis with a peak gradient of 51 mm, mean gradient of 30 mm, and moderate pulmonic insufficiency. In April 2008, she underwent adenosine Cardiolite testing because of atypical resting chest discomfort. This was normal without evidence of ischemia or fixed defect. Due to an LDL of 97, Crestor was increased to 10 mg. In August 2008, her LDL was 74 and Crestor was further increased to 40 mg. Echo in December 2008 revealed ejection fraction of 50% to 55% with mild mitral regurgitation, egbyupmt-js-animpz aortic regurgitation, severe aortic stenosis with a peak gradient of 53 mm, mean gradient of 35 mm, and voeaqfro-ni-ivgygg tricuspid regurgitation, moderate pulmonic regurgitation. She continued to be asymptomatic. In November 2009, she complained of dyspnea on exertion after walking 1/2 block, but had no chest discomfort or syncope. She also complained of varicose veins since the age of 20 and had some pain in her right foot and wore compression stockings for 10 years. Lower extremity venous duplex revealed significant reflux in the right great saphenous vein from the saphenofemoral junction to below the knee. In her left leg, there was significant reflux in the left common femoral vein and the GSV and saphenofemoral junction to below the knee. There is also significant reflux in the left small saphenous vein. In December 2009, she again complained of dyspnea on exertion after walking 1/2 block, but denied any PND. She had episodes where she would feel like she would pass out when she would stand up. She underwent catheterization in December 2009. Left ventriculogram revealed mild inferior and anterior hypokinesis with ejection fraction of 40% to 45% and mild mitral regurgitation. There was moderate aortic insufficiency. The mean aortic valve gradient was 55 mm with an aortic valve area 0.51 cm2. There was a proximal 60% LAD stenosis, 60% distal LAD stenosis, and 70% stenosis in a small second diagonal. The circumflex had a 60% mid stenosis and a 60% distal stenosis. There was a 50% lesion in the first obtuse marginal with 50% lesion in the second obtuse marginal. The right coronary artery was totally occluded at the ostium, which was the site of the Taxus 2.5 x 12 mm stent placed in August 2006. The distal right coronary artery filled retrograde from the left. She underwent aortic valve replacement with a #21 Dong Magna a pericardial bioprosthetic valve and CABG x3 with vein graft to the second obtuse marginal vein graft to the first obtuse marginal, and GÓMEZ to the LAD. She was slow to rehab. She also had postoperative atrial fibrillation, which converted to sinus rhythm with amiodarone. In August 2015, she was again found to be in atrial fibrillation and was placed on Multaq and warfarin and eventually underwent transesophageal echo. This revealed absence of left atrial appendage and no intracardiac thrombus. She was noted to have a regular rhythm and EKG revealed PAT with 2:1 block. She then had atrial fibrillation. With 200 joules, she converted to sinus rhythm. Her atrial fibrillation recurred in October 2015. At time, she had atrial flutter and underwent flutter ablation in October 2016. She underwent atrial fibrillation ablation in January 2017. In June 2017, she was back in atrial fibrillation. In August 2017, she underwent another atrial fibrillation ablation and in general has been in sinus rhythm since that time. She was maintained on warfarin. However, due to the need for frequent blood tests, she opted to transition to Eliquis. After one or two doses, she started to have rectal bleeding from rectal prolapse. She had bleeding from this previously. She ultimately underwent sigmoid colectomy, repair of the rectal prolapse in May [address] Almaraz. In September 2018, she was admitted with gastrointestinal bleeding with bright red blood per rectum. She ultimately underwent placement of a Watchman on May 18, 2019, and 6 weeks later, this was well-seated on transesophageal echo. She was eventually taken off Eliquis and started to have problems with leg edema, placed on torsemide, but denied any chest discomfort. In July 2019, she complained of shortness of breath just walking in the house. On echo, her ejection fraction had dropped from 50%-55% to 30%- 35% over 6 months. She was fitted with a LifeVest. She was placed on carvedilol 3.125 b.i.d. It is recommended she undergo cardiac catheterization. Also on echo, she was found to have severe bioprosthetic valve stenosis with a peak gradient of 98 mm, mean gradient of 63 mm, and aortic valve area 0.36 cm2. On July 30, 2019, she underwent cardiac catheterization. Her mean aortic valve gradient was 75 mm with aortic valve area 0.23 cm2. There was mid anterior akinesis, mild global hypokinesis with ejection fraction of 35% to 40%. There was an 80% proximal LAD lesion, total occlusion of the mid LAD, and 80% lesion in the small first diagonal. The circumflex had an 80% mid stenosis, 60% distal stenosis. There was an 80% first obtuse marginal, 70% 2nd obtuse marginal, and 70% 3rd obtuse marginal. The occluded graft could be seen in the 3rd obtuse marginal. The right coronary artery was totally occluded proximally at the stent with some bridging collaterals. The mid RCA was then again totally occluded. The distal RCA filled retrograde from the GÓMEZ to the LAD. Bypass grafts revealed patent GÓMEZ to the LAD and patent vein graft to the 2nd obtuse marginal (not 1st obtuse marginal). The graft to the 3rd obtuse marginal (not 2nd obtuse marginal), which was piggybacked onto the 2nd obtuse marginal graft was occluded. Due to her leg edema as well as dyspnea after walking 10 to 15 feet and a fall in ejection fraction from 50-55% to 30-35%, she was transferred to [facility] in [place], underwent placement of a transcatheter aortic valve replacement. After that, she noted dramatic decrease in her shortness of breath and started to feel better. It is of note that when she was seen at [facility] in [place], she was restarted on Eliquis, which she had previously been stopped due to the Watchman. She also was on aspirin, Plavix after the TAVR. She then presented in September 2019 with bright red blood per rectum and had hemoglobin as low as 6.6 and was transfused. The Eliquis, Plavix, and aspirin were discontinued. EGD did not show anything except a hiatal hernia. 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 She was restarted on aspirin and restarted on Plavix 5 or 6 days later. It was felt that she did not need Eliquis anymore since she had a well seated Watchman. She was just admitted from March 16 through March 22, 2020. She had been having increased weakness and was found to have sepsis with methicillin- sensitive Staphylococcus aureus. She underwent transesophageal echo, which did not reveal any evidence of vegetations on the TAVR. She underwent PICC line placement. Has been treated with cefazolin, rifampin, gentamicin IV for 2 weeks and the next 4 weeks with cefazolin and rifampin. She has not had any further fevers. States she has been gradually feeling better. She has been over at the rehab hospital and apparently had an episode where she was unresponsive for 10 to 15 seconds witnessed by her . She was brought to the hospital and has been found to be in junctional bradycardia with heart rates in the low 40s. She denied any chest discomfort or shortness of breath. It was also noted that echocardiogram during her last admission revealed dramatic improvement in her left ventricular function with ejection fraction of 55% to 60% with moderate left atrial enlargement, mitral annular calcification, moderate mitral regurgitation, TAVR, present with moderate paravalvular regurgitation, fxjroexn-mw-pfgtbu tricuspid regurgitation, and mild pulmonic regurgitation. PAST MEDICAL HISTORY: Hypercholesterolemia, paroxysmal atrial fibrillation with multiple ablations, but seems to maintain sinus rhythm except now she has junctional bradycardia, coronary artery disease, bioprosthetic aortic valve which became stenotic and a TAVR was placed, venous insufficiency. OPERATIONS: Tonsillectomy, hysterectomy, removal of varicose veins twice, bunionectomy, CABG, and aortic valve replacement, TAVR, Watchman procedure, sigmoid colectomy, and repair of rectal prolapse. MEDICATIONS: 1. Aspirin 81 daily. 2. Cepacol. 3. Biotin 5000 mcg daily. 4. Dulcolax. 5. Carvedilol 3.125 b.i.d. 6. Ancef 2 g IV q.8 hours. 7. Vitamin D3. 8. Clonidine 0.1 q.6 hours p.r.n. 9. Vitamin B12. 10. Prolia. 11. Cymbalta 60 daily. 12. Zetia 10 daily. 13. Folic acid 1 mg daily. 14. Gentamicin 80 mg IV q.24 hours. 15. Hydroxychloroquine 200 b.i.d. 16. Loperamide one capsule p.r.n. 17. Protonix 40 daily. 18. MiraLAX 17 g daily. 19. KCl 20 mEq b.i.d. 20. Prednisone 5 mg daily. 21. Lyrica 50 mg daily. 22. Rifampin 300 mg b.i.d. 23. Crestor 40 at bedtime. 24. Spironolactone 25 daily. 25. Torsemide 20 mg daily. 26. Trazodone 50 at bedtime. ALLERGIES: CODEINE, MORPHINE, AND NARCOTICS. SOCIAL HISTORY: She does not smoke. She occasionally has a glass of wine. 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 FAMILY HISTORY: Father had stroke. He did not have any cardiac problems. No family history of coronary artery disease. REVIEW OF SYSTEMS: A 10-point review of systems is otherwise unremarkable. PHYSICAL EXAMINATION: VITAL SIGNS: Blood pressure 125/62, pulse 61. HEENT: PERRL. NECK: Supple. CHEST: Clear. CARDIAC: S1 and S2 are normal without any S3 or S4. There is a 2/6 systolic murmur in the aortic area. ABDOMEN: Normal bowel sounds without tenderness or organomegaly. EXTREMITIES: Reveal no clubbing, cyanosis, or edema. NEUROLOGIC: Grossly intact. SKIN: Warm and dry. LABORATORY DATA: EKG reveals junctional bradycardia with rate of 47 to 49 per minute. Very also frequently on the monitor here, she will have junctional bradycardia with rates in the mid 40s. Hemoglobin 10.1, hematocrit 30.3, white count 9600, platelets 95,000. D-dimer 2.68. Sodium 131, potassium 4.3, chloride 95, carbon dioxide 26, BUN 46, creatinine 3.60. Troponin I is up to 0.078. BNP 644.7. IMPRESSION: 1. Syncopal episode, probably due to bradycardia. She does have significant junctional bradycardia, which has not been seen in the past. 2. Atrial fibrillation, status post 2 ablations, maintaining sinus rhythm. 3. History of atrial flutter ablation. 4. Status post Watchman procedure in May 2019, with good seating on repeat transesophageal echo. Eliquis has been discontinued. 5. History of atrial tachycardia. 6. Improvement in left ventricular function up to 55% to 60% on most recent echo. 7. Status post coronary artery bypass graft x3 and aortic valve replacement. 8. Transcatheter aortic valve replacement placed in August 2019 at [facility] in [place]. 9. Hypertension. 10. Hypercholesterolemia. 11. Acute kidney injury. PLAN: Carvedilol has been appropriately discontinued. At the present time, she is back in sinus rhythm, although she certainly will be prone to these episodes in the future. She certainly needs to have a pacemaker placed. However, I am very hesitant to proceed with that with recent finding of methicillin-sensitive Staphylococcus aureus sepsis. I will ask Infectious Disease their opinion in regard to when the best time that would be to place a pacemaker. In talking with Ms. Mathews, it was recommended she does need a pacemaker placed. Risks of pacemaker insertion were discussed including , infection, bleeding, blood clot formation, reoperation for lead dislodgement, tamponade with surgical drainage, pneumothorax with chest tube insertion, etc. Job ID: [id number] [facility]
[2020-03-27] MEDS ORDERED: Sodium Chloride 0.9% 0 ML ONE (21:04)
[2020-03-27] MEDS: Ezetimibe 10 MG TAB PO SCH ×2 (21:13→21:23)
[2020-03-27] MEDS: ceFAZolin 1 GM/D5W 1 GM in Premix Bag 1 BAG IVPB SCH ×2 (21:14→21:23)
[2020-03-27] MEDS: Rosuvastatin 20 MG TAB PO SCH ×2 (21:14→21:22)
[2020-03-27] MEDS: Aspirin 81 mg Enteric Coated Tablet PO SCH ×2 (21:14→21:22)
[2020-03-27] MEDS: Hydroxychloroquine Sulfate 200 MG TAB PO SCH (21:42)
--- NOTE | 2020-03-27 22:30 | CON ---
DATE OF CONSULTATION: CONSULTING PHYSICIAN: Dr. Payne. REQUESTING PHYSICIAN: Dr. Gaming. REASON FOR CONSULTATION: Acute kidney injury. IMPRESSION: 1. Acute kidney injury. This is likely hemodynamically-mediated in the context of bradycardia with each attendant compromises renal perfusion in addition to intravascular depletion. 2. Symptomatic bradycardia query cause. PLAN: 1. The patient to be gently rehydrated given the clinical examination is suggestive of intravascular depletion. 2. Hold diuretics torsemide. 3. Renally dose all medications and avoid potentially nephrotoxic agents. 4. Hopefully this is the prerenal state that will respond to conservative renal supportive measures. 5. Further management to be dependent on the clinical course. HISTORY: An 84-year-old female patient who syncopized at the rehab and with about 10 to 15 seconds of unresponsiveness with a baseline creatinine of about 1. However, at this time of dictation, the patient's creatinine is up to 3 for the need for renal consultation. Clinical examination revealed the patient seems to be intravascularly depleted. As a result of these, the patient does have significant cardiac history including valvular replacement and coronary artery disease, status post bypass. The patient denies any nausea, vomiting, or diarrhea. PAST MEDICAL HISTORY: Significant for coronary artery disease, aortic valve disease, hypertension, atrial fibrillation, chronic anemia, Sjogren syndrome, rheumatoid arthritis, history of GI bleed, dyslipidemia. SOCIAL HISTORY: The patient currently at the rehab. No alcohol. No tobacco. No illicit drug use. The patient is . ALLERGIES: TO CODEINE, MORPHINE, AND NARCOTICS. FAMILY HISTORY: Significant for heart disease. MEDICATIONS: Reviewed and as documented on [employer]. REVIEW OF SYSTEMS: As documented in the body of the history. PHYSICAL EXAMINATION: GENERAL: The patient was found not to be in any obvious distress noted with the following vital signs. VITAL SIGNS: Afebrile, temperature 98.4, pulse 61, respiratory rate of 16, O2 saturations are with a blood pressure 135/62. HEENT: History is remarkable for dry oral mucosa. CARDIOVASCULAR SYSTEM: First and second heart sounds were heard. RESPIRATORY SYSTEM: Clear to auscultation. DIGESTIVE SYSTEM: Revealed a benign abdomen. Positive bowel sounds. EXTREMITIES: No peripheral edema. SKIN: No new gross rash. LYMPHATICS: No peripheral lymphadenopathy. SUMMARY: An 84-year-old female patient who presented here status post syncope, now experiencing deterioration in renal function. Thank you for this consultation. We will follow with you. Job ID: [id number]
[2020-03-28 04:17] LABS: ALT (SGPT) Less than 7 U/L (8-55); AST (SGOT) 42 U/L (5-34); Albumin 2.7 g/dL (3.4-4.8); Alkaline Phosphatase 80 U/L (40-110); Anion Gap 18 mmol/L (10-20); BUN (Urea Nitrogen) 48 mg/dL (9.8-20.1); Bilirubin, Total 0.4 mg/dL (0.2-1.2); CRP (Inflammatory) 11.13 mg/dL (= or < 0.5); Calc. Creatinine Clearance 10 mL/min (70-130); Calcium 8.7 mg/dL (7.8-10.44); Carbon Dioxide 19 mmol/L (23-31); Chloride 97 mmol/L (98-107); Estimated GFR-MDRD 11; Globulin 3.6 g/dL (2.4-3.5); Glucose 67 mg/dL (83-110); Protein, Total 6.3 g/dL (6.0-8.3); Sodium 130 mmol/L (136-145)
[2020-03-28 05:57] LABS: #Monocytes 0.9 thou/uL (0.11-0.59); #Neutrophils 6.7 thou/uL (1.40-6.50); %Basophils 0.2 % (0.0-1.0); %Eosinophils 0.5 % (0.0-10.0); %Lymphocytes 11.1 % (21.0-51.0); %Monocytes 10.8 % (0.0-10.0); %Neutrophils 77.5 % (42.0-75.0); Mean Corpuscular HGB CONC 32.4 g/dL (32.0-36.0); Mean Corpuscular Volume 98.9 fL (78.0-98.0); Mean Platelet Volume 9.7 fL (7.4-10.4); Platelet Count 73 thou/uL (130-400); RBC Distribution Width 14.2 % (11.5-14.5); Red Blood Cell (RBC) Count 3.44 mill/uL (4.20-5.40); White Blood Cell (WBC) Count 8.7 thou/uL (4.8-10.8)
[2020-03-28] MEDS ORDERED: [UNRECOGNIZED DRUG - REMARK] IVPB PRN (07:25)
[2020-03-28] MEDS ORDERED: predniSONE 1 MG TAB PO SCH (09:00)
[2020-03-28] MEDS ORDERED: Ascorbic Acid 500 mg Chewable Tablet PO SCH (09:00)
[2020-03-28] MEDS ORDERED: Cholecalciferol 1,000 UNITS (25 MCG) TAB PO SCH (09:00)
[2020-03-28] MEDS ORDERED: Torsemide 10 MG TAB PO SCH (09:00)
[2020-03-28] MEDS ORDERED: Pregabalin 50 MG CAP PO SCH (09:00)
[2020-03-28] MEDS ORDERED: predniSONE 5 MG TAB PO SCH (09:00)
[2020-03-28] MEDS ORDERED: Polyethylene Glycol 3350 17 GM Packet PO SCH (09:00)
[2020-03-28 09:03] LABS: Bacteria/HPF 1+ HPF (None Seen); Bilirubin Negative (Negative); Blood, Urine 1+ (Negative); Clarity Clear (Clear); Glucose, Urine (Dipstick) Normal (Negative); Ketone, Urine Negative (Negative); Leukocyte 75 Leu/uL (Negative); Nitrite Negative (Negative); Protein, Urine (Dipstick) 50 mg/dL (Neg-Trace); RBC/HPF None Seen HPF (0-3); Specific Gravity, Urine 1.008 (1.002-1.036); Squamous Epithelial None Seen HPF (0-3); Urobilinogen Normal mg/dL (Less than 2); pH, Urine 7.5 (5.0-9.0)
[2020-03-28 09:06] LABS: Urine Culture Reflex Yes Yes
[2020-03-28] MEDS: DULoxetine 60 MG CAP PO SCH (09:10)
[2020-03-28] MEDS: Saccharomyces boulardii 250 MG CAP PO SCH (09:10)
[2020-03-28] MEDS: Rifampin 300 MG CAP PO SCH (09:11)
[2020-03-28] MEDS: Folic Acid 1 MG TAB PO SCH (09:11)
[2020-03-28] MEDS: Hydroxychloroquine Sulfate 200 MG TAB PO SCH (09:11)
[2020-03-28] MEDS: Heparin 5,000 UNITS/ML VIAL SC SCH (09:12)
--- NOTE | 2020-03-28 12:37 | PDOC.BPN ---
- Brief Progress Note Encounter Date: 03/28/20 Encounter Time: 12:30 Patient was admitted for syncope, there was suspicious for bradycardia arrhythmia but athletic monitor did not show any significant bradycardia arrhythmia, cardiology and infectious disease evaluated this patient, and does not need any pacemaker. Patient does not meet any inpatient criteria so we have changed to observation status before discharge.
--- NOTE | 2020-03-28 12:41 | PDOC.DS.DS ---
Provider - Provider Date of Admission: 03/26/20 19:53 Date of Discharge: 03/28/20 Admitting Provider: Stanley Navarerte Consultations: Cardiology, Infectious Disease, Nephrology Primary Care Physician: Sony Gomes MD Course - Hospital Course Hospital Course: 84-year-old female who was recently admitted in the hospital and she was discharged to rehab for more PT OT, during previous admission patient had MSSA bacteremia, patient was presumably treated for TAVR infection, patient was doing okay at rehab and over that patient had episode of syncopal episode, patient was found bradycardia arrhythmia with a heart rate 40s, patient was evaluated at emergency room, she did not any further bradycardia while in hospital, patient was evaluated by cardiology, infectious disease, nephrology during this admission, patient's low pulse rate significantly improved without any further event on telemetry floor, cardiology and infectious disease decided that at this point we will not proceed with the pacemaker placement given only just a few days of antibiotic therapy, patient did not have any further bradycardia while in the hospital, cardiology cleared her for discharge back to rehab. Infectious disease also evaluated this patient and they recommended to continue antibiotic therapy, nephrology saw this patient. I have seen and examined patient bedside today,. Patient was initially admitted as inpatient status for subsequently as she was not meeting clinical criteria for admission so we changed to observation status before discharge. Resuscitation Status: 03/27/20 08:28 Resuscitation Status Routine Resuscitation Status: FULL: Full Resuscitation - Labs Lab Results: 03/28/20 03:46 03/28/20 03:46 Abnormal Lab Results - Last 48 hrs 03/26/20 18:44: Troponin I 0.083 H 03/26/20 18:44: Sodium 128 L, Chloride 89 L, BUN 44 H, Creatinine 3.35 H, AST 49 H, ALT Less than 7 L, Albumin 2.7 L, Globulin 3.8 H, Albumin/Globulin Ratio 0.7 L 03/26/20 18:44: WBC 12.0 H, RBC 3.19 L, Hgb 10.4 L, Hct 31.0 L, MCH 32.5 H, Plt Count 94 L, Neutrophils % 87.4 H, Lymphocytes % 5.6 L, Neutrophils # 10.5 H, Lymphocytes # 0.7 L, Monocytes # 0.8 H 03/26/20 18:44: B-Natriuretic Peptide 644.7 H 03/26/20 21:34: Troponin I 0.078 H 03/27/20 00:45: Troponin I 0.072 H 03/27/20 06:50: Sodium 131 L, Chloride 95 L, BUN 46 H, Creatinine 3.60 H 03/27/20 06:50: RBC 3.05 L, Hgb 10.1 L, Hct 30.3 L, MCV 99.1 H, MCH 33.0 H, Plt Count 95 L, Neutrophils % 83.4 H, Lymphocytes % 8.3 L, Neutrophils # 8.0 H, Lymphocytes # 0.8 L, Monocytes # 0.7 H 03/27/20 07:08: D-Dimer 2.68 H 03/27/20 08:45: Urine Protein 50 A, Urine Blood 1+ A, Ur Leukocyte Esterase 75 A, Urine WBC 4-6 A, Urine Bacteria 1+ A, Urine Culture Reflexed Yes A 03/27/20 08:45: Urine Osmolality 190 L 03/28/20 03:46: Sodium 130 L, Chloride 97 L, Carbon Dioxide 19 L, BUN 48 H, Creatinine 3.88 H, AST 42 H, ALT Less than 7 L, C-Reactive Protein 11.13 H, Albumin 2.7 L, Globulin 3.6 H, Albumin/Globulin Ratio 0.8 L 03/28/20 03:46: RBC 3.44 L, Hgb 11.0 L, Hct 34.1 L, MCV 98.9 H, MCH 32.0 H, Plt Count 73 L, Neutrophils % 77.5 H, Lymphocytes % 11.1 L, Monocytes % 10.8 H, Neutrophils # 6.7 H, Lymphocytes # 1.0 L, Monocytes # 0.9 H - Physical Exam Vitals: Vital Signs (12 hours) Temp Pulse Resp BP Pulse Ox 03/28/20 11:12 98.0 F 62 14 98/47 L 96 03/28/20 07:47 98.3 F 66 15 92/45 L 94 L 03/28/20 03:30 97.7 F 70 12 142/65 H 94 L Weight Admit Weight 132 lb 4.438 oz Weight 132 lb 4.438 oz Physical Exam: The patient was seen and examined on the day of discharge. General patient is currently alert awake no acute distress Head normocephalic atraumatic Neck supple no JVD no meningeal signs of irritation Lungs clear to auscultation without any rhonchi or rales Cardiac S1-S2 appears regular, no murmur no gallop no rub Abdomen soft, bowel sounds present Extremity no edema Neurologic nonfocal examination Problem - Problem (1) Syncope Code(s): R55 - SYNCOPE AND COLLAPSE Status: Acute (2) CAD (coronary artery disease) Code(s): I25.10 - ATHSCL HEART DISEASE OF [place] CORONARY ARTERY W/O ANG PCTRS Status: Chronic (3) GERD (gastroesophageal reflux disease) Code(s): K21.9 - GASTRO-ESOPHAGEAL REFLUX DISEASE WITHOUT ESOPHAGITIS Status: Chronic (4) History of coronary artery bypass graft x 3 Code(s): Z95.1 - PRESENCE OF AORTOCORONARY BYPASS GRAFT Status: Chronic (5) Hyperlipidemia Code(s): E78.5 - HYPERLIPIDEMIA, UNSPECIFIED Status: Chronic (6) Hypertension Code(s): I10 - ESSENTIAL (PRIMARY) HYPERTENSION Status: Chronic (7) PVD (peripheral vascular disease) Code(s): I73.9 - PERIPHERAL VASCULAR DISEASE, UNSPECIFIED Status: Chronic (8) Paroxysmal atrial fibrillation Code(s): I48.0 - PAROXYSMAL ATRIAL FIBRILLATION Status: Chronic (9) Rheumatoid arthritis Code(s): M06.9 - RHEUMATOID ARTHRITIS, UNSPECIFIED Status: Chronic (10) S/P aortic valve replacement with bioprosthetic valve Code(s): Z95.3 - PRESENCE OF XENOGENIC HEART VALVE Status: Chronic (11) Thrombocytopenia Code(s): D69.6 - THROMBOCYTOPENIA, UNSPECIFIED Status: Chronic Plan - Discharge Medications Home Medications: Medication Instructions Recorded Confirmed Type Aspirin [Adult Aspirin Regimen] 81 mg PO HS 05/26/18 03/27/20 History Biotin 5,000 mcg PO DAILY 05/26/18 03/27/20 History Ezetimibe [Zetia] 10 mg PO DAILY 05/26/18 03/27/20 History Folic Acid 1 mg PO DAILY 05/26/18 03/27/20 History Potassium Chloride [Klor-Con 10] 20 meq PO BID 05/26/18 03/27/20 History Rosuvastatin Calcium [Crestor] 40 mg PO HS 05/26/18 03/27/20 History Torsemide [Demadex] 20 mg PO DAILY 05/26/18 03/27/20 History DULoxetine HCl [Cymbalta] 60 mg PO DAILY 09/14/18 03/27/20 History Pantoprazole [Protonix] 40 mg PO DAILY 11/25/18 03/27/20 History Carvedilol 3.125 mg PO BID 07/26/19 03/27/20 History Cyanocobalamin (Vitamin B-12) 2,500 mcg SL DAILY 07/26/19 03/27/20 History [Vitamin B-12] Denosumab [Prolia] 60 mg SQ ASDIR 07/26/19 03/27/20 History Polyethylene Glycol 3350 [Miralax] 17 gm PO DAILY 07/26/19 03/27/20 History Hydroxychloroquine Sulfate 200 mg PO BID 02/22/20 03/27/20 History Cefazolin [Ancef] 2 gm IVPB Q8HR bag 03/22/20 03/27/20 Rx Gentamicin Sulfate 80 mg IVPB Q24HR bag 03/22/20 03/27/20 Rx Rifampin [Rifadin] 300 mg PO 1000,2200 cap 03/22/20 03/27/20 Rx 0.9 % Sodium Chloride [Normal 10 ml IV ASDIR 03/27/20 03/27/20 History Saline Flush] Acetaminophen 500 mg PO Q4H PRN 03/27/20 03/27/20 History Ascorbic Acid [Vitamin C] 1,000 mg PO DAILY 03/27/20 03/27/20 History Atorvastatin Calcium [Lipitor] 80 mg PO HS 03/27/20 03/27/20 History Benzocaine/Menthol [Cepacol Sore 1 lozenge PO BID PRN 03/27/20 03/27/20 History Throat Lozenge] Bisacodyl [Dulcolax] 10 mg AL DAILY PRN 03/27/20 03/27/20 History Calcium Carbonate [Calcium] 1 - 2 tab PO Q6H PRN 03/27/20 03/27/20 History Cellothyl [Citrucel Tablet] 500 mg PO HS 03/27/20 03/27/20 History Cholecalciferol (Vitamin D3) 2,000 unit PO DAILY 03/27/20 03/27/20 History [Vitamin D] Loperamide HCl [Loperamide] 1 cap PO ASDIR PRN 03/27/20 03/27/20 History Magnesium Hydroxide [Milk of 2,400 mg PO DAILY PRN 03/27/20 03/27/20 History Magnesia] Pregabalin [Lyrica] 50 mg PO DAILY 03/27/20 03/27/20 History Simethicone 80 mg PO TID PRN 03/27/20 03/27/20 History Spironolactone 25 mg PO DAILY 03/27/20 03/27/20 History cloNIDine [Catapres] 0.1 mg PO Q6H PRN 03/27/20 03/27/20 History guaiFENesin [Guaifenesin] 200 mg PO Q4H PRN 03/27/20 03/27/20 History predniSONE [Prednisone] 5 mg PO DAILY 03/27/20 03/27/20 History traZODone HCl [Trazodone HCl] 50 mg PO HS PRN 03/27/20 03/27/20 History Allergies: codeine Adverse Reaction (Verified 07/30/19 11:29) nausea, GI upset morphine Adverse Reaction (Verified 07/30/19 11:29) nausea, GI upset narcotics Adverse Reaction (Uncoded 07/25/19 06:17) nausea, GI upset - Discharge Instructions Activity:: Activity as Tolerated Nourishment:: Heart Healthy Diet Therapies:: Occupational Therapy, Physical Therapy Equipment/Supplies:: Not Applicable IV Therapy:: PICC Line Care - Follow up Plan Referrals: Sony Gomes MD [Primary Care Provider] - Disposition: REHABILITATION INPATIENT Quality - Care Measures CORE MEASURES:: N/A
[2020-03-28] MEDS: Sodium Chloride 0.9% 1,000 ML IV SCH (12:44)
[2020-03-28 15:28] VITALS: BP 103/55; TEMP 98.1
--- NOTE | 2020-03-28 18:03 | PRG ---
DATE OF SERVICE: 03/28/2020 OBJECTIVE: VITAL SIGNS: The patient is noted with the following vital signs. Afebrile, temperature 98.1, pulse 57, respiratory rate of 13, O2 saturations of 95%, blood pressure 103/55. HEENT: Unremarkable. CARDIOVASCULAR SYSTEM: First and second heart sounds were heard. RESPIRATORY SYSTEM: Clear to auscultation. DIGESTIVE SYSTEM: Revealed a benign abdomen. EXTREMITIES: No peripheral edema. SKIN: No new gross rash. LYMPHATICS: No peripheral lymphadenopathy. IMPRESSION: Acute kidney injury with elevated creatinine still above baseline. Laboratory investigation showed creatinine went up to 3.88, BUN of 48. PLAN: 1. Continue current renal supportive measures. 2. Very close Nephrology followup whenever the patient is discharged. 3. If the patient gets sent over to rehab, we will recommend re-evaluating the renal function, and if there is any question, contact Dr. Benitez, who covers my patients on the rehab. Job ID: [id number]
[2020-03-28] MEDS ORDERED: ceFAZolin 1 GM/D5W 1 GM in Premix Bag 1 BAG IVPB SCH (22:00)
--- NOTE | 2020-03-30 13:39 | PQF ---
CLINICAL DOCUMENTATION CLARIFICATION FORM: Dear : Dieter Gaming MD Date / Time: 03/30/2020 Please exercise your independent, professional judgment in responding to the clarification form. Clinical indicators are provided on the bottom of this form for your review Please check appropriate box(es): AMI TYPE: [ ] Type 1 PR (STEMI) (please also specify site and artery see below) SITE: [ ] Anterior [ ] Apical [ ] Lateral [ ] Inferior [ ] Posterior [ ] Q Wave [ ] Septal [ ] Unable to Determine SPECIFIC ARTERY (Based on site) [ ] Left Main Coronary [ ] Diagonal [ ] Left Anterior Descending [ ] Oblique Marginal [ ] Right Coronary Artery [ ] Left Circumflex [ ] Unable to Determine ONSET OF INFARCTION: [ ] Onset Less than 4 weeks of admission [ ] Onset Greater than 4 weeks of admission [ ] Unable to determine [ ] Type 1 PR (NSTEMI) [ x ] Type 2 PR (T2MI) secondary to: [ ] hypertension [ x ] arrhythmia [ ] Infection [ ] severe anemia [ ] ischemic stroke [ ] renal failure [ ] heart failure [ ] other [ ] Type 3 PR (sudden without cardiac biomarker and/or with evidence of PR by autopsy) [ ] Type 4-5 PR (PR with PCI/PCI stent thrombosis, PCI re-stenosis or CABG related PR) [ ] Myocardial Infarction with no obstructive coronary atherosclerosis (MINOCA) (MINOCA is a classification independent from the UDMI and includes patients with Type I & Type 2 PR) [ ] Acute non-ischemic myocardial injury in the absence of PR [ ] Unstable Angina [ ] ACS [ ] Other: [ ] Takotsubo syndrome [ ] Other diagnosis (Please specify if any) [ ] Unable to determine In addition, please specify: Present on Admission (POA): [ x ] Yes [ ] No [ ] Unable to determine Physician Signature: Date/Time: For continuity of documentation, please document condition throughout progress notes and discharge summary. Thank You. To be completed by CDI/Coding staff for physician review: Present Clinical Indicators - Signs / Symptoms / Labs Results and Location in Medical Record [x] Elevated biomarkers (CK-MB, Troponin T or I) Troponin-0.083 Laboratory on 03/26 [x] Admission was requested for symptomatic bradycardia and NSTEMI H&P on 03/26 [x] EKG with normal sinus rhythm no evidence of ischemia ED provider report on 03/26 [ ] EKG changes (ST Elevation, Non ST Elevation, Q waves, new LBB) [ ] Abnormal Echocardiogram [ ] Crushing, pressure like chest pain [ ] Nausea, vomiting, diaphoresis Present Risk Factors Results and Location in Medical Record [x] Hypertension ED provider report on 03/26 [x] History of Coronary Artery Disease ED provider report on 03/26 [x] High Cholesterol/Lipids ED provider report on 03/26 [ ] History of Diabetes [ ] History of PR Present Treatments Results and Location in Medical Record [ ] Heart cath / percutaneous intervention [x] Heparin 5,000 units Medication on 03/27 [x] Patient already took aspirin earlier today ED provider report on 03/26 [ ] Oxygen [ ] Vasodilators [ ] Continuous cardiac monitoring [ ] Cardiac consult CDS/Financial Health Counselor Signature: DARIO Phone #: Date/Time: 03/30/2020 This is a permanent part of the Medical Record [facility]
--- NOTE | 2020-04-04 19:40 | EKG ---
Test Reason : Blood Pressure : / mmHG Vent. Rate : 047 BPM Atrial Rate : 051 BPM P-R Int : 000 ms QRS Dur : 124 ms QT Int : 598 ms P-R-T Axes : 000 -67 059 degrees QTc Int : 529 ms Wide QRS rhythm Left anterior fascicular block Possible Anterior infarct , age undetermined Abnormal ECG When compared with ECG of 26-MAR-2020 18:21, (Unconfirmed) No significant change was found Confirmed by NILDA QUINTERO ([id number]) on 04/04/2020 7:40:10 PM Referred By: DORA Confirmed By:NILDA QUINTERO
--- NOTE | 2020-04-08 09:33 | EKG ---
Test Reason : Blood Pressure : / mmHG Vent. Rate : 049 BPM Atrial Rate : 049 BPM P-R Int : 000 ms QRS Dur : 126 ms QT Int : 530 ms P-R-T Axes : 000 239 097 degrees QTc Int : 478 ms Wide QRS rhythm Right superior axis deviation Non-specific intra-ventricular conduction block Nonspecific T wave abnormality Abnormal ECG Confirmed by MYAH FINK DO ([id number]), media marketing specialist ISA MULLEN ([id number]) on 04/08/2020 9:32:32 AM Referred By: Confirmed By:MYAH FINK DO
== END 2020-03-28 16:30 | DRG 281 ==
LOC: ERS 18:16 → 2NO 19:53
PROVIDERS: ADMIT Internal Medicine; ATTEND Internal Medicine
DX: R00.1 Bradycardia, unspecified (principal); I21.A1 Myocardial infarction type 2; N17.9 Acute kidney failure, unspecified; E87.1 Hypo-osmolality and hyponatremia; I96 Gangrene, not elsewhere classified; I13.0 Hypertensive heart and chronic kidney disease with heart failure and stage 1 through stage 4 chronic kidney disease, or unspecified chronic kidney disease; I73.9 Peripheral vascular disease, unspecified; E78.5 Hyperlipidemia, unspecified; I50.9 Heart failure, unspecified; I25.10 Atherosclerotic heart disease of native coronary artery without angina pectoris; M19.90 Unspecified osteoarthritis, unspecified site; M06.9 Rheumatoid arthritis, unspecified; D69.6 Thrombocytopenia, unspecified; K21.9 Gastro-esophageal reflux disease without esophagitis; D64.9 Anemia, unspecified; N18.30 Chronic kidney disease, stage 3 unspecified; I48.0 Paroxysmal atrial fibrillation; R53.1 Weakness; M35.00 Sjogren syndrome, unspecified; Z95.4 Presence of other heart-valve replacement; Z95.1 Presence of aortocoronary bypass graft; Z95.0 Presence of cardiac pacemaker; Z95.5 Presence of coronary angioplasty implant and graft; Z90.710 Acquired absence of both cervix and uterus; Z90.89 Acquired absence of other organs; Z88.6 Allergy status to analgesic agent; Z88.8 Allergy status to other drugs, medicaments and biological substances; Z79.82 Long term (current) use of aspirin; Z79.899 Other long term (current) drug therapy; Z79.01 Long term (current) use of anticoagulants; Z20.828 Contact with and (suspected) exposure to other viral communicable diseases
CPT/HCPCS: 36415; 71045; 71250; 80053; 81001; 82553; 83880; 83930; 83935; 84300; 84484; 85025; 85379; 86140; 87086; 87635; 93005; 93010; 93880; 93970; J0690; J1580; J1644; J3490; J7512; U0003

== ENCOUNTER 2020-04-26 09:01 | Inpatient (IN) | payer MEDICARE ==
[2020-04-26] MEDS ORDERED: Albuterol 200 PUFF (6.7GM INHALER) ONE (09:27)
[2020-04-26] MEDS ORDERED: Aspirin Chewable 81 MG TAB ONE (09:27)
[2020-04-26] MEDS ORDERED: Magnesium 2 GM/50 ML BAG (IN WATER) ONE (09:27)
[2020-04-26] MEDS ORDERED: Dexamethasone 10 MG/ML VIAL ONE (09:29)
--- NOTE | 2020-04-26 09:55 | RAD ---
Chest AP view INDICATION: Increased weakness COMPARISON: Prior exam dated March 26, 2020 FINDINGS: Lungs: There is worsening airspace disease of both lower lobes, right greater than left Cardiac silhouette: The cardiomediastinal silhouette appears within normal limits. Pulmonary vasculature: There is pulmonary vascular congestion that has worsened. There is perihilar edema. Pleural spaces: There are enlarging bilateral pleural effusions, [id number] on the right and tiny on the left Upper abdomen: No abnormality seen. Osseous structures: Midline sternotomy changes and aortic valvular prosthetic placement is stable. Additional findings: Left-sided PICC line is stable. IMPRESSION: Findings suspicious for worsening CHF or volume overload.
[2020-04-26 10:14] LABS: #Lymphocytes 0.6 thou/uL (1.20-3.40); #Monocytes 0.8 thou/uL (0.11-0.59); #Neutrophils 7.7 thou/uL (1.40-6.50); %Basophils 0.3 % (0.0-1.0); %Eosinophils 0.3 % (0.0-10.0); %Lymphocytes 6.8 % (21.0-51.0); %Neutrophils 83.6 % (42.0-75.0); Hemoglobin 8.9 g/dL (12.0-16.0); Mean Corpuscular HGB CONC 31.7 g/dL (32.0-36.0); Mean Corpuscular Hemoglobin 32.5 pg (27.0-31.0); Mean Platelet Volume 9.1 fL (7.4-10.4); Platelet Count 74 thou/uL (130-400); RBC Distribution Width 17.2 % (11.5-14.5); Red Blood Cell (RBC) Count 2.75 mill/uL (4.20-5.40); White Blood Cell (WBC) Count 9.2 thou/uL (4.8-10.8)
[2020-04-26 10:20] LABS: INR-International Normal Ratio 1.2; PTT 35.2 sec (22.9-36.1); Prothrombin Time 15.8 sec (12.0-14.7)
[2020-04-26 10:21] LABS: D-Dimer Test 1.92 *mcg/mL (0.27-0.43)
[2020-04-26 10:34] LABS: ALT (SGPT) Less than 7 U/L (8-55); AST (SGOT) 27 U/L (5-34); Albumin 2.8 g/dL (3.4-4.8); Alkaline Phosphatase 64 U/L (40-110); Anion Gap 18 mmol/L (10-20); BUN (Urea Nitrogen) 40 mg/dL (9.8-20.1); Bilirubin, Total 0.4 mg/dL (0.2-1.2); CK (CPK) 75 U/L (29-168); Calc. Creatinine Clearance 0 mL/min (70-130); Calcium 8.7 mg/dL (7.8-10.44); Carbon Dioxide 19 mmol/L (23-31); Chloride 109 mmol/L (98-107); Glucose 88 mg/dL (83-110); Magnesium 1.6 mg/dL (1.6-2.6); Potassium 3.4 mmol/L (3.5-5.1); Protein, Total 6.8 g/dL (6.0-8.3); Sodium 143 mmol/L (136-145)
[2020-04-26 10:56] LABS: CKMB 2.5 ng/mL (0-6.6)
[2020-04-26] MEDS ORDERED: Nitroglycerin 2% Ointment 1 INCH/1 GM Packet ONE (10:56)
[2020-04-26 11:08] LABS: SARS-CoV-2 NAA Rapid Test Not Detected (NotDetected)
[2020-04-26] MEDS ORDERED: Furosemide 40 MG/4 ML VIAL ONE (12:43)
[2020-04-26] MEDS ORDERED: Furosemide 20 MG/2 ML VIAL ONE (12:43)
[2020-04-26] MEDS ORDERED: Acetaminophen 325 MG TAB PO PRN (13:05)
[2020-04-26] MEDS ORDERED: Senokot S 8.6-50 MG TAB PO PRN (13:05)
--- NOTE | 2020-04-26 14:51 | CT ---
CT of chest noncontrast HISTORY: Dyspnea. Chest pain. COMPARISON: 03/27/2020. FINDINGS: Right pleural fluid has increased significantly since the prior study with worsening depend ent atelectasis at the right lung. Small amount of left pleural fluid is unchanged with adjacent atelectasis. Calcified granulomata and dystrophic calcifications of the chest and abdomen are consistent with heal ed granulomatous disease. No solid lung mass apparent. Old fractures of the right clavicle in the ribs again demonstrated. Sclerotic lesions of the right ri bs are unchanged in appearance. Partial compression of the T1 vertebral body and vertebroplasty cement at T7 and T8 are similar in ap pearance to prior study. Prominent degenerative changes evident throughout the thoracic spine. Postoperative changes mediastinum evident. Prominent arterial calcification. Aortic stent in place. Within the partially visualized upper abdomen, the subtle low-density lesion within the left liver lo be is not well evaluated without contrast. IMPRESSION : Worsening dyspnea is likely related to an enlarging right pleural effusion. Very small left pleural e ffusion is stable. Chronic-type findings are stable.
--- NOTE | 2020-04-26 15:16 | HP ---
PRIMARY CARE PHYSICIAN: Sony Gomes MD HYDROMETEOROLOGICAL TECHNICIAN: Dr. Payne. CHIEF COMPLAINT: Weakness, shortness of breath. HISTORY OF PRESENT ILLNESS: Ms. Mathews is a very pleasant 84-year-old female, who reported to the emergency room today for a chief complaint of generalized weakness. She reports that she has had multiple hospitalizations over the last two months. Two hospitalizations ago, she was found to have a staph infection and bacteremia. A PICC line was placed and she has been receiving Kefzol 2 g b.i.d. and according to the patient, she is supposed to continue this until the end of the month. She did a short stent in the rehab after this last admission. Reports that she got home at the beginning of April. Saw Dr. Gomes after the rehab after she was sent home and reports since has been doing relatively well over the last couple of weeks. She reports that home health comes and checks on her during the week and that her helps with the IV antibiotic administration. She does have a past medical history pertinent for congestive heart failure, coronary artery disease, had cardiac stents x1, hyperlipidemia, osteoarthritis, rheumatoid arthritis. Has Raynaud's and Sjogren's syndrome. She was worked up in the emergency room today, was found to be initially hypoxic. She initially had elevated D-dimer and elevated troponin as well as BNP of 4173, which is elevated from her baseline. She also has a little hypokalemia with a potassium of 3.4, and her BUN and creatinine at 40/2.41 is about at baseline for this patient. White blood cell count is 9.2, hemoglobin 8.9, hematocrit is 28.2. Chest x-ray showed vascular congestion consistent with acute exacerbation of CHF. She was given 60 mg of Lasix after the ER ASSISTANT CLINICAL NURSE MANAGER talked to her fire control technician g. She was tested for COVID and the flu, which were all negative. She has had about 300 mL of urinary output after the Lasix and on exam she said that she felt a little bit better but noted that her weakness and shortness of breath was exacerbated by any sort of exercise or exertion. She had an echo done in March of this year to assess the AV vegetation and she has a TAVR with moderate perivalvular regurgitation and an EF of 60%. She is going to be admitted for further management. ALLERGIES: CODEINE. CURRENT MEDICATIONS: She gets: 1. Prednisone 5 mg half a tab daily. 2. Duloxetine 60 mg daily. 3. Vitamin D3 1000 international units once a day. 4. Folic acid 1 mg once a day. 5. Pregabalin 50 mg once a day. 6. B12 3000 units once a day. 7. Vitamin C 1000 mg p.o. once a day. 8. Zetia 10 mg once a day. 9. Hydroxychloroquine one tab in the morning. 10. Kefzol 2 g b.i.d. 11. Atorvastatin 40 mg at bedtime. 12. Aspirin 81 mg at bedtime. 13. Florastor 250 mg at bedtime. 14. Tylenol 500 mg q.6 hours as needed. 15. B complex 1000 mg. 16. She does get the hydrochloroquine b.i.d. REVIEW OF SYSTEMS: The patient reports shortness of breath and cough. Denies any fever. Does report generalized weakness. Denies any back pain, fall, injury. Denies any nasal congestion. All systems are reviewed and are negative unless mentioned above or in HPI. PHYSICAL EXAMINATION: VITAL SIGNS: Blood pressure 160/98, pulse is 82, respiratory rate is 20, temperature is 98.5, pO2 sats are 100% on 2 L. CONSTITUTIONAL: The patient is alert and oriented to person, place, and time. Gives good history. She is nontoxic appearing. HEENT: Head is atraumatic and normocephalic. Eyes, pupils are equally round and reactive. Eyelids are normal to inspection. ENT; mouth exam is normal. Mucous membranes are dry NECK: Trachea is midline. RESPIRATORY: She has some scant wheezing in the left lower lobe. Bilateral diminished breath sounds in lower lobes, CARDIOVASCULAR: Regular rate and rhythm. Heart sounds are normal. ABDOMEN: Nontender. Bowel sounds are heard. BACK: Normal range of motion upper extremity. Normal range of motion. She has a PICC line to the left upper arm. Lower extremity, normal range of motion. Pedal pulses are normal. She does have some rios black discoloration to the left great toe and 2nd toe on the left foot at the most distal part of the toe. NEURO: She is oriented to person, place, and time. Generalized weakness to bilateral upper and lower extremities. SKIN: Warm and dry. Normal in color. PLAN/ASSESSMENT: 1. Dyspnea with TORIBIO. 60 mg of Lasix was given in the ER. We have asked Dr. Payne to consult. As her GFR is 19, we will have to be judicious about the Lasix. We will appreciate Dr. Payne's recommendations. A Chest CT w/o contrast has been ordered to evaluate the findings on the CXR to further delineate the reasons for her dyspnea. She appears clinically dry and not consistent with CHF exacerbation. 2. History of rheumatoid arthritis. We will continue her hydrochloroquine and prednisone. 3. History of hypertension. We will restart her home medications. 4. History of coronary artery disease. We will restart her home medications. An echo was recently done within the last 6 months, findings in the HPI. 5. Chronic kidney disease, this appears stable. We will ask Dr. Payne for his recommendations. 6. Deep vein thrombosis prophylaxis with SCDs and heparin 5000 units t.i.d. PUD prevention with Pepcid 20 mg p.o. b.i.d. 7. Hospital course dependent on clinical findings. Case discussed Dr. Strickland, agrees with the plan. Job ID: [id number] [facility]
[2020-04-26 15:52] LABS: Troponin I 0.074 ng/mL (< 0.028)
[2020-04-26 16:23] LABS: Bilirubin Negative (Negative); Blood, Urine 2+ (Negative); Clarity Turbid (Clear); Glucose, Urine (Dipstick) Normal (Negative); Ketone, Urine Negative (Negative); Leukocyte 500 Leu/uL (Negative); Nitrite Negative (Negative); Protein, Urine (Dipstick) 20 mg/dL (Neg-Trace); Specific Gravity, Urine 1.007 (1.002-1.036); Squamous Epithelial 0-3 HPF (0-3); Urobilinogen Normal mg/dL (Less than 2); WBC/HPF Greater than 50 HPF (0-3); pH, Urine 5.5 (5.0-9.0)
[2020-04-26] MEDS: Heparin 5,000 UNITS/ML VIAL SC SCH ×2 (16:23→21:20)
[2020-04-26 16:24] LABS: Bacteria/HPF Rare-Few HPF (None Seen)
[2020-04-26] MEDS ORDERED: cloNIDine 0.1 MG TAB PO PRN (17:35)
--- NOTE | 2020-04-26 19:41 | CON ---
DATE OF CONSULTATION: CONSULTING PHYSICIAN: Kerry Jurado MD REQUESTING PHYSICIAN: ER physician. REASON FOR CONSULTATION: Kidney failure and respiratory distress. IMPRESSION: 1. Advanced chronic kidney disease stage 4. This is likely in the context of cardiorenal syndrome. 2. Respiratory distress. This is mainly due to cardiac decompensation compounded by right pleural effusion. Numbness history because of kidney decompensation. 3. Right pleural effusion worsening, likely related to compromise cardiac functionality. 4. Anemia, query cause may be related to iron deficiency and that of anemia of chronic kidney disease. PLAN: 1. The patient has received diuretics with moderate response. I do believe that the patient optimizes additionally cardiac status. We will start this patient . We will recommend cautious use of diuretics. 2. We will defer to Cardiology in terms of the management of the cardiac function of this patient as well as the decision as it relates to right pleural effusion whether it needs to be tapped or not. 3. Renally dose all medications and avoid potentially nephrotoxic agents. 4. Further management to be dependent on the clinical course, but no clear indication for renal replacement therapy at this point. 5. Iron studies. HISTORY OF PRESENT ILLNESS: Is that of 84-year-old female patient who was recently hospitalized here with bradycardia, hemodynamic instability, and [id number] kidney disease deemed to be related to prerenal state in slight intravascular depletion for which the patient responded well to intravascular repletion, went home, and came back now with worsening shortness of breath and weakness. Noted with BNP of over 4000. As a result of these findings, decision has been taken to involve Renal in the management of this case. PAST MEDICAL HISTORY: Significant for chronic kidney disease, hypertension, dyslipidemia. MEDICATIONS: Reviewed and as documented on [employer]. FAMILY HISTORY: Nonsignificantly related to present illness. SOCIAL HISTORY: No alcohol. No tobacco. No illicit drug use. REVIEW OF SYSTEMS: As documented in the body of the history. All other systems were reviewed and found not to be significantly related to presenting illness. PHYSICAL EXAMINATION: GENERAL: The patient was found to be ill looking, noted with the following vital signs. VITAL SIGNS: Afebrile, temperature 97.9, pulse 84, respiratory rate of 19, O2 saturation 100%, blood pressure 167/76. HEENT: Remarkable for dry oral mucosa. No conjunctival injection. No icterus. NECK: Supple. CARDIOVASCULAR SYSTEM: First and second heart sounds were heard. RESPIRATORY SYSTEM: Clear to auscultation. DIGESTIVE SYSTEM: Revealed a benign abdomen. Positive bowel sounds. EXTREMITIES: No peripheral edema. SKIN: No new gross rash. LYMPHATICS: No peripheral lymphadenopathy. SUMMARY: An 84-year-old female patient with advanced chronic kidney disease, presented here with worsening shortness of breath, query cause possibly related to cardiac decompensation. Job ID: [id number]
[2020-04-26 21:09] LABS: Troponin I 0.061 ng/mL (< 0.028)
[2020-04-26] MEDS: Hydroxychloroquine Sulfate 200 MG TAB PO SCH (21:19)
[2020-04-26] MEDS: CEFAZOLIN 2 GM in Premix Bag 1 BAG IVPB SCH (21:19)
[2020-04-26] MEDS: Famotidine 20 MG TAB PO SCH (21:19)
[2020-04-26] MEDS: Atorvastatin Calcium 40 MG TAB PO SCH (21:19)
[2020-04-26] MEDS: Carvedilol 3.125 MG TAB PO SCH (21:20)
[2020-04-27 05:30] LABS: #Lymphocytes 0.4 thou/uL (1.20-3.40); #Monocytes 0.4 thou/uL (0.11-0.59); #Neutrophils 5.3 thou/uL (1.40-6.50); %Eosinophils 0.4 % (0.0-10.0); %Lymphocytes 6.6 % (21.0-51.0); %Monocytes 7.1 % (0.0-10.0); %Neutrophils 85.9 % (42.0-75.0); Hemoglobin 8.5 g/dL (12.0-16.0); Mean Corpuscular HGB CONC 31.8 g/dL (32.0-36.0); Mean Corpuscular Hemoglobin 32.6 pg (27.0-31.0); Mean Platelet Volume 10.2 fL (7.4-10.4); Platelet Count 69 thou/uL (130-400); White Blood Cell (WBC) Count 6.2 thou/uL (4.8-10.8)
[2020-04-27 05:42] LABS: Albumin 2.6 g/dL (3.4-4.8); Anion Gap 17 mmol/L (10-20); BUN (Urea Nitrogen) 47 mg/dL (9.8-20.1); BUN/Creatinine Ratio 19.58; Calc. Creatinine Clearance 16 mL/min (70-130); Calcium 8.4 mg/dL (7.8-10.44); Carbon Dioxide 22 mmol/L (23-31); Chloride 107 mmol/L (98-107); Glucose 83 mg/dL (83-110); Iron 39 ug/dL (50-170); Iron Binding Capacity, Total 170 mcg/dL (265-497); Phosphorus 4.6 mg/dL (2.3-4.7); Potassium 3.5 mmol/L (3.5-5.1); Sodium 142 mmol/L (136-145)
[2020-04-27] MEDS: Pregabalin 50 MG CAP PO SCH (08:52)
[2020-04-27] MEDS: DULoxetine 60 MG CAP PO SCH (08:52)
[2020-04-27] MEDS: Ezetimibe 10 MG TAB PO SCH (08:52)
[2020-04-27] MEDS: CEFAZOLIN 2 GM in Premix Bag 1 BAG IVPB SCH ×2 (08:52→20:03)
[2020-04-27] MEDS: Carvedilol 3.125 MG TAB PO SCH ×2 (08:52→20:03)
[2020-04-27] MEDS: Heparin 5,000 UNITS/ML VIAL SC SCH ×3 (08:54→20:03)
[2020-04-27] MEDS ORDERED: cloNIDine 0.1 MG TAB PO PRN (11:34)
[2020-04-27] MEDS: Hydroxychloroquine Sulfate 200 MG TAB PO SCH ×2 (11:40→20:04)
[2020-04-27] MEDS: Rifampin 300 MG CAP PO SCH ×2 (11:40→21:37)
--- NOTE | 2020-04-27 17:33 | CON ---
DATE OF CONSULTATION: 04/27/2020 REASON FOR CONSULTATION: Weakness, pleural effusion, endocarditis. HISTORY OF PRESENT ILLNESS: An 84-year-old whom I last saw on March 17 when she presented with a history of atrial fibrillation, coronary artery disease bypass graft surgery and bioprosthetic aortic valve replacement as well as rheumatoid arthritis, initially identified a bioprosthetic aortic stenosis, referred then to [facility] and had a TAVR in August of this year. In September, she developed anemia and GI bleed. She was treated. After that, she did well until 2 weeks before March 17 when she developed weakness and fall related to weakness and general malaise without chills or fever documented. To make a long story short, the patient had identified Staphylococcus aureus bacteremia. A CHAU was not diagnostic because of severe calcification of the valve and artifact making the interpretation difficult. We decided to treat assuming TAVR infection with 3-drug regimen including oxacillin, aminoglycoside, and rifampin. She developed renal insufficiency with a creatinine going up from 1.0 to peak of 3.89 and then 3.97 on March 30. Mag oxide was discontinued. Eventually, she was transferred to rehab and then home. Her creatinine continues to improve and is down to 2.4 and she had been continuing on cefazolin adjusted for renal function plus rifampin orally. The end date of therapy for the treatment of endocarditis would be at the end of this month. The patient was having physical therapy at home and was feeling weak in general, particularly when she stood up and tried to walk. She was able to walk around the house twice, but not 3 times, became short of breath and then on the day of the readmission, she was trying to go to the restroom and lost her leg strength and dropped to the floor and her could not lift her and they called EMS. She was brought here. She arrived on April 26. She was having some weakness and also had some dyspnea. Initial findings; BP 150/95, heart rate 88, respiratory rate 18, O2 saturation 82% on room air, 95% on 2 L nasal cannula O2 supplementation. She appears tachypneic, alert, and oriented. There is diminished breath sounds at the bases and some wheezing, left side. S1, S2 with a soft systolic ejection murmur at the aortic area. PICC line in the left upper extremity, discoloration of the toes as noted previously. Initial findings included also sodium 143, creatinine 2.41, and calcium 8.7. Liver profile normal. Troponin 0.073. BNP 4173. Albumin 2.8. Urinalysis greater than 50 wbc's and protein of 20. SARS-CoV-2 RT PCR negative. Two sets of blood cultures pending at this time. She had a CT of chest, which showed bilateral pleural effusions, right greater than left. Her last echocardiogram is from March 20 and it showed EF 55% to 60%, moderately dilated left atrium, mitral annular calcification, moderate mitral regurg, TVR with moderate perivalvular regurgitation. Currently, Ms. Mathews is in the room and in tele unit. She is awake and able to give us information accurately. Speech is unimpeded. She has no trouble finding words and is able to speak in full sentences. Denies any headaches. Mild dyspnea. No chest pain no abdominal pain. She has a wick to draw her urine. She is little bit constipated. No vomiting, hematemesis, or melena and no joint symptoms. No neurological symptoms. PAST MEDICAL HISTORY: Coronary artery disease, atrial fibrillation, bypass graft surgery, aortic valve replacement x2, last one was a TAVR in August 2019 in [place]. Peripheral vascular disease, rheumatoid arthritis, Sjogren syndrome and Raynaud's. PAST SURGICAL HISTORY: As above and rectal prolapse surgery, Watchman procedure, tonsillectomy. FAMILY HISTORY: Noncontributory. SOCIAL HISTORY: Never smoker. Lives in [place] with spouse. MEDICATION LIST: At the moment, she is receivin. Tylenol. 2. Lipitor. 3. Coreg. 4. Cefazolin. 5. Catapres. 6. Cymbalta. 7. Zetia. 8. Pepcid. 9. Heparin. 10. Plaquenil. 11. Rifampin. 12. Senokot. FAMILY HISTORY: Noncontributory. PHYSICAL EXAMINATION: VITAL SIGNS: T-max 98.4, BP 140/67, saturating 98% on 2 L nasal cannula, heart rate 64, respiratory rate 16. SKIN: Shows the necrotic tips of the left 1st and 2nd toes as previously noted. The PICC line in the left upper extremity does not have a Fitzpatrick catheter. NECK: No lymphadenopathy. HEENT: Ocular movements conjugate. Sclerae white. Pupils are equal. Oral cavity, quite a few teeth in place with enamel discoloration, dryness. Oral cavity is dry. No some jugular vein distention or maybe some jugular vein distention. LUNGS: With diminished breath sounds at bases, particularly on the right side with inspiratory crackles there. HEART: S1, S2 with a harsh systolic murmur 2 to 3/6 aortic area. No S3, no S4. ABDOMEN: Soft. Not distended or tender. No ascites. No bladder distention. No joint inflammatory activity. Pulses are 1+ in dorsalis pedis, 1+ edema. NEUROLOGIC: Awake. Moves extremities. Speech is somewhat altered, not the content of it, but the enunciation of the words. She has kind of a soft enunciation, misses some consonants and so once I did not know exactly what the reason for that is. LABORATORY DATA: The latest lab results; white cell count 6.2, hemoglobin 8.5, MCV 102, platelets 69,000. She always has been thrombocytopenic. Creatinine is down to 2.40 and BNP is markedly elevated. IMAGING STUDIES: Have been discussed. ASSESSMENT: 1. Atrial fibrillation, ischemic cardiomyopathy, aortic valve stenosis with replacement and then transcatheter aortic valve replacement on top of the replacement because of stenosis. 2. 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 3. Pleural effusion and evidence of congestive heart failure, which has led to the patient's symptoms that prompted admission with a large pleural effusion. DISCUSSION: The management could include diuresis as well as thoracentesis. She does have anemia, which looks like multifactorial. Anemia workup would be recommended. Resume Ancef and rifampin. The end date of therapy is May 04. Followup the blood cultures. Most likely, the effusion will be a transudate, although sometimes in CHF after a few days the protein content of the fusion may increase. She did have a paravalvular leak on CHAU last time and complications related to the TAVR/endocarditis are a concern, as least a transthoracic echocardiogram would be necessary to repeat. Job ID: [id number] MTDD
[2020-04-27] MEDS: Famotidine 20 MG TAB PO SCH (20:02)
[2020-04-27] MEDS: Atorvastatin Calcium 40 MG TAB PO SCH (20:03)
--- NOTE | 2020-04-27 20:54 | PDOC.HOSPP ---
- Subjective Encounter Date: 04/27/20 Encounter Time: 11:00 Subjective: Patient seen and examined for shortness of breath/volume overload. Shortness of breath almost the same. No fever or chills reported. Denies any chest pain or palpitations. - Objective Vital Signs & Weight: Vital Signs (12 hours) Temp Pulse Resp BP BP BP Pulse Ox 04/27/20 20:04 98.2 F 63 18 114/59 L 93 L 04/27/20 16:06 98 F 73 16 136/72 99 04/27/20 13:16 145/67 H 132/60 04/27/20 11:42 64 16 113/76 98 Weight Admit Weight 131 lb 4.8 oz Weight 128 lb 14.4 oz I&O: 04/26/20 04/27/20 04/28/20 06:59 06:59 06:59 Intake Total 450 Output Total 700 600 Balance -250 -600 Result Diagrams: 04/27/20 04:23 04/27/20 04:23 Additional Labs: Abnormal Lab Results - Last 48 hrs 04/26/20 09:59: RBC 2.75 L, Hgb 8.9 L, Hct 28.2 L, MCV 103.0 H, MCH 32.5 H, MCHC 31.7 L, RDW 17.2 H, Plt Count 74 L, Neutrophils % 83.6 H, Lymphocytes % 6.8 L, Neutrophils # 7.7 H, Lymphocytes # 0.6 L, Monocytes # 0.8 H 04/26/20 09:59: Potassium 3.4 L, Chloride 109 H, Carbon Dioxide 19 L, BUN 40 H, Creatinine 2.41 H, ALT Less than 7 L, Albumin 2.8 L, Globulin 4.0 H, Albumin/Globulin Ratio 0.7 L 04/26/20 09:59: Troponin I 0.073 H 04/26/20 09:59: B-Natriuretic Peptide 4173.7 H 04/26/20 09:59: PT 15.8 H, D-Dimer 1.92 H 04/26/20 14:17: Troponin I 0.061 H 04/26/20 15:13: Troponin I 0.074 H 04/26/20 15:36: Urine Clarity Turbid A, Urine Blood 2+ A, Ur Leukocyte Esterase 500 A, Urine RBC 4-6 A, Urine WBC Greater than 50 A 04/27/20 04:23: RBC 2.60 L, Hgb 8.5 L, Hct 26.6 L, MCV 102.0 H, MCH 32.6 H, MCHC 31.8 L, RDW 17.0 H, Plt Count 69 L, Neutrophils % 85.9 H, Lymphocytes % 6.6 L, Lymphocytes # 0.4 L 04/27/20 04:23: Carbon Dioxide 22 L, BUN 47 H, Creatinine 2.40 H, Iron 39 L, TIBC 170 L, Albumin 2.6 L 04/27/20 04:23: Ferritin 674.00 H Microbiology - Entire Visit 04/26/20 10:08 Venous blood - Right Arm Blood Culture - Preliminary Specimen has been received and culture in progress. No Growth to date. 04/26/20 09:44 Venous blood - Left Arm Blood Culture - Preliminary Specimen has been received and culture in progress. No Growth to date. Radiology Reviewed by me: Yes (Right-sided pleural effusion) EKG Reviewed by me: Yes (Sinus rhythm on telemetry) Hospitalist ROS - Review of Systems Cardiovascular: reports: orthopnea. denies: chest pain, palpitations, paroxysmal noc. dyspnea, edema, light headedness, other Gastrointestinal: denies: nausea, vomiting, abdominal pain, diarrhea, constipation, melena, hematochezia, other - Medication Medications: Active Medications Generic Name Dose Route Start Last Admin Trade Name Freq PRN Reason Stop Dose Admin Atorvastatin Calcium 80 mg 04/26/20 21:00 04/27/20 20:03 Atorvastatin Calcium 40 Mg Tab PO 80 mg HS JUDY Administration Carvedilol 3.125 mg 04/26/20 21:00 04/27/20 20:03 Carvedilol 3.125 Mg Tab PO 3.125 mg BID JUDY Administration Duloxetine HCl 60 mg 04/27/20 09:00 04/27/20 08:52 Duloxetine 60 Mg Cap PO 60 mg DAILY JUDY Administration Ezetimibe 10 mg 04/27/20 09:00 04/27/20 08:52 Ezetimibe 10 Mg Tab PO 10 mg DAILY JUDY Administration Famotidine 20 mg 04/26/20 21:00 04/27/20 20:02 Famotidine 20 Mg Tab PO 20 mg QPM JUDY Administration Heparin Sodium (Porcine) 5,000 units 04/26/20 15:00 04/27/20 20:03 Heparin 5,000 Units/Ml Vial SC Not Given TID JUDY Hydroxychloroquine Sulfate 200 mg 04/26/20 21:00 04/27/20 20:04 Hydroxychloroquine Sulfate 200 Mg Tab PO 200 mg BID JUDY Administration Cefazolin Sodium/Dextrose 2 gm 50 mls @ 100 mls/hr 04/27/20 21:00 04/27/20 20:03 / Device IVPB 50 mls Q12HR JUDY Administration Pregabalin 50 mg 04/27/20 09:00 04/27/20 08:52 Pregabalin 50 Mg Cap PO 50 mg DAILY JUDY Administration Rifampin 300 mg 04/27/20 10:00 04/27/20 11:40 Rifampin 300 Mg Cap PO 300 mg 1000,2200 JUDY Administration Sodium Chloride 10 ml 04/26/20 13:05 04/26/20 21:20 Flush - Normal Saline 10 Ml Syringe IVF 10 ml PRN PRN Administration Saline Flush - Exam General Appearance: ill appearing Neck: supple, symmetric Heart: RRR, no gallops Respiratory: no wheezes, no rales, rhonchi Respiratory - other findings: Decreased air entry at right base Gastrointestinal: soft, normal bowel sounds, no guarding, no rigidity Extremities: no cyanosis Neurological: no new deficit Hosp A/P - Plan DVT proph w/SCDs Shortness of breath with right-sided pleural effusion Generalized weakness due to above History of TAVR with moderate perivalvular regurgitation Moderate to severe tricuspid regurgitation Moderate mitral regurgitation MSSA endocarditis on antibiotic till the end of this month CKD stage IV History of rheumatoid arthritis Hypertension Coronary artery disease Thrombocytopenia Macrocytosis with normal vitamin B12 and folic acid earlier this year Plan: Case discussed with infectious disease. Consult pulmonary in a.m. for possible thoracentesis. Continue Ancef with rifampin until May 04. Gentle diuretic s per nephrology hold heparin due to thrombocytopenia continue carvedilol, Plaquenil, Lyrica and other medications as above. Recheck labs in a.m. Repeat chest x-ray in a.m. Resume selected home medications
[2020-04-27] MEDS: Gabapentin 300 MG CAP PO SCH (21:36)
[2020-04-28 04:33] LABS: #Lymphocytes 0.2 thou/uL (1.20-3.40); #Monocytes 0.1 thou/uL (0.11-0.59); #Neutrophils 2.2 thou/uL (1.40-6.50); %Eosinophils 0.4 % (0.0-10.0); %Lymphocytes 5.8 % (21.0-51.0); %Monocytes 5.3 % (0.0-10.0); %Neutrophils 88.5 % (42.0-75.0); Hemoglobin 9.4 g/dL (12.0-16.0); Mean Corpuscular HGB CONC 31.5 g/dL (32.0-36.0); Mean Corpuscular Hemoglobin 32.3 pg (27.0-31.0); Platelet Count 68 thou/uL (130-400); RBC Distribution Width 17.5 % (11.5-14.5); White Blood Cell (WBC) Count 2.5 thou/uL (4.8-10.8)
[2020-04-28 04:59] LABS: Phosphorus 3.6 mg/dL (2.3-4.7)
[2020-04-28 05:00] LABS: Albumin 2.6 g/dL (3.4-4.8); Anion Gap 17 mmol/L (10-20); BUN (Urea Nitrogen) 51 mg/dL (9.8-20.1); BUN/Creatinine Ratio 21.34; Calc. Creatinine Clearance 16 mL/min (70-130); Calcium 8.2 mg/dL (7.8-10.44); Carbon Dioxide 20 mmol/L (23-31); Chloride 105 mmol/L (98-107); Glucose 75 mg/dL (83-110); Magnesium 1.7 mg/dL (1.6-2.6); Phosphorus 3.6 mg/dL (2.3-4.7); Potassium 3.1 mmol/L (3.5-5.1); Sodium 139 mmol/L (136-145)
[2020-04-28] MEDS ORDERED: Potassium Chloride 20 MEQ TAB PO SCH (08:15)
[2020-04-28] MEDS ORDERED: Magnesium Sulfate 4 GM in Sodium Chloride 0.9% 250 ML 250 ML IVPB SCH (08:15)
--- NOTE | 2020-04-28 08:42 | RAD ---
EXAM: Chest PA and lateral: HISTORY: Shortness of breath. Pleural effusion. COMPARISON: 03/17/2020, 04/26/2020 FINDINGS: Lines and tubes: Left PICC line terminates in the region of the superior vena cava. Heart: Regular megaly. Stable stent and median sternotomy changes. Aorta: Stable atherosclerosis. Pulmonary vessels: Normal Costophrenic angles: Trace left and moderate right pleural effusion. Lungs: Bilateral lower lobe consolidation due to atelectasis. Pneumonia and/or aspiration cannot be e xcluded. There is hyperinflation. Pneumothorax: No pneumothorax Osseous structures: No osseous abnormalities IMPRESSION: 1. Persistent congestive heart failure. No significant interval change.
[2020-04-28] MEDS: Hydroxychloroquine Sulfate 200 MG TAB PO SCH (08:47)
[2020-04-28] MEDS: Folic Acid 1 MG TAB PO SCH (08:47)
[2020-04-28] MEDS: Cyanocobalamin (Vitamin B-12) 1,000 MCG TAB PO SCH (08:48)
[2020-04-28] MEDS: DULoxetine 60 MG CAP PO SCH (08:52)
[2020-04-28] MEDS: Aspirin 81 mg Enteric Coated Tablet PO SCH (08:52)
[2020-04-28] MEDS: Polyethylene Glycol 3350 17 GM Packet PO SCH (08:53)
[2020-04-28] MEDS: Carvedilol 3.125 MG TAB PO SCH ×2 (08:53→20:22)
[2020-04-28] MEDS: predniSONE 5 MG TAB PO SCH (08:53)
[2020-04-28] MEDS: Pregabalin 50 MG CAP PO SCH (08:53)
[2020-04-28] MEDS: Ezetimibe 10 MG TAB PO SCH (08:53)
[2020-04-28] MEDS: Rifampin 300 MG CAP PO SCH ×2 (08:53→21:00)
[2020-04-28] MEDS: Saccharomyces boulardii 250 MG CAP PO SCH (08:53)
[2020-04-28] MEDS: Potassium Chloride 10 MEQ TAB PO SCH (08:54)
[2020-04-28] MEDS: CEFAZOLIN 2 GM in Premix Bag 1 BAG IVPB SCH ×2 (08:54→20:22)
--- NOTE | 2020-04-28 10:02 | CON ---
DATE OF CONSULTATION: HISTORY: Patient is an 84-year-old woman who was admitted with weakness and was noted to have a rapid heart rate. The patient has a long history of coronary artery disease. She is status post coronary artery bypass graft surgery and has a history of aortic stenosis. The patient in August of this year underwent a followup cardiac catheterization. She was found to have severe 3-vessel coronary artery disease. There were 2 patent grafts; one to the GÓMEZ and to third obtuse marginal branch. The second obtuse marginal branch was occluded. The patient subsequently underwent placement of a TAVR. She also has a history of atrial fibrillation and has had a Watchman device. The patient has known severe peripheral vascular disease. She was in rehab when had a syncopal episode approximately a month ago. The patient reports having occasional palpitations. She presented to the emergency room with increasing weakness and dyspnea. The patient denies having any chest discomfort. PAST MEDICAL HISTORY: 1. Coronary artery disease. 2. Hypertension. 3. Dyslipidemia. 4. History of aortic stenosis. 5. Rheumatoid arthritis. 6. Chronic renal insufficiency. 7. Dyslipidemia. PAST SURGICAL HISTORY: Coronary artery bypass graft surgery, history of rectal prolapse surgery. SOCIAL HISTORY: Nonsmoker. FAMILY HISTORY: Positive family history of heart disease. MEDICATIONS: 1. Lipitor 80 at bedtime. 2. MiraLAX 17 g daily. 3. Aspirin 81 daily. 4. Gabapentin 300 at bedtime. 5. Protonix 40 daily. 6. Spironolactone 25 daily. 7. Hydroxychloroquine 200 b.i.d. 8. Prednisone 0.5 daily. 9. Lyrica 50 at bedtime. 10. KCl 20 daily. 11. Zetia 10 daily. 12. Cymbalta 60 daily. 13. Coreg 3.125 b.i.d. 14. Rifampin 300 b.i.d. ALLERGIES: CODEINE, MORPHINE. FAMILY HISTORY: Positive family history of heart disease. REVIEW OF SYSTEMS: 10-point system noticing for increasing weakness. PHYSICAL EXAMINATION: GENERAL: Well-developed woman, in no acute distress. VITAL SIGNS: Blood pressure 116/58. NECK: No jugular venous distention. LUNGS: Clear to auscultation. HEART: Regular rate and rhythm. Normal S1, S2 with a 2/6 systolic murmur. ABDOMEN: Nondistended. VASCULAR: Radial pulses are 2+. LABORATORY DATA: Sodium 139, potassium 3.1, chloride 105, bicarbonate 20, BUN 51, creatinine 2.39. White blood cell count is 2.5, hemoglobin 9.4, hematocrit 29.8, platelets were 68. EKG revealed her to have normal sinus rhythm, first-degree AV block with a nonspecific interventricular conduction and very prolonged QT interval. Telemetry monitoring revealed torsades de pointes. IMPRESSION: 1. Torsades de pointes. 2. History of TAVR. 3. History of coronary artery bypass surgery. 4. Peripheral vascular disease. 5. History of syncope. 6. Hypertension. 7. Dyslipidemia. This patient developed torsades. Her QT interval is markedly prolonged. The patient most recently had a catheterization, which revealed no evidence of significant ischemia. The QT prolongation is most likely due to her medications. I would discontinue the patient's hydroxychloroquine. The patient being treated with magnesium and potassium supplementation. We will follow this patient with you through her hospitalization in my office. Job ID: [id number] [facility]
[2020-04-28] MEDS ORDERED: Sodium Chloride 0.9% 500 ML IV SCH (12:15)
--- NOTE | 2020-04-28 15:08 | PDOC.HOSPP ---
- Subjective Encounter Date: 04/28/20 Encounter Time: 13:00 Subjective: Patient seen and examined for shortness of breath with pleural effusion. Developed short runs of ventricular arrhythmia this morning. Denies any chest pain or shortness of breath. - Objective Vital Signs & Weight: Vital Signs (12 hours) Temp Pulse Resp BP Pulse Ox 04/28/20 12:00 97.7 F 51 L 18 92/51 L 95 04/28/20 07:11 97.7 F 53 L 18 116/58 L 97 04/28/20 04:25 97.7 F 61 16 137/65 96 Weight Admit Weight 131 lb 4.8 oz Weight 129 lb 8 oz I&O: 04/27/20 04/28/20 04/29/20 06:59 06:59 06:59 Intake Total 450 530 Output Total 700 1300 Balance -250 -770 Result Diagrams: 04/28/20 04:21 04/28/20 04:21 EKG Reviewed by me: Yes (Sinus rhythm/torsade earlier on telemetry) Hospitalist ROS - Review of Systems Cardiovascular: denies: chest pain, palpitations, orthopnea, paroxysmal noc. dyspnea, edema, light headedness, other Gastrointestinal: denies: nausea, vomiting, abdominal pain, diarrhea, constipation, melena, hematochezia, other - Medication Medications: Active Medications Generic Name Dose Route Start Last Admin Trade Name Garrickq PRN Reason Stop Dose Admin Aspirin 81 mg 04/28/20 09:00 04/28/20 08:52 Aspirin 81 Mg Enteric Coated Tablet PO 81 mg DAILY JUDY Administration Atorvastatin Calcium 80 mg 04/26/20 21:00 04/27/20 20:03 Atorvastatin Calcium 40 Mg Tab PO 80 mg HS JUDY Administration Carvedilol 3.125 mg 04/26/20 21:00 04/28/20 08:53 Carvedilol 3.125 Mg Tab PO 3.125 mg BID JUDY Administration Cyanocobalamin 2,500 mcg 04/28/20 09:00 04/28/20 08:48 Cyanocobalamin (Vitamin B-12) 1,000 Mcg Tab PO 2,500 mcg DAILY JUDY Administration Duloxetine HCl 60 mg 04/27/20 09:00 04/28/20 08:52 Duloxetine 60 Mg Cap PO 60 mg DAILY JUDY Administration Ezetimibe 10 mg 04/27/20 09:00 04/28/20 08:53 Ezetimibe 10 Mg Tab PO 10 mg DAILY JUDY Administration Folic Acid 1 mg 04/28/20 09:00 04/28/20 08:47 Folic Acid 1 Mg Tab PO 1 mg DAILY JUDY Administration Gabapentin 300 mg 04/27/20 21:00 04/27/20 21:36 Gabapentin 300 Mg Cap PO 300 mg HS JUDY Administration Heparin Sodium (Porcine) 5,000 units 04/26/20 15:00 04/27/20 20:03 Heparin 5,000 Units/Ml Vial SC Not Given TID JUDY Cefazolin Sodium/Dextrose 2 gm 50 mls @ 100 mls/hr 04/27/20 21:00 04/28/20 08:54 / Device IVPB 50 mls Q12HR JUDY Administration Pantoprazole Sodium 40 mg 04/28/20 09:00 04/28/20 08:53 Pantoprazole 40 Mg Tab PO 40 mg DAILY JUDY Administration Polyethylene Glycol 17 gm 04/28/20 09:00 04/28/20 08:53 Polyethylene Glycol 3350 17 Gm Packet PO 17 gm DAILY JUDY Administration Potassium Chloride 20 meq 04/28/20 09:00 04/28/20 08:54 Potassium Chloride 10 Meq Tab PO Not Given DAILY JUDY Prednisone 2.5 mg 04/28/20 09:00 04/28/20 08:53 Prednisone 5 Mg Tab PO 2.5 mg DAILY JUDY Administration Pregabalin 50 mg 04/27/20 09:00 04/28/20 08:53 Pregabalin 50 Mg Cap PO 50 mg DAILY JUDY Administration Rifampin 300 mg 04/27/20 10:00 04/28/20 08:53 Rifampin 300 Mg Cap PO 300 mg 1000,2200 JUDY Administration Saccharomyces Boulardii 250 mg 04/28/20 09:00 04/28/20 08:53 Saccharomyces Boulardii 250 Mg Cap PO 250 mg DAILY JUDY Administration Sodium Chloride 10 ml 04/26/20 13:05 04/26/20 21:20 Flush - Normal Saline 10 Ml Syringe IVF 10 ml PRN PRN Administration Saline Flush - Exam General Appearance: ill appearing Neck: supple, no JVD Heart: RRR, no gallops Respiratory: no wheezes, rhonchi Respiratory - other findings: Decreased air entry at bases Gastrointestinal: soft, non-tender, no guarding, no rigidity Extremities: no cyanosis Neurological: no new deficit Hosp A/P - Plan DVT proph w/SCDs Shortness of breath with right-sided pleural effusion Generalized weakness due to above Ventricular arrhythmia/torsade Hypomagnesemia/hypokalemia History of TAVR with moderate perivalvular regurgitation Moderate to severe tricuspid regurgitation Moderate mitral regurgitation MSSA endocarditis On Ancef with rifampin until May 04 per infectious disease CKD stage IV History of rheumatoid arthritis Hypertension Coronary artery disease Thrombocytopenia Macrocytosis with normal vitamin B12 and folic acid earlier this year Plan: Continue cefazolin with rifampin for endocarditis. Replace magnesium and potassium. Consult cardiology. Continue telemetry monitoring. Plaquenil discontinued due to tachyarrhythmia/QT prolongation. Recheck labs and EKG in a.m. No heparin or Lovenox due to thrombocytopenia. Continue carvedilol. Continue other medications as above. A.m. labs. Pulmonary consulted for pleural effusion. Continue other medications as above.
[2020-04-28] MEDS ORDERED: Electrolyte Replacement Protocol 1 EACH FS SCH (15:15)
--- NOTE | 2020-04-28 16:40 | CON ---
DATE OF CONSULTATION: 04/28/2020 HISTORY OF PRESENT ILLNESS: Ms. Mathews is a pleasant 84-year-old female with a history of valvular heart disease. She has had TAVR. She is felt to have had endocarditis, for which she is being treated. She is admitted with weakness after she fell and could not get out. She denies shortness of breath. I was consulted because of pleural effusions that are incidentally found on chest CT. PAST MEDICAL HISTORY: Remarkable for: 1. Atrial fibrillation. 2. History of coronary artery bypass grafting. 3. History of bioprosthetic aortic valve followed by TAVR. 4. History of rheumatoid arthritis, on Plaquenil. 5. History of GI bleed in the past. 6. Presumed endocarditis with recent bacteremia, currently being treated through a PICC line. FAMILY HISTORY: Negative for lung disease in early age. PAST SURGICAL HISTORY: Remarkable for rectal prolapse surgery, Watchman procedure, and tonsillectomy as well as TAVR, aortic valve replacement, coronary artery bypass grafting. REVIEW OF SYSTEMS: Ten points otherwise negative. Her only complaint is weakness at the time when I saw her today. PHYSICAL EXAMINATION: VITAL SIGNS: She is afebrile. Heart rates in the 50s. She did have a wide- complex tachycardia and her Plaquenil has been stopped. She had a prolonged QT interval. Respiratory rates in the teens, oximetry is 95% to 97% range on 2 L, blood pressure is 116/58. HEAD AND NECK: Unremarkable. LUNGS: Clear. HEART: Regular rhythm. S1 and S2 are normal. Has grade 2/6 systolic murmur. ABDOMEN: Soft and nontender. EXTREMITIES: Without clubbing, cyanosis, or edema. NEUROLOGIC: Grossly nonfocal. IMAGING STUDIES: Chest CT has been reviewed. Chest x-rays have been reviewed. X-rays going back through her hospitalizations in 2020 have all been reviewed. IMPRESSION: Chronic pleural effusions that slightly larger than the last radiographs. She is not febrile. Since this is an incidental finding on admission, I do not feel that she needs to be tapped at this time. I explained this to her and she seemed relieved. I will follow the other physicians. TIME SPENT: 50-minute consult, 50% of the time was spent on the unit coordinating care. Job ID: [id number] [facility]
[2020-04-28] MEDS: Calcium Carbonate 600 MG + Vit D TAB PO SCH (16:45)
--- NOTE | 2020-04-28 18:17 | EKG ---
Test Reason : ? Blood Pressure : / mmHG Vent. Rate : 062 BPM Atrial Rate : 062 BPM P-R Int : 272 ms QRS Dur : 130 ms QT Int : 618 ms P-R-T Axes : 089 -81 094 degrees QTc Int : 627 ms Sinus rhythm with sinus arrhythmia with 1st degree A-V block Left axis deviation Non-specific intra-ventricular conduction block T wave abnormality, consider anterior ischemia Abnormal ECG When compared with ECG of 26-APR-2020 09:59, (Unconfirmed) Premature atrial complexes are no longer Present Criteria for Septal infarct are no longer Present Inverted T waves have replaced nonspecific T wave abnormality in Anterior leads QT has lengthened Confirmed by DR. Deniz BLAKELY MD ([id number]) on 04/28/2020 6:17:15 PM Referred By: TALON Confirmed By:DR. Deniz BLAKELY MD
--- NOTE | 2020-04-28 18:54 | PRG ---
DATE OF SERVICE: 04/27/2020 SUBJECTIVE: The patient is noted with the following vital signs, seems to be feeling much better. OBJECTIVE: VITAL SIGNS: Afebrile. Temperature 97.4, pulse 79, respiratory rate of 18, O2 saturation of 95%, blood pressure 130/58. HEENT: Unremarkable. CARDIOVASCULAR SYSTEM: First and second heart sounds were heard. RESPIRATORY SYSTEM: Clear to auscultation. DIGESTIVE SYSTEM: Revealed a benign abdomen. Positive bowel sounds. EXTREMITIES: No peripheral edema. SKIN: No new gross rash. LYMPHATICS: No peripheral lymphadenopathy. LABORATORY INVESTIGATION: Showed a hemoglobin of 8.5 with a white count of 6.2 and platelet count of 69,000. Chemistry showed a creatinine of 2.4, BUN of 47. Ferritin of 774 with iron of 39, saturation 23%. IMPRESSION: 1. Advanced chronic kidney disease stage 4. 2. Anemia of chronic kidney disease. 3. Cardiac event with prolonged QT interval with possible torsades. 4. Advanced age. PLAN: 1. Continue current renal supportive measures. 2. Continue with cardiac stabilization as this will improve renal perfusion. 3. Further management to be dependent on the clinical course. Job ID: [id number]
[2020-04-28] MEDS: Gabapentin 300 MG CAP PO SCH (20:21)
[2020-04-28] MEDS: Atorvastatin Calcium 40 MG TAB PO SCH (20:22)
[2020-04-29 05:26] LABS: #Lymphocytes 0.5 thou/uL (1.20-3.40); #Monocytes 0.5 thou/uL (0.11-0.59); #Neutrophils 6.5 thou/uL (1.40-6.50); %Basophils 0.2 % (0.0-1.0); %Eosinophils 0.3 % (0.0-10.0); %Lymphocytes 7.1 % (21.0-51.0); %Neutrophils 85.5 % (42.0-75.0); Hemoglobin 9.1 g/dL (12.0-16.0); Mean Corpuscular HGB CONC 31.7 g/dL (32.0-36.0); Mean Corpuscular Hemoglobin 32.5 pg (27.0-31.0); Mean Platelet Volume 10.5 fL (7.4-10.4); Platelet Count 57 thou/uL (130-400); RBC Distribution Width 17.4 % (11.5-14.5); White Blood Cell (WBC) Count 7.6 thou/uL (4.8-10.8)
[2020-04-29 05:37] LABS: Albumin 2.6 g/dL (3.4-4.8); Anion Gap 17 mmol/L (10-20); BUN (Urea Nitrogen) 47 mg/dL (9.8-20.1); Calc. Creatinine Clearance 15 mL/min (70-130); Calcium 8.1 mg/dL (7.8-10.44); Carbon Dioxide 21 mmol/L (23-31); Chloride 107 mmol/L (98-107); Glucose 97 mg/dL (83-110); Phosphorus 2.6 mg/dL (2.3-4.7); Potassium 3.9 mmol/L (3.5-5.1); Sodium 141 mmol/L (136-145)
[2020-04-29] MEDS: Polyethylene Glycol 3350 17 GM Packet PO SCH (08:54)
[2020-04-29] MEDS: CEFAZOLIN 2 GM in Premix Bag 1 BAG IVPB SCH ×2 (08:54→21:09)
[2020-04-29] MEDS: predniSONE 5 MG TAB PO SCH (08:55)
[2020-04-29] MEDS: Rifampin 300 MG CAP PO SCH ×2 (08:55→21:08)
[2020-04-29] MEDS: Folic Acid 1 MG TAB PO SCH (08:55)
[2020-04-29] MEDS: Potassium Chloride 10 MEQ TAB PO SCH (08:55)
[2020-04-29] MEDS: DULoxetine 60 MG CAP PO SCH (08:55)
[2020-04-29] MEDS: Pregabalin 50 MG CAP PO SCH (08:55)
[2020-04-29] MEDS: Saccharomyces boulardii 250 MG CAP PO SCH (08:55)
[2020-04-29] MEDS: Calcium Carbonate 600 MG + Vit D TAB PO SCH ×2 (08:55→16:31)
[2020-04-29] MEDS: Aspirin 81 mg Enteric Coated Tablet PO SCH (08:56)
[2020-04-29] MEDS: Cyanocobalamin (Vitamin B-12) 1,000 MCG TAB PO SCH (08:56)
[2020-04-29] MEDS: Ezetimibe 10 MG TAB PO SCH (08:56)
[2020-04-29] MEDS: Carvedilol 3.125 MG TAB PO SCH ×2 (08:56→21:09)
[2020-04-29] MEDS ORDERED: EPOETIN ALFA-EPBX (ESRD) 10,000 UNIT/ML VIAL SC SCH ×2 (13:00→17:00)
--- NOTE | 2020-04-29 13:07 | PRG ---
DATE OF SERVICE: 04/29/2020 OBJECTIVE: VITAL SIGNS: The patient noted with the following vital signs: Afebrile, temperature 97.4, pulse 83, respiratory rate of 16, O2 saturation of 93% to 96% on 2 L nasal cannula with blood pressure of 130/58. HEENT EXAMINATION: Unremarkable. CARDIOVASCULAR SYSTEM: First and second sounds were heard. RESPIRATORY SYSTEM: Clear to auscultation. DIGESTIVE SYSTEM: Revealed a benign abdomen. Positive bowel sounds. EXTREMITIES: No peripheral edema. SKIN EXAMINATION: No new gross rash. LYMPHATICS: No peripheral lymphadenopathy. LABORATORY INVESTIGATION: Showed a white count was 7.6, hemoglobin 9.1, platelet of 57,000. Chemistry showed a creatinine of 2.5 with BUN of 47. IMPRESSION: 1. Chronic kidney disease, stage 4, this is more or less the patient's baseline. 2. Likely anemia of chronic kidney disease. 3. Respiratory distress in the context of pleural effusion. 4. Decompensated congestive heart failure. PLAN: 1. Continue current renal supportive measures. 2. We will administer erythropoiesis stimulating agent. 3. Further management to be dependent on the clinical course. Job ID: [id number]
--- NOTE | 2020-04-29 13:25 | PRG ---
DATE OF SERVICE: 04/29/2020 SUBJECTIVE: Rosaura Mathews is just clinically unchanged. OBJECTIVE: VITAL SIGNS: She is afebrile. Heart rate is 53, respiratory rate 16, oximetry is 96% on 3 L, and blood pressure 130/58. LUNGS: Remarkable for decreased breath sounds at her bases. HEART: Regular rhythm. ABDOMEN: Soft. She sat on the side of the bed briefly today, she says. LABORATORY DATA: Creatinine is 2.5, was 2.39 yesterday, 2.4 the day before. Hemoglobin is stable at 9.1 and platelets 57,000. IMPRESSION: Bilateral pleural effusions secondary to valvular heart disease plus or minus chronic kidney disease. There is no indication for thoracentesis at this time. Job ID: [id number]
[2020-04-29] MEDS: Furosemide 40 MG/4 ML VIAL SLOW IVP SCH (14:53)
--- NOTE | 2020-04-29 17:02 | PDOC.HOSPP ---
- Subjective Encounter Date: 04/29/20 Encounter Time: 07:30 Subjective: Patient seen for follow-up regarding dyspnea. Feels better. - Objective Vital Signs & Weight: Vital Signs (12 hours) Temp Pulse Pulse Resp BP BP Pulse Ox 04/29/20 15:49 97.5 F L 51 L 18 112/53 L 95 04/29/20 12:00 97.4 F L 53 L 16 117/57 L 96 04/29/20 09:39 55 L 130/58 L 04/29/20 08:50 97.6 F 52 L 20 130/60 93 L Weight Admit Weight 131 lb 4.8 oz Weight 130 lb 14.4 oz I&O: 04/28/20 04/29/20 04/30/20 06:59 06:59 06:59 Intake Total 530 1790 Output Total 1300 100 Balance -770 1690 Result Diagrams: 04/29/20 04:28 04/29/20 04:28 Hospitalist ROS - Medication Medications: Active Medications Generic Name Dose Route Start Last Admin Trade Name Freq PRN Reason Stop Dose Admin Aspirin 81 mg 04/28/20 09:00 04/29/20 08:56 Aspirin 81 Mg Enteric Coated Tablet PO 81 mg DAILY JUDY Administration Atorvastatin Calcium 80 mg 04/26/20 21:00 04/28/20 20:22 Atorvastatin Calcium 40 Mg Tab PO 80 mg HS JUDY Administration Calcium/Vitamin D 1 tab 04/28/20 17:00 04/29/20 16:31 Calcium Carbonate 600 Mg + Vit D Tab PO 1 tab BID-WM JUDY Administration Carvedilol 3.125 mg 04/26/20 21:00 04/29/20 08:56 Carvedilol 3.125 Mg Tab PO 3.125 mg BID JUDY Administration Cyanocobalamin 2,500 mcg 04/28/20 09:00 04/29/20 08:56 Cyanocobalamin (Vitamin B-12) 1,000 Mcg Tab PO 2,500 mcg DAILY JUDY Administration Duloxetine HCl 60 mg 04/27/20 09:00 04/29/20 08:55 Duloxetine 60 Mg Cap PO 60 mg DAILY JUDY Administration Ezetimibe 10 mg 04/27/20 09:00 04/29/20 08:56 Ezetimibe 10 Mg Tab PO 10 mg DAILY JUDY Administration Epoetin Rohith-epbx 10,000 unit 04/29/20 17:00 04/29/20 16:31 Epoetin Rohith-Epbx (Esrd) 10,000 Unit/Ml Vial SC 10,000 unit Q7D JUDY Administration Folic Acid 1 mg 04/28/20 09:00 04/29/20 08:55 Folic Acid 1 Mg Tab PO 1 mg DAILY JUDY Administration Furosemide 40 mg 04/29/20 14:00 04/29/20 14:53 Furosemide 40 Mg/4 Ml Vial SLOW IVP 40 mg 0600,1400 JUDY Administration Gabapentin 300 mg 04/27/20 21:00 04/28/20 20:21 Gabapentin 300 Mg Cap PO 300 mg HS JUDY Administration Cefazolin Sodium/Dextrose 2 gm 50 mls @ 100 mls/hr 04/27/20 21:00 04/29/20 08:54 / Device IVPB 50 mls Q12HR JUDY Administration Pantoprazole Sodium 40 mg 04/28/20 09:00 04/29/20 08:55 Pantoprazole 40 Mg Tab PO 40 mg DAILY JUDY Administration Polyethylene Glycol 17 gm 04/28/20 09:00 04/29/20 08:54 Polyethylene Glycol 3350 17 Gm Packet PO 17 gm DAILY JUDY Administration Potassium Chloride 20 meq 04/28/20 09:00 04/29/20 08:55 Potassium Chloride 10 Meq Tab PO 20 meq DAILY JUDY Administration Prednisone 2.5 mg 04/28/20 09:00 04/29/20 08:55 Prednisone 5 Mg Tab PO 2.5 mg DAILY JUDY Administration Pregabalin 50 mg 04/27/20 09:00 04/29/20 08:55 Pregabalin 50 Mg Cap PO 50 mg DAILY JUDY Administration Rifampin 300 mg 04/27/20 10:00 04/29/20 08:55 Rifampin 300 Mg Cap PO 300 mg 1000,2200 JUDY Administration Saccharomyces Boulardii 250 mg 04/28/20 09:00 04/29/20 08:55 Saccharomyces Boulardii 250 Mg Cap PO 250 mg DAILY JUDY Administration Sodium Chloride 10 ml 04/26/20 13:05 04/28/20 20:23 Flush - Normal Saline 10 Ml Syringe IVF 10 ml PRN PRN Administration Saline Flush Hosp A/P - Plan -Assessment Shortness of breath right-sided pleural effusion Generalized weakness due to above Ventricular arrhythmia/torsade Hypomagnesemia/hypokalemia 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 Reviewed cardiology service input. Continue telemetry monitoring. Plaquenil discontinued due to tachyarrhythmia/QT prolongation. No heparin or Lovenox due to thrombocytopenia. Continue carvedilol. Appreciate pulmonary service input, no plan for thoracentesis.
[2020-04-29] MEDS: Gabapentin 300 MG CAP PO SCH (21:09)
[2020-04-29] MEDS: Atorvastatin Calcium 40 MG TAB PO SCH (21:09)
[2020-04-30] MEDS: Furosemide 40 MG/4 ML VIAL SLOW IVP SCH ×2 (05:41→14:22)
[2020-04-30] MEDS: CEFAZOLIN 2 GM in Premix Bag 1 BAG IVPB SCH ×2 (09:52→21:27)
[2020-04-30] MEDS: Folic Acid 1 MG TAB PO SCH (09:52)
[2020-04-30] MEDS: Cyanocobalamin (Vitamin B-12) 1,000 MCG TAB PO SCH (09:52)
[2020-04-30] MEDS: Rifampin 300 MG CAP PO SCH ×2 (09:53→21:26)
[2020-04-30] MEDS: Aspirin 81 mg Enteric Coated Tablet PO SCH (09:53)
[2020-04-30] MEDS: Calcium Carbonate 600 MG + Vit D TAB PO SCH ×2 (09:53→16:43)
[2020-04-30] MEDS: Ezetimibe 10 MG TAB PO SCH (09:53)
[2020-04-30] MEDS: Potassium Chloride 10 MEQ TAB PO SCH (09:53)
[2020-04-30] MEDS: predniSONE 5 MG TAB PO SCH (09:54)
[2020-04-30] MEDS: DULoxetine 60 MG CAP PO SCH (09:54)
[2020-04-30] MEDS: Pregabalin 50 MG CAP PO SCH (09:54)
[2020-04-30] MEDS: Carvedilol 3.125 MG TAB PO SCH ×2 (09:54→21:27)
[2020-04-30] MEDS: Polyethylene Glycol 3350 17 GM Packet PO SCH (09:55)
[2020-04-30] MEDS: Saccharomyces boulardii 250 MG CAP PO SCH (09:55)
--- NOTE | 2020-04-30 17:45 | PDOC.HOSPP ---
- Subjective Encounter Date: 04/30/20 Encounter Time: 17:44 Subjective: Patient seen in follow-up for shortness of breath. She reports feeling better. - Objective Vital Signs & Weight: Vital Signs (12 hours) Temp Pulse Resp BP Pulse Ox 04/30/20 16:00 97.9 F 59 L 17 139/71 97 04/30/20 12:00 98.2 F 79 20 135/79 98 04/30/20 08:00 98.2 F 56 L 19 134/62 95 Weight Admit Weight 131 lb 4.8 oz Weight 130 lb 9.6 oz I&O: 04/29/20 04/30/20 05/01/20 06:59 06:59 06:59 Intake Total 1790 1670 Output Total 100 920 Balance 1690 750 Result Diagrams: 04/29/20 04:28 04/29/20 04:28 Additional Labs: I reviewed patient's labs and MAR Hospitalist ROS - Review of Systems Respiratory: reports: SOB with excertion Cardiovascular: denies: chest pain, palpitations, orthopnea, paroxysmal noc. dyspnea, edema, light headedness Gastrointestinal: denies: nausea, vomiting, abdominal pain, diarrhea, constipation, melena, hematochezia - Medication Medications: Active Medications Generic Name Dose Route Start Last Admin Trade Name Freq PRN Reason Stop Dose Admin Aspirin 81 mg 04/28/20 09:00 04/30/20 09:53 Aspirin 81 Mg Enteric Coated Tablet PO 81 mg DAILY JUDY Administration Atorvastatin Calcium 80 mg 04/26/20 21:00 04/29/20 21:09 Atorvastatin Calcium 40 Mg Tab PO 80 mg HS JUDY Administration Calcium/Vitamin D 1 tab 04/28/20 17:00 04/30/20 16:43 Calcium Carbonate 600 Mg + Vit D Tab PO 1 tab BID-WM JUDY Administration Carvedilol 3.125 mg 04/26/20 21:00 04/30/20 09:54 Carvedilol 3.125 Mg Tab PO 3.125 mg BID JUDY Administration Cyanocobalamin 2,500 mcg 04/28/20 09:00 04/30/20 09:52 Cyanocobalamin (Vitamin B-12) 1,000 Mcg Tab PO 2,500 mcg DAILY JUDY Administration Duloxetine HCl 60 mg 04/27/20 09:00 04/30/20 09:54 Duloxetine 60 Mg Cap PO 60 mg DAILY JUDY Administration Ezetimibe 10 mg 04/27/20 09:00 04/30/20 09:53 Ezetimibe 10 Mg Tab PO 10 mg DAILY JUDY Administration Epoetin Rohith-epbx 10,000 unit 04/29/20 17:00 04/29/20 16:31 Epoetin Rohith-Epbx (Esrd) 10,000 Unit/Ml Vial SC 10,000 unit Q7D JUDY Administration Folic Acid 1 mg 04/28/20 09:00 04/30/20 09:52 Folic Acid 1 Mg Tab PO 1 mg DAILY JUDY Administration Furosemide 40 mg 04/29/20 14:00 04/30/20 14:22 Furosemide 40 Mg/4 Ml Vial SLOW IVP 40 mg 0600,1400 JUDY Administration Gabapentin 300 mg 04/27/20 21:00 04/29/20 21:09 Gabapentin 300 Mg Cap PO 300 mg HS JUDY Administration Cefazolin Sodium/Dextrose 2 gm 50 mls @ 100 mls/hr 04/27/20 21:00 04/30/20 09:52 / Device IVPB 50 mls Q12HR JUDY Administration Pantoprazole Sodium 40 mg 04/28/20 09:00 04/30/20 09:53 Pantoprazole 40 Mg Tab PO 40 mg DAILY JUDY Administration Polyethylene Glycol 17 gm 04/28/20 09:00 04/30/20 09:55 Polyethylene Glycol 3350 17 Gm Packet PO 17 gm DAILY JUDY Administration Potassium Chloride 20 meq 04/28/20 09:00 04/30/20 09:53 Potassium Chloride 10 Meq Tab PO 20 meq DAILY JUDY Administration Prednisone 2.5 mg 04/28/20 09:00 04/30/20 09:54 Prednisone 5 Mg Tab PO 2.5 mg DAILY JUDY Administration Pregabalin 50 mg 04/27/20 09:00 04/30/20 09:54 Pregabalin 50 Mg Cap PO 50 mg DAILY JUDY Administration Rifampin 300 mg 04/27/20 10:00 04/30/20 09:53 Rifampin 300 Mg Cap PO 300 mg 1000,2200 JUDY Administration Saccharomyces Boulardii 250 mg 04/28/20 09:00 04/30/20 09:55 Saccharomyces Boulardii 250 Mg Cap PO 250 mg DAILY JUDY Administration Sodium Chloride 10 ml 04/26/20 13:05 04/28/20 20:23 Flush - Normal Saline 10 Ml Syringe IVF 10 ml PRN PRN Administration Saline Flush - Exam General Appearance: awake alert Eye: anicteric sclera ENT: moist mucosa Neck: supple Heart: RRR Respiratory: rales Gastrointestinal: soft, non-tender Skin: no rashes Psychiatric: normal affect Hosp A/P - Plan -Assessment Shortness of breath right-sided pleural effusion Generalized weakness due to above Ventricular arrhythmia/torsade Hypomagnesemia/hypokalemia 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 Continue diuretics. Continue telemetry monitoring. Plaquenil discontinued due to tachyarrhythmia/QT prolongation. Continue carvedilol. No plan for thoracentesis.
[2020-04-30] MEDS ORDERED: Enoxaparin Sodium 30 MG/0.3 ML SYRINGE SC SCH (21:00)
[2020-04-30] MEDS: Gabapentin 300 MG CAP PO SCH (21:27)
[2020-04-30] MEDS: Atorvastatin Calcium 40 MG TAB PO SCH (21:27)
[2020-05-01] MEDS: Furosemide 40 MG/4 ML VIAL SLOW IVP SCH ×2 (05:04→14:32)
[2020-05-01 05:15] LABS: #Lymphocytes 0.6 thou/uL (1.20-3.40); #Monocytes 0.6 thou/uL (0.11-0.59); #Neutrophils 6.6 thou/uL (1.40-6.50); %Basophils 0.3 % (0.0-1.0); %Eosinophils 0.3 % (0.0-10.0); %Lymphocytes 7.6 % (21.0-51.0); %Monocytes 7.9 % (0.0-10.0); %Neutrophils 83.9 % (42.0-75.0); Hemoglobin 8.6 g/dL (12.0-16.0); Mean Corpuscular HGB CONC 32.4 g/dL (32.0-36.0); Mean Platelet Volume 10.8 fL (7.4-10.4); Platelet Count 55 thou/uL (130-400); RBC Distribution Width 16.9 % (11.5-14.5); Red Blood Cell (RBC) Count 2.61 mill/uL (4.20-5.40); White Blood Cell (WBC) Count 7.8 thou/uL (4.8-10.8)
[2020-05-01 05:32] LABS: Anion Gap 14 mmol/L (10-20); BUN (Urea Nitrogen) 45 mg/dL (9.8-20.1); Calc. Creatinine Clearance 17 mL/min (70-130); Carbon Dioxide 24 mmol/L (23-31); Chloride 103 mmol/L (98-107); Glucose 82 mg/dL (83-110); Potassium 3.9 mmol/L (3.5-5.1); Sodium 137 mmol/L (136-145)
[2020-05-01] MEDS: Calcium Carbonate 600 MG + Vit D TAB PO SCH ×2 (09:44→17:32)
[2020-05-01] MEDS: Folic Acid 1 MG TAB PO SCH (09:44)
[2020-05-01] MEDS: Saccharomyces boulardii 250 MG CAP PO SCH (09:44)
[2020-05-01] MEDS: Potassium Chloride 10 MEQ TAB PO SCH (09:44)
[2020-05-01] MEDS: Ezetimibe 10 MG TAB PO SCH (09:44)
[2020-05-01] MEDS: predniSONE 5 MG TAB PO SCH (09:45)
[2020-05-01] MEDS: Cyanocobalamin (Vitamin B-12) 1,000 MCG TAB PO SCH (09:45)
[2020-05-01] MEDS: Pregabalin 50 MG CAP PO SCH (09:45)
[2020-05-01] MEDS: DULoxetine 60 MG CAP PO SCH (09:45)
[2020-05-01] MEDS: Aspirin 81 mg Enteric Coated Tablet PO SCH (09:45)
[2020-05-01] MEDS: CEFAZOLIN 2 GM in Premix Bag 1 BAG IVPB SCH ×2 (09:46→23:03)
[2020-05-01] MEDS: Carvedilol 3.125 MG TAB PO SCH ×2 (09:46→23:04)
[2020-05-01] MEDS: Polyethylene Glycol 3350 17 GM Packet PO SCH (09:47)
[2020-05-01] MEDS: Rifampin 300 MG CAP PO SCH ×2 (10:44→23:03)
--- NOTE | 2020-05-01 17:09 | PDOC.HOSPP ---
- Subjective Encounter Date: 05/01/20 Encounter Time: 08:30 Subjective: Patient seen for follow-up of difficulty breathing. Reports that she is not ambulating much. - Objective Vital Signs & Weight: Vital Signs (12 hours) Temp Pulse Pulse Resp BP BP BP 05/01/20 16:00 98.0 F 69 19 142/78 H 05/01/20 12:00 98.2 F 54 L 17 105/94 H 05/01/20 09:59 55 L 124/55 L 129/59 L 05/01/20 07:38 98.3 F 57 L 17 123/56 L Pulse Ox 05/01/20 16:00 97 05/01/20 12:00 95 05/01/20 09:59 05/01/20 07:38 97 Weight Admit Weight 131 lb 4.8 oz Weight 134 lb 3.2 oz I&O: 04/30/20 05/01/20 05/02/20 06:59 06:59 06:59 Intake Total 1670 290 Output Total 920 875 Balance 750 -585 Result Diagrams: 05/01/20 04:15 05/01/20 04:14 Additional Labs: I reviewed patient's labs and [facility] Hospitalist ROS - Review of Systems Constitutional: reports: weakness Cardiovascular: denies: chest pain, palpitations, orthopnea, paroxysmal noc. dyspnea, edema Gastrointestinal: denies: nausea, vomiting, abdominal pain, constipation, melena, hematochezia - Medication Medications: Active Medications Generic Name Dose Route Start Last Admin Trade Name Garrickq PRN Reason Stop Dose Admin Aspirin 81 mg 04/28/20 09:00 05/01/20 09:45 Aspirin 81 Mg Enteric Coated Tablet PO 81 mg DAILY JUDY Administration Atorvastatin Calcium 80 mg 04/26/20 21:00 04/30/20 21:27 Atorvastatin Calcium 40 Mg Tab PO 80 mg HS JUDY Administration Calcium/Vitamin D 1 tab 04/28/20 17:00 05/01/20 09:44 Calcium Carbonate 600 Mg + Vit D Tab PO 1 tab BID-WM JUDY Administration Carvedilol 3.125 mg 04/26/20 21:00 05/01/20 09:46 Carvedilol 3.125 Mg Tab PO 3.125 mg BID JUDY Administration Cyanocobalamin 2,500 mcg 04/28/20 09:00 05/01/20 09:45 Cyanocobalamin (Vitamin B-12) 1,000 Mcg Tab PO 2,500 mcg DAILY JUDY Administration Duloxetine HCl 60 mg 04/27/20 09:00 05/01/20 09:45 Duloxetine 60 Mg Cap PO 60 mg DAILY JUDY Administration Ezetimibe 10 mg 04/27/20 09:00 05/01/20 09:44 Ezetimibe 10 Mg Tab PO 10 mg DAILY JUDY Administration Epoetin Rohith-epbx 10,000 unit 04/29/20 17:00 04/29/20 16:31 Epoetin Rohith-Epbx (Esrd) 10,000 Unit/Ml Vial SC 10,000 unit Q7D JUDY Administration Folic Acid 1 mg 04/28/20 09:00 05/01/20 09:44 Folic Acid 1 Mg Tab PO 1 mg DAILY JUDY Administration Furosemide 40 mg 04/29/20 14:00 05/01/20 14:32 Furosemide 40 Mg/4 Ml Vial SLOW IVP 40 mg 0600,1400 JUDY Administration Gabapentin 300 mg 04/27/20 21:00 04/30/20 21:27 Gabapentin 300 Mg Cap PO 300 mg HS JUDY Administration Cefazolin Sodium/Dextrose 2 gm 50 mls @ 100 mls/hr 04/27/20 21:00 05/01/20 09:46 / Device IVPB 50 mls Q12HR JUDY Administration Pantoprazole Sodium 40 mg 04/28/20 09:00 05/01/20 09:44 Pantoprazole 40 Mg Tab PO 40 mg DAILY JUDY Administration Polyethylene Glycol 17 gm 04/28/20 09:00 05/01/20 09:47 Polyethylene Glycol 3350 17 Gm Packet PO Not Given DAILY JUDY Potassium Chloride 20 meq 04/28/20 09:00 05/01/20 09:44 Potassium Chloride 10 Meq Tab PO 20 meq DAILY JUDY Administration Prednisone 2.5 mg 04/28/20 09:00 05/01/20 09:45 Prednisone 5 Mg Tab PO 2.5 mg DAILY JUDY Administration Pregabalin 50 mg 04/27/20 09:00 05/01/20 09:45 Pregabalin 50 Mg Cap PO 50 mg DAILY JUDY Administration Rifampin 300 mg 04/27/20 10:00 05/01/20 10:44 Rifampin 300 Mg Cap PO 300 mg 1000,2200 JUDY Administration Saccharomyces Boulardii 250 mg 04/28/20 09:00 05/01/20 09:44 Saccharomyces Boulardii 250 Mg Cap PO 250 mg DAILY JUDY Administration Sodium Chloride 10 ml 04/26/20 13:05 04/30/20 21:27 Flush - Normal Saline 10 Ml Syringe IVF 10 ml PRN PRN Administration Saline Flush - Exam General Appearance: awake alert ENT: moist mucosa Neck: supple Heart: RRR Respiratory: CTAB Gastrointestinal: soft, non-tender Skin: no rashes Psychiatric: normal affect, normal behavior Hosp A/P - Plan -Assessment Shortness of breath right-sided pleural effusion Generalized weakness due to above Ventricular arrhythmia/torsade Hypomagnesemia/hypokalemia 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 Continue diuretics. Continue telemetry monitoring. Plaquenil discontinued due to tachyarrhythmia/QT prolongation. Continue coreg. No plan for thoracentesis. Ambulate patient.
--- NOTE | 2020-05-01 17:55 | PQF ---
CLINICAL DOCUMENTATION CLARIFICATION FORM: Dear Dr. Rojas Date: 05/01/2020 Please exercise your independent, professional judgment in responding to the clarification form. Clinical indicators are provided on the bottom of this form for your review. Please check appropriate box(es): [ ] Acute Respiratory Failure: [ ] with Hypoxia [ ] with Hypercapnia [ ] Acute On Chronic Respiratory Failure: [ ] with Hypoxia [ ] with Hypercapnia [ ] Acute Respiratory Failure due to: (etiology) [ ] Chronic Respiratory Failure only [ ] with Hypoxia [ ] with Hypercapnia [ ] Respiratory Insufficiency [ ] Hypoxia [ ] Other diagnosis [ ] Unable to determine In addition, please specify: Present on Admission (POA): [ ] Yes [ ] No [ ] Unable to determine For continuity of documentation, please document condition throughout progress notes and discharge summary. Thank You. To be completed by CDI/Coding staff for physician review: CLINICAL INDICATORS - SIGNS / SYMPTOMS / LABS / RESULTS AND LOCATION IN MR *ED Record 04/26: Physical Exam: hypoxic, 83% on RA, improved to 92% on 4 L NC Doctor Notes: The pt's chest x-ray revealed fluid overload findings, consistent with an acute CHF exacerbation. Her BNP elevated above baseline at 4173. She will be admitted to telemetry for an acute CHF exacerbation, hypoxia and CKD *04/27 pn (Ladha) A/P: SOB with r sided pleural effusion *04/28 Consult (Siddharth): VS: Resp. rates in teens, oximetry is 95% to 97% range on 2L Impression: Chronic pleural effusions slightly larger than the last radiographs. *04/29 pn (Ezeanxin) VS: respiratory rate of 18, O2 sat of 93% to 96% on 2L nc Impression: Respiratory distress in the context of pleural effusion *04/29 pn (Siddharth) Impression: Bilateral pleural effusions secondary to valvular heart disease plus or minus CKD RISK FACTORS / RESULTS AND LOCATION IN MR *H&P 04/26 (O'Adi) HPI She does have PMH for CHF, CAD, RA. *04/27 pn (Ladha) A/P: Hx of TAVR with moderate perivalvular regurgitation. CKD IV TREATMENTS / RESULTS AND LOCATION IN MR *ED Record 04/26: Doctor Notes: She was given 60 mg of Lasix IV after discussion circus rider occurred. *Order 04/26: Nursing: O2 to keep sats > 92% *Order 04/29: Lasix 40 mg IV 0600, 1400 Thank you, Danette Henning RN, BSN [email or web address] This is a permanent part of the Medical Record [facility]
[2020-05-01] MEDS: Gabapentin 300 MG CAP PO SCH (23:03)
[2020-05-01] MEDS: Atorvastatin Calcium 40 MG TAB PO SCH (23:04)
[2020-05-02 05:28] LABS: Eosinophils 1 % (0-10); Hemoglobin 8.6 g/dL (12.0-16.0); Hypochromia SLIGHT = 6-15 cells (100X) (0-5/hpf); Lymphocytes 14 % (21-51); MDiff Complete? YES; Mean Corpuscular HGB CONC 31.6 g/dL (32.0-36.0); Mean Corpuscular Hemoglobin 32.3 pg (27.0-31.0); Mean Platelet Volume 11.8 fL (7.4-10.4); Monocytes 9 % (0-10); Neutrophil 76 % (42-75); Platelet Count 39 thou/uL (130-400); Platelet Morphology Comment Appears Decreased; RBC Distribution Width 16.9 % (11.5-14.5); Red Blood Cell (RBC) Count 2.65 mill/uL (4.20-5.40); White Blood Cell (WBC) Count 7.1 thou/uL (4.8-10.8)
[2020-05-02] MEDS: Furosemide 40 MG/4 ML VIAL SLOW IVP SCH ×2 (06:06→15:20)
[2020-05-02] MEDS: Polyethylene Glycol 3350 17 GM Packet PO SCH (09:16)
[2020-05-02] MEDS: Calcium Carbonate 600 MG + Vit D TAB PO SCH ×2 (09:17→16:55)
[2020-05-02] MEDS: Cyanocobalamin (Vitamin B-12) 1,000 MCG TAB PO SCH (09:17)
[2020-05-02] MEDS: Rifampin 300 MG CAP PO SCH ×2 (09:17→21:37)
[2020-05-02] MEDS: Carvedilol 3.125 MG TAB PO SCH ×2 (09:18→21:37)
[2020-05-02] MEDS: Ezetimibe 10 MG TAB PO SCH (09:18)
[2020-05-02] MEDS: Aspirin 81 mg Enteric Coated Tablet PO SCH (09:18)
[2020-05-02] MEDS: Potassium Chloride 10 MEQ TAB PO SCH (09:18)
[2020-05-02] MEDS: Saccharomyces boulardii 250 MG CAP PO SCH (09:18)
[2020-05-02] MEDS: predniSONE 5 MG TAB PO SCH (09:19)
[2020-05-02] MEDS: Pregabalin 50 MG CAP PO SCH (09:20)
[2020-05-02] MEDS: Folic Acid 1 MG TAB PO SCH (09:20)
[2020-05-02] MEDS: DULoxetine 60 MG CAP PO SCH (09:21)
[2020-05-02] MEDS: CEFAZOLIN 2 GM in Premix Bag 1 BAG IVPB SCH ×2 (09:22→21:26)
--- NOTE | 2020-05-02 10:52 | PQF ---
CLINICAL DOCUMENTATION CLARIFICATION FORM: Dear Dr. Rojas Date: 05/02/2020 Please exercise your independent, professional judgment in responding to the clarification form. Clinical indicators are provided on the bottom of this form for your review. Please check appropriate box(es): HEART FAILURE: A. ACUITY [ ] Acute [ ] Acute on Chronic [ ] Chronic B. TYPE: [ ] Systolic / HFrEF [ ] Diastolic / HFpEF [ ] Combined Systolic / Diastolic [ ] Hypertensive Heart and Kidney disease [ ] Hypertensive Heart Disease [ ] Hypertensive Kidney Disease [ ] Other diagnosis [ ] Unable to determine In addition, please specify: Present on Admission (POA): [ ] Yes [ ] No [ ] Unable to determine For continuity of documentation, please document condition throughout progress notes and discharge summary. Thank You. To be completed by CDI/Coding staff for physician review: CLINICAL INDICATORS - SIGNS / SYMPTOMS / LABS / RESULTS AND LOCATION IN EMR *ED Record 04/26: Doctor notes: The pt's chest XRY revealed fluid overload findings, consistent with an acute CHF exacerbation. Her BNP was elevated above baseline at 4173. *04/27 Consult (Elena) HPI: Her last echocardiogram is from March 20, showed ER 55% to 60% moderately dilated l atrium, mitral annular calcification, moderate mitral regurg. TVR with moderate perivalvular regurgitation. *04/29 pn (Rhiannon) Impression: Respiratory distress in the context of pleural effusion Decompensated congestive heart failure *04/29 pn (Siddharth) Impression: Bilateral pleural effusions secondary to valvular heart disease plus or minus CKD *05/02 pn (Bob) A/P: SOB Right-sided pleural effusion Ventricular arrhythmia/torsade RISKS FACTORS / RESULTS AND LOCATION IN EMR *H&P 04/26 (O'Adi) HPI: She does have a PMH pertinent for congestive heart failure, CAD, osteoarthritis, rheumatoid arthritis. *04/28 pn (Guerrero) A/P: Hx of TAVR with moderate perivalvular regurgitation. Moderate to severe tricuspid regurgitation. Moderate mitral regurgitation. MSSA endocarditis. CKD IV. HTN. TREATMENTS / RESULTS AND LOCATION IN EMR *ED Record 04/26: Doctor notes: She was given 60 mg Lasix IV *MAR: Order 04/29: Lasix 40 mg slow IV 0600, 1400 *05/02 pn (Bob) Plan: Continue diuretics. Continue telemetry monitoring. Continue coreg. Thank you, Danette Henning RN, BSN [email or web address] This is a permanent part of the Medical Record [facility]
--- NOTE | 2020-05-02 17:01 | PDOC.HOSPP ---
- Subjective Encounter Date: 05/02/20 Encounter Time: 09:30 Subjective: Patient seen for follow-up regarding shortness of breath. She reports that she does not have any chest pain. She also reports shortness of breath is improving. Still needing supplemental oxygen. - Objective Vital Signs & Weight: Vital Signs (12 hours) Temp Pulse Resp BP BP BP Pulse Ox 05/02/20 14:21 129/59 L 140/62 05/02/20 08:00 100 05/02/20 07:44 97.8 F 59 L 18 124/52 L 96 Weight Admit Weight 131 lb 4.8 oz Weight 134 lb 3.2 oz I&O: 05/01/20 05/02/20 05/03/20 06:59 06:59 06:59 Intake Total 290 1040 Output Total 875 1850 Balance -585 810 Result Diagrams: 05/02/20 04:24 05/01/20 04:14 Additional Labs: Labs and MAR reviewed by wa Hospitalist ROS - Review of Systems Respiratory: reports: SOB with excertion Cardiovascular: denies: chest pain, palpitations, orthopnea, paroxysmal noc. dyspnea, edema, light headedness Gastrointestinal: denies: nausea, vomiting, abdominal pain, diarrhea, constipation, melena, hematochezia - Medication Medications: Active Medications Generic Name Dose Route Start Last Admin Trade Name Diya PRN Reason Stop Dose Admin Aspirin 81 mg 04/28/20 09:00 05/02/20 09:18 Aspirin 81 Mg Enteric Coated Tablet PO 81 mg DAILY JUDY Administration Atorvastatin Calcium 80 mg 04/26/20 21:00 05/01/20 23:04 Atorvastatin Calcium 40 Mg Tab PO 80 mg HS JUDY Administration Calcium/Vitamin D 1 tab 04/28/20 17:00 05/02/20 09:17 Calcium Carbonate 600 Mg + Vit D Tab PO 1 tab BID-WM JUDY Administration Carvedilol 3.125 mg 04/26/20 21:00 05/02/20 09:18 Carvedilol 3.125 Mg Tab PO Not Given BID JUDY Cyanocobalamin 2,500 mcg 04/28/20 09:00 05/02/20 09:17 Cyanocobalamin (Vitamin B-12) 1,000 Mcg Tab PO 2,500 mcg DAILY JUDY Administration Duloxetine HCl 60 mg 04/27/20 09:00 05/02/20 09:21 Duloxetine 60 Mg Cap PO 60 mg DAILY JUDY Administration Ezetimibe 10 mg 04/27/20 09:00 05/02/20 09:18 Ezetimibe 10 Mg Tab PO 10 mg DAILY JUDY Administration Epoetin Rohith-epbx 10,000 unit 04/29/20 17:00 04/29/20 16:31 Epoetin Rohith-Epbx (Esrd) 10,000 Unit/Ml Vial SC 10,000 unit Q7D JUDY Administration Folic Acid 1 mg 04/28/20 09:00 05/02/20 09:20 Folic Acid 1 Mg Tab PO 1 mg DAILY JUDY Administration Furosemide 40 mg 04/29/20 14:00 05/02/20 15:20 Furosemide 40 Mg/4 Ml Vial SLOW IVP 40 mg 0600,1400 JUDY Administration Gabapentin 300 mg 04/27/20 21:00 05/01/20 23:03 Gabapentin 300 Mg Cap PO 300 mg HS JUDY Administration Cefazolin Sodium/Dextrose 2 gm 50 mls @ 100 mls/hr 04/27/20 21:00 05/02/20 09:22 / Device IVPB 50 mls Q12HR JUDY Administration Pantoprazole Sodium 40 mg 04/28/20 09:00 05/02/20 09:18 Pantoprazole 40 Mg Tab PO 40 mg DAILY JUDY Administration Polyethylene Glycol 17 gm 04/28/20 09:00 05/02/20 09:16 Polyethylene Glycol 3350 17 Gm Packet PO 17 gm DAILY JUDY Administration Potassium Chloride 20 meq 04/28/20 09:00 05/02/20 09:18 Potassium Chloride 10 Meq Tab PO 20 meq DAILY JUDY Administration Prednisone 2.5 mg 04/28/20 09:00 05/02/20 09:19 Prednisone 5 Mg Tab PO 2.5 mg DAILY JUDY Administration Pregabalin 50 mg 04/27/20 09:00 05/02/20 09:20 Pregabalin 50 Mg Cap PO 50 mg DAILY JUDY Administration Rifampin 300 mg 04/27/20 10:00 05/02/20 09:17 Rifampin 300 Mg Cap PO 300 mg 1000,2200 JUDY Administration Saccharomyces Boulardii 250 mg 04/28/20 09:00 05/02/20 09:18 Saccharomyces Boulardii 250 Mg Cap PO 250 mg DAILY JUDY Administration Sodium Chloride 10 ml 04/26/20 13:05 12/29/20 15:20 Flush - Normal Saline 10 Ml Syringe IVF 10 ml PRN PRN Administration Saline Flush - Exam General Appearance: awake alert ENT: moist mucosa Neck: supple Heart: RRR Respiratory: rales Gastrointestinal: soft, non-tender Skin: no rashes Psychiatric: normal affect, normal behavior Hosp A/P - Plan Patient is a pleasant 84-year-old lady who was admitted to the hospital on April 26, 2020 for weakness and shortness of breath. She was treated with intravenous furosemide. She was on Plaquenil for rheumatoid arthritis. She was seen by nephrology service. She was also seen by infectious disease service for recently diagnosed infective endocarditis. The end date of therapy for her is May 04 in terms of intravenous antibiotics. Following admission, she was noted to have rapid heart rate. She was found to have torsades de pointes. This is suspected to be secondary to Plaquenil. Plaquenil was discontinued. She was seen by cardiology service. She was also seen by pulmonary service for chronic pleural effusions found on CT scan of the chest. They did not recommend thoracentesis. Patient continues to need supplemental oxygen. Discharge disposition will be home with home health, patient may need home oxygen at the time of discharge. She can be discharged home to complete antibiotics at home or following completion of her antibiotic therapy while in the hospital on May 04. 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 Acute on chronic diastolic congestive heart failure, present on admission. - Plan Continue Ancef and rifampin rifampin for endocarditis. Continue diuretics. Continue telemetry monitoring. Plaquenil discontinued due to tachyarrhythmia/QT prolongation. Continue coreg. No plan for thoracentesis. Ambulate patient. Cardiology, pulmonary and nephrology services following.
[2020-05-02] MEDS: Atorvastatin Calcium 40 MG TAB PO SCH (21:36)
[2020-05-02] MEDS: Gabapentin 300 MG CAP PO SCH (21:36)
[2020-05-03 05:23] LABS: Anion Gap 19 mmol/L (10-20); BUN (Urea Nitrogen) 45 mg/dL (9.8-20.1); Calc. Creatinine Clearance 18 mL/min (70-130); Calcium 8.4 mg/dL (7.8-10.44); Carbon Dioxide 24 mmol/L (23-31); Chloride 97 mmol/L (98-107); Glucose 74 mg/dL (83-110); Potassium 3.6 mmol/L (3.5-5.1); Sodium 136 mmol/L (136-145)
[2020-05-03 05:30] LABS: #Lymphocytes 0.8 thou/uL (1.20-3.40); #Neutrophils 6.9 thou/uL (1.40-6.50); %Basophils 0.3 % (0.0-1.0); %Eosinophils 0.4 % (0.0-10.0); %Lymphocytes 9.3 % (21.0-51.0); %Monocytes 10.9 % (0.0-10.0); %Neutrophils 79.1 % (42.0-75.0); Hemoglobin 9.5 g/dL (12.0-16.0); Mean Corpuscular HGB CONC 32.4 g/dL (32.0-36.0); Mean Corpuscular Hemoglobin 32.9 pg (27.0-31.0); Mean Platelet Volume 10.6 fL (7.4-10.4); Platelet Count 54 thou/uL (130-400); RBC Distribution Width 16.5 % (11.5-14.5); Red Blood Cell (RBC) Count 2.88 mill/uL (4.20-5.40); White Blood Cell (WBC) Count 8.7 thou/uL (4.8-10.8)
[2020-05-03] MEDS: Furosemide 40 MG/4 ML VIAL SLOW IVP SCH (05:55)
[2020-05-03] MEDS: Cyanocobalamin (Vitamin B-12) 1,000 MCG TAB PO SCH (09:58)
[2020-05-03] MEDS: Calcium Carbonate 600 MG + Vit D TAB PO SCH ×2 (09:58→17:16)
[2020-05-03] MEDS: DULoxetine 60 MG CAP PO SCH (09:58)
[2020-05-03] MEDS: Saccharomyces boulardii 250 MG CAP PO SCH (09:58)
[2020-05-03] MEDS: Potassium Chloride 10 MEQ TAB PO SCH (09:59)
[2020-05-03] MEDS: Carvedilol 3.125 MG TAB PO SCH ×2 (09:59→21:03)
[2020-05-03] MEDS: Pregabalin 50 MG CAP PO SCH (10:00)
[2020-05-03] MEDS: Folic Acid 1 MG TAB PO SCH (10:00)
[2020-05-03] MEDS: predniSONE 5 MG TAB PO SCH (10:01)
[2020-05-03] MEDS: Ezetimibe 10 MG TAB PO SCH (10:02)
[2020-05-03] MEDS: CEFAZOLIN 2 GM in Premix Bag 1 BAG IVPB SCH ×2 (10:02→21:01)
[2020-05-03] MEDS: Polyethylene Glycol 3350 17 GM Packet PO SCH (10:02)
[2020-05-03] MEDS: Aspirin 81 mg Enteric Coated Tablet PO SCH (10:04)
[2020-05-03] MEDS: Rifampin 300 MG CAP PO SCH ×2 (10:05→21:02)
[2020-05-03] MEDS: Torsemide 20 MG TAB PO SCH (14:52)
--- NOTE | 2020-05-03 15:13 | PDOC.HOSPP ---
- Subjective Encounter Date: 05/03/20 Encounter Time: 11:30 Subjective: pt up in bed no complains - Objective Vital Signs & Weight: Vital Signs (12 hours) Temp Pulse Pulse Resp BP BP BP 05/03/20 12:00 98.3 F 58 L 18 115/56 L 05/03/20 09:31 72 116/56 L 116/59 L 05/03/20 08:00 05/03/20 07:43 96.4 F L 66 18 05/03/20 04:00 97.8 F 101 H 15 112/56 L BP Pulse Ox 05/03/20 12:00 99 05/03/20 09:31 05/03/20 08:00 92 L 05/03/20 07:43 133/63 92 L 05/03/20 04:00 95 Weight Admit Weight 131 lb 4.8 oz Weight 130 lb 12.8 oz I&O: 05/02/20 05/03/20 05/04/20 06:59 06:59 06:59 Intake Total 1040 1374 360 Output Total 1850 6855 Balance -810 -501 360 Result Diagrams: 05/03/20 04:40 05/03/20 04:40 Hospitalist ROS - Review of Systems Respiratory: denies: cough, dry, shortness of breath, hemoptysis, SOB with excertion, pleuritic pain, sputum, wheezing, other Cardiovascular: denies: chest pain, palpitations, orthopnea, paroxysmal noc. dyspnea, edema, light headedness, other Gastrointestinal: denies: nausea, vomiting, abdominal pain, diarrhea, constipation, melena, hematochezia, other - Medication Medications: Active Medications Generic Name Dose Route Start Last Admin Trade Name Freq PRN Reason Stop Dose Admin Aspirin 81 mg 04/28/20 09:00 05/03/20 10:04 Aspirin 81 Mg Enteric Coated Tablet PO 81 mg DAILY JUDY Administration Atorvastatin Calcium 80 mg 04/26/20 21:00 05/02/20 21:36 Atorvastatin Calcium 40 Mg Tab PO 80 mg HS JUDY Administration Calcium/Vitamin D 1 tab 04/28/20 17:00 05/03/20 09:58 Calcium Carbonate 600 Mg + Vit D Tab PO 1 tab BID-WM JUDY Administration Carvedilol 3.125 mg 04/26/20 21:00 05/03/20 09:59 Carvedilol 3.125 Mg Tab PO 3.125 mg BID JUDY Administration Cyanocobalamin 2,500 mcg 04/28/20 09:00 05/03/20 09:58 Cyanocobalamin (Vitamin B-12) 1,000 Mcg Tab PO 2,500 mcg DAILY JUDY Administration Duloxetine HCl 60 mg 04/27/20 09:00 05/03/20 09:58 Duloxetine 60 Mg Cap PO 60 mg DAILY JUDY Administration Ezetimibe 10 mg 04/27/20 09:00 05/03/20 10:02 Ezetimibe 10 Mg Tab PO 10 mg DAILY JUDY Administration Epoetin Rohith-epbx 10,000 unit 04/29/20 17:00 04/29/20 16:31 Epoetin Rohith-Epbx (Esrd) 10,000 Unit/Ml Vial SC 10,000 unit Q7D JUDY Administration Folic Acid 1 mg 04/28/20 09:00 05/03/20 10:00 Folic Acid 1 Mg Tab PO 1 mg DAILY JUDY Administration Gabapentin 300 mg 04/27/20 21:00 05/02/20 21:36 Gabapentin 300 Mg Cap PO 300 mg HS JUDY Administration Cefazolin Sodium/Dextrose 2 gm 50 mls @ 100 mls/hr 04/27/20 21:00 05/03/20 10:02 / Device IVPB 50 mls Q12HR JUDY Administration Pantoprazole Sodium 40 mg 04/28/20 09:00 05/03/20 10:00 Pantoprazole 40 Mg Tab PO 40 mg DAILY JUDY Administration Polyethylene Glycol 17 gm 04/28/20 09:00 05/03/20 10:02 Polyethylene Glycol 3350 17 Gm Packet PO 17 gm DAILY JUDY Administration Potassium Chloride 20 meq 04/28/20 09:00 05/03/20 09:59 Potassium Chloride 10 Meq Tab PO 20 meq DAILY JUDY Administration Prednisone 2.5 mg 04/28/20 09:00 05/03/20 10:01 Prednisone 5 Mg Tab PO 2.5 mg DAILY JUDY Administration Pregabalin 50 mg 04/27/20 09:00 05/03/20 10:00 Pregabalin 50 Mg Cap PO 50 mg DAILY JUDY Administration Rifampin 300 mg 04/27/20 10:00 05/03/20 10:05 Rifampin 300 Mg Cap PO 300 mg 1000,2200 JUDY Administration Saccharomyces Boulardii 250 mg 04/28/20 09:00 05/03/20 09:58 Saccharomyces Boulardii 250 Mg Cap PO 250 mg DAILY JUDY Administration Sodium Chloride 10 ml 04/26/20 13:05 05/02/20 15:20 Flush - Normal Saline 10 Ml Syringe IVF 10 ml PRN PRN Administration Saline Flush Torsemide 20 mg 05/03/20 14:00 05/03/20 14:52 Torsemide 20 Mg Tab PO 20 mg BID@0900,1400 JUDY Administration - Exam Heart: negative: RRR, no murmur, no gallops, no rubs, normal peripheral pulses, irregular, diminshed peripheral pulses, murmur present, II/IV, III/IV Respiratory: negative: CTAB, no wheezes, no rales, no ronchi, normal chest expansion, no tachypnea, normal percussion, rales, rhonchi, tachypneic, wheezes Gastrointestinal: negative: soft, non-tender, non-distended, normal bowel sounds, no palpable masses, no hepatomegaly, no splenomegaly, no bruit, no guarding, no rigidity, tender to palpation, distended, diminished bowl sounds, voluntary guarding Hosp A/P - Plan Patient is a pleasant 84-year-old lady who was admitted to the hospital on April 26, 2020 for weakness and shortness of breath. She was treated with intravenous furosemide. She was on Plaquenil for rheumatoid arthritis. She was seen by nephrology service. She was also seen by infectious disease service for recently diagnosed infective endocarditis. The end date of therapy for her is May 04 in terms of intravenous antibiotics. Following admission, she was noted to have rapid heart rate. She was found to have torsades de pointes. This is suspected to be secondary to Plaquenil. Plaquenil was discontinued. She was seen by cardiology service. She was also seen by pulmonary service for chronic pleural effusions found on CT scan of the chest. They did not recommend thoracentesis. Patient continues to need supplemental oxygen. Discharge disposition will be home with home health, patient may need home oxygen at the time of discharge. She can be discharged home to complete antibiotics at home or following completion of her antibiotic therapy while in the hospital on May 04. 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 Acute on chronic diastolic congestive heart failure, present on admission. - Plan Continue Ancef and rifampin rifampin for endocarditis. Continue diuretics. Continue telemetry monitoring. Plaquenil discontinued due to tachyarrhythmia/QT prolongation. Continue coreg. No plan for thoracentesis. Ambulate patient. Cardiology, pulmonary and nephrology services following. 05/03 she will finish her abx dose today and pedro luis. she will need inpatient rehab.
--- NOTE | 2020-05-03 18:02 | PRG ---
DATE OF SERVICE: 05/03/2020 SUBJECTIVE: The patient was seen and noted with the following vital signs. OBJECTIVE: VITAL SIGNS: Afebrile, temperature 98.3, pulse 65, respiratory rate of 18, O2 saturation of 96%, and blood pressure 104/51. HEENT: Unremarkable. CARDIOVASCULAR SYSTEM: First and second heart sounds were heard. RESPIRATORY SYSTEM: Clear to auscultation. DIGESTIVE SYSTEM: Revealed a benign abdomen. Positive bowel sounds. EXTREMITIES: No peripheral edema. SKIN: No new gross rash. LYMPHATICS: No peripheral lymphadenopathy. LABORATORY INVESTIGATION: Showed a hemoglobin of 9.5, platelets . Chemistry showed a creatinine of 2.25, BUN of 45. IMPRESSION: 1. Advanced chronic kidney disease, stage 4. 2. Respiratory distress in the context of pleural effusion. 3. Anemia, partly anemia of chronic kidney disease. PLAN: 1. We will continue with current renal supportive measures. 2. Erythropoiesis stimulating agent to help with the anemia management. 3. Diuretics as tolerated by hemodynamics. 4. Further management to be dependent on the clinical course. Job ID: [id number]
[2020-05-03] MEDS: Gabapentin 300 MG CAP PO SCH (21:02)
[2020-05-03] MEDS: Atorvastatin Calcium 40 MG TAB PO SCH (21:03)
[2020-05-04 05:27] LABS: Anion Gap 16 mmol/L (10-20); BUN (Urea Nitrogen) 46 mg/dL (9.8-20.1); Calc. Creatinine Clearance 16 mL/min (70-130); Calcium 8.4 mg/dL (7.8-10.44); Carbon Dioxide 30 mmol/L (23-31); Chloride 94 mmol/L (98-107); Glucose 82 mg/dL (83-110); Potassium 3.4 mmol/L (3.5-5.1); Sodium 137 mmol/L (136-145)
[2020-05-04] MEDS ORDERED: Spironolactone 25 MG TAB PO SCH (08:00)
[2020-05-04] MEDS ORDERED: Potassium Chloride 20 MEQ TAB PO SCH (08:15)
[2020-05-04] MEDS: Pregabalin 50 MG CAP PO SCH (09:08)
[2020-05-04] MEDS: Calcium Carbonate 600 MG + Vit D TAB PO SCH (09:08)
[2020-05-04] MEDS: Cyanocobalamin (Vitamin B-12) 1,000 MCG TAB PO SCH (09:09)
[2020-05-04] MEDS: Saccharomyces boulardii 250 MG CAP PO SCH (09:10)
[2020-05-04] MEDS: DULoxetine 60 MG CAP PO SCH (09:10)
[2020-05-04] MEDS: Folic Acid 1 MG TAB PO SCH (09:10)
[2020-05-04] MEDS: Aspirin 81 mg Enteric Coated Tablet PO SCH (09:10)
[2020-05-04] MEDS: predniSONE 5 MG TAB PO SCH (09:10)
[2020-05-04] MEDS: Potassium Chloride 10 MEQ TAB PO SCH (09:10)
[2020-05-04] MEDS: Ezetimibe 10 MG TAB PO SCH (09:10)
[2020-05-04] MEDS: Carvedilol 3.125 MG TAB PO SCH (09:11)
[2020-05-04] MEDS: Polyethylene Glycol 3350 17 GM Packet PO SCH (09:11)
[2020-05-04] MEDS: CEFAZOLIN 2 GM in Premix Bag 1 BAG IVPB SCH (09:11)
[2020-05-04] MEDS: Rifampin 300 MG CAP PO SCH (09:18)
[2020-05-04] MEDS: Torsemide 20 MG TAB PO SCH ×2 (09:27→14:21)
[2020-05-04 12:08] VITALS: BP 102/49; TEMP 98.6
[2020-05-04 12:51] VITALS: BMI 21.7
--- NOTE | 2020-05-04 13:53 | PDOC.DS.DS ---
Provider - Provider Date of Admission: 04/26/20 12:31 Date of Discharge: 05/04/20 Admitting Provider: Sowmya Strickland MD Consultations: Cardiology (Dr. Mccollum), Nephrology (Dr. Jurado), Pulmonary (Dr. Messina) Primary Care Physician: Sony Gomes MD Course - Hospital Course Hospital Course: Discharge diagnoses: 1. Acute on chronic diastolic congestive heart failure NYHA class III 2. Torsades de pointes secondary to Plaquenil use 3. Chronic pleural effusions 4. Physical deconditioning 5. Hypokalemia 6. Chronic anemia, started on erythropoietin Hospital course: Patient is a pleasant 84-year-old lady who was admitted to the hospital on April 26, 2020 for weakness and shortness of breath. She was treated with intravenous furosemide. She was on Plaquenil for rheumatoid arthritis. She was seen by nephrology service. She was also seen by infectious disease service for recently diagnosed infective endocarditis. The end date of therapy for her is May 04 in terms of intravenous antibiotics. Following admission, she was noted to have rapid heart rate. She was found to have torsades de pointes. This is suspected to be secondary to Plaquenil. Plaquenil was discontinued. She was seen by cardiology service. She was also seen by pulmonary service for chronic pleural effusions found on CT scan of the chest. They did not recommend thoracentesis. Patient was also physically deconditioned. She has been accepted for inpatient rehab. She is finishing her antibiotics prior to discharge to inpatient rehab. Many thanks for allowing me to participate in your patient's care. Please feel free to contact me with any questions or concerns. Discharge destination: Inpatient rehab Total amount of time spent coordinating this discharge: 33 minutes - Labs Lab Results: 05/03/20 04:40 05/04/20 04:40 Abnormal Lab Results - Last 48 hrs 05/03/20 04:40: RBC 2.88 L, Hgb 9.5 L, Hct 29.3 L, MCV 102.0 H, MCH 32.9 H, RDW 16.5 H, Plt Count 54 L, MPV 10.6 H, Neutrophils % 79.1 H, Lymphocytes % 9.3 L, Monocytes % 10.9 H, Neutrophils # 6.9 H, Lymphocytes # 0.8 L, Monocytes # 1.0 H 05/03/20 04:40: Chloride 97 L, BUN 45 H, Creatinine 2.25 H 05/04/20 04:40: Potassium 3.4 L, Chloride 94 L, BUN 46 H, Creatinine 2.37 H Microbiology - Entire Visit 04/26/20 10:08 Venous blood - Right Arm Blood Culture - Final NO GROWTH IN 5 DAYS 04/26/20 09:44 Venous blood - Left Arm Blood Culture - Final NO GROWTH IN 5 DAYS - Physical Exam Vitals: Vital Signs (12 hours) Temp Pulse Pulse Resp BP BP Pulse Ox 05/04/20 12:00 98.6 F 55 L 15 102/49 L 93 L 05/04/20 09:40 100 153/80 H 05/04/20 08:00 98 05/04/20 07:48 98.0 F 68 14 129/56 L 98 05/04/20 04:00 98.4 F 67 18 113/56 L 92 L Weight Admit Weight 131 lb 4.8 oz Weight 130 lb 4.8 oz Physical Exam: The patient was seen and examined on the day of discharge. Plan - Discharge Medications Home Medications: Medication Instructions Recorded Confirmed Type Aspirin [Adult Aspirin Regimen] 81 mg PO HS 05/26/18 04/26/20 History Ezetimibe [Zetia] 10 mg PO DAILY 05/26/18 04/26/20 History Folic Acid 1 mg PO DAILY 05/26/18 04/26/20 History Potassium Chloride [Klor-Con 10] 20 meq PO DAILY 05/26/18 04/26/20 History DULoxetine HCl [Cymbalta] 60 mg PO DAILY 09/14/18 04/26/20 History Pantoprazole [Protonix] 40 mg PO DAILY 11/25/18 04/26/20 History Carvedilol 3.125 mg PO BID 07/26/19 04/26/20 History Cyanocobalamin (Vitamin B-12) 2,500 mcg SL DAILY 07/26/19 04/26/20 History [Vitamin B-12] Polyethylene Glycol 3350 [Miralax] 17 gm PO DAILY 07/26/19 04/26/20 History Ascorbic Acid [Vitamin C] 1,000 mg PO DAILY 03/27/20 04/26/20 History Atorvastatin Calcium [Lipitor] 80 mg PO HS 03/27/20 04/26/20 History Cholecalciferol (Vitamin D3) 2,000 unit PO DAILY 03/27/20 04/26/20 History [Vitamin D] Pregabalin [Lyrica] 50 mg PO DAILY 03/27/20 04/26/20 History Spironolactone 25 mg PO DAILY 03/27/20 04/26/20 History predniSONE [Prednisone] 0.5 tab PO DAILY 03/27/20 04/26/20 History Gabapentin 300 mg PO HS 04/26/20 04/26/20 History Epoetin Rohith-Epbx [Retacrit] 10,000 unit SC Q30D vial 05/04/20 Rx Torsemide [Demadex] 20 mg PO BID@0900,1400 tab 05/04/20 Rx Allergies: codeine Adverse Reaction (Verified 07/30/19 11:29) nausea, GI upset morphine Adverse Reaction (Verified 07/30/19 11:29) nausea, GI upset narcotics Adverse Reaction (Uncoded 07/25/19 06:17) nausea, GI upset - Discharge Instructions Discharge Instructions:: [facility] Nourishment:: Heart Healthy Diet, Low Sodium Diet - Follow up Plan Referrals: [facility], [facility] [Other] (Inpatient rehab admit.) [facility] [Outside] (Currently receiving home health services.) Sony Gomes MD [Primary Care Provider] - 14 Days Lisa Oropeza MD [Active] - (Accepting pcp at [facility]) Disposition: HOME Quality - Care Measures CORE MEASURES:: HF - Stroke/TIA Did you prescribe antithrombotic therapy?: Yes Did you prescribe anticoagulant for A Fib/Flutter?: No Specify reason for no DC anticoagulant: Treatment not indicated Did you prescribe a statin medication?: Yes
--- NOTE | 2020-05-04 16:37 | PRG ---
DATE OF SERVICE: 05/04/2020 SUBJECTIVE: The patient was seen and noted with the following vital signs. OBJECTIVE: VITAL SIGNS: Afebrile, temperature 98.6, pulse , respiratory rate of 18, O2 saturation of 92%, with blood pressure 102/49. HEENT: Unremarkable. CARDIOVASCULAR SYSTEM: First and second heart sounds were heard. RESPIRATORY SYSTEM: Clear to auscultation. DIGESTIVE SYSTEM: Revealed a benign abdomen with positive bowel sounds. EXTREMITIES: No peripheral edema. SKIN: IMPRESSION: 1. Advanced chronic kidney disease stage 4. 2. Respiratory distress in the context of pleural effusion. 3. Anemia of chronic kidney disease. PLAN: 1. Continue current renal supportive measures. 2. Erythropoiesis stimulating agent as an outpatient. 3. Further management to be dependent on the clinical course. Job ID: [id number]
--- NOTE | 2020-05-06 15:37 | EKG ---
Test Reason : Blood Pressure : / mmHG Vent. Rate : 083 BPM Atrial Rate : 083 BPM P-R Int : 264 ms QRS Dur : 122 ms QT Int : 342 ms P-R-T Axes : 067 -87 092 degrees QTc Int : 401 ms Sinus rhythm with 1st degree A-V block with Premature atrial complexes Left axis deviation Septal infarct , age undetermined Abnormal ECG Confirmed by DEION CRUZ M.D. ([id number]), brands editor ISA MULLEN ([id number]) on 05/06/2020 3:37:28 PM Referred By: Confirmed By:DEION CRUZ M.D.
== END 2020-05-04 15:24 | DRG 291 ==
LOC: ERS 09:01 → 2NO 12:31
PROVIDERS: ADMIT Internal Medicine; ATTEND Internal Medicine
DX: I13.0 Hypertensive heart and chronic kidney disease with heart failure and stage 1 through stage 4 chronic kidney disease, or unspecified chronic kidney disease (principal); I50.33 Acute on chronic diastolic (congestive) heart failure; I33.0 Acute and subacute infective endocarditis; J96.01 Acute respiratory failure with hypoxia; N18.4 Chronic kidney disease, stage 4 (severe); N17.9 Acute kidney failure, unspecified; Z20.828 Contact with and (suspected) exposure to other viral communicable diseases; E87.6 Hypokalemia; M06.9 Rheumatoid arthritis, unspecified; T37.8X5A Adverse effect of other specified systemic anti-infectives and antiparasitics, initial encounter; I45.81 Long QT syndrome; E78.5 Hyperlipidemia, unspecified; E78.00 Pure hypercholesterolemia, unspecified; M19.90 Unspecified osteoarthritis, unspecified site; I73.00 Raynaud's syndrome without gangrene; M35.00 Sjogren syndrome, unspecified; D63.1 Anemia in chronic kidney disease; I25.5 Ischemic cardiomyopathy; B95.61 Methicillin susceptible Staphylococcus aureus infection as the cause of diseases classified elsewhere; I08.1 Rheumatic disorders of both mitral and tricuspid valves; I25.10 Atherosclerotic heart disease of native coronary artery without angina pectoris; D75.89 Other specified diseases of blood and blood-forming organs; I49.8 Other specified cardiac arrhythmias; E83.42 Hypomagnesemia; Z95.5 Presence of coronary angioplasty implant and graft; Z95.1 Presence of aortocoronary bypass graft; Z88.5 Allergy status to narcotic agent; Z90.710 Acquired absence of both cervix and uterus; Z79.82 Long term (current) use of aspirin; Z79.52 Long term (current) use of systemic steroids; Z79.899 Other long term (current) drug therapy; D50.8 Other iron deficiency anemias; D69.59 Other secondary thrombocytopenia
CPT/HCPCS: 0240U; 36415; 71045; 71046; 71250; 80048; 80053; 80061; 80069; 81001; 82550; 82553; 82728; 83540; 83550; 83605; 83735; 83880; 83970; 84100; 84484; 85025; 85046; 85379; 85610; 85730; 87040; 93005; 93010; 94760; 96374; 96375; J0690; J1100; J1644; J1940; J3475; J7050; J7512; Q5105

== ENCOUNTER 2020-10-24 12:00 | Outpatient (CLI) | payer MEDICARE | END 2020-10-24 12:01 | disposition home or self-care (01) | LOC: SCSMRI 12:00 | PROVIDERS: ATTEND Nurse Practitioner Family | DX: M47.22 Other spondylosis with radiculopathy, cervical region (principal) | CPT/HCPCS: 72141 ==

== ENCOUNTER 2021-02-09 09:04 | Outpatient (CLI) | payer MEDICARE | END 2021-02-09 09:05 | disposition home or self-care (01) | LOC: BICMAMMO 09:04 | PROVIDERS: ATTEND Internal Medicine | DX: Z12.31 Encounter for screening mammogram for malignant neoplasm of breast (principal); Z80.3 Family history of malignant neoplasm of breast; Z91.89 Other specified personal risk factors, not elsewhere classified | CPT/HCPCS: 77063; 77067 ==

== ENCOUNTER 2021-05-14 10:02 | Outpatient (CLI) | payer MEDICARE | END 2021-05-14 10:03 | disposition home or self-care (01) | LOC: BICMAMMO 10:02 | PROVIDERS: ATTEND Internal Medicine Rheumatology | DX: M81.0 Age-related osteoporosis without current pathological fracture (principal); M85.852 Other specified disorders of bone density and structure, left thigh; M85.851 Other specified disorders of bone density and structure, right thigh | CPT/HCPCS: 77080 ==